=== PATIENT | female | born 1950 | race Caucasian/White ===

== ENCOUNTER 2024-09-18 11:17 | Outpatient (OUT) | payer MEDICARE, SELFPAY ==
--- NOTE | 2024-09-18 | NM_ITS ---
Patient Name: DARRIUS RAMOS MR#: [id number] : 1950 Exam Date: 09/18/2024 Ordering Doctor: Non-Staff Physician RADIOLOGY REPORT PROCEDURE: NM CRIS PERF SPECT REST STR COMPARISON: None. INDICATIONS: CHEST PAIN TECHNIQUE: Exam Description: Stress/Rest one day protocol gated SPECT Rest Imagin.8 mCi Tc-99m Cardiolite IV on 09/18/24 Stress Imaging 29.7 mCi Tc-99m Cardiolite IV on 09/18/24 Exercise Protocol: 0.4 mg Lexiscan given IV Heart Rate (bpm): Rest: 85 Max: 109 PMHR: 73 Blood Pressure: Rest: 112/80 Max: 120/82 Symptoms: Rest and peak stress ECG findings were pending and the exercise portion of the study was pending per attending physician Dr. BYRNE . For more details please see separate cardiac stress test report. FINDINGS: QUALITY OF STUDY: Good. PERFUSION DEFECT: LOCATION: Mid-anterior. Apical anterior. SIZE: Small (1-2 segments). SEVERITY: Mild. TYPE: Reversible. WALL MOTION: Normal. LV SIZE: Normal. 61 mL. TID / TCD: None; 0.6 LVEF: Normal. Calculated EF 72%. SUMMARY: Myocardial perfusion imaging study has ABNORMAL findings. CONCLUSION: 1. Small area of mildly decreased uptake in the anterior wall, LAD distribution with redistribution on rest images. This finding is suspicious for an area of reversible ischemia. Consider further evaluation 2. Pending exercise test result Dictated by: Malik Harrison MD on 09/19/2024 at 13:01 Approved by: Malik Harrison MD on 09/19/2024 at 13:03
--- NOTE | 2024-09-18 | PCN_ITS ---
CARDIAC STRESS TEST Requesting Physician: Dr. Shoemaker Procedure Date: 09/18/2024 LEXISCAN STRESS TEST INDICATION: Chest pressure and pre-surgical clearance. Patient?s resting heart rate 85 beats per minute and resting blood pressure 112/80 mm/Hg. Patient received 0.4 mg IV Lexiscan injection. Patient did not report any symptoms. Patient?s vital signs and EKG were monitored. Peak heart rate 109 beats per minute, representing 73% of age predicted maximum heart rate, and peak blood pressure 120/82 mm/Hg. Baseline EKG showed normal sinus rhythm, heart rate 83 beats per minute, normal EKG. EKG did not show any significant T or ST changes during and post Lexiscan injection. Few isolated PVCs were noted and were asymptomatic. CONCLUSION: 1. Negative Lexiscan EKG stress test for ischemia. 2. The nuclear perfusion images result will be reported separately by Radiology. [facility]OC
[2024-09-18] MEDS: REGADENOSON 0.4 MG/5 ML SYRINGE IV (12:50)
--- NOTE | 2024-09-18 12:51 | PC.NURSE ---
Nursing Note Cardiac Stress Test Reviewed: Medication, allergies and patient history reviewed. Stress Test: [ x] Patient tolerated stress test well. [ ] Patient unable to tolerate walking on treadmill. Switched to Lexiscan stress test. [ x] No chest pain noted per patient [ ] Chest pain that resolved prior to leaving stress lab. [ x] No dyspnea noted. [ ] Dyspnea that resolved prior to leaving stress lab. [x ] Patient left stress lab asymptomatic and hemodynamically stable. [ ] Patient taken to the Emergency Room due to non-resolving symptoms following stress test. [ ] Patient achieved target heart rate. [ ] Patient unable to achieve target heart rate. [ ] Aminophylline administered as reversal agent to Lexiscan (Regadenoson). [ ] Nitro administered. Nursing Comments:
== END 2024-09-18 11:18 | disposition home or self-care (01) ==
LOC: NM 11:17
PROVIDERS: PCP Family Medicine
DX: R07.89 Other chest pain (principal)
CPT/HCPCS: 78452; 93017; A9500; J2785

== ENCOUNTER 2025-01-31 11:59 | Emergency (ER) | payer MEDICARE, SELFPAY ==
--- OUTSIDE RECORDS SUMMARY | 2025-01-31 12:11 | XMS_ITS | CCD ---
Author Organization [facility] Care Team Providers Care Fur Liner Name Role Phone Virgie Mckenzie Unavailable Marina Moon Primary Care Provider [phone] MARINA MOON Primary Care Unavailable DENISSE LAMB Admitting Unavailable DENISSE ALMB Attending Unavailable TAMIR ALI F Mary Referring Unavailable MARINA MOON Primary Care Unavailable MARINA MOON Referring Unavailable MARINA MOON Primary Care Unavailable TAMIR ALI F O Referring Unavailable Unavailable Unavailable RUCKER ., SALENA Consulting Unavailable SARAI, DR GRAY Primary Care Unavailable CAMACHO ., DR VANDA Romero Attending Unavailable CAMACHO ., DR VANDA Romero Admitting Unavailable RUCKER ., SALENA Consulting Unavailable SARAI, DR GRAY Primary Care Unavailable CAMACHO ., DR VANDA Romero Attending Unavailable CAMACHO ., DR VANDA Romero Admitting Unavailable RUCKER ., SALENA Consulting Unavailable SARAI, DR GRAY Primary Care Unavailable CAMACHO ., DR VANDA Romero Attending Unavailable CAMACHO ., DR VANDA Romero Admitting Unavailable LAKSHMIPATHY ., NARJORGE Consulting Eliz vailable SARAI, DR GRAY Primary Care Unavailable LAKSHMIPATHY ., LARRY Attending Eliz vailable LAKSHMIPATHY ., LARRY Admitting Eliz vailable CAMACHO ., DR VANDA Romero Consulting Unavailable SARAI, DR GRAY Primary Care Unavailable CAMACHO ., DR VANDA Romero Attending Unavailable CAMACHO ., DR VANDA Romero Admitting Unavailable CAMACHO ., DR VANDA Romero Consulting Unavailable SARAI, DR GRAY Primary Care Unavailable CAMACHO ., DR VANDA Romero Attending Unavailable CAMACHO ., DR VANDA Romero Admitting Unavailable SARAI, DR GRAY Consulting Unavailable SARAI, DR GRAY Primary Care Unavailable CAMACHO ., DR VANDA Romero Attending Unavailable CAMACHO ., DR VANDA Romero Admitting Unavailable CAMACHO ., DR VANDA Romero Consulting Unavailable RUCKER ., SALENA Consulting Unavailable WEST, DR HIREN Storey Consulting Unavailable SARAI, DR GRAY Primary Care Unavailable RUCKER ., SALENA Attending Unavailable RUCKER ., SALENA Admitting Unavailable RUCKER ., SALENA Consulting Unavailable SARAI, DR GRAY Consulting Unavailable SARAI, DR GRAY Primary Care Unavailable SARAI, DR GRAY Attending Unavailable SARAI, DR GRAY Admitting Unavailable ZIEBER, DR DENISSE Castro Consulting Unavailable AUXIER, CARLA Consulting Unavailable SARAI, DR GRAY Primary Care Unavailable AUXIER, CARLA Attending Unavailable AUXIER, CARLA Admitting Unavailable SARAI, DR GRAY Primary Care Unavailable CAMACHO ., DR VANDA Romero Attending Unavailable CAMACHO ., DR VANDA Romero Admitting Unavailable Dwight , [facility] Unavailab loan Moon MD, Marina Ugalde Consulting Unavailab loan Dsouza MD, Benton Katz Attending Antione Dsouza MD, Benton Katz Attending Antione Moon MD, [facility] Unavailab loan Moon MD, [facility] Unavailab loan Dsouza MD, Benton Katz Attending Antione Moon MD, [facility] Unavailab loan Moon MD, Marina Ugalde Consulting Unavailab [place] MASTER CONTROL SUPERVISOR-COMMUNICATIONS MEDIA PROFESSOR, Carla Upton Attending Ronald Moon MD, Marina [facility] Unav[place] [place] MASTER CONTROL SUPERVISOR-COMMUNICATIONS MEDIA PROFESSOR, Carla Upton Attending Ronald Moon MD, [facility] Unav[facility] [place] MASTER CONTROL SUPERVISOR-COMMUNICATIONS MEDIA PROFESSOR, Carla Upton Attending Ronald Moon MD, [facility] Un[place] MASTER CONTROL SUPERVISOR-COMMUNICATIONS MEDIA PROFESSOR, Carla Upton Attending Ronald Dsouza MD, Benton Katz Attending Antione Moon MD, [facility] Marina Murphy Primary Care Provider SHABANA Fuentes Attending Provider Fabby Pandya Unavailable Marina Moon MD Unavailable Marina Moon MD Primary Care Provider MD Marina Moon Primary Care Provider SHABANA Fuentes Attending Provider MD Manjeet Coombs Attending Provider MD Marina Moon Primary Care Provider MD Marina Moon Primary Care Provider MD Manjeet Coombs Attending Provider [phone] MD Marina Moon Primary Care Provider MD Manjeet Coombs Attending Provider MD Marina Moon Primary Care Provider MD Manjeet Coombs Attending Provider Marina Moon MD Primary Care Provider Marina Moon MD Primary Care Provider [phone] Manjeet Coombs MD Attending Provider [phone] Marina Moon MD Primary Care Provider Manjeet Coombs MD Attending Provider Abi FIGUEROA, Carla Unavailable [phone] MARINA MOON Primary Care Physician Vicky Dye Referring Unavailable Vicky Dye Attending Unavailable Vicky Dye Admitting Unavailable MARINA MOON Attending Unavailable VICKY DYE Attending Unavailable VICKY DYE Referring Unavailable MARINA MOON Attending Unavailable MARINA MOON Attending Unavailable MARIANA PATEL Attending Unavailable VITO LEGER Attending Unavailable VITO LEGER Referring Unavailable LIZ BRYAN Attending Unavailabl e MARINA MOON Attending Unavailable MARINA MOON Attending Unavailable VICKY DYE Attending Unavailable VITO LEGER Referring Unavailable VICKY DYE Referring Unavailable SaraiMarina felix MD Primary Care Provider [phone] Jerman Becerra DO Attending Provider [phone] Malvin, Manjeet S Admitting Unavailable Dwight, Rugen M Primary Care Unavailable Malvin, Manjeet S Attending Unavailable Malvin, Manjeet S Attending Unavailable Malvin, Manjeet S Admitting Unavailable Sarai, Rugen M Primary Care Unavailable Malvin, Manjeet S Admitting Unavailable Dwight, Rugen M Primary Care Unavailable Malvin, Manjeet S Attending Unavailable Dwight, Rugen M Primary Care Unavailable Jerman Becerra Admitting Unavailable Jerman Becerra Attending Unavailable Malvin, Manjeet S Attending Unavailable Sarai, Rugen M Primary Care Unavailable Malvin, Manjeet S Admitting Unavailable Malvin, Manjeet S Attending Unavailable Dwight, Rugen M Primary Care Unavailable Malvin, Manjeet S Admitting Unavailable Hernan, Jerman Tristan Attending Unavailable Dwight, Rugen M Primary Care Unavailable HernanJerman wilde Admitting Unavailable SHOEMAKERLACY GARY Attending Unavailable SARAI, [facility] Primary Care Unavailable SHOEMAKERLACY Attending Unavailable SARAI, RUGEN [facility] Primary Care Unavailable Dye, Vicky T Referring Unavailable Dye, Vicky T Admitting Unavailable Dye, Vicky T Attending Unavailable Dye, Vicky T Attending Unavailable Dye, Vicky T Referring Unavailable Dye, Vicky T Admitting Unavailable Dye, Vicky T Admitting Unavailable Dye, Vicky T Attending Unavailable Dye, Vicky T Referring Unavailable Allergies Allergy Classification Reported Allergen(s) Allergy Type Date of Onset Reaction(s) Facility (3 sources) Morphine Drug Allergy 7 Anaphylaxis [facility] Work Phone: (1 source) No Known Medication Allergies; Translations: [No Known Medication Allergies] Propensity to adverse reactions to drug (disorder) [facility] Repository (20 sources) Lisinopril Allergy to substance 3 Unknown [facility] [employer] Work Phone: Medications Current Medications Medication Drug Class(es) Dates Sig (Normalized) Sig (Original) acetaminophen 325 mg / HYDROcodone bitartrate 5 mg oral tablet (20 sources) Opioid Agonist Start: 01-20-2025 End: 01-25-2025 take 1 tablet by mouth every six hours for pain HYDROcodone-acetamin ophen (Gilliam) 5-325 MG tablet Indications: Osteoarthritis of spine with radiculopathy, lumbosacral region Take 1 tablet by mouth every 6 (six) hours if needed for severe pain for up to 5 days 20 tablet 01/20/2025 01/25/2025 Active Start: 12-16-2024 End: 01-11-2025 take 1 tablet by mouth every six hours for pain HYDROcodone-acetaminophen (Gilliam) 5-325 MG tablet Indications: Osteoarthritis of spine with radiculopathy, lumbosacral region Take 1 tablet by mouth every 6 (six) hours if needed for severe pain for up to 5 days 20 tablet 01/06/2025 01/11/2025 Active Start: 10-30-2024 take 1 tablet by michael th once daily Hydrocodone-Acetaminophen 5-325 mg table t Active 1 TAB PO Daily October 30, 2024 12:00am Start: 10-21-2024 End: 10-31-2024 take 1 tablet by mouth every six hours for pain HYDROcodone-acetaminophen (Gilliam) 5-325 MG tablet Indications: Narrowing of intervertebral disc space Take 1 tablet by mouth every 6 (six) hours if needed for severe pain for up to 10 days 40 tablet 10/21/2024 10/31/2024 Active Start: 08-26-2024 End: 09-02-2024 take 1 tablet by mouth every six hours for pain HYDROcodone-acetaminophen (Gilliam) 5-325 MG tablet Indications: Neck pain , Sciatica of right side Take 1 tablet by mouth every 6 (six) hours if needed for severe pain for up to 7 days 28 tablet 08/26/2024 09/02/2024 Active Start: 12-28-2023 End: 01-07-2024 take 1 tablet by mouth every six hours for pain HYDROcodone-acetaminophen (Gilliam) 5-325 MG tablet Indications: Fibromyalgia Take 1 tablet by mouth every 6 (six) hours if needed for moderate pain for up to 10 days 40 tablet 0 12/28/2023 01/07/2024 Active Start: 02-15-2021 HYDROcodone-ac etaminophen (NORCO) 5-325 MG per tablet End: 10-21-2024 HYDROcodone-acetaminophen (N orco) 5-325 MG tablet 10/21/2024 Discontinued (Reorder) 200 actuat albuterol 0.09 mg/actuat metered dose inhaler (3 sources) beta2-Adrenergic Agonist Start: 02-26-2016 take 2 puff(s) by inhalation every four hours as needed for wheezing albuterol sulfate HFA (PROVENTIL HFA) 108 (90 BASE) MCG/ACT inhaler Inhale 2 puffs into the lungs every 4 hours as needed for Wheezing or Shortness of Breath 1 Inhaler 11 02/26/2016 Active amoxicillin 500 mg oral capsule (1 source) Penicillin-class Antibacterial Start: 08-05-2024 End: 08-15-2024 take 2 capsules by mouth in the morning amoxicillin (Amoxil) 500 MG capsule Indications: Chronic obstructive pulmonary disease, unspecified COPD type (CMS/HCC) Take 2 capsules (1,000 mg) by mouth in the morning and 2 capsules (1,000 mg) before bedtime. Do all this for 10 days. 40 capsule 08/05/2024 08/15/2024 Active aspirin 81 mg delayed release oral tablet (3 sources) Platelet Aggregation Inhibitor, Nonsteroidal Anti-inflammatory Drug Start: 02-24-2021 take 1 tablet by mouth once daily aspirin EC 81 MG EC tablet Indications: Ischemic chest pain (HCC) , Shortness of breath , Lightheaded , Dizziness , Mixed hyperlipidemia , Tobacco abuse , Family history of early CAD , Over weight , MARIBELL (obstructive sleep apnea) , Atrial fibrillation, unspecified type (HCC) , Chronic low back pain, unspecified back pain laterality, unspecified whether sciatica present , Essential hypertension , Abnormal EKG Take 1 tablet by mouth daily 90 tablet 1 02/24/2021 Active atorvastatin 80 mg oral tablet (20 sources) HMG-CoA Reductase Inhibitor Start: 09-04-2023 take 1 tablet by mouth once daily atorvastatin 80 mg Tab 80 mg = 1 tab(s), Oral, Daily, Refills(s) 0, High cholesterol Start Date: 01/01/25 Status: Ordered Start: 02-24-2021 atorvastatin ( LIPITOR) 20 MG tablet Indications: Ischemic chest pain (HCC) , Shortness of breath , Lightheaded , Dizziness , Mixed hyperlipidemia , Tobacco abuse , Family history of early CAD , Over weight , MARIBELL (obstructive sleep apnea) , Atrial fibrillation, unspecified type (HCC) , Chronic low back pain, unspecified back pain laterality, unspecified whether sciatica present , Essential hypertension , Abnormal EKG atorvastatin Atorvastatin Active 20 MG Oral Daily May 15, 2020 3:53pm 05-15-2020 [facility] ([id number]) 90 tablet 3 02/24/2021 Active Start: 05-15-2020 End: 01-16-2024 take 1 tablet by mouth once daily Atorvastatin 20 mg Tablet Discontinued 20 MG PO Daily May 14, 2020 11:00pm January 16, 2024 10:38am benazepril hydrochloride 20 mg oral tablet (3 sources) Angiotensin Converting Enzyme Inhibitor Start: 03-22-2017 take 1 tablet by mouth once daily benazepril (LOTENSIN) 20 MG tablet Indications: Essential hypertension TAKE ONE TABLET BY MOUTH ONCE DAILY 90 tablet 1 03/22/2017 Active benzonatate 200 mg oral capsule (20 sources) Non-narcotic Antitussive Start: 08-14-2024 take 1 capsule by mouth once daily at bedtime as needed for cough Benzonatate 200 mg capsule Active 200 MG PO Daily at bedtime as needed for cough January 08, 2025 12:00am Start: 06-06-2024 take 1 capsule by mo uth three times daily as needed for cough benzonatate (Tessalon) 100 MG capsule Indications: Cough, unspecified type TAKE 1 CAPSULE BY MOUTH 3 TIMES DAILY NEEDED FOR COUGH FOR UP TO 21 DAYS. DO NOT CRUSH OR CHEW 62 capsule 1 06/06/2024 Active Start: 03-18-2024 benzonatate (T essalon) 200 MG capsule Indications: Chronic obstructive pulmonary disease, unspecified COPD type (CMS/HCC) Take one capsule nightly. Do not crush or chew. 90 capsule 3 03/18/2024 Active celecoxib 200 mg oral capsule (20 sources) Nonsteroidal Anti-inflammatory Drug Start: 01-16-2024 End: 05-09-2025 take 1 capsule by mouth once daily celecoxib 200 mg Cap 200 mg = 1 cap(s), Oral, Daily, Refills(s) 0, Pain Start Date: 01/01/25 Status: Ordered Start: 12-01-2023 take 1 capsule by mo uth once daily at mealtime celecoxib (CeleBREX) 200 MG capsule Indications: Primary osteoarthritis, unspecified site TAKE 1 CAPSULE BY MOUTH ONCE DAILY WITH FOOD FOR 90 DAYS 90 capsule 0 12/01/2023 Active Start: 12-21-2017 End: 05-18-2021 take 1 capsule by mouth once daily Celecoxib (Celebrex) 200 mg Capsule Discontinued 200 MG PO Daily May 14, 2020 11:00pm May 18, 2021 12:46pm cloNIDine hydrochloride 0.2 mg oral tablet (20 sources) Central alpha-2 Adrenergic Agonist Start: 01-13-2025 take 1 tablet by mouth once daily in the morning cloNIDine (Catapres) 0.2 MG tablet Indications: Primary insomnia TAKE 1 TABLET BY MOUTH DAILY IN THE MORNING 100 tablet 3 01/13/2025 Active Start: 12-28-2023 take 1 tablet by michael twice daily cloNIDine 0.2 mg Tab 0.2 mg = 1 tab(s), Oral, BID, Refills(s) 0, High blood pressure Start Date: 01/01/25 Status: Ordered Start: 12-11-2020 End: 12-28-2023 take 1 tablet by mouth once daily in the morning Clonidine Hcl 0.2 mg Tablet Active 0.2 MG PO Every morning May 17, 2021 11:00pm docusate sodium 100 mg oral capsule (1 source) Start: 01-22-2025 take 1 capsule by mouth twice daily Colace 100 mg Cap 100 mg = 1 cap(s), Oral, BID, # 20 cap(s), Refills(s) 0, Pharmacy: [facility] [id number], 167, cm, 01/03/25 8:54:00 EST, Height/Length Dosing, 107, kg, 01/03/25 8:54:00 EST, Weight Dosing Start Date: 01/22/25 Status: Ordered doxepin hydrochloride 10 mg oral capsule (20 sources) Tricyclic Antidepressant Start: 06-20-2022 take 1 capsule by mouth at bedtime doxepin (SINEquan) 10 MG capsule Take 10 mg by mouth at bedtime. 06/20/2022 Active Start: 02-09-2021 doxepin (SINEQ UAN) 10 MG capsule esomeprazole 40 mg delayed release oral capsule (20 sources) Proton Pump Inhibitor Start: 01-01-2025 take 1 capsule by mouth once daily esomeprazole 40 mg Cap-EC 40 mg = 1 cap(s), Oral, Daily, Refills(s) 0, Control of stomach acid Start Date: 01/01/25 Status: Ordered Start: 01-16-2024 take 1 capsule by mo [facility] once daily as needed for gastroesophageal reflux disease Esomeprazole Magnesium 20 mg capsule,delayed release(DR/EC) Active 20 MG PO Daily as needed for gerd January 16, 2024 12:00am Start: 01-16-2024 take [address] [facility] every other day Esomeprazole Magnesium 20 mg capsule,delayed release(DR/EC) Active 20 MG PO every other day January 16, 2024 12:00am Start: 08-16-2023 End: 12-28-2023 take 1 capsule by mouth once daily esomeprazole (NexIU M) [address] capsule Indications: Gastroesophageal reflux disease without esophagitis TAKE 1 CAPSULE BY MOUTH ONCE DAILY 100 capsule 3 12/28/2023 Active take [address] [facility] every twenty-four hours Esomeprazole Magnesium 20 MG 1 capsule Orally Once a day Active fluconazole 200 mg oral tablet (20 sources) Azole Antifungal Start: 07-01-2024 End: 03-10-2025 take 1 tablet by mouth every week fluconazole (Diflucan) 200 MG tablet Indications: Onychomycosis Take 1 tablet (200 mg) by mouth 1 (one) time per week 4 tablet 8 07/01/2024 03/10/2025 Active furosemide 20 mg oral tablet (20 sources) Loop Diuretic Start: 01-01-2025 take 1 tablet by mouth once daily furosemide 20 mg Tab 20 mg = 1 tab(s), Oral, Daily, Refills(s) 0, High blood pressure Start Date: 01/01/25 Status: Ordered Start: 12-28-2023 take 1 tablet by [facility] twice daily Furosemide (Lasix) 20 mg tablet Active 20 MG PO Twice daily January 13, 2025 12:00am Start: 05-15-2020 End: 01-16-2024 take 1 tablet by mouth once daily Furosemide 20 mg Tablet Discontinued 20 MG PO Daily May 14, 2020 11:00pm January 16, 2024 10:39am hydroCHLOROthiazide 25 mg / losartan potassium 100 mg oral tablet (20 sources) Thiazide Diuretic, Angiotensin 2 Receptor Manfred Start: 05-18-2021 End: 01-13-2025 take 1 tablet by mouth once daily hydrochlorothiazide-losartan 25 mg-100 mg Tab 1 tab(s), Oral, Daily, Refill(s) 0, High blood pressure Start Date: 01/01/25 Status: Ordered Start: 02-22-2021 losartan-hydro CHLOROthiazide (HYZAAR) 100-25 MG per tablet levoFLOXacin 750 mg oral tablet (3 sources) Quinolone Antimicrobial Start: 12-11-2020 levoFLOXacin (LEVAQUIN) 750 MG tablet lidocaine 0.05 mg/mg topical ointment (3 sources) Antiarrhythmic, Amide Local Anesthetic Start: 11-23-2016 lidocaine (XYLOCAINE) 5 % ointment linaclotide 0.145 mg oral capsule (20 sources) Guanylate Cyclase-C Agonist Start: 03-13-2023 Linzess 145 MCG capsule 03/13/2023 Active losartan potassium 50 mg oral tablet (20 sources) Angiotensin 2 Receptor Manfred Start: 01-06-2025 End: 07-05-2025 take 1 tablet by mouth once daily Losartan 50 mg tablet Active 50 MG PO Daily January 13, 2025 12:00am Start: 01-16-2024 End: 01-08-2025 take 1 tablet by mouth once daily Losartan 25 mg tablet Discontinued 25 MG PO Daily January 16, 2024 12:00am January 08, 2025 1:57pm metFORMIN hydrochloride 500 mg oral tablet (3 sources) Biguanide Start: 02-26-2016 take 1 tablet by mouth twice daily at mealtime metFORMIN (GLUCOPHAGE) 500 MG tablet Indications: Metabolic syndrome Take 1 tablet by mouth 2 times daily (with meals) 60 tablet 11 02/26/2016 Active 24 hr metoprolol succinate 25 mg extended release oral tablet (20 sources) beta-Adrenergic Manfred Start: 01-06-2025 End: 01-06-2026 take 1 tablet by mouth once daily Metoprolol Succinate 25 mg tablet extended release 24 hr Active 25 MG PO Daily January 13, 2025 12:00am Start: 05-15-2020 End: 05-18-2021 take 1 tablet by mouth twice daily Metoprolol Tartrate 50 mg Tablet Discontinued 50 MG PO Twice daily May 14, 2020 11:00pm May 18, 2021 12:46pm mometasone furoate 0.05 mg/actuat metered dose nasal spray (3 sources) Corticosteroid Start: 10-17-2016 take 2 spray(s) by inhalation once daily mometasone (NASONEX) 50 MCG/ACT nasal spray Indications: Seasonal allergic rhinitis, unspecified allergic rhinitis trigger 2 sprays by Nasal route daily 1 Inhaler 3 10/17/2016 Active montelukast 10 mg oral tablet (20 sources) Leukotriene Receptor Antagonist Start: 02-12-2025 take 1 tablet by mouth once daily montelukast 10 mg Tab 10 mg = 1 tab(s), Oral, Daily, Refills(s) 0, Allergy symptoms Start Date: 01/01/25 Status: Ordered Start: 04-26-2023 End: 04-25-2024 take 1 tablet by mouth once daily montelukast (Singulair) 10 MG tablet Indications: Seasonal allergic rhinitis due to other allergic trigger Take 1 tablet (10 mg) by mouth Daily 100 tablet 3 01/29/2024 Active omeprazole 40 mg delayed release oral capsule (20 sources) Proton Pump Inhibitor Start: 01-13-2025 take 1 capsule by mouth twice daily Omeprazole 40 mg capsule,delayed release(DR/EC) Active 40 MG PO Twice daily January 13, 2025 12:00am Start: 02-28-2017 End: 01-16-2024 take 1 capsule by mouth once daily Omeprazole 40 mg Capsule,Delayed Release(Dr/Ec) Discontinued 40 MG PO Daily May 14, 2020 11:00pm January 16, 2024 10:39am tiotropium 0.018 mg inhalant powder (3 sources) Anticholinergic Start: 10-29-2015 take 1 capsule by inhalation once daily tiotropium (SPIRIVA HANDIHALER) 18 MCG inhalation capsule Indications: Chronic obstructive pulmonary disease, unspecified COPD type (HCC) Inhale 1 capsule into the lungs daily 30 capsule 3 10/29/2015 Active tiZANidine 4 mg oral tablet (20 sources) Central alpha-2 Adrenergic Agonist Start: 01-01-2025 End: 01-06-2026 take 1 tablet by mouth at bedtime tiZANidine (Zanaflex) 4 MG tablet Indications: Fibromyalgia Take 1 tablet (4 mg) by mouth at bedtime 100 tablet 3 01/06/2025 01/06/2026 Active Start: 01-01-2025 take 2 tablets by mo [facility] every eight hours as needed for pain tiZANidine 4 mg Tab 8 mg = 2 tab(s), Oral, q8hr, PRN Pain, Refills(s) 0 Start Date: 01/01/25 Status: Ordered Start: 01-16-2024 take 1 tablet by michael once daily at bedtime Tizanidine 4 mg tablet Active 4 MG PO Daily at bedtime January 16, 2024 12:00am Start: 09-11-2023 End: 01-06-2026 take 1 tablet by mouth at bedtime tiZANidine (Zanaflex) 4 MG tablet Indications: Fibromyalgia Take 1 tablet (4 mg) by mouth at bedtime 100 tablet 3 01/06/2025 01/06/2026 Active triamcinolone acetonide 1 mg/ml topical cream (20 sources) Corticosteroid Start: 07-01-2024 triamcinolone (Kenalog) 0.1 % cream Indications: Yeast infection Apply topically 2 (two) times a day as needed (pain and swelling) 30 g 11 07/01/2024 Active zolpidem tartrate 12.5 mg extended release oral tablet (20 sources) gamma-Aminobutyric Acid-ergic Agonist Start: 01-16-2024 End: 02-05-2025 take 1 tablet by mouth once daily at bedtime zolpidem 12.5 mg oral ER Tab 12.5 mg = 1 tab(s), Oral, Once a day (at bedtime), Refills(s) 0, Sleep Start Date: 01/01/25 Status: Ordered Start: 11-29-2023 End: 12-28-2023 take 1 tablet by mouth at bedtime zolpidem CR (Ambien CR) 12.5 MG ER tablet Indications: Primary insomnia , Chronic fatigue Take 1 tablet (12.5 mg) by mouth at bedtime 30 tablet 0 12/28/2023 Active Completed/Discontinued Medications Medication Drug Class(es) Dates Sig (Normalized) Sig (Original) acetaminophen 325 mg / oxyCODONE hydrochloride 5 mg oral tablet (1 source) Opioid Agonist Start: 01-22-2025 Percocet 5 mg-325 mg oral tablet See Instructions, 50 tab(s), Refill(s) 0, Take one to two oral every 4 hours as needed for surgical pain., [facility] 0298, 167, cm, 01/03/25 8:54:00 EST, Height/Length Dosing, 107, kg, 01/03/25 8:54:00 EST, Weight Dosing Start Date: 01/22/25 Status: Ordered amLODIPine 10 mg oral tablet (20 sources) Dihydropyridine Calcium Channel Manferd Start: 03-14-2017 End: 05-18-2021 take 1 tablet by mouth once daily Amlodipine 10 mg Tablet Discontinued 10 MG PO Daily May 14, 2020 11:00pm May 18, 2021 12:45pm rivaroxaban 20 mg oral tablet (20 sources) Factor Xa Inhibitor Start: 05-15-2020 End: 01-16-2024 take 1 tablet by mouth once daily Rivaroxaban (Xarelto) 20 mg Tablet Discontinued 20 MG PO Daily May 14, 2020 11:00pm January 16, 2024 10:39am traZODone hydrochloride 50 mg oral tablet (20 sources) Serotonin Reuptake Inhibitor Start: 05-15-2020 End: 05-18-2021 take 2 tablets by mouth once daily at bedtime Trazodone 50 mg Tablet Discontinued 100 MG PO Daily at bedtime May 14, 2020 11:00pm May 18, 2021 12:46pm Start: 05-15-2020 End: 05-18-2021 take 100 mg by mouth once daily at bedtime Trazodone Discontinued 100 MG PO Daily at bedtime May 14, 2020 11:00pm May 18, 2021 12:46pm Problems Active Problems Problem Classification Problem Date Documented Date Episodic/Chronic Aortic; peripheral; and visceral artery aneurysms (20 sources) Aortic root dilatation; Translations: [Thoracic aortic ectasia] Onset: 4 08-26-2024 Chronic Cardiac dysrhythmias (20 sources) Atrial fibrillation; Translations: [Persistent atrial fibrillation] Onset: 3 12-28-2023 Chronic Chronic kidney disease (20 sources) Chronic kidney disease stage 3A ; Translations: [Stage 3a chronic kidney disease (HCC)] Onset: 3 04-25-2023 Chronic Chronic kidney disease (2 sources) Chronic kidney disease; Translations: [Chronic kidney disease, stage 3a (Multi)] Onset: 4 Chronic obstructive pulmonary disease and bronchiectasis (20 sources) Chronic obstructive lung disease; Translations: [Chronic obstructive pulmonary disease, unspecified] Onset: 2 10-10-2012 Chronic Conditions associated with dizziness or vertigo (4 sources) Dizziness; Translations: [Lightheadedness] Episodic Congestive heart failure; nonhypertensive (20 sources) Acute congestive heart failure; Translations: [Heart failure, unspecified] Onset: 3 04-25-2023 Chronic Coronary atherosclerosis and other heart disease (2 sources) Ischemic chest pain; Translations: [Ischemic chest pain (HCC)] Episodic Disorders of lipid metabolism (20 sources) Mixed hyperlipidemia; Translations: [Dyslipidemia] Onset: 2 06-07-2012 Chronic Esophageal disorders (20 sources) Gastroesophageal reflux disease without esophagitis; Translations: [Gastro-esophageal reflux disease without esophagitis] Onset: 3 12-28-2023 Chronic Essential hypertension (20 sources) Essential hypertension; Translations: [Hypertensive disorder] Onset: 2 06-07-2012 Chronic Heart valve disorders (7 sources) Mitral valve regurgitation; Translations: [Nonrheumatic mitral (valve) insufficiency] Onset: 5 01-06-2025 Chronic Immunizations and screening for infectious disease (3 sources) Encounter for immunization; Translations: [Encounter For Immunization] Onset: 1 Episodic Malaise and fatigue (20 sources) Fatigue; Translations: [Chronic fatigue, unspecified] Onset: 3 12-28-2023 Chronic Menopausal disorders (20 sources) Decreased estrogen level; Translations: [Other primary ovarian failure] Onset: 3 04-25-2023 Chronic Miscellaneous mental health disorders (20 sources) Primary insomnia; Translations: [Primary insomnia] Onset: 3 12-28-2023 Chronic Osteoarthritis (20 sources) Osteoarthritis; Translations: [Degenerative joint disease involving multiple joints] Onset: 8 Resolved: 5 08-19-2015 Chronic Other and ill-defined heart disease (2 sources) Diastolic dysfunction; Translations: [Other ill-defined heart diseases] Onset: 5 01-06-2025 Chronic Other and ill-defined heart disease (2 sources) Other ill-defined heart diseases; Translations: [Other ill-defined heart diseases] Onset: 5 Chronic Other connective tissue disease (1 source) Other muscle spasm; Translations: [OTHER MUSCLE SPASM] Onset: 3 Episodic Other liver diseases (20 sources) Steatosis of liver; Translations: [Fatty (change of) liver, not elsewhere classified] Onset: 3 04-25-2023 Chronic Other lower respiratory disease (5 sources) Dyspnea; Translations: [Shortness of breath] Onset: 5 01-06-2025 Episodic Other lower respiratory disease (2 sources) History of chronic obstructive airway disease 01-02-2025 Episodic Other lower respiratory disease (2 sources) Shortness of breath; Translations: [Shortness of breath] Onset: 5 Episodic Other nervous system disorders (3 sources) Chronic pain due to injury; Translations: [Chronic pain due to trauma] Onset: 7 03-23-2017 Chronic Other nervous system disorders (20 sources) Other chronic pain; Translations: [Other chronic pain] Onset: 2 01-16-2024 Chronic Other nervous system disorders (20 sources) Chronic pain; Translations: [Other chronic pain] 01-16-2024 Chronic Other nutritional; endocrine; and metabolic disorders (2 sources) Overweight; Translations: [Over weight] Chronic Other nutritional; endocrine; and metabolic disorders (3 sources) Metabolic syndrome X; Translations: [Metabolic syndrome] Onset: 6 06-21-2016 Chronic Other nutritional; endocrine; and metabolic disorders (2 sources) Severe obesity; Translations: [Morbid (severe) obesity due to excess calories] Chronic Other nutritional; endocrine; and metabolic disorders (20 sources) Obesity; Translations: [Obesity, unspecified] Onset: 4 01-16-2024 Chronic Other nutritional; endocrine; and metabolic disorders (12 sources) Obesity caused by energy imbalance; Translations: [Morbid (severe) obesity due to excess calories] Onset: 4 12-16-2024 Chronic Other nutritional; endocrine; and metabolic disorders (13 sources) Body mass index 30+ - obesity; Translations: [Body mass index (BMI) 36.0-36.9, adult] Onset: 5 12-16-2024 Chronic Other nutritional; endocrine; and metabolic disorders (2 sources) Body mass index (BMI) 38.0-38.9, adult; Translations: [Body mass index (BMI) 38.0-38.9, adult] Onset: 5 Chronic Other screening for suspected conditions (not mental disorders or infectious disease) (20 sources) Standard chest X-ray abnormal; Translations: [Abnormal findings on diagnostic imaging of other specified body structures] Onset: 3 04-25-2023 Chronic Other screening for suspected conditions (not mental disorders or infectious disease) (6 sources) Electrocardiogram abnormal; Translations: [Myocardial perfusion - finding] Onset: 5 01-06-2025 Episodic Other upper respiratory disease (20 sources) Seasonal allergic rhinitis; Translations: [Other seasonal allergic rhinitis] Onset: 6 10-17-2016 Chronic Pulmonary heart disease (12 sources) Secondary pulmonary hypertension; Translations: [Other secondary pulmonary hypertension] Onset: 5 12-16-2024 Chronic Residual codes; unclassified (5 sources) Tobacco user; Translations: [Tobacco abuse] Onset: 2 06-07-2012 Chronic Residual codes; unclassified (2 sources) Obstructive sleep apnea syndrome; Translations: [MARIBELL (obstructive sleep apnea)] Chronic Residual codes; unclassified (2 sources) FH: premature coronary heart disease; Translations: [Family history of early CAD] Episodic Residual codes; unclassified (2 sources) Chronic back pain 01-02-2025 Episodic Residual codes; unclassified (2 sources) Tobacco user 01-02-2025 Episodic Residual codes; unclassified (1 source) Preoperative state 01-06-2025 Episodic Spondylosis; intervertebral disc disorders; other back problems (20 sources) Spondylosis without myelopathy or radiculopathy, lumbosacral region; Translations: [Other spondylosis with radiculopathy, lumbar region] Onset: 2 Chronic Substance-related disorders (20 sources) Smoker; Translations: [Nicotine dependence, unspecified, uncomplicated] Onset: 3 04-25-2023 Chronic Comment on above: Added secondary to d ocumentation in Social History. Unclassified (3 sources) Cyst ; Translations: [Cyst] Onset: 2 10-23-2012 Unclassified (3 sources) Ear sensations - finding; Translations: [Sensation of fullness in left ear] Onset: 2 08-20-2012 Unclassified (4 sources) LOW BACK PAIN, UNSPECIFIED; Translations: [LOW BACK PAIN, UNSPECIFIED] Onset: 2 Past or Other Problems Problem Classification Problem Date Documented Da te Episodic/Chronic Abdominal pain (5 sources) Left lower quadrant pain; Translations: [Unspecified abdominal pain] Onset: 04-07-2022 Episodic Biliary tract disease (20 sources) Gallstone; Translations: [Calculus of gallbladder without cholecystitis without obstruction] Onset: 06-09-2008 04-25-2023 Episodic Mood disorders (20 sources) Mood disorders Onset: 08-01-2023 08-01-2023 Nonspecific chest pain (6 sources) Chest discomfort; Translations: [Other chest pain] Onset: 07-11-2024 07-11-2024 Episodic Other connective tissue disease (20 sources) Fibromyalgia; Translations: [Fibromyalgia] Onset: 04-25-2023 12-28-2023 Episodic Other connective tissue disease (20 sources) Swelling of lower limb; Translations: [Other specified soft tissue disorders] Onset: 04-25-2023 04-25-2023 Episodic Other gastrointestinal disorders (1 source) Constipation, unspecified; Translations: [CONSTIPATION UNSPECIFIED] Onset: 04-13-2022 Episodic Other gastrointestinal disorders (1 source) Other fecal abnormalities; Translations: [OTHER FECAL ABNORMALITIES] Onset: 04-13-2022 Episodic Other gastrointestinal disorders (20 sources) Constipation; Translations: [Constipation, unspecified] Onset: 04-25-2023 04-25-2023 Episodic Other gastrointestinal disorders (20 sources) Stool DNA-based colorectal cancer screening positive; Translations: [Other fecal abnormalities] Onset: 04-25-2023 04-25-2023 Episodic Other liver diseases (20 sources) Liver enzymes abnormal; Translations: [Abnormal levels of other serum enzymes] Onset: 04-25-2023 04-25-2023 Episodic Other liver diseases (20 sources) Large liver; Translations: [Hepatomegaly, not elsewhere classified] Onset: 04-25-2023 04-25-2023 Episodic Other non-traumatic joint disorders (1 source) Pain in right knee; Translations: [PAIN IN RIGHT KNEE] Onset: 06-21-2022 Episodic Other non-traumatic joint disorders (4 sources) Pain in right hip; Translations: [PAIN IN RIGHT HIP] Onset: 04-27-2022 Episodic Other non-traumatic joint disorders (20 sources) Pain in right shoulder; Translations: [Right shoulder pain] Onset: 02-12-2024 02-12-2024 Episodic Residual codes; unclassified (3 sources) Noncompliance with treatment; Translations: [Noncompliance] Onset: 08-20-2012 08-20-2012 Episodic Residual codes; unclassified (20 sources) Electronic cigarette user; Translations: [Other specified health status] Onset: 06-09-2008 06-08-2023 Episodic Spondylosis; intervertebral disc disorders; other back problems (20 sources) Chronic low back pain; Translations: [Intervertebral disc disorders with radiculopathy, lumbar region] Onset: 06-09-2008 Episodic Unclassified (1 source) LOW BACK PAIN, UNSPECIFIED; Translations: [LOW BACK PAIN, UNSPECIFIED] Onset: 03-28-2022 Unclassified (2 sources) Onset: 07-11-2024 07-11-2024 Results Test Name Value Interpretation Reference Range Facility Main OR Intraoperative Recor don 01-29-2025 Main OR Intraoperative Record Main OR Intraoperative Record IntraOp Document Type FT Summary Primary Physician: Vicky Dye DO Finalized Date/Time: 01/29/25 10:30:03 Pt. Name: DARRIUS LAMA/Sex: 1950 Female Med Rec #: [id number] Physician: Vicky Dye DO Financial #: [id number] Pt. Type: A Room/Bed: [place] [address] Admit/Disch: 01/27/25 06:57:51 - 01/27/25 16:40:00 Institution: Case Times FT Entry 1 Patient Times In Room 01/27/25 11:05:00 Out Room 01/27/25 13:10:00 Procedure Times Start 01/27/25 11:37:00 Stop 01/27/25 12:42:00 Anesthesia Times Start 01/27/25 11:05:00 Stop 01/27/25 13:10:00 Block Timeout w01/27/25 08:44:00 Anesthesia Last Modified By: Roddy Edwards 01/27/25 13:17:34 General Comments: 0844 PREOP BLOCK BY Page WILLIS CRNA WITH Nida GONCALVES ASSISTING. PATIENT TOLERATED WELL. HEART RATE 69, SPO2 90% ON ROOM AIR. O2 2 2L/NC APPLIED. O2 SAT INCREASED TO 97%. Yaron EDWARDS RN. 01/29/25 Chart opened to review and send charges [facility] Case Attendance FT Entry 1 Entry 2 Entry 3 Case Attendee [facility], CHEMICAL PLANT OPERATOR SUPERVISOR, Roddy Castillo Role Performed Surgeon - Primary CHEMICAL PLANT OPERATOR SUPERVISOR Sole Splitter - Primary Time In 01/27/25 11:33:00 01/27/25 11:05:00 01/27/25 11:05:00 Time Out 01/27/25 12:27:00 01/27/25 13:10:00 01/27/25 13:10:00 Procedure SHOULDER TOTAL SHOULDER TOTAL SHOULDER TOTAL ARTHROPLASTY(Right) ARTHROPLASTY(Right) ARTHROPLASTY(Right) Comments DR DARDEN SUPERVISING lunch [phone] Last Modified By: Roddy Edwards Terry T Sweene, Terry T 01/27/25 13:18:43 01/27/25 15:36:09 01/27/25 13:18:43 Entry 4 Entry 5 Entry 6 Case Attendee Rigo MITCHELL, Vito Anglin, Gabby Izquierdo Role Performed [employer] Scrub - Primary Staff - Other Time In 01/27/25 11:05:00 01/27/25 11:05:00 01/27/25 11:05:00 Time Out 01/27/25 12:30:00 01/27/25 12:30:00 01/27/25 12:30:00 Procedure SHOULDER TOTAL SHOULDER TOTAL SHOULDER TOTAL ARTHROPLASTY(Right) ARTHROPLASTY(Right) ARTHROPLASTY(Right) Comments 2ND SCRUB Last Modified By: Roddy Edwards Terry T Sweene, Terry T 01/27/25 13:18:43 01/27/25 13:18:43 01/27/25 13:18:43 Entry 7 Entry 8 Entry 9 Case Attendee Merissa RN, Christie Hutchins RN, Patricia Goncalves [employer], Landon Galindo Role Performed Staff - Other Sole Splitter - Relief [employer] Time In 01/27/25 11:05:00 01/27/25 12:25:00 01/27/25 12:25:00 Time Out 01/27/25 12:20:00 01/27/25 13:10:00 01/27/25 13:10:00 Procedure SHOULDER TOTAL SHOULDER TOTAL SHOULDER TOTAL ARTHROPLASTY(Right) ARTHROPLASTY(Right) ARTHROPLASTY(Right) Comments 3RD SCRUB Last Modified By: Roddy Edwards Terry T Sweene, Terry T 01/27/25 13:18:43 01/27/25 13:18:43 01/27/25 13:18:43 Entry 10 Case Attendee Tigist Bacon Role Performed Sole Splitter - Relief Time In 01/27/25 12:25:00 Time Out 01/27/25 13:10:00 Procedure SHOULDER TOTAL ARTHROPLASTY(Right) Comments Last Modified By: Roddy Edwards 01/27/25 13:18:43 General Comments: SHILA HOWE PRESENT FOR THIS CASEAngel IQBAL,ladle cleaner Protocols FT Pre-Care Text: Implements protective measures prior to operative or invasive procedure, confirms identity before the operative or invasive procedure, verifies operative procedure, surgical site, and laterality Entry 1 Procedure(s) SHOULDER TOTAL Patient Identity Birthday, ID Band ARTHROPLASTY(Right) Verified (select at Check, Patient least 2): Participation Consents / H and P Anesthesia Consent, Operative Site Present Verified H&P, Surgery/Procedure Marking Verified Consent Surgical Site Yes Laterality Verified Yes Verified Procedure Verified Yes Correct Patient Yes Position Verified Availability Equipment, Implant, Prep Dry n/a Verified (If Medication Applicable) PreOp Antibiotic Yes Time Out Vicky Dye DO, Given Participants Gail DNP, CHEMICAL PLANT OPERATOR SUPERVISOR, Blandon NAngel, Roddy Edwards, Rigo MITCHELL, Derrek Lobato Sydney A, Gabby Mendes, Merissa FIGUEROA, Christie Galindo Time Out Complete 01/27/25 11:33:00 Outcomes Met? Yes Last Modified By: Roddy Edwards 01/27/25 11:51:20 Post-Care Text: The patient is free from signs and symptoms of injury caused by extraneous objects Allergy Information FT Pre-Care Text: Verifies allergies Entry 1 Allergies Reviewed? Yes Allergies Reviewed Self/Patient With Outcomes Met? Yes Last Modified By: Roddy Edwards 01/27/25 11:51:27 Post-Care Text: The patient received appropriate medication(s) safely administered during the perioperative period Surgical Procedures FT Entry 1 Procedure Description Procedure SHOULDER TOTAL Modifiers Right ARTHROPLASTY Surgeon Description RIGHT REVERSE TOTAL SHOULDER ARTHROPLASTY Primary Procedure Yes Primary Surgeon Vicky Dye DO Start 01/27/25 11:37:00 Stop 01/27/25 12:42:00 Anesthesia Type General Surgical Service Orthopedics Wound Class 1 - Clean Last Modified By: Roddy Edwards 01/27/25 13:18: (more content not included)... Normal [facility] Operative Reporton Operative Report Operative Report SURGERY DATE: 01/27/2025 PREOPERATIVE DIAGNOSES: 1. Right shoulder endstage osteoarthritis 2. Chronic cuff arthropathy 3. Failure of conservative injection management POSTOPERATIVE DIAGNOSES: 1. Right shoulder endstage osteoarthritis 2. Chronic cuff arthropathy 3. Failure of conservative injection management OPERATION: 1. Right reverse total shoulder arthroplasty 2. Long head biceps tenodesis 3. Application of UltraSling ANESTHESIA: General/block combination ESTIMATED BLOOD LOSS: 100 cc SPECIMEN: Bone IMPLANTS: The Nabto Tornier Perform set. The stem was a +2 short Press-Fit, a 36+3 polyethylene. Baseplate was a 25 standard baseplate, a 36 standard glenosphere, 35 central screw, peripheral screws of 22, 34, 22, and 34 HISTORY AND INDICATIONS: Darrius is a 75-year-old female with progressive endstage osteoarthritis with cuff arthropathy. She has failed conservative injection management. She has activity of daily living and night disruption. She has grade 4 degenerative changes. She has tried physical therapy, ice, Tylenol, and several injections. X-rays were reviewed preoperatively as well as CT scan with Nabto 3D Blueprint that was correlated and utilized intraoperatively for planning as well as placement of components. Consent form signed and witnessed. PROCEDURE: Darrius was taken to the Operating Room and placed in supine position. Anesthesia was provided. The patient was placed on a [facility] beach-chair table. The shoulder and arm were prepped and draped in sterile fashion. Antibiotics were infused per protocol weight based. Once time-out was confirmed consistent with the consent form, History and Physical, preoperative marked site, an anterior deltopectoral 3 incision was made. Cephalic vein was protected. Deltopectoral groove was encountered. Blunt retractors were utilized. A large effusion was present. The capsule was delineated. Supraspinatus was chronically torn and retracted. The infraspinatus majority was torn with just a small posterior slip. The biceps tendon was partially intact. This was tenotomized and tenodesed with the pectoralis with 0 Vicryl suture. Anatomic stable fixation of the biceps was achieved. The head was dislocated and peeled, then dislocated with rotation out inferiorly. Soft tissues were protected. The cutting jig was positioned and a fresh cut was made over the head with the head being removed. Peripheral osteophytes were removed. The glenoid was exposed. The labrum and biceps stump were dissected free. Utilizing the four-prong CT-guided Blueprint that was created, it was appropriately positioned according to the CT scan and the central pin was appropriately positioned and placed. This was reamed, prepared, drilled, and measured in a 35 central standard screw. The 25 standard baseplate was appropriately positioned and rotated after copious irrigation as well as Irrisept, and this was appropriately tensioned. Peripheral screws were drilled and placed with good purchase. After copious irrigation the glenosphere was appropriately seated, tensioned, impacted, and reseated. The head was introduced inferiorly. This was sized and measured at a 2. Reaming was performed at a 2, broaching was performed up to a 2+, and trial components were placed with good position and alignment and appropriate stability with the +3 trial. Conjoint tendon and deltoid tension was appropriate. All trial components were removed. After copious irrigation the 2+ Perform humeral stem was impacted and deemed stable. The +3 polyethylene was impacted and deemed stable. It was reduced and taken through arc of motion and deemed stable. After copious irrigation 2 g of tranexamic acid was placed subfascially. The fascial layer and subcutaneous tissue were injected with 40 cc of Exparel with bupivacaine per protocol. The deltopectoral interval was closed with 0 Vicryl suture. A 3-0 Vicryl suture closed the subcutaneous tissue and a 4-0 Monocryl intracuticular suture was placed with liquid adhesive glue. An 8 Mepilex dressing with UltraSling was provided. Darrius was awakened from anesthesia and transferred to the Recovery Room in stable and satisfactory condition. CASE: Clean and elective COUNTS: Sponge and needle count correct SPECIMEN: Bone PATIENT CONDITION: Satisfactory Luis Santiago Dictated: 01/27/2025 [id number] Transcribed: 01/27/2025 [facility] Comment on above: Result Comment: Elec tronically Signed By: Vicky Dye DO\.br\Date and Time Signed: 01/29/25 14:54 EDT Operative Reporton Operative Report Operative Report SURGERY DATE: 01/27/2025 PREOPERATIVE DIAGNOSIS: Postoperative pain control requested by patient and surgeon POSTOPERATIVE DIAGNOSIS: Postoperative pain control requested by patient and surgeon OPERATION: Right interscalene block, utilizing ultrasound guidance and nerve stimulator ANESTHESIA: Local with monitored anesthesia care PROCEDURE: The patient was interviewed and examined. The anesthesia options were discussed including interscalene approach to the brachial plexus block for postoperative analgesia. The discussion included the procedure, risks, benefits, and alternatives to the procedure. The patient's questions were all answered and the patient elected to proceed with the brachial plexus nerve block for postoperative pain relief. The patient was placed on the monitors, electrocardiogram, non-invasive blood pressure machine and pulse oximetry. I.V. sedation was then administered with a total of 1 mg IV Versed. The neck was prepped with ChloraPrep and sterilely draped. The anatomy was identified by ultrasound and then under ultrasound guidance and concomitant use of a nerve stimulator, the brachial plexus was identified with a 22-gauge 50 mm needle. Loss of twitch was observed at 0.5 milliamps. After attempted aspiration for blood, air and cerebrospinal fluid, a solution of 15 mL 0.5% ropivacaine was slowly injected with frequent aspirations without signs or symptoms of either intravascular or intrathecal injection. The patient tolerated the procedure well. There were signs and symptoms of a block within minutes after completion of the procedure. The patient then proceeded to undergo general anesthesia for the proposed procedure. BEHZAD Serra Dictated: 01/27/2025 [id number] Transcribed: 01/27/2025 [facility] Comment on above: Result Comment: Elec tronically Signed By: Kun Willis CRNA\.br\Date and Time Signed: 01/28/25 07:26 EDT XR Shoulder Complete Righton 01-28-2025 XR Shoulder Complete Right Exam Date/Time: 01/27/2025 13:45 EDT Reason for Exam: Post Op Report IMPRESSION: UNREMARKABLE RECENT REVERSE TOTAL RIGHT SHOULDER ARTHROPLASTY PLACEMENT. EXAM: XR Shoulder Complete Right DATE: 01/27/2025 1:26 PM CLINICAL HISTORY: Post Op. COMPARISON: Two-view chest 01/02/2025. TECHNIQUE: Portable AP and axillary radiographs of the right shoulder were obtained. FINDINGS: A reverse total right shoulder arthroplasty is noted in expected position. There is no dislocation, periprosthetic fracture, or other findings of concern identified. Mild soft tissue emphysema is noted from recent placement. Ordering Provider: Vicky Dye FINAL REPORT Dictated: 01/28/2025 12:49 pm Nuno Philip MD Signed (Electronic Signature): 01/28/2025 12:49 pm Signed by: Nuno Philip MD Transcribed by: TOMÁS Technologist: JOSEPHINE, Sharon [facility] ABO/Rhon 01-27-2025 ABO/Rh Positive Invalid Interpretation Code [facility] Comment on above: Performed By: #### [id number] #### [facility] [address] [place] [address] ABO/Rh History Checkon 01-27 ABO/Rh History Check Verified Hx Blood Type Normal [facility] Comment on above: Performed By: #### 1 [id number] #### [facility] [address] [place] [address] ABSCon 01-27-2025 ABSC Gel Interp Negative Normal [facility] Comment on above: Performed By: #### 1 [id number] ####[facility] [id number] [place] [address] BLOOD BANKOrdered By: Carina North on 01-27-2025 ABO/Rh Interp Positive Invalid Interpretation Code [facility] BB Subsection ABSC Gel Interp Negative (01/27/25 7:36 AM) Normal [facility] BB Subsection Blood Bank ID#on 01-27-2025 BBID# [id number] Invalid Interpretation Code [facility] Comment on above: Performed By: #### 1 [id number] #### [facility] [address] [place] [address] Discharge Instructionson Discharge Instructions Discharge Instruc tions DARRIUS LAMA Maricarmen :1950 Visit Date:01/27/2025 Inpatient Discharge Instructions Your Care Team Admitting Physician - Vicky Dye DO Referring Physician - Vicky Dye DO Reason for Your Visit RIGHT SHOULDER OA Your Diagnosis Localized osteoarthritis of right shoulder Tests Performed XR Shoulder Complete Right -- Results Pending -- Please visit your patient portal for your results or contact your primary care physician. This Is Your Medications List acetaminophen-oxycodone (Percocet 5 mg-325 mg oral tablet) atorvastatin (atorvastatin 80 mg Tab) celecoxib (celecoxib 200 mg Cap) clindamycin (clindamycin 300 mg oral cap) clonidine (cloNIDine 0.2 mg Tab) docusate (Colace 100 mg Cap) esomeprazole (esomeprazole 40 mg Cap-EC) furosemide (furosemide 20 mg Tab) hydrochlorothiazide-losart an (hydrochlorothiazide-losar zhong 25 mg-100 mg Tab) montelukast (montelukast 10 mg Tab) tizanidine (tiZANidine 4 mg Tab) zolpidem (zolpidem 12.5 mg oral ER Tab) Procedure History Cholecystectomy;, Elbow, THR - Total hip replacement, THR - Total hip replacement. What to do next Instructions From Your Doctor Event Name Event Result Discharge Instructions Freetext Sling for 4 weeks. Discharge Activity Ambulate as tolerated, Arrange for a responsible adult supervision for 24 hours, Expect mild pain, Expect minimal amount of drainage and/or bleeding, Do not lift more than 5 lbs Discharge Restrictions No driving, Do not operate machinery or tools, Do not make important decisions for 24 hours, Do not drink alcoholic beverages for 24 hours Discharge Diet(s) Regular, Drink liquids and eat a light meal Call Your Doctor For Persistent or heavy bleeding, Temperature above 101.5 degrees, Redness, swelling, or pus at operative site Wound Care Remove dressing as instructed Remove Dressing On 14 Discharge Instructions Discharge Instructions New Follow Up Appointments after Discharge Follow Up with Vicky Dye When: Comments: Keep scheduled appointment Where: [address] [place] [address] [facility] (1) Medications What How Much When Why Instructions Next Dose Unchanged acetaminophen-oxycodone (Percocet 5 mg-325 mg oral tablet) See instructions Localized osteoarthritis of right shoulder Take one to two oral every 4 hours as needed for surgical pain. Pickup at [facility] Unchanged atorvastatin (atorvastatin 80 mg Tab) 1 Tablets By Mouth Every day Unchanged celecoxib (celecoxib 200 mg Cap) 1 Capsules By Mouth Every day Unchanged clindamycin (clindamycin 300 mg oral cap) 1 Capsules By Mouth Every 6 hours Duration: 5 Days Start the day after surgery Pickup at [facility] Unchanged clonidine (cloNIDine 0.2 mg Tab) 1 Tablets By Mouth 2 times a day Unchanged docusate (Colace 100 mg Cap) 1 Capsules By Mouth 2 times a day Pickup at [facility] Unchanged esomeprazole (esomeprazole 40 mg Cap-EC) 1 Capsules By Mouth Every day Unchanged furosemide (furosemide 20 mg Tab) 1 Tablets By Mouth Every day Unchanged hydrochlorothiazide-losart an (hydrochlorothiazide-losar zhong 25 mg-100 mg Tab) 1 Tablets By Mouth Every day Unchanged montelukast (montelukast 10 mg Tab) 1 Tablets By Mouth Every day Unchanged tizanidine (tiZANidine 4 mg Tab) 2 Tablets By Mouth Every 8 hours as needed for Pain Unchanged zolpidem (zolpidem 12.5 mg oral ER Tab) 1 Tablets By Mouth Once a day (at bedtime) Pharmacy Information [facility]: [address] [place], [place] [id number] [phone] Allergies No Known Allergies Education Materials How to Use an Incentive Spirometer An incentive spirometer is a tool that measures how well you are filling your lungs with each breath. Learning to take long, deep breaths using this tool can help you keep your lungs clear and active. This may help to reverse or lessen your chance of developing breathing (pulmonary) problems, especially infection. You may be asked to use a spirometer: ??? After a surgery. ??? If you have a lung problem or a history of smoking. ??? After a long period of time when you have been unable to move or be active. If the spirometer includes an indicator to show the highest number that you have reached, your health care provider or respiratory therapist will help you set a goal. Keep a log of your progress as told by your health care provider. What are the risks? Breathing too quickly may cause dizziness or cause you to pass out. Take your time so you do not get dizzy or light-headed. ??? If you are in pain, you may need to take pain medicine before doing incentive spirometry. It is harder to take a deep breath if you are having pain. How to use your incentive spirometer 1. Sit up on the edge of your bed or on a chair. 2. Hold the incentive spirometer so debra (more content not included)... Normal [facility] Comment on above: Result Comment: Elec tronically Signed By: Elidia FIGUEROA, Malini James\Date and Time Signed: 01/27/25 13:05 EDT Main OR PACU I Recordon 01-18 Main OR PACU I Record Main OR PACU I Rec ord PACU Phase I Document Type FT Summary Primary Physician: Vicky Dye DO Finalized Date/Time: 01/27/25 14:46:25 Pt. Name: GENAMARIO DARRIUSYIN Hawkins/Sex: 1950 Female Med Rec #: [id number] Physician: Vicky Dye DO Financial #: [id number] Pt. Type: A Room/Bed: [facility] Admit/Disch: 01/27/25 06:57:51 - Institution: Case Times PACU I FT Pre-Care Text: Identifies barriers to communication and implements measures to provide psychological support Develops individualized plan of care, and ensures continuity of care Maintains patient's dignity and privacy, and maintains patient confidentiality Identifies and reports philosophical, cultural, and spiritual beliefs and values Identifies individual values and wishes concerning care Implements aseptic technique, and administers prescribed antibiotic therapy and immunizing agents as ordered Evaluates postoperative tissue perfusion Implements thermoregulation measures, and monitors body temperature Evaluates postoperative respiratory status Evaluates postoperative cardiac status Evaluates postoperative neurological status Assesses pain control, collaborated in initiating patient-controlled analgesia and implements alternative methods of pain control Verifies allergies, administers prescribed medications and solutions, evaluates response to medications Entry 1 In PACU I 01/27/25 13:12:00 Discharge from PACU 01/27/25 14:35:00 I Outcomes Met? Yes Last Modified By: Rocio Burgess RN 01/27/25 14:46:14 Post-Care Text: The patient demonstrates knowledge of the expected response to the operative or invasive procedure The patient's care is consistent with the individualized perioperative plan of care The patient's right to privacy is maintained The patient's value system, lifestyle, ethnicity, and culture are considered, respected, and incorporated into the perioperative plan of care The patient participates in decisions affecting his or her perioperative plan of care The patient is free from signs and symptoms of infection The patient has wound/tissue perfusion consistent with or improved from baseline levels established preoperatively The patient is at or returning to normothermia at the conclusion of the immediate postoperative period The patient's respiratory function is consistent with or improved from baseline levels established preoperatively The patient's cardiovascular status is consistent with or improved from baseline levels established preoperatively The patient's cardiovascular status is consistent with or improved from baseline levels established preoperatively The patient demonstrates and/or reports adequate pain control throughout the perioperative period The patient received appropriate medication(s), safely administered during the perioperative period Acuity Level PACU I FT Entry 1 Start Time 01/27/25 13:12:00 Stop Time 01/27/25 14:35:00 Acuity Level Acuity Level I Last Modified By: Rocio Burgess RN 01/27/25 14:46:24 Finalized By: Rocio Burgess RN Document Signatures Signed By: Rocio Burgess RN 01/27/25 14:46 Normal [facility] Main OR PACU II Recordon Main OR PACU II Record Main OR PACU II R ecord PACU Phase II Document Type FT Summary Primary Physician: Vicky Dye DO Finalized Date/Time: 01/27/25 16:42:28 Pt. Name: GENAMARIODARRIUS/Sex: 1950 Female Med Rec #: [id number] Physician: Vicky Dye DO Financial #: [id number] Pt. Type: A Room/Bed: [place] [address] Admit/Disch: 01/27/25 06:57:51 - Institution: Case Times PACU II FT Pre-Care Text: Identifies barriers to communication and implements measures to provide psychological support and determines knowledge level Develops individualized plan of care, and ensures continuity of care Maintains patient's dignity and privacy, and maintains patient confidentiality Identifies and reports philosophical, cultural, and spiritual beliefs and values Identifies individual values and wishes concerning care administers prescribed antibiotic therapy and immunizing agents as ordered, Evaluates postoperative tissue perfusion Implements thermoregulation measures, and monitors body temperature Evaluates postoperative respiratory status Evaluates postoperative cardiac status Evaluates postoperative neurological status Assesses pain control, collaborated in initiating patient-controlled analgesia and implements alternative methods of pain control Verifies allergies, administers prescribed medications and solutions, evaluates response to medications Entry 1 In PACU II 01/27/25 14:40:00 Discharge from PACU 01/27/25 16:40:00 II Outcomes Met? Yes Last Modified By: Malini Brenner RN 01/27/25 16:42:27 Post-Care Text: The patient demonstrates knowledge of the expected response to the operative or invasive procedure The patient's care is consistent with the individualized perioperative plan of care The patient's right to privacy is maintained The patient's value system, lifestyle, ethnicity, and culture are considered, respected, and incorporated into the perioperative plan of care The patient participates in decisions affecting his or her perioperative plan of care. The patient is free from signs and symptoms of infection The patient has wound/tissue perfusion consistent with or improved from baseline levels established preoperatively The patient is at or returning to normothermia at the conclusion of the immediate postoperative period The patient's respiratory function is consistent with or improved from baseline levels established preoperatively The patient's cardiovascular status is consistent with or improved from baseline levels established preoperatively The patient's neurological status is consistent with or improved from baseline levels established preoperatively The patient demonstrates and/or reports adequate pain control throughout the perioperative period The patient received appropriate medication(s), safely administered during the perioperative period Finalized By: Malini Brenner RN Document Signatures Signed By: Malini Brenner RN 01/27/25 16:42 Normal [facility] Main OR Preoperative Recordo n 01-27-2025 Main OR Preoperative Record Main OR Preoperative Record PreOp Document Type FT Summary Primary Physician: Vicky Dye DO Finalized Date/Time: 01/27/25 11:37:22 Pt. Name: DARRIUS LAMA/Sex: 1950 Female Med Rec #: [id number] Physician: Vicky Dye DO Financial #: [id number] Pt. Type: A Room/Bed: [place] [address] Admit/Disch: 01/27/25 06:57:51 - Institution: Case Times PreOp FT Pre-Care Text: Verifies consent for planned procedure, identifies individual values and wishes concerning care, includes family members in perioperative teaching Entry 1 Patient Times. In Pre Surgery 01/27/25 07:05:00 Out Pre Surgery 01/27/25 11:03:00 Outcomes Met? Yes Last Modified By: Roddy Edwards 01/27/25 11:37:21 Post-Care Text: The patient participates in decisions affecting his or her perioperative plan of care Finalized By: Roddy Edwards Document Signatures Signed By: Roddy Edwards 01/27/25 11:37 Normal [facility] Operative Reporton Operative Report Operative Report Patient: DARRIUS LAMA Age: 75 years Sex: Female : 1950 Associated Diagnoses: None Author: Vicky Dye DO Health Status Allergies: Allergic Reactions (Selected) No Known Allergies Review / Management Results review: Lab results 01/27/2025 7:36 EDT ABO/Rh Interp O POS ABSC Gel Interp Negative . Impression and Plan Diagnosis Pre-op dx-rt shoulder oa Post-op dx-same Procedure-rt reverse tsa Anesthesia-gen block EBL-100 TT-0 To Recovery Room in stable and satisfactory condition.. Normal [facility] Comment on above: Result Comment: Elec tronically Signed By: Vicky Dye DO\.br\Date and Time Signed: 01/27/25 12:47 EDT Proceduralon 01-27-2025 Procedural Procedural Patient: DARRIUS LAMA Age: 75 years Sex: Female : 1950 Associated Diagnoses: None Author: Vito Darden MD Preoperative Information Anesthesia Preop Info: Time patient last ate or drank 01/27/2025 00:00:00. Anesthesia history: Patient history: None. Family history+: None. Informed consent: Signed by patient. Re-evaluation prior to induction: Initial evaluation reviewed: No significant change. Review of Systems Eye Ear/Nose/Mouth/Throat Respiratory: denies increased VALENTINO or cough, No shortness of breath, No wheezing. Cardiovascular: Negative, No chest pain. Gastrointestinal: No heartburn. Musculoskeletal Neurologic Health Status Allergies: Allergic Reactions (Selected) No Known Allergies, Allergies (1) Active Severity Reaction No Known Allergies None Documented Current medications: (Selected) Inpatient Medications Ordered Arixtra 2.5 mg/0.5 mL Injection: 2.5 mg = 0.5 mL, Injection, SubCutaneous, qAM for 10 day(s), Stop date 02/07/25 6:29:00 EDT, Routine, Start date 01/28/25 6:30:00 EDT, Start AM postop day 1, 01/28/25 6:30:00 EDT Dulcolax 5 mg Tab-EC: 10 mg = 2 tab(s), Tab-EC, Oral, Daily PRN Constipation, Routine, Start date 01/29/25 10:00:00 EDT HYDROmorphone 1 mg/mL injectable solution: 0.4 mg = 0.4 mL, Injection, IV Push, q4min PRN Pain for 5 dose(s), Stop date Limited # of times, Routine, Start date 01/27/25 7:00:00 EDT, 01/27/25 7:00:00 EDT HYDROmorphone 1 mg/mL injectable solution: 1 mg = 1 mL, Injection, IV Push, q2hr PRN Pain 8-10 for 5 day(s), Stop date 02/01/25 9:59:00 EDT, Routine, Start date 01/27/25 10:00:00 EDT, 01/27/25 10:00:00 EDT Lactated Ringers IV Shilpa 1000 mL 1,000 mL: 1,000 mL, IV, 80 mL/hr, Routine, Start date 01/27/25 10:00:00 EDT, 12.5 hour(s), Total volume (mL): 1,000, 107 kg, 2.23, m2 Milk of Magnesia 8% Susp-Oral: 30 mL, Susp-Oral, Oral, BID PRN Constipation, Routine, Start date 01/27/25 10:00:00 EDT Pantoprazole [address] Tab: 40 mg = 1 tab(s), Tab-DR, Oral, Daily, Routine, Start date 01/28/25 9:00:00 EDT Sodium Chloride 0.9% IV Shilpa 1000 mL 1,000 mL: 1,000 mL, IV, 150 mL/hr, Routine, Start date 01/27/25 7:00:00 EDT, 6.7 hour(s), Total volume (mL): 1,000, 107 kg, 2.23, m2 Zofran 4 mg/2 mL Injection: 4 mg = 2 mL, Injection, IV Push, q6hr PRN Nausea/Vomiting, Routine, Start date 01/27/25 10:00:00 EDT, 01/27/25 10:00:00 EDT acetaminophen-oxycodone 325 mg-5 mg Tab: 1 tab(s), Tab, Oral, q4hr PRN Pain 4-7 for 5 day(s), Stop date 02/01/25 9:59:00 EDT, Routine, Start date 01/27/25 10:00:00 EDT acetaminophen-oxycodone 325 mg-5 mg Tab: 2 tab(s), Tab, Oral, q4hr PRN Pain 4-7 for 5 day(s), Stop date 02/01/25 9:59:00 EDT, Routine, Start date 01/27/25 10:00:00 EDT cefazolin additive + Sodium Chloride 0.9% intravenous solution 50 mL: 2 gm = 1 EA, IV Piggyback, q8hr for 2 dose(s), Stop date 01/28/25 1:59:00 EDT, Routine, Start date 01/27/25 10:00:00 EDT, 100 mL/hr, Infuse over 30 minute(s), 01/27/25 10:00:00 EDT cefazolin additive + Sodium Chloride 0.9% intravenous solution 50 mL: 2 gm = 1 EA, Powder-Inj, IV Piggyback, PREOP, Routine, Start date 01/27/25 7:00:00 EDT, 100 mL/hr, Infuse over 30 minute(s) morphine 2 mg/mL Inj: 2 mg = 1 mL, Injection, IV Push, q4hr PRN Pain 8-10 for 5 day(s), Stop date 02/01/25 9:59:00 EDT, Routine, Start date 01/27/25 10:00:00 EDT promethazine additive 12.5 mg + Sodium Chloride 0.9% IV Shilpa 50 mL (INT) 50 mL: IV Piggyback, Once PRN Nausea/Vomiting, Routine, Start date 01/27/25 7:00:00 EDT, 151.5 mL/hr, Infuse over 20 minute(s), 01/27/25 7:00:00 EDT Prescriptions Prescribed Colace 100 mg Cap: 100 mg = 1 cap(s), Oral, BID, # 20 cap(s), Refills(s) 0, Pharmacy: [facility], 167, cm, 01/03/25 8:54:00 EST, Height/Length Dosing, 107, kg, 01/03/25 8:54:00 EST, Weight Dosing Percocet 5 mg-325 mg oral tablet: See Instructions, 50 tab(s), Refill(s) 0, Take one to two oral every 4 hours as needed for surgical pain., [facility], 167, cm, 01/03/25 8:54:00 EST, Height/Length Dosing, 107, kg, 01/03/25 8:54:00 EST, Weight Dosing clindamycin 300 mg oral cap: 300 mg = 1 cap(s), Oral, q6hr, Start the day after surgery, X 5 day(s), # 20 cap(s), Refills(s) 0, Pharmacy: [facility], 167, cm, 01/03/25 8:54:00 EST, Height/Length Dosing, 107, kg, 01/03/25 8:54:00 EST, Weight Dosing Documented Medications Documented atorvastatin 80 mg Tab: 80 mg = 1 tab(s), Oral, Daily, Refills(s) 0, High cholesterol celecoxib 200 mg Cap: 200 mg = 1 cap(s), Oral, Daily, Refills(s) 0, Pain cloNIDine 0.2 mg Tab: 0.2 mg = 1 tab(s), Oral, BID, Refills(s) 0, High blood pressure esomeprazole 40 mg Cap-EC: 40 mg = 1 cap(s), Oral, Daily, Refills(s) 0, Control of stomach acid furosemide 20 mg Tab: 20 mg = 1 tab(s), Oral, Daily, Refills(s) 0, High blood pressure hydrochlorothiazide-losart an 25 mg-100 mg Tab: 1 tab(s), Oral, Daily, Refill(s) 0, High blood pressure montelukast 10 mg Tab: 10 mg = 1 tab(s), Oral, Da (more content not included)... Normal [facility] Inpatient Patient Summaryon 01-22-2025 Inpatient Patient Summary Inpatient Patient Summary [address] [address] [facility] Clinical Discharge Instructions PERSON INFORMATION Name: DARRIUS LAMA [facility]#:[id number] PHYSICIANS Admitting Physician: Vicky Dye DO Attending Physician: Vicky Dye DO PCP: MARINA MOON MD Discharge Diagnosis: Localized osteoarthritis of right shoulder Comment: PATIENT EDUCATION INFORMATION Instructions: Margarito Fenton - Shoulder Replacement (CUSTOM) Medication Leaflets: Follow up: With: Address: When: Vicky Dye [address] [place] [address] Business (1) Comments: Keep scheduled appointment Type Location Start [facility] Surgical Services 01/27/2025 10:00 AM 01/27/2025 11:00 AM Confirmed MEDICATION LIST Medications to Continue with No Changes Other Medications atorvastatin (atorvastatin 80 mg Tab) 1 Tablets By Mouth every day. celecoxib (celecoxib 200 mg Cap) 1 Capsules By Mouth every day. clonidine (cloNIDine 0.2 mg Tab) 1 Tablets By Mouth 2 times a day. esomeprazole (esomeprazole 40 mg Cap-EC) 1 Capsules By Mouth every day. furosemide (furosemide 20 mg Tab) 1 Tablets By Mouth every day. hydrochlorothiazide-losart an (hydrochlorothiazide-losar zhong 25 mg-100 mg Tab) 1 Tablets By Mouth every day. montelukast (montelukast 10 mg Tab) 1 Tablets By Mouth every day. tizanidine (tiZANidine 4 mg Tab) 2 Tablets By Mouth every 8 hours as needed Pain. zolpidem (zolpidem 12.5 mg oral ER Tab) 1 Tablets By Mouth once a day (at bedtime). Comment: Normal [facility] Outpatient Surgery Discharge Instructionon 01-22-2025 Outpatient Surgery Discharge Instruction Outpatient Surgery Discharge Instruction [facility] [address] [place], [place] [address] Patient Discharge Instructions PERSON INFORMATION Name: DARRIUS LAMA Date of : 1950 Current Date: 01/22/2025 15:12:38 PHYSICIANS Admitting Physician: Vicky Dye DO Discharge Diagnosis: Localized osteoarthritis of right shoulder DARRIUS LAMA has been given the following list of follow-up instructions, prescriptions, and patient education materials: PATIENT FOLLOW-UP INFORMATION Diet: Regular, Drink liquids and eat a light meal Discharge Activity: Ambulate as tolerated, Arrange for a responsible adult supervision for 24 hours, Expect mild pain, Expect minimal amount of drainage and/or bleeding, Do not lift more than 5 lbs Discharge Restrictions: No driving, Do not operate machinery or tools, Do not make important decisions for 24 hours, Do not drink alcoholic beverages for 24 hours Call Your Doctor For: Persistent or heavy bleeding, Temperature above 101.5 degrees, Redness, swelling, or pus at operative site Wound Care Instructions: Remove dressing as instructed Remove Your Dressing In 14 Days Additional Instructions: Sling for 4 weeks. IF UNABLE TO CONTACT YOUR PHYSICIAN AND YOU FEEL IT IS AN EMERGENCY, GO TO THE NEAREST EMERGENCY ROOM OR CALL 911 RICHARD Briggs DONNA E, have received the attached patient education materials/instructions and have verbalized understanding: May we do a follow up call? Yes No I was present when discharge instructions were given ____ Patient Signature _ Date Clinican/Nurse Signature Date Follow up: With: Address: When: Vicky Dye [address] [place] [address] [facility] (1) Comments: Keep scheduled appointment Type Location Start [facility] Surgery [facility] Surgical Services 01/27/2025 10:00 AM 01/27/2025 11:00 AM Confirmed Pharmacy Information: You may receive a survey from [employer] asking you to rate your care experience. Your feedback is important and will help us understand what we do well and how we can improve the quality of care we provide to you, your loved ones and our community. It???s an honor to serve you. Thank you for choosing [facility] HERE ARE THE MEDICATION CHANGES THAT OCCURRED DURING YOUR HOSPITAL STAY Medications to Continue with No Changes Other Medications atorvastatin (atorvastatin 80 mg Tab) 1 Tablets By Mouth every day. celecoxib (celecoxib 200 mg Cap) 1 Capsules By Mouth every day. clonidine (cloNIDine 0.2 mg Tab) 1 Tablets By Mouth 2 times a day. esomeprazole (esomeprazole 40 mg Cap-EC) 1 Capsules By Mouth every day. furosemide (furosemide 20 mg Tab) 1 Tablets By Mouth every day. hydrochlorothiazide-losart an (hydrochlorothiazide-losar zhong 25 mg-100 mg Tab) 1 Tablets By Mouth every day. montelukast (montelukast 10 mg Tab) 1 Tablets By Mouth every day. tizanidine (tiZANidine 4 mg Tab) 2 Tablets By Mouth every 8 hours as needed Pain. zolpidem (zolpidem 12.5 mg oral ER Tab) 1 Tablets By Mouth once a day (at bedtime). PATIENT EDUCATION INFORMATION Instructions: [place], [place] [facility] DISCHARGE INSTRUCTIONS: SHOULDER REPLACEMENT MEDICATIONS You will be given a prescription for pain medication. This should be taken with food as needed. This may cause stomach upset, dizziness, and possible constipation. Please notify the office if you have any medication allergies to this type of medication or if any problems develop with the medication. DRESSING CHANGES Leave your bandage in place until your follow up visit. The bandage is waterproof, so you may shower it home. Any increase in pain, temperature over 101 degrees, redness, or drainage should be reported to the office prior to your first office visit. ACTIVITY You may continue to progress activity as comfortably tolerated with your opposite arm. You may begin to use your elbow, wrist, and hand as directed in physical therapy. You should only remove your sling for bathing and to perform range of motion exercises for the hand, wrist, and elbow. Do not actively move your shoulder Continue to ice the shoulder several times per day until follow up. ANESTHESIA PRECAUTIONS You should not operate a vehicle, automobile, bicycle or motorcycle, machinery, or power tools, make any important decisions, or drink alcohol for 24 hours. It may be beneficial to have a responsible adult remain with you for your first 24 hours after surgery. You may be drowsy and light-headed. DRIVING Driving is legal, however, if you are involved (more content not included)... Normal [facility] Basophils Auto (Bld) [#/Vol] Ordered By: Jerman Becerra on 01-08-2025 Basophils (Bld) [#/Vol] Automated basophil count 0.0-0.2 [facility] Basophils/100 WBC Auto (Bld) Ordered By: Jerman Becerra on 01-08-2025 Basophils/100 WBC (Bld) Automated basophil % . [facility] Blood Urea Nitrogenon 2024 Urea nitrogen [Mass/Vol] 14 mg/dL Normal 7-25 [facility] Comment on above: Performed By: #### L IPID, CREAT, CBC, LYTES, PP, BUN #### [facility] [address] Carbon dioxide, total [Moles /volume] in Serum or PlasmaOrdered By: Jerman Becerra on 01-08-2025 CO2 [Moles/Vol] Carbon dioxide, tota l [Moles/volume] in Serum or Plasma High 21.0-31.0 [facility] Chloride [Moles/volume] in S jalen or PlasmaOrdered By: Jerman Becerra on 01-08-2025 Chloride [Moles/Vol] Chloride [Moles/vol ume] in Serum or Plasma 98-107 [facility] Cholesterol [Mass/volume] in Serum or PlasmaOrdered By: Jerman Becerra on 01-08-2025 Cholesterol [Mass/Vol] Cholesterol [Mass /volume] in Serum or Plasma Low 140-200 [facility] Comment on above: Chol less than 200 m g/dl low riskChol 201-239 mg/dl borderline riskChol 240 mg/dl and greater high risk Cholesterol in HDL [Mass/vol ume] in Serum or PlasmaOrdered By: Jerman Becerra on 01-08-2025 Cholesterol in HDL [Mass/Vol] Serum or plasma high density lipoprotein (HDL) cholesterol measurement [facility] Comment on above: HDL CHOL ATP-III CLA SSIFICATION Cardiovascular RiskHDL > or equal to 60 mg/dL LOWHDL < 40 mg/dL HIGH Cholesterol in LDL Calc [Mas s/Vol]Ordered By: Jerman Becerra on 01-08-2025 Cholesterol in LDL [Mass/Vol] Cholesterol in LDL [Mass/volume] in Serum or Plasma by calculation 0-100 [facility] Comment on above: LDL ATP III CLASSIFI CATIONLDL less than 100 mg/dL OptimalLDL 100-129 mg/dL Near or above optimalLDL 130-159 mg/dL Borderline highLDL 160-189 mg/dL HighLDL greater than 189 mg/dL Very high Cholesterol in VLDL Calc [Ma ss/Vol]Ordered By: Jerman Becerra on 01-08-2025 Cholesterol in VLDL [Mass/Vol] Cholesterol in VLDL [Mass/volume] in Serum or Plasma by calculation [facility] Coagulation Profileon 2024 aPTT Coag (Bld) [Time] 33.0 s Normal 25.1-36.5 [facility] Comment on above: Result Comment: A he matocrit value greater than 55% may lead to inaccurate results in coagulation testing. Patients having hematocrit values >55% require a special collection tube for coagulation studies. Please contact the laboratory at [phone] for redraw instructions. PERFORMED BY: [place] [id number] PATHOLOGIST ECONOMICS CONSULTANT FITO LYNN M.D. Performed By: #### L IPID, CREAT, CBC, LYTES, PP, BUN #### [place] [id number] [facility] INR Coag (PPP) [Relative time] 0.9 {INR} Normal [facility] Comment on above: Result Comment: INR Therapeutic Range A) Pre- and Peroperative OAT started two weeks before surgery. NOT HIP SURGERY: 1.5 - 2.5 HIP SURGERY: 2 - 3 B) Primary and secondary prevention of venous THROMBOSIS: 2 - 3 C) Active venous thrombosis, pulmonary embolism and prevention of recurrent venous thrombosis: 2 - 3 D) Prevention of arterial thromboembolism including patients with mechanical heart valves: 3 - 4.5 Performed By: #### L IPID, CREAT, CBC, LYTES, PP, BUN #### [address] PT Coag (PPP) [Time] 10.7 s Normal 9.0-12.9 [facility] Comment on above: Result Comment: A he matocrit value greater than 55% may lead to inaccurate results in coagulation testing. Patients having hematocrit values >55% require a special collection tube for coagulation studies. Please contact the laboratory at [phone] for redraw instructions. Performed By: #### L IPID, CREAT, CBC, LYTES, PP, BUN #### [address] Complete Blood Count Auto Di ffon 01-08-2025 Basophils (Bld) [#/Vol] 0.0 10*3/uL Normal 0.0-0.2 [facility] Comment on above: Result Comment: PERF ORMED BY: [place] [address] PATHOLOGIST ECONOMICS CONSULTANT FITO LYNN M.D. Performed By: #### L IPID, CREAT, CBC, LYTES, PP, BUN #### [address] Basophils/100 WBC (Bld) 0.7 % Normal . [facility] Comment on above: Performed By: #### L IPID, CREAT, CBC, LYTES, PP, BUN #### [address] Eosinophils (Bld) [#/Vol] 0.2 10*3/uL Normal 0.0-0.45 [facility] Comment on above: Performed By: #### L IPID, CREAT, CBC, LYTES, PP, BUN #### [place] [address] [place] Eosinophils/100 WBC (Bld) 3.5 % Normal . [facility] Comment on above: Performed By: #### L IPID, CREAT, CBC, LYTES, PP, BUN #### [address] Erythrocyte distribution width (RBC) [Ratio] 13.8 % Normal 11.9-15.3 [facility] Comment on above: Performed By: #### L IPID, CREAT, CBC, LYTES, PP, BUN #### [address] Hematocrit (Bld) [Volume fraction] 44.9 % Normal 34.0-46.4 [facility] Comment on above: Performed By: #### L IPID, CREAT, CBC, LYTES, PP, BUN #### [address] Hemoglobin (Bld) [Mass/Vol] 14.9 g/dL Normal 11.8-15.4 [facility] Comment on above: Performed By: #### L IPID, CREAT, CBC, LYTES, PP, BUN #### [address] Lymphocytes (Bld) [#/Vol] 1.9 10*3/uL Normal 1.00-4.8 [facility] Comment on above: Performed By: #### L IPID, CREAT, CBC, LYTES, PP, BUN #### [address] Lymphocytes/100 WBC (Bld) 30.7 % Normal . [facility] Comment on above: Performed By: #### L IPID, CREAT, CBC, LYTES, PP, BUN #### [address] MCH (RBC) [Entitic mass] 30.0 pg Normal 24.7-34.3 [facility] Comment on above: Performed By: #### L IPID, CREAT, CBC, LYTES, PP, BUN #### [address] MCV (RBC) [Entitic vol] 90.3 fL Normal 80-100 [facility] Comment on above: Performed By: #### L IPID, CREAT, CBC, LYTES, PP, BUN #### [address] Mean Corpuscular HGB Conc 33.3 g/dL Normal 32.0-35.0 [facility] Comment on above: Performed By: #### L IPID, CREAT, CBC, LYTES, PP, BUN #### [address] Monocytes (Bld) [#/Vol] 0.4 10*3/uL Normal 0.0-0.8 [facility] Comment on above: Performed By: #### L IPID, CREAT, CBC, LYTES, PP, BUN #### [address] Monocytes/100 WBC (Bld) 6.7 % Normal . [facility] Comment on above: Performed By: #### L IPID, CREAT, CBC, LYTES, PP, BUN #### [address] Neutrophils (Bld) [#/Vol] 3.6 10*3/uL Normal 1.8-7.7 [facility] Comment on above: Performed By: #### L IPID, CREAT, CBC, LYTES, PP, BUN #### [address] Neutrophils/100 WBC (Bld) 58.4 % Normal . [facility] Comment on above: Performed By: #### L IPID, CREAT, CBC, LYTES, PP, BUN #### [address] NRBC% 0.2 /100{WBC} Normal 0-0.5 [facility] Comment on above: Performed By: #### L IPID, CREAT, CBC, LYTES, PP, BUN #### [address] Platelet mean volume (Bld) [Entitic vol] 9.2 fL Normal 6.3-10.7 [facility] Comment on above: Performed By: #### L IPID, CREAT, CBC, LYTES, PP, BUN #### [address] Platelets (Bld) [#/Vol] 238 10*3/uL Normal 150-450 [facility] Comment on above: Performed By: #### L IPID, CREAT, CBC, LYTES, PP, BUN #### [address] RBC (Bld) [#/Vol] 4.97 10*6/uL Normal 3.60-5.00 [facility] Comment on above: Performed By: #### L IPID, CREAT, CBC, LYTES, PP, BUN #### [address] WBC (Bld) [#/Vol] 6.2 10*3/uL Normal 3.8-11.6 [facility] Comment on above: Performed By: #### L IPID, CREAT, CBC, LYTES, PP, BUN #### [address] Creatinineon 01-08-2025 Creatinine [Mass/Vol] 0.78 mg/dL Normal 0.60-1.20 [facility] Comment on above: Performed By: #### L IPID, CREAT, CBC, LYTES, PP, BUN #### [address] GFR/1.73 sq M.predicted MDRD (S/P/Bld) [Vol rate/Area] mL/min/{1.73_m2} Normal [facility] Comment on above: Performed By: #### L IPID, CREAT, CBC, LYTES, PP, BUN #### [address] Creatinine [Mass/volume] in Serum or PlasmaOrdered By: Jerman Becerra on 01-08-2025 Creatinine [Mass/Vol] Creatinine [Mass/v olume] in Serum or Plasma 0.60-1.20 [facility] Electrolyteson 01-08-2025 Anion gap [Moles/Vol] 10.3 mmol/L Normal 6.0-15.0 [facility] Comment on above: Performed By: #### L IPID, CREAT, CBC, LYTES, PP, BUN #### [address] Chloride [Moles/Vol] 98 mmol/L Normal 98-107 [facility] Comment on above: Performed By: #### L IPID, CREAT, CBC, LYTES, PP, BUN #### [address] CO2 [Moles/Vol] 31.1 mmol/L High 21.0-31.0 [facility] Comment on above: Performed By: #### L IPID, CREAT, CBC, LYTES, PP, BUN #### [address] Potassium [Moles/Vol] 4.4 mmol/L Normal 3.5-5.1 [facility] Comment on above: Performed By: #### L IPID, CREAT, CBC, LYTES, PP, BUN #### [address] Sodium [Moles/Vol] 135 mmol/L Low 136-145 [facility] Comment on above: Performed By: #### L IPID, CREAT, CBC, LYTES, PP, BUN #### [address] Eosinophils Auto (Bld) [#/Vo l]Ordered By: Jerman Becerra on 01-08-2025 Eosinophils (Bld) [#/Vol] Automated eosinophil count 0.0-0.45 [facility] Eosinophils/100 WBC Auto (Bl d)Ordered By: Jerman Becerra on 01-08-2025 Eosinophils/100 WBC (Bld) Automated eosinophil % . [facility] Erythrocyte distribution wid th Auto (RBC) [Ratio]Ordered By: Jerman Becerra on 01-08-2025 Erythrocyte distribution width (RBC) [Ratio] Erythrocyte distribution width [Ratio] by Automated count 11.9-15.3 [facility] Hematocrit Auto (Bld) [Volum e fraction]Ordered By: Jerman Becerra on 01-08-2025 Hematocrit (Bld) [Volume fraction] Hematocrit [Volume Fraction] of Blood by Automated count 34.0-46.4 [facility] Hemoglobin [Mass/volume] in BloodOrdered By: Jerman Becerra on 01-08-2025 Hemoglobin (Bld) [Mass/Vol] Hemoglobin [Mass/volume] in Blood 11.8-15.4 [facility] INR in Platelet poor plasma by Coagulation assayOrdered By: Jerman Becerra on 01-08-2025 INR Coag (PPP) [Relative time] INR in Platelet poor plasma by Coagulation assay [facility] Comment on above: INR Therapeutic Rang e A) Pre- and Peroperative OAT started two weeks before surgery. NOT HIP SURGERY: 1.5 - 2.5 HIP SURGERY: 2 - 3B) Primary and secondary prevention of venous THROMBOSIS: 2 - 3C) Active venous thrombosis, pulmonary embolismand prevention of recurrent venous thrombosis: 2 - 3D) Prevention of arterial thromboembolismincluding patients with mechanical heart valves: 3 - 4.5 Leukocytes [#/volume] correc tyson for nucleated erythrocytes in Blood by Automated counOrdered By: Jerman Becerra on 01-08-2025 WBC corrected for nucl RBC Auto (Bld) [#/Vol] Leukocytes [#/volume] corrected for nucleated erythrocytes in Blood by Automated coun 3.8-11.6 [facility] Lipid Panelon 01-08-2025 Cholesterol [Mass/Vol] 117 mg/dL Low 140-200 [facility] Comment on above: Result Comment: Chol less than 200 mg/dl low risk Chol 201-239 mg/dl borderline risk Chol 240 mg/dl and greater high risk Performed By: #### L IPID, CREAT, CBC, LYTES, PP, BUN #### [address] Cholesterol in HDL [Mass/Vol] 26 mg/dL Normal 23-92 [facility] Comment on above: Result Comment: HDL CHOL ATP-III CLASSIFICATION Cardiovascular Risk HDL > or equal to 60 mg/dL LOW HDL < 40 mg/dL HIGH Performed By: #### L IPID, CREAT, CBC, LYTES, PP, BUN #### [address] Cholesterol.total/Chol esterol in HDL [Mass ratio] 4.5 {ratio} Normal <5.0 [facility] Comment on above: Result Comment: PERF ORMED BY: [place] [address] PATHOLOGIST ECONOMICS CONSULTANT FITO LYNN M.D. Performed By: #### L IPID, CREAT, CBC, LYTES, PP, BUN #### [address] LDL Cholesterol,Calculated 58 mg/dL Normal 0-100 [facility] Comment on above: Result Comment: LDL ATP III CLASSIFICATION LDL less than 100 mg/dL Optimal LDL 100-129 mg/dL Near or above optimal LDL 130-159 mg/dL Borderline high LDL 160-189 mg/dL High LDL greater than 189 mg/dL Very high Performed By: #### L IPID, CREAT, CBC, LYTES, PP, BUN #### [address] Triglyceride w/Reflex 163 mg/dL High 0-149 [facility] Comment on above: Result Comment: TRIG ATP III CLASSIFICATION TRIG less than 150 mg/dL Normal TRIG 150-199 mg/dL Borderline high TRIG 200-500 mg/dL High TRIG greater than 500 mg/dL Very high Standard traceable to the Center for Disease Conrtrol and Prevention (CDC) test method. Performed By: #### L IPID, CREAT, CBC, LYTES, PP, BUN #### [address] VLDL CHOLESTEROL 32 mg/dL Normal [facility] Comment on above: Performed By: #### L IPID, CREAT, CBC, LYTES, PP, BUN #### [address] Lymphocytes Auto (Bld) [#/Vo l]Ordered By: Jerman Becerra on 01-08-2025 Lymphocytes (Bld) [#/Vol] Lymphocytes [#/volume] in Blood by Automated count 1.00-4.8 [facility] Lymphocytes/100 WBC Auto (Bl d)Ordered By: Jerman Becerra on 01-08-2025 Lymphocytes/100 WBC (Bld) Lymphocytes/100 leukocytes in Blood by Automated count . [facility] MCH Auto (RBC) [Entitic mass ]Ordered By: Jerman Becerra on 01-08-2025 MCH (RBC) [Entitic mass] MCH [Entitic mass] by Automated count 24.7-34.3 [facility] MCHC Auto (RBC) [Mass/Vol]Or dered By: Jerman Becerra on 01-08-2025 MCHC (RBC) [Mass/Vol] MCHC [Mass/volume] by Automated count 32.0-35.0 [facility] MCV Auto (RBC) [Entitic vol] Ordered By: Jerman Becerra on 01-08-2025 MCV (RBC) [Entitic vol] MCV [Entitic volume] by Automated count 80-100 [facility] Monocytes Auto (Bld) [#/Vol] Ordered By: Jerman Becerra on 01-08-2025 Monocytes (Bld) [#/Vol] Automated blood monocyte count 0.0-0.8 [facility] Monocytes/100 WBC Auto (Bld) Ordered By: Jerman Becerra on 01-08-2025 Monocytes/100 WBC (Bld) Automated monocyte % . [facility] Neutrophils Auto (Bld) [#/Vo l]Ordered By: Jerman Becerra on 01-08-2025 Neutrophils (Bld) [#/Vol] Neutrophils [#/volume] in Blood by Automated count 1.8-7.7 [facility] Neutrophils/100 WBC Auto (Bl d)Ordered By: Jerman Becerra on 01-08-2025 Neutrophils/100 WBC (Bld) Automated neutrophil % . [facility] No Panel InformationOrdered By: Jerman Becerra on 01-08-2025 Estimated GFR (CKD-EPI) > 60.0 mL/Min [facility] Creatinine Clearance (Chem N/A [facility] Nucleated erythrocytes [Pres ence] in Blood by Automated countOrdered By: Jerman Becerra on 01-08-2025 Nucleated RBC Auto Ql (Bld) Nucleated erythrocytes [Presence] in Blood by Automated count 0-0.5 [facility] Platelet mean volume Auto (B ld) [Entitic vol]Ordered By: Jerman Becerra on 01-08-2025 Platelet mean volume (Bld) [Entitic vol] Platelet mean volume [Entitic volume] in Blood by Automated count 6.3-10.7 [facility] Platelets Auto (Bld) [#/Vol] Ordered By: Jerman Becerra on 01-08-2025 Platelets (Bld) [#/Vol] Platelets [#/volume] in Blood by Automated count 150-450 [facility] Potassium [Moles/volume] in Serum or PlasmaOrdered By: Jerman Beecrra on 01-08-2025 Potassium [Moles/Vol] Potassium [Moles/v olume] in Serum or Plasma 3.5-5.1 [facility] Prothrombin time (PT)Ordered By: Jerman Becerra on 01-08-2025 PT Coag (PPP) [Time] Prothrombin time (PT) 9.0- 12.9 [facility] Comment on above: A hematocrit value g reater than 55% may lead to inaccurate results in coagulation testing. Patients having hematocrit values >55% require a special collection tube for coagulation studies. Please contact the laboratory at [phone] for redraw instructions. RBC Auto (Bld) [#/Vol]Ordere d By: Jerman Becerra on 01-08-2025 RBC (Bld) [#/Vol] Erythrocytes [#/volu me] in Blood by Automated count 3.60-5.00 [facility] Serum or plasma anion gap de terminationOrdered By: Jerman Becerra on 01-08-2025 Anion gap [Moles/Vol] Serum or plasma an ion gap determination 6.0-15.0 [facility] Serum or plasma total choles terol/high density lipoprotein (HDL) cholesterol mass ratOrdered By: Jerman Becerra on 01-08-2025 Cholesterol.total/Chol esterol in HDL [Mass ratio] Serum or plasma total cholesterol/high density lipoprotein (HDL) cholesterol mass rat <5.0 [facility] Sodium [Moles/volume] in Ser um or PlasmaOrdered By: Jerman Becerra on 01-08-2025 Sodium [Moles/Vol] Sodium [Moles/volume ] in Serum or Plasma Low 136-145 [facility] Triglyceride [Mass/volume] i n Serum or PlasmaOrdered By: Jerman Becerra on 01-08-2025 Triglyceride [Mass/Vol] Triglyceride [Mass/volume] in Serum or Plasma High 0-149 [facility] Comment on above: TRIG ATP III CLASSIF ICATIONTRIG less than 150 mg/dL NormalTRIG 150-199 mg/dL Borderline highTRIG 200-500 mg/dL High TRIG greater than 500 mg/dL Very highStandard traceable to the Center for Disease Conrtrol and Prevention (CDC) test method. Urea nitrogen [Mass/volume] in Serum or PlasmaOrdered By: Jerman Becerra on 01-08-2025 Urea nitrogen [Mass/Vol] Urea nitrogen [Mass/volume] in Serum or Plasma 7-25 [facility] WBC Auto (Bld) [#/Vol]Ordere d By: Jerman Becerra on 01-08-2025 WBC (Bld) [#/Vol] Leukocytes [#/volume ] in Blood by Automated count 3.8-11.6 [facility] aPTT in Platelet poor plasma by Coagulation assayOrdered By: Jerman Becerra on 01-08-2025 aPTT Coag (PPP) [Time] Activated partial thromboplastin time (aPTT) in platelet poor plasma by coagulation a 25.1-36.5 [facility] Comment on above: A hematocrit value g reater than 55% may lead to inaccurate results in coagulation testing. Patients having hematocrit values >55% require a special collection tube for coagulation studies. Please contact the laboratory at [phone] for redraw instructions. ECG 12 Leadon 01-06-2025 [facility] Work Phone: Normal sinus rhythm 93 bpm normal intervals occasional ventricular premature beat compared to the EKG from 07/11/2024, isolated ventricular premature beats are noted. [facility] Work Phone: ABO/Rh Retypeon 01-02-2025 ABO/Rh Retype Interp Positive Invalid Interpretation Code [facility] Comment on above: Performed By: #### 1 [id number] #### [facility] [address] [place] [address] BLOOD BANKOrdered By: Vita alvares on 01-02-2025 ABO/Rh Retype Interp Positive Invalid Interpretation Code [facility] BB Subsection BMPon 01-02-2025 Anion gap [Moles/Vol] 12 mmol/L Normal 6-16 [facility] Comment on above: Performed By: #### 2 [id number] #### [facility] [address] [place] [address] Calcium [Mass/Vol] 9.6 mg/dL Normal 8.9-11.1 [facility] Comment on above: Performed By: #### 2 [id number] #### [facility] [address] [place] [address] Chloride [Moles/Vol] 95 mmol/L Low 101-111 [facility] Comment on above: Performed By: #### 2 [id number] #### [facility] [address] [place] [address] CO2 [Moles/Vol] 29 mmol/L Normal 21-31 [facility] Comment on above: Performed By: #### 2 [id number] #### [facility] [address] [place] [address] Creatinine [Mass/Vol] 0.8 mg/dL Normal 0.5-1.3 [facility] Comment on above: Performed By: #### 2 [id number] #### [facility] [address] [place] [address] Glucose [Mass/Vol] 169 mg/dL Normal 55-199 [facility] Comment on above: Performed By: #### 2 [id number] #### [facility] [address] [place] [address] Potassium [Moles/Vol] 3.9 mmol/L Normal 3.5-5.3 [facility] Comment on above: Performed By: #### 2 [id number] #### [facility] [address] [place] [address] Sodium [Moles/Vol] 132 mmol/L Low 135-145 [facility] Comment on above: Performed By: #### 2 [id number] #### [facility] [address] [place] [address] Urea nitrogen [Mass/Vol] 15 mg/dL Normal 5-21 [facility] Comment on above: Performed By: #### 2 [id number] #### [facility] [address] [place] [address] Urea nitrogen/Creatinine [Mass ratio] 19 No Units Normal 10-20 [facility] Comment on above: Performed By: #### 2 [id number] #### [facility] [address] [place] [address] CBC w/ Auto Diffon 5 Basophils/100 WBC (Bld) 1.1 % Normal 0.0-2.0 [facility] Comment on above: Performed By: #### 2 [id number] #### [facility] [address] [place] [address] Basophils/Leukocytes Auto (Bld) [Pure # fraction] 0.1 E9/L Normal 0.0-0.2 [facility] Comment on above: Performed By: #### 2 [id number] #### [facility] [address] [place] [address] Eosinophils (Bld) [#/Vol] 0.1 E9/L Normal 0.0-0.5 [facility] Comment on above: Performed By: #### 2 [id number] #### [facility] [address] [place] [address] Eosinophils/100 WBC (Bld) 2.1 % Normal 0.0-8.0 [facility] Comment on above: Performed By: #### 2 [id number] #### [facility] [address] [place] [address] Erythrocyte distribution width (RBC) [Ratio] 14.0 % Normal 10.9-14.2 [facility] Comment on above: Performed By: #### 2 [id number] #### [facility] [address] [place] [address] [place] [address] Hematocrit (Bld) [Volume fraction] 44.4 % Normal 34.0-46.0 [facility] Comment on above: Performed By: #### 2 [id number] #### [facility] [address] [place] [address] Hemoglobin (Bld) [Mass/Vol] 15.0 g/dL Normal 12.0-16.0 [facility] Comment on above: Performed By: #### 2 [id number] #### [facility] [address] [place] [address] Lymphocytes (Bld) [#/Vol] 1.4 E9/L Normal 1.0-4.0 [facility] Comment on above: Performed By: #### 2 [id number] #### [facility] [address] [place] [address] Lymphocytes/100 WBC (Bld) 22.2 % Normal 14.0-50.0 [facility] Comment on above: Performed By: #### 2 [id number] #### [facility] [address] [place] [address] MCH (RBC) [Entitic mass] 30.7 pg Normal 27.0-34.0 [facility] Comment on above: Performed By: #### 2 [id number] #### [facility] [address] [place] [address] MCHC (RBC) [Mass/Vol] 33.9 g/dL Normal 31.4-36.0 [facility] Comment on above: Performed By: #### 2 [id number] #### [facility] [address] [place] [address] MCV (RBC) [Entitic vol] 90.7 fL Normal 80.0-100.0 [facility] Comment on above: Performed By: #### 2 [id number] #### [facility] [address] [place] [address] Monocytes (Bld) [#/Vol] 0.5 E9/L Normal 0.2-1.0 [facility] Comment on above: Performed By: #### 2 [id number] #### [facility] [address] [place] [address] Neutrophils (Bld) [#/Vol] 4.2 E9/L Normal 2.0-7.5 [facility] Comment on above: Performed By: #### 2 [id number] #### [facility] [address] [place] [address] Neutrophils/100 WBC (Bld) 66.5 % Normal 36.0-75.0 [facility] Comment on above: Performed By: #### 2 [id number] #### [facility] [address] [place] [address] Platelet mean volume (Bld) [Entitic vol] 9.2 fL Normal 6.4-10.8 [facility] Comment on above: Performed By: #### 2 [id number] #### [facility] [address] [place] [address] Platelets (Bld) [#/Vol] 259.0 E9/L Normal 150.0-500. 0 [facility] Comment on above: Performed By: #### 2 [id number] #### [facility] [address] [place] [address] RBC (Bld) [#/Vol] 4.9 E12/L Normal 4.3-5.9 [facility] Comment on above: Performed By: #### 2 [id number] #### [facility] [address] [place] [address] WBC corrected for nucl RBC Auto (Bld) [#/Vol] 6.4 E9/L Normal 4.0-11.0 [facility] Comment on above: Performed By: #### 2 [id number] #### [facility] [address] [place] [address] CHEMISTRYOrdered By: SYSTEM SYSTEM on 01-02-2025 Anion gap [Moles/Vol] 12 mmol/L Normal 6 - 16 mEq/L [facility] Calcium [Mass/Vol] 9.6 mg/dL Normal 8.9 - 11. 1 mg/dL [facility] Chloride [Moles/Vol] 95 mmol/L Low 101 - 1 11 mmol/L [facility] CO2 [Moles/Vol] 29 mmol/L Normal 21 - 31 mmol/L [facility] Creatinine [Mass/Vol] 0.8 mg/dL Normal 0.5 - 1.3 mg/dL [facility] eGFR 78 mL/min/1.73 m2 Normal >=59mL/min /1.73 m2 [facility] Glucose [Mass/Vol] 169 mg/dL Normal 55 - 199 mg/dL [facility] Potassium [Moles/Vol] 3.9 mmol/L Normal 3.5 - 5.3 mmol/L [facility] Sodium [Moles/Vol] 132 mmol/L Low 135 - 145 mmol/L [facility] Urea nitrogen [Mass/Vol] 15 mg/dL Normal 5 - 21 mg/dL [facility] Urea nitrogen/Creatinine [Mass ratio] 19 mg/mg Normal 10 - 20 [facility] HEMATOLOGYOrdered By: SYSTEM SYSTEM on 01-02-2025 Basophils/100 WBC (Bld) 1.1 % Normal 0.0 - 2.0 % [facility]e Basophils/Leukocytes Auto (Bld) [Pure # fraction] 0.1 E9/L Normal 0.0 - 0.2 E9/L [facility] Eosinophils (Bld) [#/Vol] 0.1 E9/L Normal 0.0 - 0.5 E9/L [facility] Eosinophils/100 WBC (Bld) 2.1 % Normal 0.0 - 8.0 % [facility] Erythrocyte distribution width (RBC) [Ratio] 14.0 % Normal 10.9 - 14.2 % [facility] Hematocrit (Bld) [Volume fraction] 44.4 % Normal 34.0 - 46.0 % [facility] Hemoglobin (Bld) [Mass/Vol] 15.0 g/dL Normal 12.0 - 16.0 gm/dL [facility] Lymphocytes (Bld) [#/Vol] 1.4 E9/L Normal 1.0 - 4.0 E9/L [facility] Lymphocytes/100 WBC (Bld) 22.2 % Normal 14.0 - 50.0 % [facility] MCH (RBC) [Entitic mass] 30.7 pg Normal 27.0 - 34.0 pg [facility]e MCHC (RBC) [Mass/Vol] 33.9 g/dL Normal 31.4 - 36.0 gm/dL [facility] MCV (RBC) [Entitic vol] 90.7 fL Normal 80.0 - 100.0 fL [facility] Monocytes (Bld) [#/Vol] 0.5 E9/L Normal 0.2 - 1.0 E9/L [facility] Monocytes/100 WBC (Bld) 8.1 % Normal 4.0 - 14.0 % [facility] Neutrophils (Bld) [#/Vol] 4.2 E9/L Normal 2.0 - 7.5 E9/L [facility] Neutrophils/100 WBC (Bld) 66.5 % Normal 36.0 - 75.0 % [facility] Platelet mean volume (Bld) [Entitic vol] 9.2 fL Normal 6.4 - 10.8 fL [facility] Platelets (Bld) [#/Vol] 259.0 E9/L Normal 150.0 - 500.0 E9/L [facility] RBC (Bld) [#/Vol] 4.9 E12/L Normal 4.3 - 5.9 E12/L [facility] WBC corrected for nucl RBC Auto (Bld) [#/Vol] 6.4 E9/L Normal 4.0 - 11.0 E9/L [facility] UA WITH CULT RFLXon 01-02-20 BILIRUBIN:PRTHR:PT:URI NE:ORD:TEST STRIP.AUTOMATED Negative Negative mg/dL [facility] EPITHELIAL CELLS.SQUAMOUS:NARIC:P T:URINE SED:QN:AUTOMATED COUNT >10 CD:[id number] [facility] CLARITY:TYPE:PT:URINE: NOM: Turbid Abnormal Clear [facility] CLASS:TYPE:PT:URINE COLLECTION METHOD:NOM:* Clean Catch [facility] COLOR:TYPE:PT:URINE:NO M:AUTO Yellow Yellow [facility] Comment on above: Microscopic readings are only performed on those samples that meet specific criteria set forth by [facility]. [facility] PH:LSCNC:PT:URINE:QN:T EST STRIP 6.0 5.0 - 9.0 [facility] SPECIFIC GRAVITY:RDEN:PT:URINE: QN:TEST STRIP 1.027 1.005 - 1.030 [facility] GLUCOSE:PRTHR:PT:URINE :ORD:TEST STRIP Negative Negative mg/dL [facility] HEMOGLOBIN:MCNC:PT:URI NE:SEMIQN:TEST STRIP.AUTOMATED Negative Negative mg/dL [facility] Interpretation and review of laboratory results Abnormal [facility] KETONES:PRTHR:PT:URINE :ORD:TEST STRIP.AUTOMATED Negative Negative mg/dL [facility] LEUKOCYTE ESTERASE:PRTHR:PT:URIN E:ORD:TEST STRIP.AUTOMATED 25 Jorge/uL Negative CD:[id number] [facility] LEUKOCYTES:NARIC:PT:UR INE SED:QN:AUTOMATED COUNT 0-5 [facility] MUCUS:PRTHR:PT:URINE:O RD:AUTOMATED Trace Negative CD:[id number] [facility] NITRITE:PRTHR:PT:URINE :ORD:TEST STRIP.AUTOMATED Negative Negative mg/dL [facility] PROTEIN:PRTHR:PT:URINE :ORD:TEST STRIP Trace Abnormal Negative mg/dL [facility] UROBILINOGEN:MCNC:PT:U RINE:SEMIQN:TEST STRIP Negative Negative mg/dL [facility] Original Ordering Provider: DO Vikcy Dye [facility] [place] UA with Cult Rflxon 01-02-20 25 Bilirubin Ql (U) Negative Normal Negative [facility] Comment on above: Performed By: #### 4 [id number] #### [facility] [address] [place] [address] Clarity (U) Turbid Abnormal Clear [facility] Comment on above: Performed By: #### 4 [id number] #### [facility] [address] [place] [address] Color (U) Yellow Normal Yellow [facility] Comment on above: Result Comment: Micr oscopic readings are only performed on those samples that meet specific criteria set forth by [facility]. Performed By: #### 4 [id number] #### [facility] [address] [place] [address] Epithelial cells.squamous Auto (Urine sed) [#/Area] >10 Invalid Interpretation Code [facility] Comment on above: Performed By: #### 4 [id number] #### [facility] [address] [place] [address] Glucose Ql (U) Negative Normal Negative [facility] Comment on above: Performed By: #### 4 [id number] #### [facility] [address] [place] [address] Hemoglobin Auto test strip (U) [Mass/Vol] Negative Normal Negative [facility] Comment on above: Performed By: #### 4 [id number] #### [facility] [address] [place] [address] Ketones Auto test strip Ql (U) Negative Normal Negative [facility] Comment on above: Performed By: #### 4 [id number] #### [facility] [address] [place] [address] Leukocyte esterase Auto test strip Ql (U) 25 Jorge/uL Normal Negative [facility] Comment on above: Performed By: #### 4 [id number] #### [facility] [address] [place] [address] Mucus Auto Ql (U) Trace Normal Negative [facility] Comment on above: Performed By: #### 4 [id number] #### [facility] [address] [place] [address] Nitrite Auto test strip Ql (U) Negative Normal Negative [facility] Comment on above: Performed By: #### 4 [id number] #### [facility] [address] [place] [address] pH (U) 6.0 [pH] Invalid Interpretation Code 5.0-9.0 [facility] Comment on above: Performed By: #### 4 [id number] #### [facility] [address] [place] [address] Protein Ql (U) Trace Abnormal Negative [facility] Comment on above: Performed By: #### 4 [id number] #### [facility] [address] [place] [address] Specific gravity (U) [Rel density] 1.027 Invalid Interpretation Code 1.005-1.03 0 [facility] Comment on above: Performed By: #### 4 [id number] #### [facility] [address] [place] [address] Urobilinogen (U) [Mass/Vol] Negative Normal Negative [facility] Comment on above: Performed By: #### 4 [id number] #### [facility] [address] [place] [address] WBC Auto (Urine sed) [#/Area] 0-5 Normal 0-5 [facility] Comment on above: Performed By: #### 4 [id number] #### [facility] [address] [place] [address] Type of Urine collection method Clean Catch Normal [facility] Comment on above: Performed By: #### 4 [id number] #### [facility] [address] [place] [address] URINALYSISOrdered By: SYSTEM SYSTEM on 01-02-2025 Bilirubin Ql (U) Negative Normal Negativemg /dL [facility] UA Auto SS Clarity (U) Turbid *ABN* (01/02/25 12:54 PM) Invalid Interpretation Code Clear [facility] UA Auto SS Color (U) Yellow 1 (01/02/25 12:54 PM) Normal Yellow [facility] UA Auto SS Comment on above: Interpretive Data: M icroscopic readings are only performed on those samples that meet specific criteria set forth by [facility]. Epithelial cells.squamous Auto (Urine sed) [#/Area] >10 graded/HPF Invalid Interpretation Code [facility] UA Auto SS Glucose Ql (U) Negative Normal Negativemg /dL [facility] UA Auto SS Hemoglobin Auto test strip (U) [Mass/Vol] Negative Normal Negativemg /dL [facility] Auto SS Ketones Auto test strip Ql (U) Negative Normal Negativemg /dL [facility] UA Auto SS Leukocyte esterase Auto test strip Ql (U) 25 Jorge/uL Joreg/uL Normal NegativeLe u/uL [facility] UA Auto SS Mucus Auto Ql (U) Trace graded/LPF Normal Negati vegr aded/LPF [facility] UA Auto SS Nitrite Auto test strip Ql (U) Negative Normal Negativemg /dL [facility] UA Auto SS pH (U) 6.0 *NA* (01/02/25 12:54 PM) Invalid Interpretation Code 5.0 - 9.0 [facility] UA Auto SS Protein Ql (U) Trace mg/dL Invalid Interpretation Code Negativemg /dL [facility] UA Auto SS Specific gravity (U) [Rel density] 1.027 *NA* (01/02/25 12:54 PM) Invalid Interpretation Code 1.005 - 1.030 [facility] UA Auto SS Urobilinogen (U) [Mass/Vol] Negative Normal Negativemg /dL [facility] UA Auto SS WBC Auto (Urine sed) [#/Area] 0-5 graded/HPF Normal 0-5graded/ HPF [facility] UA Auto SS URINALYSISOrdered By: John Russell on 01-02-2025 UA Spec Desc Clean Catch (01/02/25 12:54 PM) Normal [facility] UA Auto SS XR Chest 2 Viewson XR Chest 2 Views Exam Date/Time: 01/02/2025 13:10 EST Reason for Exam: P.A.T. Report IMPRESSION: No acute radiographic abnormality. EXAMINATION: XR Chest 2 Views Clinical History: PAT. Comparison: None RESULT: Hyperinflated lungs with probable emphysematous changes. No distinct focal consolidation. No large pleural effusion. No pneumothorax. Normal cardiomediastinal silhouette. Aortic vascular calcifications. No acute osseous findings. Ordering Provider: Vito Garcia FINAL REPORT Dictated: 01/02/2025 1:21 pm Morgan Ruiz MD Signed (Electronic Signature): 01/02/2025 1:21 pm Signed by: Morgan Ruiz MD Transcribed by: TOMÁS Technologist: MIKE Normal [facility] eGFRon 01-02-2025 eGFR 78 mL/min/1.73 m2 Normal >=59 [facility] Comment on above: Performed By: #### 1 [id number] #### [facility] [address] [place] [address] CT SHOULDER RIGHT WO IV CONT Can 11-26-2024 CT SHOULDER RIGHT WO IV CONTRAST EXAMINATION: CT SHOULDER RIGHT WO IV CONTRAST HISTORY: Shoulder osteoarthritis. Chronic rotator cuff tear. TECHNIQUE: Multiple axial images were obtained of the right shoulder without contrast. Multiplanar reformats were obtained. All CT scans at this facility use dose modulation, iterative reconstruction, and/or weight based dosing when appropriate to reduce radiation dose to as low as reasonably achievable. COMPARISON: Shoulder radiographs June 25, 2024 FINDINGS: Advanced degenerative changes including joint space narrowing, tiny subcortical cyst formation, and marginal osteophyte formation of the right glenohumeral joint. No acute fracture. Atrophy and fatty infiltration of supraspinatus muscle. Visualized lungs demonstrate emphysema. IMPRESSION: Advanced right glenohumeral osteoarthritis. ELECTRONICALLY SIGNED BY: Gerardo Stern DO Normal Not Available ECG 12 Leadon 07-12-2024 Normal sinus rhythm at 90 bpm PA interval 188 ms QRS duration 90 ms QTc 450 ms, compared to EKG from April 2021 there are no significant changes. [facility] Work Phone: XR shoulder RT min 2V*on XR shoulder RT min 2V* [facility] [place] [address] [place] [address] XRay Report Signed Patient: Darrius Lama MR#: [id number] : 1950 Acct:[id number] Age/Sex: 74 / F ADM Date: 05/28/24 Loc: XD Room: Type: [facility] Attending Dr: Manjeet Coombs MD Copies to: Manjeet Coombs MD Ordering Provider: Manjeet Coombs MD Date of Service: 05/28/24 XR/XR shoulder RT min 2V*: M25.511 - Pain in right shoulder RIGHT SHOULDER - 3 views CLINICAL HISTORY: Right shoulder pain radiating down the arm and difficulty with abduction. No recent injury. COMPARISON: 02/12/2024 AP, Y and Grashey views were obtained. There is osteopenia. There is no evidence of fracture or dislocation. There is narrowing of the glenohumeral joint space. Mild hypertrophic degenerative changes is again seen at the acromioclavicular and moderate at the inferior glenohumeral joints. There is also some degenerative change at the greater tuberosity. There are no significant soft tissue abnormalities. Interstitial changes are again noted at the imaged lungs. XR/XR shoulder RT min 2V* IMPRESSION: OSTEOPENIA AND DEGENERATIVE CHANGES. NO ACUTE BONY FINDINGS. Impression dictated by: Maria D Lewis M.D.05/28/2024 4:52 PM Dictation Location: [facility]--10 Transcribed By: [facility] 05/28/241651 Dictated By: Maria D Lewis MD 05/28/241649 Signed By: 05/28/241651 Normal [facility] XR cervical spine 5V*on 01-19 XR cervical spine 5V* [facility] [place] [address] [place] [address] XRay Report Signed Patient: Darrius Lama MR#: [id number] : 1950 Acct:[id number] Age/Sex: 74 / F ADM Date: 02/12/24 Loc: XD Room: Type: [facility] Attending Dr: Manjeet Coombs MD Copies to: Manjeet Coombs MD Ordering Provider: Manjeet Coombs MD Date of Service: 02/12/24 XR/XR shoulder RT min 2V*: M25.511 - Pain in right shoulder ([id number]) XR/XR cervical spine 5V*: M25.511 - Pain in right shoulder CLINICAL HISTORY: Posterior neck pain that radiates to the right shoulder. No injury. RIGHT SHOULDER - 3 views COMPARISON: None AP, Y and Grashey views were obtained. There is osteopenia. There is no acute fracture or dislocation. There is narrowing of the acromiohumeral humeral joint with inferior marginal spurring. There is also mild degenerative change at the acromioclavicular joint and greater tuberosity. No soft tissue abnormalities are seen. XR/XR shoulder RT min 2V* IMPRESSION: OSTEOPENIA AND DEGENERATIVE CHANGES. CERVICAL SPINE - 5 views COMPARISON: None AP, lateral, both oblique and odontoid views were obtained. There is osteopenia. There is straightening in the normal cervical lordosis. There is slight retrolisthesis of C4 on C5, C5 on C6 and C6 on C7. There is disc space narrowing at these levels as well as endplate spurring and some sclerosis. Facet disease is also visualized on both sides. On the left, there is mild bony foraminal encroachment at C4-5 and moderate at C5-6 and at C6-7. On the right, there is mild bony foraminal encroachment at C2-3 and C6-7, mild to moderate C3-4 and moderate at C4-5 and C5-6. The atlantoaxial relationship is maintained though there is facet narrowing on the right. No prevertebral soft tissue swelling is noted. IMPRESSION: OSTEOPENIA AND MULTILEVEL DEGENERATIVE CHANGES. Impression dictated by: Maria D Lewis M.D.02/12/2024 4:02 PM Dictation Location: [facility]12 Transcribed By: GRACE 02/12/24 1602 Dictated By: Maria D Lewis MD 02/12/24 1558 Signed By: 02/12/24 1602 Normal [facility] Pain Management Office/Clini c Noteon 08-16-2023 Pain Management Office/Clinic Note Chief Complaint low back and leg pain History of Present Illness The patient rates their pain as a 2 but can increase to 8. The pain is described as aching and sharp. It is constant in nature. It is increased with standing, walking and is decreased with rest. There are no new associated symptoms; no new loss of bowel or bladder control. No new motor or sensory deficits. Patient has failed physical and medical modalities to help alleviate their pain complaints. This does include but not limited to provider directed home exercise program and activity modification for greater than an 8 week time period time, of which is attempted on a daily basis. The patient has engaged in a formal course of physical therapy of which increased her pain. Activity modification including transition maneuver avoidance as well as strict upper extremity lift and movement limits has failed to provide reprieve. This patient has tried over the counter and prescription medications that include but not limited to the use of Gilliam, Tylenol for greater than a 3 month period of time. They present today to discuss their pain complaints. Opioid Risk Assessment Oswestry Disability Form AM Behavior: Worse Family History of Substance Abuse: None PM Pain Intensity: The pain is moderate at the moment Day Progresses Behavior: Better Personal History of Substance Abuse: None PM Personal Care: It is painful to look after myself and I am slow and careful PM Behavior: Worse Age Between 16 and 45: No PM Sitting: Pain prevents me from sitting more than 30 minutes Pain location and laterality: Low back pain. Bilateral hip pain. History of Preadolescent Sexual Abuse: No PM Pain Lifting: Pain prevents me from lifting heavy weights off the floor, but I can manage if they are conveniently placed eg. on a table Pain quality: Aching, Sharp Mental Health Condition: No PM Walking: I can only walk using a stick or crutches Pain Pattern: Constant Depression: No PM Standing: Pain prevents me from standing for more than 10 minutes Pain rate at rest: 2 Total Opioid Risk Score: 0 PM Sleeping: Because of pain I have less than 4 hours of sleep Pain rate with activity: 8 Total Score Risk Category: Low risk PM Sex Life: My sex life is severly restricted by pain Bending: Aggravating PM Social Life: My social life is normal, but increases the degree of pain Heat: Alleviating PM Traveling: Pain restricts me to short necessary journeys under 30 minutes Lying: Aggravating PM Oswestry Score: 56 Massage: Alleviating PM Oswestry Score Interpretation: 41% to 60% Severe Disability: Pain remains the main problem in this group but activities of daily living are affected. These patients require a detailed investigation. Performance of ADL's: Aggravating Pushing/Pulling: Aggravating Sitting: Alleviating Standing: Aggravating Transitioning: Aggravating Walking: Aggravating Sensory impairment location: numbness and tingling in right foot Pain since last visit: Unchanged Procedure 1: Diagnostic facet inj/DMR/MBB Procedure Date 1: 04/21/23 Procedure Comments 1: Bilateral L3,L4,L5 DMR Pain Improvement 1: Significant (70-100% relief) Pain Improvement Comments 1: 100% relief x 2 hours Procedure 2: Diagnostic facet inj/DMR/MBB Procedure Date 2: 05/18/23 Procedure Comments 2: Bilateral L3,L4,L5 DMR Pain Improvement 2: Minimal (0-30% relief) Pain Improvement Comments 2: 80% relief x 2 hour Procedure 3: Radiofrequency Ablation Procedure Date 3: 06/07/23 Procedure Comments 3: Bilateral L3,L4,L5 RFA Pain Improvement 3: Significant (70-100% relief) Pain Improvement Comments 3: 100% relief Was procedure beneficial 3: Yes Date Tens: n/a Date Chiropractor: n/a Date PT: hx Effective PT: increased pain in low back Comments PT: HEP-NONE Date Injections: 2021 Frequency Injections: several Effective Injections: helped-RFA, ANNA Comments Injections: Dr. Camacho Date Surgery: hx Frequency Surgery: x1,x1 Effective Surgery: right & left hip surgery Recent testing: No Loss of bladder/bowel: Denies Demeanor: Pleasant Distress: None Appearance: Appropriate Cognitive impairment: No Feels safe at home: Yes Suicidal/homicidal ideation: No Family History of Substance Abuse: None Personal History of Substance Abuse: None Age Between 16 and 45: No History of Preadolescent Sexual Abuse: No Mental Health Condition: No Depression: No Total Opioid Risk Score: 0 Total Score Risk Category: Low risk Review of Systems Constitutional-no fever, chills, unexplained weight loss ENMT-no dysphagia Integumentary-no rashes Eyes-no diplopia Gastrointestinal-no nausea, vomiting, diarrhea Respiratory-no shortness of breath Cardiac-no chest pain Hematologic-no bleeding or unusual bruising Genitourinary-no dysuria Physical Exam Vitals & Measurements HR: 90 (Peripheral) RR: 16 BP: 140/90 HT: 167 cm WT: 105 kg (Estimated) BMI: 37.65 (more content not included)... Normal [facility] Pain Management Office/Clini c Noteon 03-31-2023 Pain Management Office/Clinic Note Chief Complaint back and bilateral hand pain History of Present Illness The patient rates their pain as a 4 but can increase to 10. The pain is described as burning and sharp. It is constant in nature. It is increased with standing, walking and is decreased with rest. There are no new associated symptoms; no new loss of bowel or bladder control. No new motor or sensory deficits. Since the patient?s last encounter their physical functioning, family relationships, mood, sleep patterns, overall functioning have remained stable. She underwent an MRI of the lumbar spine with the below report: Multilevel degenerative changes at L3?4; which identifies moderate stenosis at that same level. There is mild stenosis at L1-2 and L4-5. Patient has failed physical and medical modalities to help alleviate their pain complaints. This does include but not limited to provider directed home exercise program and activity modification for greater than an 8 week time period time, of which is attempted on a daily basis. The patient has engaged in a formal course of physical therapy of which increased her pain. Activity modification including transition maneuver avoidance as well as strict upper extremity lift and movement limits has failed to provide reprieve. This patient has tried over the counter and prescription medications that include but not limited to the use of Gilliam, Tylenol for greater than a 3 month period of time. They present today to discuss their pain complaints. AM Behavior: Same Day Progresses Behavior: Same PM Behavior: Same Pain location and laterality: back and bilateral hand pain Pain quality: Burning, Sharp Pain Pattern: Constant Pain rate at rest: 4 Pain rate with activity: 10 Bending: Aggravating Cold/Ice: Alleviating Lifting: Aggravating Lying: Alleviating Sitting: Alleviating Standing: Aggravating Walking: Aggravating Sensory impairment location: NUMBNESS/TINGLING AT TIMES RIGTH FOOT/HAND Pain since last visit: Unchanged Date Tens: n/a Date Chiropractor: n/a Date PT: hx Effective PT: increased pain in low back Comments PT: HEP-NONE Date Injections: 2021 Frequency Injections: several Effective Injections: helped-RFA, ANNA Comments Injections: Dr. Camacho Date Surgery: hx Frequency Surgery: x1,x1 Effective Surgery: right & left hip surgery Recent testing: Yes Recent testing type: MRI LUMBAR SPINEXRAY SACRUM/COCCYXXRAY HIPS Loss of bladder/bowel: Denies Demeanor: Pleasant Distress: None Appearance: Appropriate Cognitive impairment: No Feels safe at home: Yes Suicidal/homicidal ideation: No Review of Systems Constitutional-no fever, chills, unexplained weight loss ENMT-no dysphagia Integumentary-no rashes Eyes-no diplopia Gastrointestinal-no nausea, vomiting, diarrhea Respiratory-no shortness of breath Cardiac-no chest pain Hematologic-no bleeding or unusual bruising Genitourinary-no dysuria Physical Exam Vitals & Measurements HR: 90 (Peripheral) RR: 16 BP: 153/111 HT: 168 cm Psych-alert and oriented x 3. Attentive and appropriate, constitutionally normal, displays normal mood and affect per situation. There are no obvious deficits in memory, reasoning, or intellect. Skin-no obvious rashes, bruising, erythema noted to the patient's area of pain. Extremities- extremities are warm with minimal edema and palpable pulses. Lumbar-no significant tenderness to palpation noted in the lumbar spine and paraspinal musculature. Pain is elicited with extension, and lateral rotation of the lumbar spine. Range of motion is slightly diminished with these motions due to pain. Facet loading maneuvers are positive on the bilaterally and do appear to be concordant with the patient's normal complaints of pain. Coordination remains intact. Gait remains non-antalgic. Cardiac-regular rate Pulmonary-respiration's un-labored Mktnzeb-vos-rjlhzz Additional Vitals BP Position/Location: Sitting Assessment/Plan Chronic pain syndrome Facet syndrome, lumbar Lumbosacral spondylosis The patient has failed physical and medical modalities listed above. The patient has established candidacy for a bilateral L3, L4 L5 DMR. IF the patient obtains a positive response; or that being greater than 80% reduction in pain for a period of 120 minutes the patient will proceed with a second confirmatory procedure 14 days following the first as required by their insurance. This is in attempts of proceeding with the rhizotomy. Their medications were reviewed and no changes were made at this time. [place] [facility] was reviewed on today's office visit and no concerns noted. Thank you for allowing me to participate in the patient?s care. I look forward to seeing them as a return patient following her injection therapy. Medical Decision Making Chronic conditions NOT treated during this visit that affected my overall medical decision making: [x] Treatment plans discusse (more content not included)... Normal [facility] MRI [facility] WO CONon 03-05-20 MRI [facility] CON EXAM: MRI LSFABER WO CON HISTORY: Lumbar radiculopathy COMPARISON: CT abdomen pelvis 04/07/2022. TECHNIQUE: Multiplanar multisequence MRI was obtained through the lumbar spine without contrast FINDINGS: For discussion purposes the cephalad most axial T2 weighted image defines the T11-T12 disc level. Osseous: The vertebral body heights are maintained. No fracture. Modic type I endplate edema at L2 L3 L4 and L5. Disc height loss throughout the lumbar spine. Osteophytes throughout the lumbar spine. Dextroconvex scoliotic curvature of the lumbar spine. Conus medullaris/cauda equina: The conus medullaris terminates at the L1 level. No abnormal signal is demonstrated within the distal aspect of the spinal cord. Soft tissues: No retroperitoneal lymphadenopathy. Moderate hiatal hernia. Infrarenal abdominal aorta aneurysmal dilation 3.5 x 3.0 cm unchanged. Left renal cysts. Disc levels: T12-L1: Small posterior central disc protrusion. Mild bilateral facet arthrosis. Posterior ligamentous thickening. Mild narrowing of the spinal canal. The neural foramina are patent. L1-L2: Broad-based posterior disc bulge. Mild spinal canal stenosis. Mild facet arthrosis. Moderate left foraminal stenosis. Mild right foraminal stenosis. L2-L3: Circumferential disc bulge. There is mild effacement of ventral CSF. Severe left foraminal stenosis. Left facet arthrosis. L3-L4: Circumferential disc bulge. Moderate spinal canal stenosis. Moderate facet arthrosis. Moderate right and moderate left foraminal stenosis. L4-L5: Broad-based posterior disc bulge/osteophyte complex. Severe facet arthrosis. Mild spinal canal stenosis. Mild narrowing of the left neural foramina. Moderate foraminal stenosis on the right L5-S1: Moderate left foraminal stenosis. Moderate facet arthrosis. Severe right foraminal stenosis. Small broad-based posterior disc bulge. No significant canal stenosis. IMPRESSION: 1. Multilevel degenerative changes of the lumbar spine most notably at L3-L4 where there is moderate spinal canal stenosis and moderate foraminal stenosis. 2. Severe foraminal stenosis at L5-S1 on the right and L2-L3 on the left. 3. Mild spinal canal stenosis with moderate right foraminal stenosis at L4-L5. 4. Mild spinal canal stenosis and moderate left foraminal stenosis at L1-L2. Electronically authenticated by: ABRAHAN STORY Date: 2023-03-05 19:20 Normal [facility] XR HIPS BRUCE 5V W PELVISon XR HIPS BRUCE 5V W PELVIS EXAM: XR HIPS BRUCE 5V W PELVIS HISTORY: Hip pain COMPARISON: None. TECHNIQUE: 5 view study FINDINGS: There are bilateral total hip prostheses. Components are well seated. Overall bony architecture is otherwise normal. Degenerative changes of the lower lumbar spine are noted. There is narrowing at the symphysis pubis with associated articular surface sclerosis. Mild narrowing at the sacroiliac joints bilaterally. IMPRESSION: Bilateral total hip prostheses. Lower lumbar spondylosis. Osteitis pubis. Early bilateral sacroiliitis. Electronically authenticated by: Margarito FAGAN Date: 2023-03-04 01:00 Normal [facility] XR SACRUM_COCCYXon XR SACRUM_COCCYX EXAM: XR SACRUM_COCC YX HISTORY: Sacroiliac joint inflamed COMPARISON: None. TECHNIQUE: 3-D study FINDINGS: There are bilateral total hip prostheses partially visualized. The sacrum and coccyx show normal architecture and a smooth curve. There is disc space narrowing at L4-L5 and L5-S1 with vacuum disc phenomenon. Sacroiliac joints are mildly narrowed. IMPRESSION: Early bilateral sacroiliitis. Lower lumbar spondylosis. Bilateral hip arthroplasties. Electronically authenticated by: Margarito FAGAN Date: 2023-03-04 00:59 Normal [facility] Pain Management Office/Clini c Noteon 02-20-2023 Pain Management Office/Clinic Note Chief Complaint low back and right leg pain History of Present Illness Dear Dr. Moon, Thank you for your referral to [facility]. Your patient was evaluated at your request on 02/20/23. Below is a narrative summary of their clinical encounter. The patient?s pain started years ago without incident. Imaging available for review includes: none recently. The patient rates their pain as a 1 but can increase to 10. The pain is described as burning and sharp. It is intermittent in nature. It is increased with standing, walking and is decreased with rest. There are no new associated symptoms; no new loss of bowel or bladder control. No new motor or sensory deficits. Patient has failed physical and medical modalities to help alleviate their pain complaints. This does include but not limited to provider directed home exercise program and activity modification for greater than an 8 week time period time, of which is attempted on a daily basis. The patient has engaged in a formal course of physical therapy of which increased her pain. Activity modification including transition maneuver avoidance as well as strict upper extremity lift and movement limits has failed to provide reprieve. This patient has tried over the counter and prescription medications that include but not limited to the use of Gilliam, Tylenol for greater than a 3 month period of time. They present today to discuss their pain complaints. AM Behavior: Better Day Progresses Behavior: Worse PM Behavior: Worse Timing of onset: gradually Related injury/event: none Details of onset: Pain for years Past treatment: hx PTPM in [place] injections helpednorco-helpedzanflex- drowsey Pain location and laterality: low back & right hip pain Pain quality: Burning, Sharp Pain Pattern: Intermittent Pain rate at rest: 1 Pain rate with activity: 10 Bending: Aggravating Cold/Ice: Alleviating Lifting: Aggravating Pushing/Pulling: Aggravating Sitting: Alleviating Standing: Aggravating Walking: Aggravating Sensory impairment location: numbness/tingling in right leg/toes Date Tens: n/a Date Chiropractor: n/a Date PT: hx Effective PT: increased pain in low back Comments PT: HEP-none Date Injections: 2021 Frequency Injections: several Effective Injections: helped-RFA, ANNA Comments Injections: Dr. Camacho Date Surgery: hx Frequency Surgery: x1,x1 Effective Surgery: right & left hip surgery Recent testing: No Loss of bladder/bowel: Denies Demeanor: Pleasant Distress: None Appearance: Appropriate Cognitive impairment: No Feels safe at home: Yes Suicidal/homicidal ideation: No Family History of Substance Abuse: None Personal History of Substance Abuse: None Age Between 16 and 45: No History of Preadolescent Sexual Abuse: No Mental Health Condition: No Depression: No Total Opioid Risk Score: 0 Total Score Risk Category: Low risk Review of Systems Constitutional-no fever, chills, unexplained weight loss ENMT-no dysphagia Integumentary-no rashes Eyes-no diplopia Gastrointestinal-no nausea, vomiting, diarrhea Respiratory-no shortness of breath Cardiac-no chest pain Hematologic-no bleeding or unusual bruising Genitourinary-no dysuria Physical Exam Vitals & Measurements HR: 83 (Peripheral) RR: 16 BP: 121/89 HT: 170 cm Psych-alert and oriented x 3. Attentive and appropriate, constitutionally normal, displays normal mood and affect per situation. There are no obvious deficits in memory, reasoning, or intellect. Skin-no obvious rashes, bruising, erythema noted to the patient's area of pain. Extremities- extremities are warm with minimal edema and palpable pulses. Lumbar-tenderness to palpation noted in the lumbar spine and paraspinal musculature. Pain is not elicited with flexion, extension, and lateral rotation of the lumbar spine. Range of motion is not diminished with these motions. Facet loading maneuvers are negative. Strength-noted to be unremarkable with the exception of decreased strength rated at 4 out of 5 in right anterior tibialis Sensory-no notable sensory deficits in the bilateral lower extremities to touch or pinprick in all dermatomal distributions with the exception to decreased sensation to the right L5 dermatomal distribution Straight leg raise is positive on the right at 60 degrees. Coordination remains intact. Gait remains antalgic. Cardiac-regular rate Pulmonary-respiration's un-labored Kkrrzxr-xsu-fuvhcz Additional Vitals No qualifying data available. Assessment/Plan Bilateral hip pain Chronic pain syndrome Lumbar neuritis Sacroiliitis Ordered: XR Sacrum/Coccyx Minimum 2 Views Orders: XR Hip 2 Views Bilateral w/Pelvis The patient has failed physical and medical modalities listed above. The patient has established candidacy for an X-ray of the hips, sacrum/coccyx. The patient was provided direction and education on home exercise program; given a handout and in (more content not included)... Normal [facility] NM BONE IMAGE 3 PHASEon 06-0 NM BONE IMAGE 3 PHASE EXAMINATION: NM MINGO NE IMAGE 3 PHASE HISTORY: Pain in right hip joint COMPARISON: No relevant comparison available. TECHNIQUE: 24.5 mCi Technetium 99m MDP was injected intravenously followed by acquisition of dynamic flow, immediate blood pool, and delayed static images. FINDINGS: IMAGED AREA: Bilateral hips FLOW PHASE: Normal. BLOOD POOL PHASE: Normal. DELAYED IMAGES: Normal. OTHER: Photopenia in the bilateral hips consistent with arthroplasty. IMPRESSION: No abnormal increased activity to suggest fracture or joint loosening Electronically authenticated by: HIREN STAPLETON Date: 2022-04-27 16:16 [address] [facility] CT ABD/PELV W CONon 04-07-20 CT ABD/PELV W CON EXAMINATION: CT ABD/ PELV W CON HISTORY: Left lower quadrant pain , acute COMPARISON: No relevant comparison available. TECHNIQUE: Axial, Coronal, and Sagittal images were created with IV contrast. Dose reduction techniques were achieved by using automated exposure control and/or adjustment of mA and/or kV according to patient size and/or use of iterative reconstruction technique. FINDINGS: LUNG BASES: No visible pulmonary or pleural disease. LIVER: No enlargement, atrophy, abnormal density, or significant focal lesion. BILIARY: No dilatation or calcification. PANCREAS: No lesion, fluid collection, ductal dilatation, or atrophy. SPLEEN: No enlargement or focal lesion. ADRENALS: No mass or enlargement. KIDNEYS: Several cysts bilaterally; some are too small to characterize, but all favor benign etiology. No mass, obstruction, or calcification. BOWEL/MESENTERY: Large hiatal hernia. Mild edema/stranding within the fat adjacent the distal transverse colon which lies within the upper pelvis, without appreciable abnormality of the colon. No visible mass, obstruction, or bowel wall thickening. No significant diverticular disease. AORTA/VASCULAR: No aneurysm or dissection. RETROPERITONEUM: No mass or adenopathy. LYMPH NODES: No adenopathy. URINARY BLADDER: No visible focal wall thickening, lesion, or calculus, but evaluation is limited by streak artifact from bilateral hip replacements. PELVIC ORGANS: No visible mass, but evaluation is limited by artifact from bilateral hip replacements. ABDOMINAL WALL: No mass or hernia. BONES: Multilevel moderate marked degenerative disc disease and degenerative facet arthropathy. Bilateral hip replacements. OTHER: Negative. IMPRESSION: 1. Suspect mild colitis involving the distal transverse colon versus possible epiploic appendagitis. 2. Large hiatal hernia. Electronically authenticated by: DENISSE PATTON Date: 2022-04-07 14:47 Normal [facility] Metabolic Pane [facility] 04-07-2022 Albumin [Mass/Vol] 4.3 g/dL Normal 3.6-5.1 [facility] Specialist Comment on above: Performed By: #### C MP #### [facility] [address] [place], [place] [id number] Albumin/Globulin [Mass ratio] 1.3 {ratio} Normal 1.0-2.5 [facility] Comment on above: Performed By: #### C MP #### [facility] [address] [place], [place] [id number] ALP [Catalytic activity/Vol] 85 U/L Normal 35-119 [facility] Comment on above: Performed By: #### C MP #### [facility] [address], [place] [id number] ALT [Catalytic activity/Vol] 28 U/L Normal 6-33 [facility] Comment on above: Result Comment: 10/20 Female reference range changed. Performed By: #### C MP #### [facility] [address] [place], [place] [id number] Anion gap [Moles/Vol] 18 mmol/L Normal 12-20 [facility] Comment on above: Result Comment: Effe ctive 11/25/2019 reference range changed. Performed By: #### C MP #### [facility] [address], [place] [id number] AST [Catalytic activity/Vol] 31 U/L Normal 9-34 [facility] Comment on above: Performed By: #### C MP #### [facility] [address], [place] [id number] Bilirubin [Mass/Vol] 0.36 mg/dL Normal 0.30-1.20 [facility] Comment on above: Performed By: #### C MP #### [facility] [address] [place], [place] [id number] BUN/CREA 20 Ratio Normal 6-22 [facility] Comment on above: Performed By: #### C MP #### [facility] [address], [place] [id number] Calcium [Mass/Vol] 9.6 mg/dL Normal 8.6-10.2 [facility] Comment on above: Performed By: #### C MP #### [facility] [address], [place] [id number] Chloride [Moles/Vol] 95 mmol/L Low 98-107 [facility] Comment on above: Performed By: #### C MP #### [facility] [address], [place] [id number] CO2 [Moles/Vol] 26 mmol/L Normal 20-31 [facility] Comment on above: Performed By: #### C MP #### [facility] [address], [place] [id number] Creatinine [Mass/Vol] 0.9 mg/dL Normal 0.6-1.4 [facility] Comment on above: Performed By: #### C MP #### [facility] [address], [place] [id number] eGFRAA 76 mL/min/1.73m2 Normal >60 [facility] Comment on above: Performed By: #### C MP #### [facility] [address], [place] [id number] eGFRNAA 63 mL/min/1.73m2 Normal >60 [facility] Comment on above: Performed By: #### C MP #### [facility] [address] [place], [place] [id number] Globulin (S) [Mass/Vol] 3.2 g/dL Normal 1.9-3.7 [facility] Comment on above: Performed By: #### C MP #### [facility] [address] [place], [place] [id number] Glucose [Mass/Vol] 123 mg/dL High 65-99 [facility] Comment on above: Result Comment: For FASTING Glucose --- ADA reference ranges: Normal 65-99 mg/dl Prediabetes 100-125 Diabetes >/= 126 Performed By: #### C MP #### [facility] [address] [place], [place] [id number] Potassium [Moles/Vol] 4.1 mmol/L Normal 3.5-5.5 [facility] Comment on above: Result Comment: Spec imen is hemolyzed. Results may be affected. Performed By: #### C MP #### [facility] [address] [place], [place] [id number] Protein [Mass/Vol] 7.5 g/dL Normal 6.1-8.1 [facility] Comment on above: Performed By: #### C MP #### [facility] [address] [place], [place] [id number] Sodium [Moles/Vol] 135 mmol/L Normal 135-146 [facility] Specialist Comment on above: Performed By: #### C MP #### [facility] [address] [place], [place] [id number] Urea nitrogen [Mass/Vol] 18 mg/dL Normal 7-25 [facility] Comment on above: Performed By: #### C MP #### [facility] [address] [place], [place] [id number] Hemoglobin A1Con 02-25-2021 HbA1c (Bld) [Mass fraction] 6.2 % High 4.0-6.0 [facility] Comment on above: Performed By: #### G LYHGB #### [facility] [address] [place], [place] [id number] Windows Desktop Engineer: Manohar Mccarthy MD #### JEREIM, CBC #### [facility] [address] [place] [address] Windows Desktop Engineer: Hiren Marcelino MD HbA1c (Bld) [Mass fraction] 131 mg/dL Normal [facility] Comment on above: Result Comment: The ADA and AACC recommend providing the estimated average glucose result to permit better patient understanding of their HBA1c result. Performed By: #### G LYHGB #### [address] [address] Windows Desktop Engineer: Manohar Mccarthy MD #### BMP, CBC #### [facility] [address] [place] [address] Windows Desktop Engineer: Hiren Marcelino MD Lipid Profileon 02-25-2021 Cholesterol [Mass/Vol] 184 mg/dL Normal <200 [facility] Comment on above: Result Comment: Cholesterol Guidelines: <200 Desirable 200-240 Borderline >240 Undesirable Performed By: #### L IPR #### [address] [address] Windows Desktop Engineer: Manohar Mccarthy MD Cholesterol in HDL [Mass/Vol] 35 mg/dL Low >40 [facility] Comment on above: Result Comment: HDL Guidelines: <40 Undesirable 40-59 Borderline >59 Desirable Performed By: #### L IPR #### [address] [address] Windows Desktop Engineer: Manohar Mccarthy MD Cholesterol in LDL [Mass/Vol] 119 mg/dL Normal 0-130 [facility] Comment on above: Result Comment: LDL Guidelines: <100 Desirable 100-129 Near to/above Desirable 130-159 Borderline >159 Undesirable Direct (measured) LDL and calculated LDL are not interchangeable tests. Performed By: #### L IPR #### [address] [address] Windows Desktop Engineer: Manohar Mccarthy MD Cholesterol.total/Chol esterol in HDL [Mass ratio] 5.3 {ratio} High <5 [facility] Comment on above: Performed By: #### L IPR #### [address] [address] Windows Desktop Engineer: Manohar Mccarthy MD Triglyceride [Mass/Vol] 151 mg/dL High <150 [facility] Comment on above: Result Comment: Triglyceride Guidelines: <150 Desirable 150-199 Borderline 200-499 High >499 Very high Based on AHA Guidelines for fasting triglyceride, August 2012. Performed By: #### L IPR #### [facility] [address] [place] [address] Windows Desktop Engineer: Manohar Mccarthy MD Basic Metabolic Panelon - Anion gap [Moles/Vol] 6 mmol/L Low 9 - 17 mmol/L [employer] Phone: Bun/Cre Ratio 15 [employer] Phone: Calcium [Mass/Vol] 9.6 mg/dL 8.6 - 10. 4 mg/dL [facility] Phone: Chloride [Moles/Vol] 94 mmol/L Low 98 - 10 7 mmol/L [employer] Phone: CO2 [Moles/Vol] 28 mmol/L 20 - 31 mmol/L [employer] Phone: Creatinine [Mass/Vol] 0.82 mg/dL 0.50 - 0.90 mg/dL [facility] Phone: GFR >60 >60 mL/min [employer] Phone: GFR Non- >60 >60 mL/min [facility] Phone: Glucose [Mass/Vol] 111 mg/dL High 70 - 99 mg/dL [facility] Phone: Interpretation and review of laboratory results Abnormal [employer] Phone: Potassium [Moles/Vol] 4.3 mmol/L 3.7 - 5.3 mmol/L [facility] Phone: Sodium [Moles/Vol] 128 mmol/L Low 135 - 144 mmol/L [facility] Phone: Urea nitrogen [Mass/Vol] 12 mg/dL 8 - 23 mg/dL [facility] Phone: Basic Metabolic Profon 02-24 (cont.) Normal [facility] Comment on above: Result Comment: Aver age GFR for 60-69 years old: 85 mL/min/1.73sq m Chronic Kidney Disease: <60 mL/min/1.73sq m Kidney failure: <15 mL/min/1.73sq m eGFR calculated using average adult body mass. Additional eGFR calculator available at: http://www.Duog[employer]/multiple_crcl_2011.htm Performed By: #### G LYHGB #### [id number] [place] [address] Windows Desktop Engineer: Manohar Mccarthy MD #### BMP, CBC #### [facility] [address] [place] [address] Windows Desktop Engineer: Hiren Marcelino MD Anion gap [Moles/Vol] 6 mmol/L Low 9-17 [facility] Comment on above: Performed By: #### G LYHGB #### [address] [address] Windows Desktop Engineer: Manohar Mccarthy MD #### BMP, CBC #### [address] [place] [address] Windows Desktop Engineer: Hiren Marcelino MD BUN/CRE Ratio 15 Normal -20 [facility] Comment on above: Performed By: #### G LYHGB #### [address] [address] Windows Desktop Engineer: Manohar Mccarthy MD #### BMP, CBC #### [facility] [address] [place] [address] Windows Desktop Engineer: Hiren Marcelino MD Calcium [Mass/Vol] 9.6 mg/dL Normal 8.6-10.4 [facility] Comment on above: Performed By: #### G LYHGB #### [address] [address] Windows Desktop Engineer: Manohar Mccarthy MD #### BMP, CBC #### [facility] [address] [place], [place] [id number] Windows Desktop Engineer: Hiren Marcelino MD Chloride [Moles/Vol] 94 mmol/L Low 98-107 [facility] Comment on above: Performed By: #### G LYHGB #### [address] [address] Windows Desktop Engineer: Manohar Mccarthy MD #### BMP, CBC #### [facility] [address] [place], [place] [id number] Windows Desktop Engineer: Hiren Marcelino MD CO2 [Moles/Vol] 28 mmol/L Normal 20-31 [facility] Comment on above: Performed By: #### G LYHGB #### [address] [address] Windows Desktop Engineer: Manohar Mccarthy MD #### BMP, CBC #### [facility] [address] [place] [address] Dr. [place], [place] [id number] Windows Desktop Engineer: Hiren Marcelino MD Creatinine [Mass/Vol] 0.82 mg/dL Normal 0.50-0.90 [facility] Comment on above: Performed By: #### G LYHGB #### [address] [address] Windows Desktop Engineer: Manohar Mccarthy MD #### BMP, CBC #### [facility] [address] [place] [address] Dr[address] [place], [place] [id number] Windows Desktop Engineer: Hiren Marcelino MD GFR, Amer >60 Normal >60 [facility] Comment on above: Performed By: #### G LYHGB #### [address] [address] Windows Desktop Engineer: Manohar Mccarthy MD #### BMP, CBC #### [facility] [address] [place] [address] Dr. [place], [place] [id number] Windows Desktop Engineer: Hiren Marcelino MD GFR,non Amer >60 Normal >60 [facility] Comment on above: Performed By: #### G LYHGB #### [address] [address] Windows Desktop Engineer: Manohar Mccarthy MD #### BMP, CBC #### [facility] [address] [place] [address] Dr. [place], [place] [id number] Windows Desktop Engineer: Hrien Marcelino MD Glucose [Mass/Vol] 111 mg/dL High 70-99 [facility] Comment on above: Performed By: #### G LYHGB #### [address] [address] Windows Desktop Engineer: Manohar Mccarthy MD #### BMP, CBC #### [facility] [address] [place] [address] Dr. [place], [place] [id number] Windows Desktop Engineer: Hiren Marcelino MD Potassium [Moles/Vol] 4.3 mmol/L Normal 3.7-5.3 [facility] Comment on above: Performed By: #### G LYHGB #### [address] [address] Windows Desktop Engineer: Manohar Mccarthy MD #### BMP, CBC #### [facility] [address] [place] [address] Dr. [place], [place] [id number] Windows Desktop Engineer: Hiren Marcelino MD Sodium [Moles/Vol] 128 mmol/L Low 135-144 [facility] Comment on above: Performed By: #### G LYHGB #### [address] [address] Windows Desktop Engineer: Manohar Mccarthy MD #### BMP, CBC #### [facility] [address] [place] [address] Dr. [place], [place] [id number] Windows Desktop Engineer: Hiren Marcelino MD Staging: Normal [facility] Comment on above: Result Comment: Stag e 1: Some kidney damage normal GFR Stage 2: Mild kidney damage GFR 60-89 Stage 3: Moderate kidney damage GFR 30-59 Stage 4: Severe kidney damage GFR 15-29 Stage 5: Severe kidney damage GFR <15 ESRD - chronic treatment by dialysis or transplant Performed By: #### G LYHGB #### [address] [address] [employer] Desktop Engineer: Manohar Mccarthy MD #### BMP, CBC #### [address] [place], [place] [id number] Windows Desktop Engineer: Hiren Marcelino MD Urea nitrogen [Mass/Vol] 12 mg/dL Normal 8-23 [facility] Comment on above: Performed By: #### G LYHGB #### [address] [address] [employer] Desktop Engineer: Manohar Mccarthy MD #### BMP, CBC #### [address] [place] [address] [employer] Desktop Engineer: Hiren Marcelino MD CBCon 02-24-2021 Erythrocyte distribution width (RBC) [Ratio] 13.6 % Normal 11.8-14.4 [facility] Comment on above: Performed By: #### G LYHGB #### [address] [address] [employer] Desktop Engineer: Manohar Mccarthy MD #### BMP, CBC #### [address] [place] [address] [employer] Desktop Engineer: Hiren Marcelino MD Hematocrit (Bld) [Volume fraction] 43.8 % Normal 36.3-47.1 [facility] Comment on above: Performed By: #### G LYHGB #### [address] [address] [employer] Desktop Engineer: Manohar Mccarthy MD #### BMP, CBC #### [address] [place] [address] [employer] Desktop Engineer: Hiren Marcelino MD Hemoglobin (Bld) [Mass/Vol] 13.8 g/dL Normal 11.9-15.1 [facility] Comment on above: Performed By: #### G LYHGB #### [address] [id number] [employer] Desktop Engineer: Manohar Mccarthy MD #### BMP, CBC #### [address] [place] [place] [address] [employer] Desktop Engineer: Hiren Marcelino MD MCH (RBC) [Entitic mass] 29.3 pg Normal 25.2-33.5 [facility] Comment on above: Performed By: #### G LYHGB #### [address] [id number] [employer] Desktop Engineer: Manohar Mccarthy MD #### BMP, CBC #### [address] [place] [address] Windows Desktop Engineer: Hiren Marcelino MD MCHC (RBC) [Mass/Vol] 31.5 g/dL Normal 28.4-34.8 [facility] Comment on above: Performed By: #### G LYHGB #### [address] [id number] [employer] Desktop Engineer: Manohar Mccarthy MD #### BMP, CBC #### [address] [place] [address] [employer] Desktop Engineer: Hiren Marcelino MD MCV (RBC) [Entitic vol] 93.0 fL Normal 82.6-102.9 [facility] Comment on above: Performed By: #### G LYHGB #### [address] [id number] [employer] Desktop Engineer: Manohar Mccarthy MD #### BMP, CBC #### [address] [place], [place] [id number] Windows Desktop Engineer: Hiren Marcelino MD NRBC Automated 0.0 per 100 WBC Normal 0.0 [facility] Comment on above: Performed By: #### G LYHGB #### [id number] [place] [address] Windows Desktop Engineer: Manohar Mccarthy MD #### BMP, CBC #### [address] [place], [place] [id number] Windows Desktop Engineer: iHren Marcelino MD Platelet mean volume (Bld) [Entitic vol] 10.4 fL Normal 8.1-13.5 [facility] Comment on above: Performed By: #### G LYHGB #### [id number] [place], [place] [id number] Windows Desktop Engineer: Manohar Mccarthy MD #### JEREMI, CBC #### [address] [place] [id number] Windows Desktop Engineer: Hiren Marcelino MD Platelets (Bld) [#/Vol] 222 10*3/uL Normal 138-453 [facility] Comment on above: Performed By: #### G LYHGB #### [id number] [place], [place] [id number] Windows Desktop Engineer: Manohar Mccarthy MD #### BMP, CBC #### [address] [place], [place] [id number] Windows Desktop Engineer: Hiren Marcelino MD RBC (Bld) [#/Vol] 4.71 10*6/uL Normal 3.95-5.11 [facility] Comment on above: Performed By: #### G LYHGB #### [id number] [place], [place] [id number] Windows Desktop Engineer: Manohar Mccarthy MD #### BMP, CBC #### [address] [place] [address] Windows Desktop Engineer: Hiren Marcelino MD WBC (Bld) [#/Vol] 11.1 10*3/uL Normal 3.5-11.3 [facility] Comment on above: Performed By: #### G LYHGB #### [facility] [address] [place], [place] [id number] Windows Desktop Engineer: Manohar Mccarthy MD #### BMP, CBC #### [facility] [address] [place] [address] Windows Desktop Engineer: Hiren Marcelino MD Erythrocyte distribution width (RBC) [Ratio] 13.6 % 11.8 - 14.4 % [employer] Phone: Hematocrit (Bld) [Volume fraction] 43.8 % 36.3 - 47.1 % [employer] Phone: Hemoglobin (Bld) [Mass/Vol] 13.8 g/dL 11.9 - 15.1 g/dL [facility] Phone: MCH (RBC) [Entitic mass] 29.3 pg 25.2 - 33.5 pg [employer] Phone: MCHC (RBC) [Mass/Vol] 31.5 g/dL 28.4 - 34.8 g/dL [employer] Phone: MCV (RBC) [Entitic vol] 93.0 fL 82.6 - 102.9 fL [employer] Phone: Platelet mean volume (Bld) [Entitic vol] 10.4 fL 8.1 - 13.5 fL [employer] Phone: Platelets (Bld) [#/Vol] 222 10*3/uL [employer] Phone: RBC (Bld) [#/Vol] 4.71 10*6/uL 3.95 - 5.11 m/uL [employer] Phone: WBC (Bld) [#/Vol] 11.1 10*3/uL [facility] [employer] Work Phone: WBC (Bld) [#/Vol] 0.0 10*3/uL 0.0 per 100 WBC [facility] Phone: Echo 2D w doppler w color co mpleteon 02-24-2021 [facility] Transthoracic Echocardiography Report (TTE) Patient Name RICHARD Date of Study 02/24/2021 DARRIUS Hernadez Date of 1950 Gender Female Age 71 year(s) Race Room Number Height: 68 inch, 172.72 cm Corporate ID [id number] Weight: 235 pounds, 106.6 kg # Patient Acct [id number] BSA: 2.19 m^2 BMI: 35.73 # kg/m^2 MR # [id number] Automatic Lathe Tender Carla Panchal Interpreting Physician Cara Clarke Fellow Referring Nurse Practitioner Interpreting Referring Physician Cara Clarke Type of Study TTE procedure:2D Echocardiogram, M-Mode, Doppler, Color Doppler. Procedure Date Date: 02/24/2021 Start: 12:53 PM Study Location: [facility] Indications:Chest pain. History / Tech. Comments: Ischemic cp PMHX: COPD, HTN Patient Status: Outpatient Height: 68 inches Weight: 235 pounds BSA: 2.19 m^2 BMI: 35.73 kg/m^2 BP: 125/76 mmHg CONCLUSIONS Summary Paroxysmal atrial tachycardia and PVCs noted during exam. Global left ventricular systolic function appears preserved with an estimated ejection fraction of 55%. The left ventricular cavity size is within normal limits and the left ventricular wall thickness is mildly increased. No definite specific wall motion abnormalities were identified. Mild mitral regurgitation. Evidence of mild (grade I) diastolic dysfunction is seen. No prior studies were available for comparison. No significant structural cause of chest pain was identified from this study. Paroxysmal atrial tachycardia and isolated PVCs noted during exam, will get a CAM monitor after the cardiac cath tomorrow. Signature FINDINGS Left Atrium Left atrium is normal in size. Left Ventricle Paroxysmal atrial tachycardia and PVCs noted during exam. Global left ventricular systolic function appears preserved with an estimated ejection fraction of 55%. The left ventricular cavity size is within normal limits and the left ventricular wall thickness is mildly increased. No definite specific wall motion abnormalities were identified. Right Atrium Right atrium is normal in size. Right Ventricle Normal right ventricular size and function. Mitral Valve Mitral annular calcification is seen. Mild mitral regurgitation. Aortic Valve Normal aortic valve structure and function without stenosis or regurgitation. Tricuspid Valve Normal tricuspid valve structure and function. Pulmonic Valve The pulmonic valve is normal in structure. Pericardial Effusion No significant pericardial effusion is seen. Miscellaneous Evidence of mild (grade I) diastolic dysfunction is seen. Normal aortic root dimension. M-mode / 2D Measurements & Calculations: LVIDd:5.04 cm(3.7 - 5.6 cm) Diastolic Volume:120.61 ml LVIDs:3.58 cm(2.2 - 4.0 cm) Systolic Volume:53.83 ml IVSd:1.09 cm(0.6 - 1.1 cm) Aortic Root:3.29 cm(2.0 - 3.7 cm) LVPWd:1.16 cm(0.6 - 1.1 cm) LA Dimension: 4.8 cm(1.9 - 4.0 cm) Fractional Shortenin.97 % LA volume/Index: 54.3 ml /25m^2 Calculated LVEF (%): 55.37 % AV Cusp Separation: 2.2 cm Mitral: Aortic Valve Area (P1/2-Time): 3.3 cm^2 Peak Velocity: 1.14 m/s Peak E-Wave: 0.69 m/s Mean Velocity: 0.84 m/s Peak A-Wave: 0.80 m/s Peak Gradient: 5.23 mmHg E/A Ratio: 0.87 Mean Gradient: 3.06 mmHg Peak Gradient: 1.91 mmHg Acceleration Time: 93.93 msec P1/2t: 66.76 msec AV VTI: 25.84 cm Diastology / Tissue Doppler Lateral Wall E' velocity:0.08 m/s Lateral Wall E/E':9.87 [facility] Work Phone: Kenneth, Mhpn Incoming C daphneo Results From Cpacs/Ge - 02/24/2021 2:36 PM EDT [facility] Transthoracic Echocardiography Report (TTE) Patient Name RICHARD Date of Study 02/24/2021 DARRIUS Hernadez Date of 1950 Gender Female Age 71 year(s) Race Room Number Height: 68 inch, 172.72 cm Corporate ID [id number] Weight: 235 pounds, 106.6 kg # Patient Acct [id number] BSA: 2.19 m^2 BMI: 35.73 # kg/m^2 MR # [id number] Automatic Lathe Tender Carla Panchal Interpreting Physician Cara Clarke Fellow Referring Nurse Practitioner Interpreting Referring Physician Cara Clarke Fellow Type of Study TTE procedure:2D Echocardiogram, M-Mode, Doppler, Color Doppler. Procedure Date Date: 02/24/2021 Start: 12:53 PM Study Location: [facility] Indications:Chest pain. History / Tech. Comments: Ischemic cp PMHX: COPD, HTN Patient Status: Outpatient Height: 68 inches Weight: 235 pounds BSA: 2.19 m^2 BMI: 35.73 kg/m^2 BP: 125/76 mmHg CONCLUSIONS Summary Paroxysmal atrial tachycardia and PVCs noted during exam. Global left ventricular systolic function appears preserved with an estimated ejection fraction of 55%. The left ventricular cavity size is within normal limits and the left ventricular wall thickness is mildly increased. No definite specific wall motion abnormalities were identified. Mild mitral regurgitation. Evidence of mild (grade I) diastolic dysfunction is seen. No prior studies were available for comparison. No significant structural cause of chest pain was identified from this study. Paroxysmal atrial tachycardia and isolated PVCs noted during exam, will get a CAM monitor after the cardiac cath tomorrow. Signature - - - - FINDINGS Left Atrium Left atrium is normal in size. Left Ventricle Paroxysmal atrial tachycardia and PVCs noted during exam. Global left ventricular systolic function appears preserved with an estimated ejection fraction of 55%. The left ventricular cavity size is within normal limits and the left ventricular wall thickness is mildly increased. No definite specific wall motion abnormalities were identified. Right Atrium Right atrium is normal in size. Right Ventricle Normal right ventricular size and function. Mitral Valve Mitral annular calcification is seen. Mild mitral regurgitation. Aortic Valve Normal aortic valve structure and function without stenosis or regurgitation. Tricuspid Valve Normal tricuspid valve structure and function. Pulmonic Valve The pulmonic valve is normal in structure. Pericardial Effusion No significant pericardial effusion is seen. Miscellaneous Evidence of mild (grade I) diastolic dysfunction is seen. Normal aortic root dimension. M-mode / 2D Measurements & Calculations: LVIDd:5.04 cm(3.7 - 5.6 cm) Diastolic Volume:120.61 ml LVIDs:3.58 cm(2.2 - 4.0 cm) Systolic Volume:53.83 ml IVSd:1.09 cm(0.6 - 1.1 cm) Aortic Root:3.29 cm(2.0 - 3.7 cm) LVPWd:1.16 cm(0.6 - 1.1 cm) LA Dimension: 4.8 cm(1.9 - 4.0 cm) Fractional Shortenin.97 % LA volume/Index: 54.3 ml /25m^2 Calculated LVEF (%): 55.37 % AV Cusp Separation: 2.2 cm Mitral: Aortic Valve Area (P1/2-Time): 3.3 cm^2 Peak Velocity: 1.14 m/s Peak E-Wave: 0.69 m/s Mean Velocity: 0.84 m/s Peak A-Wave: 0.80 m/s Peak Gradient: 5.23 mmHg E/A Ratio: 0.87 Mean Gradient: 3.06 mmHg Peak Gradient: 1.91 mmHg Acceleration Time: 93.93 msec P1/2t: 66.76 msec AV VTI: 25.84 cm Diastology / Tissue Doppler Lateral Wall E' velocity:0.08 m/s Lateral Wall E/E':9.87 [employer] Phone: Lipid Panelon 02-24-2021 Cholesterol [Mass/Vol] 184 mg/dL <200 [employer] Phone: Comment on above: Cholesterol Guidelines: <200 Desirable 200-240 Borderline >240 Undesirable Cholesterol in HDL [Mass/Vol] 35 mg/dL Low >40 [employer] Phone: Comment on above: HDL Guidelines: <40 Undesirable 40-59 Borderline >59 Desirable Cholesterol in LDL [Mass/Vol] 119 mg/dL 0 - 130 mg/dL [employer] Phone: Comment on above: LDL Guidelines: <100 Desirable 100-129 Near to/above Desirable 130-159 Borderline >159 Undesirable Direct (measured) LDL and calculated LDL are not interchangeable tests. Cholesterol in VLDL [Mass/Vol] NOT REPORTED 1 - 30 mg/dL [employer] Phone: Cholesterol.total/Chol esterol in HDL [Mass ratio] 5.3 {ratio} High <5 [employer] Phone: Interpretation and review of laboratory results Abnormal [employer] Phone: Triglyceride [Mass/Vol] 151 mg/dL High <150 [employer] Phone: Comment on above: Triglyceride Guidelines: <150 Desirable 150-199 Borderline 200-499 High >499 Very high Based on AHA Guidelines for fasting triglyceride, August 2012. Lipid Profileon 02-24-2021 Cholesterol in VLDL [Mass/Vol] NOT REPORTED Normal 1-30 [facility] Comment on above: Performed By: #### L IPR #### [address] [place] [address] [employer] Desktop Engineer: Manohar Mccarthy MD Metabolic Panelon 02-24-2021 GFR/1.73 sq M predicted among non-blacks MDRD (S/P/Bld) [Vol rate/Area] [employer] Phone: Comment on above: Stage 1: Some kidney damage normal GFR Stage 2: Mild kidney damage GFR 60-89 Stage 3: Moderate kidney damage GFR 30-59 Stage 4: Severe kidney damage GFR 15-29 Stage 5: Severe kidney damage GFR <15 ESRD - chronic treatment by dialysis or transplant Average GFR for 60-6 9 years old: 85 mL/min/1.73sq m Chronic Kidney Disease: <60 mL/min/1.73sq m Kidney failure: <15 mL/min/1.73sq m eGFR calculated using average adult body mass. Additional eGFR calculator available at: http://www.[employer]/multiple_crcl_2012.htm Vital Signs Date Time Vital Sign Value Performing Clinician Facility 01-27-2025 16:18-0400 Respiratory rate 20 /min Vicky Dye [facility] 01-27-2025 16:18-0400 Blood Pressure Location Vicky Dye [facility] 01-27-2025 16:18-0400 Diastolic blood pressure 69 mm[Hg] Vicky [employer] [facility] 01-27-2025 16:18-0400 Heart rate 123 /min Vicky [employer] [facility] 01-27-2025 16:18-0400 Mean blood pressure 89 mm[Hg] Vicky [employer] [facility] 01-27-2025 16:18-0400 Systolic blood pressure 128 mm[Hg] Vicky [employer] [facility] 01-27-2025 16:18-0400 SaO2% (BldA) [Mass fraction] 78 % Vicky [employer] [facility] Comment on above: Result Comment: pt ranging from 75-80% o n RA 01-27-2025 15:36-0400 SaO2% (BldA) [Mass fraction] 89 % Vicky [employer] [facility] 01-27-2025 14:39-0400 Heart rate 104 /min Vicky [employer] [facility] 01-27-2025 14:39-0400 SaO2% (BldA) [Mass fraction] 90 % Vicky [facility] 01-27-2025 14:38-0400 Respiratory rate 18 /min Vicky [facility] 01-27-2025 14:38-0400 Blood Pressure Location Vicky [facility] 01-27-2025 14:38-0400 Diastolic blood pressure 82 mm[Hg] Vicky [facility] 01-27-2025 14:38-0400 Mean blood pressure 98 mm[Hg] Vicky [facility] 01-27-2025 14:38-0400 Systolic blood pressure 130 mm[Hg] Vicky [facility] 01-27-2025 14:29-0400 Body temperature 97.7 [degF] Vicky [facility] 01-27-2025 14:29-0400 Diastolic blood pressure 91 mm[Hg] Vicky [facility] 01-27-2025 14:29-0400 Heart rate 107 /min Vicky [facility] 01-27-2025 14:29-0400 Mean blood pressure 107 mm[Hg] Vicky [facility] 01-27-2025 14:29-0400 Respiratory rate 22 /min Vicky [facility] 01-27-2025 14:29-0400 Systolic blood pressure 138 mm[Hg] Vicky [facility] 01-27-2025 14:17-0400 Mean blood pressure 96 mm[Hg] Vicky Dye [facility] 01-27-2025 14:17-0400 Respiratory rate 11 /min Vicky Dye [facility] 01-27-2025 14:10-0400 Mean blood pressure 89 mm[Hg] Vicky Dye [facility] 01-27-2025 14:10-0400 Respiratory rate 16 /min Vicky Dye [facility] 01-27-2025 14:07-0400 Respiratory rate 20 /min Vicky Dye [facility] 01-27-2025 13:12-0400 Body temperature 97.88 [degF] Vicky Dye [facility] 01-27-2025 09:47-0400 Mean blood pressure 112 mm[Hg] Vicky Dye [facility] 01-27-2025 07:17-0400 Heart rate 80 /min Vicky Dye [facility] 01-27-2025 07:16-0400 Blood Pressure Location Vicky Dye [facility] 01-27-2025 07:15-0400 Body temperature 97.52 [degF] Vicky Dye [facility] 01-13-2025 13:30-0500 Heart rate 67 /min Marina Moon MD Work Phone: [facility] 01-13-2025 13:30-0500 Respiratory rate 16 /min Marina Moon MD Work Phone: [facility] 01-13-2025 13:30-0500 SaO2% (BldA) [Mass fraction] 97 % Marina Moon MD Work Phone: [facility] 01-13-2025 13:00-0500 Diastolic blood pressure 81 mm[Hg] Marina Moon MD Work Phone: [facility] 01-13-2025 13:00-0500 Systolic blood pressure 153 mm[Hg] Marina Moon MD Work Phone: [facility] 01-13-2025 11:45-0500 Body temperature 97.2 [degF] Marina Moon MD Work Phone: [facility] 01-13-2025 09:21-0500 Body height 167.64 cm Marina Moon MD Work Phone: [facility] 01-13-2025 09:21-0500 Body weight 108.7 kg Marina Moon MD Work Phone: [facility] 01-06-2025 13:45-0500 Body height 167.6 cm Lacy Shoemaker MD Work Phone: [facility] 01-06-2025 13:45-0500 Body mass index (BMI) [Ratio] 38.9 kg/m2 Lacy Shoemaker MD Work Phone: [facility] 01-06-2025 13:45-0500 Body weight 109.32 kg Lacy Shoemaker MD Work Phone: [facility] 01-06-2025 13:45-0500 Diastolic blood pressure 86 mm[Hg] Lacy Shoemaker MD Work Phone: [facility] 01-06-2025 13:45-0500 Heart rate 93 /min Lacy Shoemaker MD Work Phone: [facility] 01-06-2025 13:45-0500 Systolic blood pressure 148 mm[Hg] Lacy Shoemaker MD Work Phone: [facility] 01-06-2025 10:21-0500 Body height 170.2 cm Marina Moon MD Work Phone: [facility] 01-06-2025 10:21-0500 Body mass index (BMI) [Ratio] 37.59 kg/m2 Marina Moon MD Work Phone: [facility] 01-06-2025 10:21-0500 Body weight 108.86 kg Marina Moon MD Work Phone: [facility] 01-06-2025 10:21-0500 Diastolic blood pressure 88 mm[Hg] Marina Moon MD Work Phone: [facility] 01-06-2025 10:21-0500 Heart rate 85 /min Marina Moon MD Work Phone: [facility] 01-06-2025 10:21-0500 SaO2% (BldA) [Mass fraction] 92 % Marina Moon MD Work Phone: [facility] 01-06-2025 10:21-0500 Systolic blood pressure 128 mm[Hg] Marina Moon MD Work Phone: [facility] 01-02-2025 12:45-0500 Heart rate 80 /min Vicky Dye [facility] 01-02-2025 12:45-0500 SaO2% (BldA) [Mass fraction] 93 % Vicky Dye [facility] 01-02-2025 12:44-0500 Diastolic blood pressure 75 mm[Hg] Vicky Dye [facility] 01-02-2025 12:44-0500 Mean blood pressure 98 mm[Hg] Vicky Dye [facility] 01-02-2025 12:44-0500 Systolic blood pressure 145 mm[Hg] Vicky Dye [facility] 12-18-2024 10:54-0500 Body height 170.2 cm Vicky Dye DO Work Phone: [facility] 12-18-2024 10:54-0500 Body mass index (BMI) [Ratio] 37.9 kg/m2 Vicky Dye DO Work Phone: [facility] 12-18-2024 10:54-0500 Body weight 109.77 kg Vicky Dye DO Work Phone: [facility] 12-16-2024 10:51-0500 Body height 170.2 cm Marina Moon MD Work Phone: [facility] 12-16-2024 10:51-0500 Body mass index (BMI) [Ratio] 37.9 kg/m2 Marina Moon MD Work Phone: [facility] 12-16-2024 10:51-0500 Body weight 109.77 kg Marina Moon MD Work Phone: [facility] 12-16-2024 10:51-0500 Diastolic blood pressure 82 mm[Hg] Marina Moon MD Work Phone: [facility] 12-16-2024 10:51-0500 Heart rate 98 /min Marina Moon MD Work Phone: [facility] 12-16-2024 10:51-0500 SaO2% (BldA) [Mass fraction] 93 % Marina Moon MD Work Phone: [facility] 12-16-2024 10:51-0500 Systolic blood pressure 136 mm[Hg] Marina Moon MD Work Phone: [facility] 12-03-2024 11:22-0500 Diastolic blood pressure 90 mm[Hg] Marina Moon MD Work Phone: [facility] 12-03-2024 11:22-0500 Heart rate 90 /min Marina Moon MD Work Phone: [facility] 12-03-2024 11:22-0500 SaO2% (BldA) [Mass fraction] 93 % Marina Moon MD Work Phone: [facility] 12-03-2024 11:22-0500 Systolic blood pressure 140 mm[Hg] Marina Moon MD Work Phone: [facility] 11-06-2024 10:18-0500 Body height 170.2 cm Vicky Dye DO Work Phone: [facility] 11-06-2024 10:18-0500 Body mass index (BMI) [Ratio] 36.96 kg/m2 Vicky Dye DO Work Phone: [facility] 11-06-2024 10:18-0500 Body weight 107.05 kg Vicky Dye DO Work Phone: [facility] 10-30-2024 11:07-0500 Diastolic blood pressure 73 mm[Hg] Marina Moon MD Work Phone: [facility] 10-30-2024 11:07-0500 Heart rate 96 /min Marina Moon MD Work Phone: [facility] 10-30-2024 11:07-0500 SaO2% (BldA) [Mass fraction] 93 % Marina Moon MD Work Phone: [facility] 10-30-2024 11:07-0500 Systolic blood pressure 131 mm[Hg] Marina Moon MD Work Phone: [facility] 10-09-2024 13:02-0500 Diastolic blood pressure 80 mm[Hg] Marina Moon MD Work Phone: [facility] 10-09-2024 13:02-0500 Heart rate 80 /min Marina Moon MD Work Phone: [facility] 10-09-2024 13:02-0500 Respiratory rate 16 /min Marina Moon MD Work Phone: [facility] 10-09-2024 13:02-0500 SaO2% (BldA) [Mass fraction] 100 % Marina Moon MD Work Phone: [facility] 10-09-2024 13:02-0500 Systolic blood pressure 128 mm[Hg] Marina Moon MD Work Phone: [facility] 10-09-2024 12:23-0500 Inhaled oxygen flow rate 6 L/min Marina Moon MD Work Phone: [facility] 10-09-2024 10:21-0500 Body height 165.1 cm Marina Moon MD Work Phone: [facility] 10-09-2024 10:21-0500 Body weight 104.32 kg Marina Moon MD Work Phone: [facility] 09-24-2024 09:39-0500 Diastolic blood pressure 90 mm[Hg] MD Marina Moon Work Phone: [facility] 09-24-2024 09:39-0500 Heart rate 96 /min MD Marina Moon Work Phone: [facility] 09-24-2024 09:39-0500 SaO2% (BldA) [Mass fraction] 92 % MD Marina Moon Work Phone: [facility] 09-24-2024 09:39-0500 Systolic blood pressure 130 mm[Hg] MD Marina Moon Work Phone: [facility] 09-04-2024 12:07-0400 Diastolic blood pressure 68 mm[Hg] MD Marina Moon Work Phone: [facility] 09-04-2024 12:07-0400 Heart rate 80 /min MD Marina Moon Work Phone: [facility] 09-04-2024 12:07-0400 Respiratory rate 16 /min MD Marina Moon Work Phone: [facility] 09-04-2024 12:07-0400 SaO2% (BldA) [Mass fraction] 93 % MD Marina Moon Work Phone: [facility] 09-04-2024 12:07-0400 Systolic blood pressure 118 mm[Hg] MD Marina Moon Work Phone: [facility] 09-04-2024 11:28-0400 Inhaled oxygen flow rate 3 L/min MD Marina Moon Work Phone: [facility] 09-04-2024 11:04-0400 Body height 167.64 cm MD Marina Moon Work Phone: [facility] 09-04-2024 11:04-0400 Body weight 104.32 kg MD Marina Moon Work Phone: [facility] 08-27-2024 10:59-0400 Diastolic blood pressure 70 mm[Hg] MD Marina Moon Work Phone: [facility] 08-27-2024 10:59-0400 Heart rate 107 /min MD Marina Moon Work Phone: [facility] 08-27-2024 10:59-0400 SaO2% (BldA) [Mass fraction] 97 % MD Marina Moon Work Phone: [facility] 08-27-2024 10:59-0400 Systolic blood pressure 110 mm[Hg] MD Marina Moon Work Phone: [facility] 08-26-2024 10:46-0400 Body height 170.2 cm Marina Moon MD Work Phone: [facility] 08-26-2024 10:46-0400 Body mass index (BMI) [Ratio] 36.96 kg/m2 Marina Moon MD Work Phone: [facility] 08-26-2024 10:46-0400 Body weight 107.05 kg Marina Moon MD Work Phone: [facility] 08-26-2024 10:46-0400 Diastolic blood pressure 82 mm[Hg] Marina Moon MD Work Phone: [facility] 08-26-2024 10:46-0400 Heart rate 98 /min Marina Moon MD Work Phone: [facility] 08-26-2024 10:46-0400 SaO2% (BldA) [Mass fraction] 91 % Marina Moon MD Work Phone: [facility] 08-26-2024 10:46-0400 Systolic blood pressure 114 mm[Hg] Marina Moon MD Work Phone: [facility] 07-17-2024 11:50-0400 Diastolic blood pressure 83 mm[Hg] MD Marina Moon Work Phone: [facility] 07-17-2024 11:50-0400 Heart rate 96 /min MD Marina Moon Work Phone: [facility] 07-17-2024 11:50-0400 Respiratory rate 18 /min MD Marina Moon Work Phone: [facility] 07-17-2024 11:50-0400 SaO2% (BldA) [Mass fraction] 92 % MD Marina Moon Work Phone: [facility] 07-17-2024 11:50-0400 Systolic blood pressure 105 mm[Hg] MD Marina Moon Work Phone: [facility] 07-17-2024 10:45-0400 Body height 167.64 cm MD Marina Moon Work Phone: [facility] 07-17-2024 10:45-0400 Body weight 104.77 kg MD Marina Moon Work Phone: [facility] 07-16-2024 14:10-0400 Body height 170.2 cm Marina Moon MD Work Phone: [facility] 07-16-2024 14:10-0400 Body mass index (BMI) [Ratio] 36.34 kg/m2 Marina Moon MD Work Phone: [facility] 07-16-2024 14:10-0400 Body weight 105.23 kg Marina Moon MD Work Phone: [facility] 07-16-2024 14:10-0400 Diastolic blood pressure 86 mm[Hg] Marina Moon MD Work Phone: [facility] 07-16-2024 14:10-0400 Heart rate 92 /min Marina Moon MD Work Phone: [facility] 07-16-2024 14:10-0400 SaO2% (BldA) [Mass fraction] 100 % Marina Moon MD Work Phone: [facility] 07-16-2024 14:10-0400 Systolic blood pressure 124 mm[Hg] Marina Moon MD Work Phone: [facility] 07-11-2024 13:41-0400 Diastolic blood pressure 96 mm[Hg] Lacy Shoemaker MD Work Phone: [facility] 07-11-2024 13:41-0400 Systolic blood pressure 146 mm[Hg] Lacy Shoemaker MD Work Phone: [facility] 07-11-2024 13:10-0400 Body height 167.6 cm Lacy Shoemaker MD Work Phone: [facility] 07-11-2024 13:10-0400 Body mass index (BMI) [Ratio] 38.09 kg/m2 Lacy Shoemaker MD Work Phone: [facility] 07-11-2024 13:10-0400 Body weight 107.05 kg Lacy Shoemaker MD Work Phone: [facility] 07-11-2024 13:10-0400 Heart rate 90 /min Lacy Shoemaker MD Work Phone: [facility] 06-19-2024 16:21-0400 Body weight 104.32 kg MD Marina Moon Work Phone: [facility] 06-19-2024 16:21-0400 Diastolic blood pressure 80 mm[Hg] MD Marina Moon Work Phone: [facility] 06-19-2024 16:21-0400 Heart rate 83 /min MD Marina Moon Work Phone: [facility] 06-19-2024 16:21-0400 SaO2% (BldA) [Mass fraction] 88 % MD Marina Moon Work Phone: [facility] 06-19-2024 16:21-0400 Systolic blood pressure 140 mm[Hg] MD Marina Moon Work Phone: [facility] 06-06-2024 14:59-0400 Heart rate 97 /min MD Marina Moon Work Phone: [facility] 06-06-2024 14:59-0400 SaO2% (BldA) [Mass fraction] 92 % MD Marina Moon Work Phone: [facility] 05-28-2024 11:40-0400 Diastolic blood pressure 80 mm[Hg] [facility] 05-28-2024 11:40-0400 Heart rate 88 /min [facility] 05-28-2024 11:40-0400 SaO2% (BldA) [Mass fraction] 95 % [facility] 05-28-2024 11:40-0400 Systolic blood pressure 130 mm[Hg] [facility] 04-16-2024 10:24-0400 Diastolic blood pressure 80 mm[Hg] MD Marina Moon Work Phone: [facility] 04-16-2024 10:24-0400 Heart rate 82 /min MD Marina Moon Work Phone: [facility] 04-16-2024 10:24-0400 SaO2% (BldA) [Mass fraction] 92 % MD Marina Moon Work Phone: [facility] 04-16-2024 10:24-0400 Systolic blood pressure 120 mm[Hg] MD Marina Moon Work Phone: [facility] 03-18-2024 13:37-0400 Body weight 104.32 kg MD Marina Moon Work Phone: [facility] 03-18-2024 13:37-0400 Diastolic blood pressure 90 mm[Hg] MD Marina Moon Work Phone: [facility] 03-18-2024 13:37-0400 Heart rate 57 /min MD Marina Moon Work Phone: [facility] 03-18-2024 13:37-0400 SaO2% (BldA) [Mass fraction] 92 % MD Marina Moon Work Phone: [facility] 03-18-2024 13:37-0400 Systolic blood pressure 140 mm[Hg] MD Marina Moon Work Phone: [facility] 02-12-2024 11:06-0400 Heart rate 101 /min MD Marina Moon Work Phone: [facility] 02-12-2024 11:06-0400 SaO2% (BldA) [Mass fraction] 94 % MD Marina Moon Work Phone: [facility] 01-16-2024 10:55-0500 Body weight 107.5 kg MD Marina Moon Work Phone: [facility] 01-16-2024 10:55-0500 Diastolic blood pressure 88 mm[Hg] MD aMrina Moon Work Phone: [facility] 01-16-2024 10:55-0500 Heart rate 104 /min MD Marina Moon Work Phone: [facility] 01-16-2024 10:55-0500 SaO2% (BldA) [Mass fraction] 96 % MD Marina Moon Work Phone: [facility] 01-16-2024 10:55-0500 Systolic blood pressure 148 mm[Hg] MD Marina Moon Work Phone: [facility] 12-28-2023 14:32-0500 Body mass index (BMI) [Ratio] 38.41 kg/m2 Marina Moon MD Work Phone: [facility] 12-28-2023 14:32-0500 Body weight 107.96 kg Marina Moon MD Work Phone: [facility] 12-28-2023 14:32-0500 Diastolic blood pressure 88 mm[Hg] Marina Moon MD Work Phone: [facility] 12-28-2023 14:32-0500 Heart rate 94 /min Marina Moon MD Work Phone: [facility] 12-28-2023 14:32-0500 SaO2% (BldA) [Mass fraction] 94 % Marina Moon MD Work Phone: [facility] 12-28-2023 14:32-0500 Systolic blood pressure 138 mm[Hg] Marina Moon MD Work Phone: [facility] 12-06-2023 14:00-0500 Body height 167.64 cm MD Marina Moon Work Phone: [facility] 12-06-2023 14:00-0500 Body weight 110.22 kg MD Marina Moon Work Phone: [facility] Encounters Encounter Date Encounter Type Care Provider Facility Start: 01-27-2025 End: 01-27-2025 Admission to same day surgery center Vicky Dye [facility] Start: 01-27-2025 End: 01-27-2025 ambulatory Vicky Dye Facility:[facility] Start: 01-20-2025 End: 01-20-2025 Refill Carla Smith MA [facility] Comment on above: Osteoarthritis of sp ine with radiculopathy, lumbosacral region Start: 01-13-2025 End: 01-13-2025 Admission to same day surgery center Marina Moon MD Work Phone: [facility] Work Phone: Start: 01-13-2025 End: 01-13-2025 ambulatory Marina Moon MD Work Phone: [facility] Work Phone: Start: 01-10-2025 Non-patient / Non-visit Marina Moon MD Work Phone: [facility] Work Phone: Start: 01-08-2025 End: 01-08-2025 Patient encounter procedure Marina Moon MD Work Phone: [facility] Work Phone: Start: 01-08-2025 End: 01-08-2025 ambulatory Marina Moon MD Work Phone: [facility] Work Phone: Start: 01-08-2025 Encounter for prepro cedural laboratory examination Jerman Kun [facility] Start: 01-06-2025 End: 01-06-2025 Office outpatient visit 25 minutes Lacy Shoemaker MD Work Phone: [facility] Comment on above: Encounter for pre-op erative cardiovascular clearance; Abnormal myocardial perfusion study; Diastolic dysfunction; Shortness of breath; Mitral valve insufficiency, unspecified etiology; Primary hypertension; Mixed hyperlipidemia; Stage 3a chronic kidney disease (Multi); Cigarette smoker Start: 01-06-2025 End: 01-06-2025 Preoperative state Lacy Shoemaker MD Work Phone: [facility] Start: 01-06-2025 End: 01-06-2025 ambulatory [facility] Start: 01-06-2025 End: 01-06-2025 Encounter for preprocedural cardiovascular examination [facility] Start: 01-06-2025 End: 01-06-2025 Office outpatient visit 25 minutes Marina Moon MD Work Phone: [facility] Comment on above: Preoperative clearan ce (Primary Dx); Osteoarthritis of spine with radiculopathy, lumbosacral region; Primary insomnia; Chronic fatigue; Fibromyalgia Start: 01-06-2025 End: 01-06-2025 Preoperative state Marina Moon MD Work Phone: [facility] Work Phone: Start: 01-06-2025 End: 01-06-2025 ambulatory MARINA MOON Not Available Start: 01-02-2025 End: 01-02-2025 Clinisync Result Encounter Vicky Dye DO Work Phone: [facility] External Department Unsolicited Start: 01-02-2025 End: 01-02-2025 Clinisync Result Encounter Vicky Dye DO Work Phone: [facility] External [facility] Unsolicited Start: 01-02-2025 End: 01-02-2025 ambulatory Vicky Dye Facility:[facility] Start: 01-02-2025 End: 01-02-2025 Patient encounter procedure Vicky Dye [facility] Start: 12-18-2024 End: 12-18-2024 Bamboo flowsheet Vicky Dye DO Work Phone: [facility] Start: 12-18-2024 End: 12-18-2024 Bamboo flowsheet Vicky Dye DO Work Phone: [facility] Start: 12-18-2024 End: 12-18-2024 Patient encounter procedure Vicky Dye DO Work Phone: [facility] Comment on above: 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) Start: 12-18-2024 End: 12-18-2024 ambulatory VICKY DYE Not Available Start: 12-16-2024 End: 12-16-2024 Telephone encounter Jarrett Estrada MD Work Phone: [facility] Start: 12-16-2024 End: 12-16-2024 Office outpatient visit 25 minutes Marina Moon MD Work Phone: [facility] Comment on above: Essential hypertensi on (CMS/HCC) (Primary Dx); Chronic kidney disease, stage 3b (HCC) (CMS/HCC); Morbid (severe) obesity due to excess calories (CMS/HCC); Chronic obstructive pulmonary disease, unspecified (CMS/HCC); Body mass index (BMI) 36.0-36.9, adult; Heart failure, unspecified (CMS/HCC); Other secondary pulmonary hypertension (CMS/HCC); Osteoarthritis of spine with radiculopathy, lumbosacral region Start: 12-16-2024 End: 12-16-2024 ambulatory MARINA MOON Not Available Start: 12-09-2024 End: 12-10-2024 Refill Peace Monday [employer] Work Phone: [facility] Comment on above: Primary insomnia; Chronic fatigue Start: 12-03-2024 End: 12-03-2024 ambulatory Marina Moon MD Work Phone: [facility] Work Phone: Start: 12-03-2024 End: 12-03-2024 Patient encounter procedure Marina Moon MD Work Phone: [facility] Physician 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: [facility] Comment on above: Primary insomnia; Chronic fatigue Start: 09-24-2024 End: 09-24-2024 ambulatory MD Marina Moon Work Phone: [facility] Work Phone: Start: 09-24-2024 End: 09-24-2024 Patient encounter procedure MD Marina Moon Work Phone: [facility] Work Phone: Start: 09-13-2024 End: 09-13-2024 ambulatory MD Marina Moon Work Phone: [facility] Work Phone: Start: 09-13-2024 End: 09-13-2024 Patient encounter procedure MD Marina Moon Work Phone: [facility] Work Phone: Start: 09-04-2024 Non-patient / Non-visit MD Jacob Moon Work Phone: [facility] Work Phone: Start: 09-04-2024 End: 09-04-2024 Admission to same day surgery center MD Marina Moon Work Phone: [facility] Work Phone: Start: 09-04-2024 End: 09-04-2024 ambulatory MD Marina Moon Work Phone: [facility] Work Phone: Start: 08-27-2024 End: 08-27-2024 ambulatory MD Marina Moon Work Phone: [facility] Work Phone: Start: 08-27-2024 End: 08-27-2024 Patient encounter procedure MD Marina Moon Work Phone: [facility] Work Phone: Start: 08-26-2024 End: 08-26-2024 Office outpatient visit 25 minutes Marina Moon MD Work Phone: [facility] Comment on above: Neck pain (Primary D x); Sciatica of right side; Degeneration of intervertebral disc of lumbar region with lower extremity pain Start: 08-26-2024 End: 08-26-2024 ambulatory MARINA MOON Not Available Start: 08-05-2024 End: 08-05-2024 Telephone encounter Peacemonday [employer]ENNEL MANAGER [employer] Work Phone: [facility] Start: 07-17-2024 Non-patient / Non-visit MD Jacob Moon Work Phone: [facility] Work Phone: Start: 07-17-2024 End: 07-17-2024 Admission to same day surgery center MD Marina Moon Work Phone: [facility] Work Phone: Start: 07-17-2024 End: 07-17-2024 ambulatory MD Marina Moon Work Phone: [facility] Work Phone: Start: 07-16-2024 End: 07-16-2024 Office outpatient visit 25 minutes Marina Moon MD Work Phone: [facility] Comment on above: Preoperative clearan ce (Primary Dx); Chronic atrial fibrillation (HCC) (CMS/HCC); Acute congestive heart failure, unspecified heart failure type (CMS/HCC); Pure hypercholesterolemia (CMS/HCC) Start: 07-16-2024 End: 07-16-2024 Preoperative state Marina Moon MD Work Phone: [facility] Start: 07-16-2024 End: 07-16-2024 ambulatory MARINA MOON Not Available Start: 07-11-2024 End: 07-11-2024 Office consultation new/estab patient 60 min Lacy Shoemaker MD Work Phone: [facility] Comment on above: Preop cardiovascular exam; Essential hypertension; Mixed hyperlipidemia; White coat syndrome with diagnosis of hypertension; Atrial fibrillation, unspecified type (Multi); Dilated aortic root (CMS-HCC); Stage 3a chronic kidney disease (Multi); Pulmonary emphysema, unspecified emphysema type ([facility]); Cigarette smoker; Chest pressure Start: 07-11-2024 End: 07-11-2024 Patient encounter status Lacy Shoemaker MD Work Phone: [facility] Start: 07-11-2024 End: 07-11-2024 ambulatory [facility] Start: 07-08-2024 End: 07-08-2024 Refill Maria D CERVANTES Work Phone: [facility] Comment on above: Primary insomnia; Chronic fatigue Start: 07-03-2024 End: 07-03-2024 ambulatory MD Marina Moon Work Phone: [facility] Work Phone: Start: 07-03-2024 End: 07-03-2024 Patient encounter procedure MD Marina Moon Work Phone: [facility] Work Phone: Start: 07-01-2024 End: 07-01-2024 ambulatory LIZ BRYAN Not Available Start: 06-25-2024 End: 06-25-2024 ambulatory VITO LEGER Not Available Start: 06-19-2024 End: 06-19-2024 ambulatory MD Marina Moon Work Phone: [facility] Work Phone: Start: 06-19-2024 End: 06-19-2024 Patient encounter procedure MD Marina Moon Work Phone: [facility] Work Phone: Start: 06-18-2024 End: 06-18-2024 ambulatory MARIANA Yaron JORGE Not Available Start: 06-06-2024 End: 06-06-2024 ambulatory MD Marina Moon Work Phone: [facility] Work Phone: Start: 06-06-2024 End: 06-06-2024 Patient encounter procedure MD Marina Moon Work Phone: [facility] Work Phone: Start: 05-28-2024 End: 05-28-2024 Patient encounter procedure MD Marina Moon Work Phone: [facility] Work Phone: Start: 05-28-2024 End: 05-28-2024 ambulatory MD Marina Moon Work Phone: [facility] Work Phone: Start: 05-28-2024 End: 05-28-2024 ambulatory [facility] Work Phone: Start: 05-28-2024 End: 05-28-2024 Patient encounter procedure [facility] Work Phone: Start: 04-16-2024 End: 04-16-2024 ambulatory MD Marina Moon Work Phone: [facility] Work Phone: Start: 04-16-2024 End: 04-16-2024 Patient encounter procedure MD Marina Moon Work Phone: [facility] Work Phone: Start: 04-04-2024 End: 04-04-2024 Patient encounter procedure MD Marina Moon Work Phone: [facility] Work Phone: Start: 04-04-2024 Non-patient / Non-visit MD Jacob Moon Work Phone: [facility] Work Phone: Start: 03-18-2024 End: 03-18-2024 ambulatory MD Marina Moon Work Phone: [facility] Work Phone: Start: 03-18-2024 End: 03-18-2024 Patient encounter procedure MD Marina Moon Work Phone: [facility] Work Phone: Start: 03-05-2024 Patient encounter procedure Irvin CERVANTES Work Phone: [facility] Start: 03-05-2024 End: 03-05-2024 ambulatory MARINA MOON Not Available Start: 02-12-2024 End: 02-12-2024 ambulatory MD Marina Moon Work Phone: [facility] Work Phone: Start: 02-12-2024 End: 02-12-2024 Patient encounter procedure MD Marina Moon Work Phone: [facility] Work Phone: Start: 02-01-2024 End: 02-01-2024 ambulatory MD Marina Moon Work Phone: [facility] Work Phone: Start: 02-01-2024 End: 02-01-2024 Patient encounter procedure MD Marina Moon Work Phone: [facility] Work Phone: Start: 02-01-2024 Non-patient / Non-visit MD Jacob Moon Work Phone: [facility] Work Phone: Start: 01-16-2024 End: 01-16-2024 Patient encounter procedure MD Marina Moon Work Phone: [facility] Work Phone: Start: 12-28-2023 End: 12-28-2023 Office outpatient visit 25 minutes Marina Moon MD Work Phone: [facility] Comment on above: Primary insomnia; Chronic fatigue; Fibromyalgia; Gastroesophageal reflux disease without esophagitis; Atrial fibrillation, unspecified type ([facility]) Start: 12-13-2023 End: 12-13-2023 ambulatory Fabby Fitt Other [employer] Other Start: 12-13-2023 Telephone encounter Fabbybettina Pandya [facility] Start: 12-11-2023 End: 12-11-2023 ambulatory Fabby Fitt Other [employer] Other Start: 12-11-2023 Telephone encounter Fabby Noét [facility] Start: 12-06-2023 End: 12-06-2023 ambulatory MD Marina Moon Work Phone: [facility] Work Phone: Start: 12-06-2023 End: 12-06-2023 Patient encounter procedure MD Marina Moon Work Phone: [facility] Work Phone: Start: 12-06-2023 End: 12-06-2023 Patient encounter procedure MD Marina Moon Work Phone: [facility]- Start: 11-08-2023 ambulatory Marina Moon MD Facility:[facility] [place] Start: 09-27-2023 End: 09-27-2023 ambulatory Marina Moon MD Facility:[facility] Start: 08-16-2023 End: 08-17-2023 ambulatory Marina Moon MD Facility:[facility] [place] Start: 06-07-2023 End: 06-07-2023 ambulatory Benton Dsouza MD Facility:[facility] Start: 05-18-2023 End: 05-18-2023 ambulatory Benton Dsouza MD Facility:[facility] Start: 04-21-2023 End: 04-21-2023 ambulatory Marina Moon MD Facility:[facility] Start: 03-31-2023 End: 04-01-2023 ambulatory Marina Moon MD Facility:[facility] [place] Start: 03-02-2023 End: 03-03-2023 ambulatory CARLA JASE Facility:[facility] Start: 02-20-2023 End: 02-21-2023 ambulatory Marina Moon MD Facility:[facility] [place] Start: 01-31-2023 End: 02-01-2023 ambulatory LARRY BRAUN . Facility:[facility] Start: 09-22-[address] VANDA CAMACHO . Faci lity:[facility] Start: 09-06-[address] VANDA CAMACHO . Faci lity:[facility] Start: 08-10-2022 End: 08-11-2022 ambulatory SALENA RUCKER . Facility:[facility] Start: 06-15-2022 End: 06-16-2022 ambulatory SALENA RUCKER . Facility:[facility] Start: 04-27-2022 End: 04-28-[address] HIREN STAPLETON Facility:[facility] Start: 04-07-2022 End: 04-08-[address] MARINA MOON Facility:[facility] Start: 03-30-2022 End: 03-31-2022 ambulatory SALENA RUCKER . 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 Echo Room [facility] Comment on above: Ischemic chest pain (HCC); Shortness of breath; Lightheaded; Dizziness; Mixed hyperlipidemia; Tobacco abuse; Family history of early CAD; Over weight; MARIBELL (obstructive sleep apnea); Atrial fibrillation, unspecified type (HCC); Chronic low back pain, unspecified back pain laterality, unspecified whether sciatica present; Essential hypertension; Abnormal EKG Start: 02-23-2021 End: 01-26-2021 Patient encounter procedure Loni Fabian Work Phone: [facility] Work Phone: Start: 01-26-2021 End: 01-26-2021 Patient encounter procedure Virgie Magaly Work Phone: [facility] Work Phone: Procedures Date Procedure Procedure Detail Performing Clinician Start: 01-27-2025 Prosthetic total arthroplasty of right shoulder Vicky Dye Start: 01-13-2025 [facility] Angio Nicolasa Moon MD Work Phone: Start: 01-13-2025 Marina Moon MD Work Phone: Start: 01-06-2025 Ecg routine ecg w/le ast 12 lds w/i&r Lacy Shoemaker MD Work Phone: Start: 01-02-2025 UA WITH CULT RFLX Aramis Dye DO Work Phone: Start: 10-09-2024 Radiofrequency destr uction of peripheral nerve Marina Moon MD Work Phone: Start: 09-04-2024 Injection of local anesthetic into sacroiliac joint MD Marina Moon Work Phone: Start: 07-17-2024 Injection of spinal epidural space MD Marina Moon Work Phone: Start: 07-11-2024 Ecg routine ecg w/le ast 12 lds w/i&r Lacy Shoemaker MD Work Phone: Start: 05-28-2024 Plain X-ray of right shoulder MD Marina Moon Work Phone: Start: 02-12-2024 Plain X-ray of right shoulder MD Marina Moon Work Phone: Start: 02-12-2024 X-ray of cervical spine MD Marina Moon Work Phone: Start: 12-06-2023 X-ray of lumbar spin e, six views including bending views MD Marina Moon Work Phone: Start: 02-24-2021 Echo tthrc r-t 2d w/wom-mode compl spec&colr d Cara Laokatie Work Phone: Start: 02-24-2021 Basic metabolic pane l calcium total Cara Laod Work Phone: Start: 02-24-2021 Blood count complete automated Cara Laod Work Phone: Start: 02-24-2021 Lipid panel Cara Dougherty mad Work Phone: Start: 02-23-2021 Imm. administration COVID19 Moderna dose 2 Loni Hoyng Work Phone: Start: 02-23-2021 SARS-CoV-2 vaccine, 0.5ml Moderna Loni Hoyng Work Phone: Start: 01-26-2021 Imm. administration COVID19 Moderna dose 1 Virgie Stechschulte Work Phone: Start: 01-26-2021 SARS-CoV-2 vaccine, 0.5ml Moderna Virgie Stechschulte Work Phone: Cholecystectomy Vicky alfaro Elbow region structu re (body structure) Vicky Dye Total replacement of hip Cooper kasey Dye Plan of Treatment Date Care Activity Detail Author Start: 12-21-2027 Screening for malign ant neoplasm of breast Mammogram [facility] Comment on above: Postponed from 09/19 (Other Patient Reasons) Start: 12-16-2025 Screening for malign ant neoplasm of colon Colorectal Cancer Screening [facility] Comment on above: Postponed from 08/25 (Patient Refused) Start: 07-04-2025 End: 07-04-2025 Patient encounter procedure 07/04/2025 11:00 AM EDT Office Visit [facility] [address] [facility] [address] [place] [address] Lacy Shoemaker MD [address] [facility] [address] [place] [address] [facility] Start: 02-12-2025 End: 02-12-2025 Patient encounter procedure 02/12/2025 10:30 AM EDT Office Visit [facility] [address] [facility] [address] [place] [address] Vicky Dye, DO [address] [facility] [place] [address] [facility] Start: 02-10-2025 Influenza vaccination Influenza Vacc ine (#1) [facility] Comment on above: Postponed from 07/21 (Patient Refused) Start: 01-13-2025 [facility] Start: 01-09-2025 End: 01-09-2025 Patient encounter procedure 01/09/2025 1:15 PM EST Office Visit [facility] [address] [facility] [address] [place] [phone] Marina Moon MD [address] [facility] [facility] [address] [place] [address] [facility] Start: 01-07-2025 End: 01-07-2025 Patient encounter procedure 01/07/2025 11:45 AM EST Office Visit [facility] [address] [facility] [address] [place] [address] Jarrett Estrada MD [address] [facility] [address] [place] [address] [facility] Start: 01-06-2025 End: 01-06-2026 Basic metabolic 2000 panel - Serum or Plasma Basic Metabolic Panel Lab Routine Primary hypertension Expected: 01/06/2025 (Approximate), Expires: 01/06/2026 [facility] Work Phone: Comment on above: Expected: 01/06/2025 (Approximate), Expires: 01/06/2026 Start: 01-06-2025 End: 01-06-2026 Prothrombin time (PT) Protime-INR Lab Routine Diastolic dysfunction Shortness of breath Expected: 01/06/2025 (Approximate), Expires: 01/06/2026 [facility] Work Phone: Comment on above: Expected: 01/06/2025 (Approximate), Expires: 01/06/2026 Start: 01-06-2025 End: 01-06-2025 Patient encounter procedure 01/06/2025 10:15 AM EST Office Visit [facility] [address] [facility] [address] [place] [phone] Marina Moon MD [address] [facility] [address] [place] [address] [facility] Start: 12-18-2024 End: 12-18-2025 Urinalysis complete panel - Urine Urinalysis with reflex microscopic Lab Routine Primary osteoarthritis of right shoulder Expected: 12/18/2024, Expires: 12/18/2025 [facility] Work Phone: Comment on above: Expected: 12/18/2024 , Expires: 12/18/2025 Start: 12-18-2024 End: 12-18-2024 Patient encounter procedure [facility] Comment on above: 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) Start: 12-16-2024 End: 12-16-2024 Patient encounter procedure 12/16/2024 11:00 AM EST Office Visit [facility] [address] [facility] [address] [place] [address] Marina Moon MD [address] [facility] [address] [place] [address] [facility] Start: 11-06-2024 End: 11-06-2024 Patient encounter procedure 11/06/2024 10:15 AM EST Office Visit [facility] [address] [facility] [address] [place] [address] Vicky Dye, [address] [facility] [address] [place], [place] [id number] [facility] Start: 10-09-2024 [facility] Start: 09-19-2024 Screening for malign ant neoplasm of breast Mammogram [facility] Start: 09-12-2024 Screening for malign ant neoplasm of colon Colorectal Cancer Screening [facility] Comment on above: Postponed from 01/17 (Other Patient Reasons) Postponed from 08/25 (Other Patient Reasons) Start: 09-04-2024 [facility] Start: 09-02-2024 End: 09-02-2024 Patient encounter procedure 09/02/2024 1:30 PM EDT Procedure Visit [facility] [address] [place] [address] Liz Bryan DPM [address] [place], [place] [id number] [facility] Start: 08-12-2024 End: 08-12-2024 Patient encounter procedure 08/12/2024 1:15 PM EDT Office Visit [facility] [address] [facility] [address] [place] [phone] Lacy Shoemaker MD [address] [facility] [address] [place] [address] [facility] Start: 08-06-2024 End: 08-06-2024 Patient encounter procedure [facility] Start: 08-05-2024 End: 08-05-2024 Patient encounter procedure [facility] Start: 08-01-2024 Medicare Annual Well ness (AWV) Medicare Annual Wellness (AWV) [facility] Start: 07-21-2024 COVID-19 Vaccine ( season) COVID-19 Vaccine () [facility] Start: 07-21-2024 Influenza vaccination Influenza Vacc ine (#1) [facility] Start: 07-17-2024 [facility] Start: 07-16-2024 End: 07-16-2024 Patient encounter procedure 07/16/2024 2:30 PM EDT Office Visit [facility] [address] [facility] [address] [place] [phone] Marina Moon MD [address] [facility] [address] [place] [address] [facility] Start: 07-11-2024 End: 07-11-2025 Comprehensive metabolic 2000 panel - Serum or Plasma Comprehensive Metabolic Panel Lab Routine Essential hypertension Expected: 07/11/2024 (Approximate), Expires: 07/11/2025 [facility] Service Area Work Phone: Comment on above: Expected: 07/11/2024 (Approximate), Expires: 07/11/2025 Start: 07-11-2024 End: 07-11-2025 Lipid 1996 panel - Serum or Plasma Lipid Panel Lab Routine Mixed hyperlipidemia Expected: 07/11/2024 (Approximate), Expires: 07/11/2025 [facility] Work Phone: Comment on above: Expected: 07/11/2024 (Approximate), Expires: 07/11/2025 Start: 07-11-2024 End: 07-11-2026 NM Heart Perfusion W stress and W radionuclide IV Nuclear Stress Test Cardiac Nuclear Medicine Routine Chest pressure Expected: 07/11/2024 (Approximate), Expires: 07/11/2026 [facility] Work Phone: Comment on above: Expected: 07/11/2024 (Approximate), Expires: 07/11/2026 Start: 06-06-2024 Patient referral [facility] Work Phone: Start: 07-21-2023 COVID-19 Vaccine () COVID-19 Vaccine () [facility] Start: 08-25-2022 Screening for malign ant neoplasm of colon [facility] Start: 02-24-2022 Creatinine measurement Creatinine mo nitoring [facility] Work Phone: Start: 02-24-2022 Diabetes mellitus screening Diabetes Screening [facility] Start: 02-24-2022 HbA1c (Bld) [Mass fraction] A1C test (Diabetic or Prediabetic) [facility] [employer] Work Phone: Start: 02-24-2022 Lipid panel Lipid screen [facility] Work Phone: Start: 02-24-2022 Potassium monitoring Potassium monit oring [facility] Work Phone: Start: 02-21-2022 FUV, Provider: Vicky Young, Status: Pen, Time: 11:15 AM FUV, Provider: Vicky Young, Status: Pen, Time: 11:15 AM [facility] [address] DO Work Phone: Start: 02-07-2022 STRESS NUC, Provider : [place] HHVI NUCLEAR 01,[id number], Status: Pen, Time: 12:00 PM STRESS NUC, Provider: [place] HHVI NUCLEAR 01,[id number], Status: Pen, Time: 12:00 PM [facility] 600 DO Work Phone: Start: 04-23-2021 Echocardiography Echocardiogram [facility] Start: 03-12-2021 End: 03-12-2021 Office Visit 03/12/2021 Office Visit Cardiology Cara Clarke MD [address] [place] [address] [facility] Start: 02-25-2021 Hospital Encounter 02/25/2021 Hospital Encounter IP Unit [employer] Start: 02-23-2021 2nd Dose- COVID Vaccine [facility] Work Phone: Start: 01-28-2021 Annual Wellness Visi t (AWV) Annual Wellness Visit (AWV) [employer] Work Phone: Start: 10-17-2020 DTaP/Tdap/Td vaccine (2 - Td) DTaP/Tdap/Td vaccine (2 - Td) [facility] Phone: Start: 10-17-2020 DTaP/Tdap/Td Vaccine s (2 - Td or Tdap) DTaP/Tdap/Td Vaccines (2 - Td or Tdap) [facility] Start: 08-25-2020 Screening for malign ant neoplasm of colon FOBT [facility] Start: 07-17-2016 Screening for malign ant neoplasm of breast Breast cancer screen [facility] Phone: Start: 2012 Hepatitis B Vaccines (1 of 3 - Risk 3-dose series) Hepatitis B Vaccines (1 of 3 - Risk 3-dose series) [facility] Start: 2012 RSV High Risk: (Elde rly (60+) or Population) (1 - Risk 60-74 years 1-dose series) RSV High Risk: (Elderly (60+) or Population) (1 - Risk 60-74 years 1-dose series) [facility] Start: 2012 RSV patient s and/or patients aged 60+ years (1 - 1-dose 60+ series) RSV patients and/or patients aged 60+ years (1 - 1-dose 60+ series) [facility] Start: 2007 Screening for malign ant neoplasm of lung Low dose CT lung screening [facility] Phone: Start: 2007 Screening for osteoporosis DEXA (modify frequency per FRAX score) [facility] Phone: Start: 2002 Screening for malign ant neoplasm of colon Colon cancer screen colonoscopy [facility] Phone: Start: 2002 Shingles Vaccine (1 of 2) Santos gles Vaccine (1 of 2) [facility] Phone: Start: 2002 Zoster Vaccines (1 of 2) Zoster Vacc gopi (1 of 2) [facility] Start: 1992 Diabetes screen Diabetes screen [employer] Phone: Start: 1992 Screening for malign ant neoplasm of breast Mammogram [facility] Start: 1971 Hepatitis A Vaccines (1 of 2 - Risk 2-dose series) Hepatitis A Vaccines (1 of 2 - Risk 2-dose series) [facility] Start: 1971 Urine screening for protein CKD: Urine Protein Screening [facility] Start: 1970 Hepatitis C screening Hepatitis C [facility] Start: 1952 Creatinine measurement Creatinine Le tomi [facility] Start: 1952 Hepatitis C screening Hepatitis C [facility] Phone: Start: 1952 Lipid panel Lipid Panel [facility] Start: 1952 Medicare Annual Well ness Visit Medicare Annual Wellness Visit (AWV) [facility] Start: 1952 Potassium measurement Potassium Leve l [facility] Start: 1952 Screening for malign ant neoplasm of colon [facility] Start: 1952 Screening for osteoporosis Bone Density Scan [facility] Cardiac Catheterizat ion - Onbase Scan Cardiac Catheterization - Onbase Scan Cardiac Cath Routine Encounter for pre-operative cardiovascular clearance Shortness of breath Abnormal myocardial perfusion study Ordered: 01/06/2025 [facility] Service Area Work Phone: Comment on above: Ordered: 01/06/2025 End: 02-24-2021 HbA1c (Bld) [Mass fraction] Hemoglobin A1C Lab Routine Ischemic chest pain (HCC) Shortness of breath Lightheaded Dizziness Mixed hyperlipidemia Tobacco abuse Family history of early CAD Over weight MARIBELL (obstructive sleep apnea) Atrial fibrillation, unspecified type (HCC) Chronic low back pain, unspecified back pain laterality, unspecified whether sciatica present Essential hypertension Abnormal EKG 1 Occurrences starting 02/24/2021 until 02/24/2021 [employer] Phone: Comment on above: 1 Occurrences starti ng 02/24/2021 until 02/24/2021 HbA1c (Bld) [Mass fraction] Hemoglobin A1C Lab Routine Ischemic chest pain (HCC) Shortness of breath Lightheaded Dizziness Mixed hyperlipidemia Tobacco abuse Family history of early CAD Over weight MARIBELL (obstructive sleep apnea) Atrial fibrillation, unspecified type (HCC) Chronic low back pain, unspecified back pain laterality, unspecified whether sciatica present Essential hypertension Abnormal EKG 02/24/2021 12:44 PM EDT [facility] Phone: Patient Education [facility] Work Phone: Patient referral [facility] Work Phone: End: 02-24-2021 Referral to Cardiac Cath Referral to Cardiac Cath Cardiac Services Routine Ischemic chest pain (HCC) Shortness of breath Lightheaded Dizziness Mixed hyperlipidemia Tobacco abuse Family history of early CAD Over weight MARIBELL (obstructive sleep apnea) Atrial fibrillation, unspecified type (HCC) Chronic low back pain, unspecified back pain laterality, unspecified whether sciatica present Essential hypertension Abnormal EKG 1 Occurrences starting 02/24/2021 until 02/24/2021 [employer] Phone: Comment on above: 1 Occurrences starti ng 02/24/2021 until 02/24/2021 XR Cervical spine 5 Views [facility] XR Shoulder - right Views [facility] XR Shoulder - right Views [facility] Immunizations Immunization Date Immunization Notes Care Provider Fa nisha 11-07-2023 Influenza, High-dose Seasonal, Quadrivalent, Preservative Free Marina Moon MD Work Phone: [facility] 11-07-2023 influenza, seasonal, injectable Marina Moon MD Work Phone: [facility] 11-07-2023 influenza virus vaccine, unspecified formulation Maria D CERVANTES Work Phone: [facility] 09-06-2022 Influenza, High-dose Seasonal, Quadrivalent, Preservative Free Marina Moon MD Work Phone: [facility] 09-28-2021 COVID-19 mRNA-1273 (Moderna) MD Marina Moon Work Phone: [facility] 09-04-2021 Influenza, High-dose Seasonal, Quadrivalent, Preservative Free Marina Moon MD Work Phone: [facility] 02-23-2021 2nd Dose MODERNA COVID-19 Vaccine; Translations: [Moderna COVID-19 Vaccine] [facility] Comment on above: Note: Patient tolera tyson well. No signs or symptoms of adverse reactions. Patient waited a minimum of 15 minutes. 01-26-2021 2nd Dose MODERNA COVID-19 Vaccine; Translations: [Moderna COVID-19 Vaccine] [facility] Comment on above: Note: Patient tolera tyson well. No signs or symptoms of adverse reactions. Patient waited a minimum of 15 minutes. 08-23-2020 influenza, injectabl e, quadrivalent, preservative free Marina Moon MD Work Phone: [facility] 08-23-2020 Seasonal, quadrivale nt, recombinant, injectable influenza vaccine, preservative free MD Marina Moon Work Phone: [facility] 09-01-2019 pneumococcal conjuga te vaccine, 13 valent Marina Moon MD Work Phone: [facility] 09-01-2019 Seasonal trivalent influenza vaccine, adjuvanted, preservative free Marina Moon MD Work Phone: [facility] 08-20-2019 pneumococcal polysaccharide vaccine, 23 valent Marina Moon MD Work Phone: [facility] 08-20-2018 influenza, high dose seasonal, preservative-free Marina Moon MD Work Phone: [facility] 08-20-2018 pneumococcal conjuga te vaccine, 13 valjuan Moon Work Phone: [facility] 08-10-2018 seasonal influenza, intradermal, preservative free Marina Moon MD Work Phone: [facility] 08-10-2018 Seasonal trivalent influenza vaccine, adjuvanted, preservative free Marina Moon MD Work Phone: [facility] 09-26-2017 influenza, high dose seasonal, preservative-free Marina Moon MD Work Phone: [facility] 10-17-2016 influenza, injectabl e, quadrivalent, preservative free [facility] Work Phone: 08-16-2013 pneumococcal polysaccharide vaccine, 23 valjuan Moon MD Work Phone: [facility] 10-10-2012 pneumococcal polysaccharide vaccine, 23 valent [facility] Work Phone: 10-17-2010 tetanus toxoid, redu huber diphtheria toxoid, and acellular pertussis vaccine, adsorbed [facility] Work Phone: Payers Date Payer Category Payer Self-pay [id number] 2024 Self-pay [id number] 2023 Unknown 2021 Medicare [id number] 2021 Medicare (Managed Care) 1.2. [id number] 1959 Unknown [id number] 2.16.840.1.544805.3.140.1.77184.5.10.6.3 1952 Unknown [id number] 2.16.8 40.1.528512.3.579.2.173 1952 Unknown [id number] 2.16.8 40.1.826858.3.579.2.173 1952 Unknown [id number] 2.16.8 40.1.738694.3.579.2.173 1952 Unknown [id number] 2.16.84 0.1.610346.3.579.2.593 1952 Unknown [id number] 2.16.84 0.1.058463.3.579.2.593 1952 Unknown [id number] 2.16.84 0.1.300488.3.579.2.593 1952 Unknown [id number] 2.16.84 0.1.042294.3.579.2.593 1952 Unknown [id number] 2.16.84 0.1.229894.3.579.2.593 1952 Unknown [id number] 2.16.84 0.1.877872.3.579.2.593 1952 Unknown [id number] 2.16.84 0.1.756970.3.579.2.593 1952 Unknown [id number] 2.16.84 0.1.730261.3.579.2.593 1952 Unknown [id number] 2.16.84 0.1.530394.3.579.2.593 1952 Unknown [id number] 2.16.84 0.1.875969.3.579.2.593 1952 Unknown [id number] 2.16.84 0.1.894525.3.579.2.593 1952 Unknown [id number] 2.16. 840.1.042196.3.579.2.196 1952 Unknown [id number] 2.16. 840.1.452826.3.579.2.196 1952 Unknown [id number] 2.16. 840.1.943943.3.579.2.196 1952 Unknown [id number] 2.16. 840.1.656503.3.579.2.196 1952 Unknown [id number] 2.16. 840.1.235044.3.579.2.196 1952 Unknown [id number] 2.16. 840.1.534829.3.579.2.196 1952 Unknown [id number] 2.16. 840.1.652283.3.579.2.196 1952 Unknown [id number] 2.16. 840.1.903153.3.579.2.196 1952 Unknown [id number] 2.16.8 40.1.242178.3.579.2.727 1952 Unknown [id number] 2.16.84 0.1.043044.3.579.2.1259 1952 Unknown [id number] 2.16.84 0.1.370359.3.579.2.1259 1952 Unknown [id number] 2.16.84 0.1.361654.3.579.2.1259 1952 Unknown [id number] 2.16.84 0.1.505347.3.579.2.1259 1952 Unknown [id number] 2.16.84 0.1.927922.3.579.2.1259 1952 Unknown [id number] 2.16.84 0.1.888432.3.579.2.1259 1952 Unknown [id number] 2.16.84 0.1.936336.3.579.2.1259 1952 Unknown [id number] 2.16.84 0.1.617524.3.579.2.1259 1952 Unknown [id number] 2.16.84 0.1.820769.3.579.2.1259 1952 Unknown [id number] 2.16.84 0.1.552052.3.579.2.1259 1952 Unknown [id number] 2.16.84 0.1.165288.3.579.2.1259 1952 Unknown [id number] 2.16.84 0.1.037593.3.579.2.1259 1952 Unknown [id number] 2.16. 840.1.563276.3.579.2.1244 1952 Unknown [id number] 2.16.8 40.1.724235.3.579.2.1244 1952 Unknown [id number] 2.16.8 40.1.771350.3.579.2.727 1952 Unknown [id number] 2.16.8 40.1.788349.3.579.2.727 Medicare Medicare [id number] Unknown [id number] 2.16.8 40.1.953346.3.579.2.531 Unknown [id number] 2.16.8 40.1.385233.3.579.2.531 Unknown [id number] 2.16.8 40.1.299018.3.579.2.531 Unknown [id number] 2.16.8 40.1.716446.3.579.2.531 Unknown [id number] 2.16.8 40.1.907189.3.579.2.531 Unknown [id number] 2.16.8 40.1.557395.3.579.2.531 Unknown [id number] 2.16.8 40.1.699445.3.579.2.531 Social History Date Type Detail Facility Tobacco smoking status Unknown i f ever smoked [facility] Work Phone: Start: 11-22-1972 End: 07-30-2024 Tobacco smoking status NHIS Current every day smoker [facility] Start: 11-22-1972 History of tobacco use Cigarette Smo ker [facility] Phone: Start: 02-24-2021 End: 07-14-2023 Cigarettes smoked current (pack per day) - Reported [facility] Phone: Start: 02-24-2021 End: 06-18-2024 Tobacco use and exposure Never used [facility] Phone: Start: 02-24-2021 Alcohol intake 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 No [facility] Are you now , , , , never or living with a partner? [facility] How often to you hav e a drink containing alcohol? Never [facility] How many standard drinks containing alcohol do you have on a typical day? Patient does not drink [facility] Do you feel stress - tense, restless, nervous, or anxious, or unable to sleep at night because your mind is troubled all the time - these days [OSQ] Only a little [facility] (I/We) worried whedaysi er (my/our) food would run out before (I/we) got money to buy more. Sometimes true [facility] Start: 09-03-2023 Tobacco Comment 11-20 cigarettes/day [facility] Start: 09-03-2023 Alcohol Comment caffeine more than 4 cups per day [facility] Start: 09-04-2024 End: 01-08-2025 Tobacco smoking status NHIS Smoker (finding) [facility] Start: 07-11-2024 End: 01-06-2025 Alcoholic beverage intake Lifetime non-drinker (finding) [facility] Work Phone: Start: 07-01-2024 End: 01-06-2025 Exposure to SARS-CoV-2 (event) Not sure [facility] Start: 10-09-2024 End: 01-13-2025 Sex Female (finding) [facility] Start: 01-02-2025 Tobacco smoking status Heavy t obacco smoker (finding) [facility] Comment on above: 1 ppd Medical Equipment Procedure Code Equipment Code Equipment Origin al Text Equipment Identifier Dates SHOULDER TOTAL ARTHROPLASTY Dye DO, Vicky T 01/27/25 Unknown Shoulder R FDA Start: 01-27-2025 SHOULDER TOTAL ARTHROPLASTY Dye DO, Vicky T 01/27/25 Unknown Shoulder R FDA Start: 01-27-2025 SHOULDER TOTAL ARTHROPLASTY Dye DO, Vicky T 01/27/25 Unknown Shoulder R FDA Start: 01-27-2025 SHOULDER TOTAL ARTHROPLASTY Dye DO, Vicky T 01/27/25 Unknown Shoulder R FDA Start: 01-27-2025 SHOULDER TOTAL ARTHROPLASTY Dye DO, Vicky T 01/27/25 Unknown Shoulder R FDA Start: 01-27-2025 SHOULDER TOTAL ARTHROPLASTY Dye DO, Vicky T 01/27/25 Unknown Shoulder R FDA Start: 01-27-2025 SHOULDER TOTAL ARTHROPLASTY Dye DO, Vicky T 01/27/25 Unknown Shoulder R FDA Start: 01-27-2025 Goals Date Patient Goal Desired Activity /State Functional Status Date Assessment Result Facility 01-02-2025 Functional Status No [facility] Clinical Notes 03-08-2022 to 01-29-2025 Note Date & Type Note Facility 01-29-2025 Note Progress Note-Physic cassie Patient: DARRIUS LAMA Age: 75 years Sex: Female : 1950 Associated Diagnoses: None Author: Vito Darden MD Postoperative Information Postoperative disposition: Postoperative disposition: To PACU. Optimetrix number: Optimetrix number [id number]. Anesthetic utilized: General. Regional: Interscalene Block. Health Status Allergies: Allergic Reactions (Selected) No Known Allergies Physical Examination VS/Measurements Pain Assessment: Controlled. General: Awake, Appropriate. Respiratory: Adequate air exchange. Cardiovascular: Stable. Neurological Assessment Anesthetic outcome No anesthetic complications noted. Adequate pain relief. Review / Management Condition: Stable. Plan Transfer/Discharge: Transfer/Discharge Discharge when meets criteria ( To home ). [facility] Comment on above: Result Comment: Elec liliyaally Signed By: Adelso KITCHEN, Vito Geronimo\.br\Date and Time Signed: 01/29/25 13:21 EDT 01-27-2025 Note Progress Note-Nurse Pt called this RN to bedside and stated she would like helped to get dressed to leave. Educated the patient that she cannot leave d/t her oxygen status (pt on 5L at 89%). Pt stated that her oxygen was not going to improve and that she always has low oxygen. Explained multiple times that pt cannot go home if her oxygen is going to be below 80% on RA and that she would end up with CO2 build up to which patient replied no I won't . Pt adamant on leaving stating she would get an uber to come pick her up she is so desperate to leave. Told patient we are not going to okay her to leave with her oxygen status as it currently is, but that she could leave against medical advice. Patient stated that is what she wanted to do. Spoke with sales team manager Peter Worthy about patients situation and desire to leave AMA. Luana also went into patients room to explain risks of leaving with her oxygen status the way it is but patient continued to argue that she was fine to leave. Dr. Garcia also came to bedside to warn patient of risks of leaving AMA to which patient verbalized understanding. Pt signed AMA form and wheeled to discharge with . [facility] 01-27-2025 Hospital Discharg e instructions Patient Education 01/27/2025 13:01:50 How to Use an Incentive Spirometer How to Use an Incentive Spirometer An incentive spirometer is a tool that measures how well you are filling your lungs with each breath. Learning to take long, deep breaths using this tool can help you keep your lungs clear and active. This may help to reverse or lessen your chance of developing breathing (pulmonary) problems, especially infection. You may be asked to use a spirometer: After a surgery. If you have a lung problem or a history of smoking. After a long period of time when you have been unable to move or be active. If the spirometer includes an indicator to show the highest number that you have reached, your health care provider or respiratory therapist will help you set a goal. Keep a log of your progress as told by your health care provider. What are the risks? Breathing too quickly may cause dizziness or cause you to pass out. Take your time so you do not get dizzy or light-headed. If you are in pain, you may need to take pain medicine before doing incentive spirometry. It is harder to take a deep breath if you are having pain. How to use your incentive spirometer 1.Sit up on the edge of your bed or on a chair. 2.Hold the incentive spirometer so that it is in an upright position. 3.Before you use the spirometer, breathe out normally. 4.Place the mouthpiece in your mouth. Make sure your lips are closed tightly around it. 5.Breathe in slowly and as deeply as you can through your mouth, causing the piston or the ball to rise toward the top of the chamber. 6.Hold your breath for 3 5 seconds, or for as long as possible. If the spirometer includes a head girls golf coach indicator, use this to guide you in breathing. Slow down your breathing if the indicator goes above the marked areas. 7.Remove the mouthpiece from your mouth and breathe out normally. The piston or ball will return to the bottom of the chamber. 8.Rest for a few seconds, then repeat the steps 10 or more times. Take your time and take a few normal breaths between deep breaths so that you do not get dizzy or light-headed. Do this every 1 2 hours when you are awake. 9.If the spirometer includes a goal marker to show the highest number you have reached (best effort), use this as a goal to work toward during each repetition. 10.After each set of 10 deep breaths, cough a few times. This will help to make sure that your lungs are clear. If you have an incision on your chest or abdomen from surgery, place a pillow or a rolled-up towel firmly against the incision when you cough. This can help to reduce pain while taking deep breaths and coughing. General tips When you are able to get out of bed: ?Walk around often. ?Continue to take deep breaths and cough in order to clear your lungs. Keep using the incentive spirometer until your health care provider says it is okay to stop using it. If you have been in the hospital, you may be told to keep using the spirometer at home. Contact a health care provider if: You are having difficulty using the spirometer. You have trouble using the spirometer as often as instructed. Your pain medicine is not giving enough relief for you to use the spirometer as told. You have a fever. Get help right away if: You develop shortness of breath. You develop a cough with bloody mucus from the lungs. You have fluid or blood coming from an incision site after you cough. Summary An incentive spirometer is a tool that can help you learn to take long, deep breaths to keep your lungs clear and active. You may be asked to use a spirometer after a surgery, if you have a lung problem or a history of smoking, or if you have been inactive for a long period of time. Use your incentive spirometer as instructed every 1 2 hours while you are awake. If you have an incision on your chest or abdomen, place a pillow or a rolled-up towel firmly against your incision when you cough. This will help to reduce pain. Get help right away if you have shortness of breath, you cough up bloody mucus, or blood comes from your incision when you cough. This information is not intended to replace advice given to you by your health care provider. Make sure you discuss any questions you have with your health care provider. Document Revised: 01/25/2021 Document Reviewed: 01/25/2021 [employer] Patient Education 2023 [employer]. 01/27/2025 13:01:42 Shoulder Cryocuff Patient Instructions - FT (CUSTOM) 01/27/2025 13:01:40 Post Op Patient Instructions - FT (Custom) (CUSTOM) 01/22/2025 15:12:37 Margarito Fenton - Shoulder Replacement (CUSTOM) [place], [place] [facility] DISCHARGE INSTRUCTIONS: SHOULDER REPLACEMENT MEDICATIONS You will be given a prescription for pain medication. This should be taken with food as needed. This may cause stomach upset, dizziness, and possible constipation. Please notify the office if you have any medication allergies to this type of medication or if any problems develop with the medication. DRESSING CHANGES Leave your bandage in place until your follow up visit. The bandage is waterproof, so you may shower it home. Any increase in pain, temperature over 101 degrees, redness, or drainage should be reported to the office prior to your first office visit. ACTIVITY You may continue to progress activity as comfortably tolerated with your opposite arm. You may begin to use your elbow, wrist, and hand as directed in physical therapy. You should only remove your sling for bathing and to perform range of motion exercises for the hand, wrist, and elbow. Do not actively move your shoulder Continue to ice the shoulder several times per day until follow up. ANESTHESIA PRECAUTIONS You should not operate a vehicle, automobile, bicycle or motorcycle, machinery, or power tools, make any important decisions, or drink alcohol for 24 hours. It may be beneficial to have a responsible adult remain with you for your first 24 hours after surgery. You may be drowsy and light-headed. DRIVING Driving is legal, however, if you are involved in an accident, you must be able to prove that you maintained full control of your vehicle. For this reason, it is advised that you do not drive until your strength returns. PROBLEMS You should notify the office for any persistent or heavy bleeding, temperature above 101, redness, swelling, or drainage from the operative site, severe pain at the operative site, or the development of persistent vomiting. Vicky Dye DO [facility] [address] [place] [id number] Reviewed: Follow Up Care 12/18/2024 12:05:11 With:Vicky Dye Address: [address] [place] [phone] Business (1) When: Unknown Comments:Keep scheduled appointment [facility] 01-27-2025 Evaluation + Plan note Extrac tyson from: Title:Op Note skeleton Author:Vicky Dye DO Date:01/27/25 Impression and Plan Diagnosis Pre-op dx-rt shoulder oa Post-op dx-same Procedure-rt reverse tsa Anesthesia-gen block EBL-100 TT-0 To Recovery Room in stable and satisfactory condition.. [facility] 03-10-2025 NotePatient Education - Text Pulmonary Medicine How to Use an Incentive Spirometer An incentive spirometer is a tool that measures how well you are filling your lungs with each breath. Learning to take long, deep breaths using this tool can help you keep your lungs clear and active. This may help to reverse or lessen your chance of developing breathing (pulmonary) problems, especially infection. You may be asked to use a spirometer: ??? After a surgery. ??? If you have a lung problem or a history of smoking. ??? After a long period of time when you have been unable to move or be active. If the spirometer includes an indicator to show the highest number that you have reached, your health care provider or respiratory therapist will help you set a goal. Keep a log of your progress as told by your health care provider. What are the risks? Breathing too quickly may cause dizziness or cause you to pass out. Take your time so you do not get dizzy or light-headed. ??? If you are in pain, you may need to take pain medicine before doing incentive spirometry. It isharder to take a deep breath if you are having pain. How to use your incentive spirometer 1. Sit up on the edge of your bed or on a chair. 2. Hold the incentive spirometer so that it is in an upright position. 3. Before you use the spirometer, breathe out normally. 4. Place the mouthpiece in your mouth. Make sure your lips are closed tightly around it. 5. Breathe in slowly and as deeply as you can through your mouth, causing the piston or the ball torise toward the top of the chamber. 6. Hold your breath for 3?5 seconds, or for as long as possible. ??? If the spirometer includes a head girls golf coach indicator, use this to guide you in breathing. Slow down your breathing if the indicator goes above the marked areas. 7. Remove the mouthpiece from your mouth and breathe out normally. The piston or ball will return to the bottom of the chamber. 8. Rest for a few seconds, then repeat the steps 10 or more times. ??? Take your time and take a few normal breaths between deep breaths so that you do not get dizzy or light-headed. ??? Do this every 1?2 hours when you are awake. 9. If the spirometer includes a goal marker to show the highest number you have reached (best effort), use this as a goal to work toward during each repetition. 10. After each set of 10 deep breaths, cough a few times. This will help to make sure that your lungs are clear. ??? If you have an incision on your chest or abdomen from surgery, place a pillow or a rolled-up towel firmly against the incision when you cough. This can help to reduce pain while taking deep breaths and coughing. General tips ??? When you are able to get out of bed: ? Walk around often. ? Continue to take deep breaths and cough in order to clear your lungs. ??? Keep using the incentive spirometer until your health care provider says it is okay to stop using it. If you have been in the hospital, you may be told to keep using the spirometer at home. Contact a health care provider if: ??? You are having difficulty using the spirometer. ??? You have trouble using the spirometer as often as instructed. ??? Your pain medicine is not giving enough relief for you to use the spirometer as told. ??? You have a fever. Get help right away if: ??? You develop shortness of breath. ??? You develop a cough with bloody mucus from the lungs. ??? You have fluid or blood coming from an incision site after you cough. Summary ??? An incentive spirometer is a tool that can help you learn to take long, deep breaths to keep your lungs clear and active. ??? You may be asked to use a spirometer after a surgery, if you have a lung problem or a history of smoking, or if you have been inactive for a long period of time. ??? Use your incentive spirometer as instructed every 1?2 hours while you are awake. ??? If you have an incision on your chest or abdomen, place a pillow or a rolled-up towel firmly against your incision when you cough. This will help to reduce pain. ??? Get help right away if you have shortness of breath, you cough up bloody mucus, or blood comes from your incision when you cough. This information is not intended to replace advice given to you by your health care provider. Make sure you discuss any questions you have with your health care provider. Document Revised: 01/25/2021 Document Reviewed: 01/25/2021 Elsevier Patient Education ? 2023 [employer]. [place], [place] [facility] DISCHARGE INSTRUCTIONS: SHOULDER REPLACEMENT MEDICATIONS You will be given a prescription for pain medication. This should be taken with food as needed. This may cause stomach upset, dizziness, and possible constipation. Please notify the offi (more content not included)...[facility]03-05-2025 NotePatient Education - Text [place], [place] [facility] DISCHARGE INSTRUCTIONS: SHOULDER REPLACEMENT MEDICATIONS You will be given a prescription for pain medication. This should be taken with food as needed. This may cause stomach upset, dizziness, and possible constipation. Please notify the office if you have any medication allergies to this type of medication or if any problems develop with the medication. DRESSING CHANGES Leave your bandage in place until your follow up visit. The bandage is waterproof, so you may shower it home. Any increase in pain, temperature over 101 degrees, redness, or drainage should be reported to the office prior to your first office visit. ACTIVITY You may continue to progress activity as comfortably tolerated with your opposite arm. You may begin to use your elbow, wrist, and hand as directed in physical therapy. You should only remove your sling for bathing and to perform range of motion exercises for the hand, wrist, and elbow. Do not actively move your shoulder Continue to ice the shoulder several times per day until follow up. ANESTHESIA PRECAUTIONS You should not operate a vehicle, automobile, bicycle or motorcycle, machinery, or power tools, make any important decisions, or drink alcohol for 24 hours. It may be beneficial to have a responsible adult remain with you for your first 24 hours after surgery. You may be drowsy and light-headed. DRIVING Driving is legal, however, if you are involved in an accident, you must be able to prove that you maintained full control of your vehicle. For this reason, it is advised that you do not drive until your strength returns. PROBLEMS You should notify the office for any persistent or heavy bleeding, temperature above 101, redness, swelling, or drainage from the operative site, severe pain at the operative site, or the developmentof persistent vomiting. Vicky Dye DO [facility] [address], [place] [address] Reviewed: [facility]02-24-2025 [place] [address] Cardiac Catheterization Note Signed Patient: Darrius Lama MR#: [id number] : 1950 Acct:[id number] Age/Sex: 74 / F Adm Date: 5 Loc: Room: Type: [facility] Attending Dr: Jerman Becerra DO Copies to: MD Jerman Cuevas DO~ Cardiac Catheterization (Left) DATE/PROVIDER 01/13/2025 Jerman Becerra DO INDICATION 1. Chest pain syndrome 2. Abnormal myocardial perfusion stress test 3. Ongoing tobacco use with presumed COPD 4. Exogenous obesity 5. Essential hypertension PRE PROCEDURE Frailty Scale: Managing Well ASA Classification: 3 Mallampati Score: Class I POST PROCEDURE Cardiology Post-Op Diagnosis: Other (Mild single-vessel coronary artery disease involving proximal RCA otherwise minimal left coronary disease and normal LV function) PROCEDURE PROCEDURE MEDICATIONS: Conscious sedation with Versed and fentanyl; heparin 4000 bolus, intra-arterial nicardipine Approach: Radial - Rt Left heart catheterization PROCEDURE DETAILS Utilizing the right radial approach with a single arterial puncture technique, a5 Danish slender sheath was introduced to the right radial artery over guidewirewithout any complications. Next, preformed 5 Danish JL 3.5 and JR4 diagnostic catheters were utilized to selectively engage and image the left and right coronary arteries and left ventricle, all with interpretation, pressure measurements, coronary and left ventriculography. HEMOSTASIS Quick clot with radial band SUMMARY OF FINDINGS CCS Classification: CCS II -Angina w/ moderate Dominance: Right Coronary findings: Insignificant disease Left Main %: 0 LAD-Prox % Stenosis: 0 LAD- Mid- % Stenosis: 0 LAD-Distal- % Stenosis: 10 Diag 1st - % Stenosis: 0 CIRC- Prox % Stenosis: 0 CIRC- Mid - % Stenosis: 0 CIRC- Distal- & Stenosis: 0 OM-1 -% Stenosis: 0 RCA -% Stenosis: 30 RCA: Eccentric, heavily calcified focal element proximal RCA with mild eccentric disease with LU-3 flow otherwise minimal disease in the RCA system PDA-RT -% Stenosis: 0 PLV-RT -% Stenosis: 0 LEFT VENTRICLE EF %: 65 Hyperdynamic normal left ventricular function, ejection fraction 65 to 75%, elevated LVEDP of 25 mmHg VALVE-AORTIC Aortic Valve Disease: No VALVE-MITRAL Mitral Valve Disease: No IMPRESSION 1. Mild eccentric RCA calcified disease 2. Normal left ventricular function with ejection fraction of 65 to 75%, with elevated LVEDP of 25 mmHg RECOMMENDATIONS Medical therapy Smoking cessation Documented By: Jerman Becerra DO 01/13/25 1123 Signed By: 01/13/25 1127 [facility]02-17-2025 History of Present illness Narrative * Lacy Shoemaker MD - 01/06/2025 1:45 PM EST Patient was last seen in June 2024. That was a POC visit. Perfusion imaging study was ordered. Subjective : Here to go over results of perfusion imaging study. Does not report any chest pressure tightness orheaviness, but is chronically short of breath. 12 point ROS is negative or non contributory except as noted. History so Far : ECHO : 1. Echocardiogram April 2020-1. Normal biventricular systolic function. Moderate biatrial dilatation 2. Moderate diastolic dysfunction. 3. Mild to moderate mitral regurgitation. 4. Mild tricuspid regurgitation. 5. Mildly increased right sided pressures. 6. Mildly dilated ascending aorta. RV systolic pressure 36 mmHg aortic root 3.7 cm, LV end-systolicdiameter 3.8 cm 7. No pericardial effusion. CT chest December 2020: Moderate emphysematous changes and pulmonary fibrosis stable mild bilateral hilar adenopathy mild aneurysmal dilatation of the ascending aorta based on CT of the chest December 2020. Large hiatal hernia. Primary hypertension Primary hypertension Mixed hyperlipidemia Chart review suggests atrial fibrillation, patient reports that she had atrial fibrillation 3 to 4 years ago when she was taking [id number] cold and cough medications. She has not had any episodes since then. Lexiscan Myoview August 2024-small area of mildly decreased uptake in the anterior wall, LAD distribution, with redistribution on rest imaging, suspicious for reversible ischemia, consider further evaluation. Objective Wt Readings from Last 3 Encounters: 01/06/25 109 kg (241 lb) 07/11/24 107 kg (236 lb) Vitals: 01/06/25 1345 BP: 148/86 BP Location: Left arm Patient Position: Sitting Pulse: 93 Weight: 109 kg (241 lb) Height: 1.676 m (5' 6 ) Physical Exam: GENERAL APPEARANCE: in no acute distress. CHEST: Symmetric and non-tender. INTEGUMENT: Skin warm and dry HEENT: No gross abnormalities identified.No pallor or scleral icterus. NECK: Supple, no JVD, no bruit. NEURO/PSHCY: Alert and oriented x3; appropriate behavior and responses and responses LUNGS: Clear to auscultation bilaterally; normal respiratory effort. HEART: Rate and rhythm regular with no evident murmur; no gallop appreciated. ABDOMEN: Soft, non tender. MUSCULOSKELETAL: Has had multiple joint replacements. Painful limitation of abduction of the right shoulder. EXTREMITIES: Warm There is no edema noted. Strong distal pulses. Meds: Current Outpatient Medications Medication Instructions atorvastatin (LIPITOR) 80 mg, Daily celecoxib (CELEBREX) 200 mg, Daily cloNIDine (CATAPRES) 0.2 mg, Daily furosemide (LASIX) 20 mg, 2 times daily (morning and late afternoon) losartan (COZAAR) 50 mg, oral, Daily metoprolol succinate XL (TOPROL-XL) 25 mg, oral, Daily, Do not crush or chew. montelukast (SINGULAIR) 10 mg, Nightly omeprazole (PRILOSEC) 40 mg, 2 times daily PRN tiZANidine (ZANAFLEX) 4 mg, Every 6 hours PRN zolpidem CR (AMBIEN CR) 12.5 mg, Nightly PRN No Known Allergies LABS: 01/02/2025-hemoglobin 15 hematocrit 44.4 platelets 2 59,000 BUN 15 creatinine 0.8 sodium 132 potassium 3.9 Patient Active Problem List Diagnosis Date Noted Diastolic dysfunction 01/06/2025 Mitral valve regurgitation 01/06/2025 Nonrheumatic tricuspid valve regurgitation 01/06/2025 BMI 38.0-38.9,adult 01/06/2025 Abnormal myocardial perfusion study 01/06/2025 Shortness of breath 01/06/2025 Encounter for pre-operative cardiovascular clearance 07/11/2024 Hyperlipidemia 07/11/2024 Dilated aortic root (CMS-HCC) 07/11/2024 A-fib (Multi) 07/11/2024 White coat syndrome with diagnosis of hypertension 07/11/2024 Cigarette smoker 07/11/2024 Chest pressure 07/11/2024 Stage 3a chronic kidney disease (Multi) 04/25/2023 Pulmonary emphysema (Multi) 06/07/2012 Primary hypertension 06/07/2012 Assessment: 1. Encounter for pre-operative cardiovascular clearance ECG 12 Lead Cardiac Catheterization - Onbase Scan 2. Abnormal myocardial perfusion study Cardiac Catheterization - Onbase Scan 3. Diastolic dysfunction Follow Up In Cardiology metoprolol succinate XL (Toprol-XL) 25 mg 24 hr tablet Protime-INR Protime-INR 4. Shortness of breath Cardiac Catheterization - Onbase Scan Protime-INR Protime-INR 5. Mitral valve insufficiency, unspecified etiology 6. Primary hypertension metoprolol succinate XL (Toprol-XL) 25 mg 24 hr tablet Basic Metabolic Panel losartan (Cozaar) 50 mg tablet Basic Metabolic Panel 7. Mixed hyperlipidemia 8. Stage 3a chronic kidney disease (Multi) 9. Cigarette smoker Patient with abnormal perfusion study, preoperative right shoulder replacement surgery, we will proceed with coronary angiography possible intervention, prefer to avoid intervention unless critical disease identified. Rationale for cardiac catheterization and possible intervention was discussed. Procedure, risks, benefits, and alternatives were discussed. Procedure was explained to patient in layman's terms ie the catheters would be introduced under local anesthetic via the right groin or the right radial approach, and under x-ray guidance catheters would be positioned in the coronary arteries and pictures would be taken. This will be followed by opening up of blockages using balloon tippedcatheters, followed by placement of stents within the arteries. Each stent is described as a metal scaffolding that keeps the artery open . Risks discussed included, but were not limited to RI, stroke, , peripheral vascular compromise, allergic reaction to dye, bleeding complications, and kidney injury. The very rare occurrence of needing emergency coronary artery bypass grafting was also dis cussed. When the procedure is done at in a facility that does not do coronary artery bypass grafting on site, the patient would be transferred to a facility that has bypass capability. Patient expressed understanding and agrees to the procedure.. Patient will start enteric-coated aspirin 81 mg daily. Her shoulder surgery is scheduled for early second week of January, prefer that her cardiac catheterization be done before the end of this month. Patient to call for results of cardiac catheterization.As noted previously, preferred not to have intervention unless critical, high risk blockage identified. Adding metoprolol succinate 25 mg p.o. daily as an antianginal, will increase losartan to 50 mg daily for better blood pressure management. At every visit we are encouraging her to quit smoking, she is currently down to 2 to 4 cigarettes daily. Follow up : 6 months Scribe Attestation By signing my name below, IMinal RN , Scribe attest that this documentation has been prepared under the direction and in the presence of Lacy Shoemaker MD. Provider Attestation - Scribe documentation All medical record entries made by the Scribe were at my direction and personally dictated by me. Ihave reviewed the chart and agree that the record accurately reflects my personal performance of the history, physical exam, discussion and plan. documented in this [facility] Work Phone: [phone] 911-399202-17-2025 Instructions* Patient Instructions* Minal Lawrence RN - 01/06/2025 1:45 PM EST Please bring all medicines, vitamins, and herbal supplements with you when you come to the office. Prescriptions will not be filled unless you are compliant with your follow up appointments or have a follow up appointment scheduled as per instruction of your physician. Refills should be requested at the time of your visit. BMI was above normal measurement. Current weight: 109 kg (241 lb) Weight change since last visit (-) denotes wt loss 5 lbs Weight loss needed to achieve BMI 25: 86.4 Lbs Weight loss needed to achieve BMI 30: 55.5 Lbs Provided instructions on dietary changes Provided instructions on exercise. documented in this [facility] Work Phone: [phone] 302-283102-17-2025 History of Present illness Narrative* Marina Moon MD - 01/06/2025 10:27 AM ESTAssociated Problem(s): Preoperative clearance Patient is currently negative with chest pain symptoms Stress test from Sep 2024 Showed area of of mildly decreased uptake in anterior wall. LAD possible reversible ischemia. Was cleared by Cardiology June of 2024 This is a low risk cardiac procedure Labs were normal CXR was normal Needs cleared for surgery for cardiology * Marina Moon MD - 01/06/2025 10:15 AM EST Images from the original note were not included. HPI surgical clearance Additional comments: Right shoulder surgery Last edited by Carla Smith MA on 01/06/2025 7:49 AM. Subjective Patient ID: Darrius Lama is a 74 y.o. female who presents for surgical clearance (Right shoulder surgery). Pt is here for surgical clearance for shoulder surgery with dr dye on january 27 Pt is needing a refill of [employer] wheel barrel for 15 minutes and no chest pain, some SOB. Still working at the same pace Patient states nothing wrong with her heart. She states has had conscious sedation and no problems. Current Outpatient Medications on File Prior to Visit Medication Sig Dispense Refill atorvastatin (Lipitor) 80 MG tablet TAKE 1 TABLET BY MOUTH ONCE A DAY 90 tablet 1 benzonatate (Tessalon) 200 MG capsule Take one capsule nightly. Do not crush or chew. 90 capsule 3 celecoxib (CeleBREX) 200 MG capsule Take 1 capsule (200 mg) by mouth Daily 90 capsule 3 cloNIDine (Catapres) 0.2 MG tablet Take 1 tablet (0.2 mg) by mouth in the morning. 100 tablet 3 doxepin (SINEquan) 10 MG capsule Take 10 mg by mouth at bedtime. esomeprazole (NexIUM) [address] capsule TAKE 1 CAPSULE BY MOUTH ONCE DAILY 100 capsule 3 fluconazole (Diflucan) 200 MG tablet Take 1 tablet (200 mg) by mouth 1 (one) time per week 4 tablet8 furosemide (Lasix) 20 MG tablet Take 1 tablet (20 mg) by mouth in the morning and 1 tablet (20 mg) before bedtime. 200 tablet 3 Linzess 145 MCG capsule losartan-hydroCHLOROthiazide (Hyzaar) 100-25 MG tablet Take 1 tablet by mouth Daily 100 tablet 3 montelukast (Singulair) 10 MG tablet Take 1 tablet (10 mg) by mouth Daily 100 tablet 3 omeprazole (PriLOSEC) [address] capsule Take 40 mg by mouth 2 (two) times a day as needed triamcinolone (Kenalog) 0.1 % cream Apply topically 2 (two) times a day as needed (pain and swelling) 30 g 11 [DISCONTINUED] HYDROcodone-acetaminophen (Gilliam) 5-325 MG tablet Take 1 tablet by mouth every 6 (six) hours if needed for severe pain for up to 5 days 20 tablet 0 [DISCONTINUED] tiZANidine (Zanaflex) 4 MG tablet Take 1 tablet (4 mg) by mouth at bedtime 100 tablet 3 [DISCONTINUED] zolpidem CR (Ambien CR) 12.5 MG ER tablet Take 1 tablet (12.5 mg) by mouth at bedtime 30 tablet 0 No current facility-administered medications on file prior to visit. I have reviewed and reconciled the history and medication list with the patient today. Allergies Allergen Reactions Lisinopril Unknown Social History Tobacco Use Smoking status: Every Day Current packs/day: 1.00 Average packs/day: 1 pack/day for 52.1 years (52.1 ttl pk-yrs) Types: Cigarettes Start date: 11/22/1972 Smokeless tobacco: Never Tobacco comments: 11-20 cigarettes/day Substance Use Topics Alcohol use: Not Currently Comment: caffeine more than 4 cups per day Drug use: Never Family History Problem Relation Name Age of Onset Heart disease Mother Cancer Father Stroke Other Family history Cancer Other Family history Heart disease Other Family history Past Medical History: Diagnosis Date Arthritis Atrial fibrillation with RVR (CMS/HCC) Bronchitis Chronic kidney disease COPD (chronic obstructive pulmonary disease) (CMS/HCC) COVID-19 vaccine administered x 2 and booster (Moderna) Family history of cancer Fibromyalgia GERD (gastroesophageal reflux disease) Heart failure (CMS/HCC) Hernia, umbilical History of CT scan of abdomen 04/07/2022 CT scan of abdomen: Suspect mild colitis involvingthe distal transverse colon versus possible epiploic appendages. Large Hiatal Hernia History of CT scan of abdomen 01/30/2023 CT scan of the abdomen: Subtle 1.2 cm area of hypodensity within the head of the pancreas is concerning forpancreatic lesion. No pancratic duct dilatation at this time. MRI with contrast is recommended to further evaluate. Hepatic Steatosis. History of CT scan of chest 05/21/2020 mild emphysema, mild pulmonary fibrosis, Bilateral hilar and mediastinal lymphadenopathy, unknown etiology, moderate sized hiatal hernia History of CT scan of chest 01/12/2021 CT Scan of Chest: Stable mild/moderate emphysematous changes and pulmonary fibrosis, stable mild mediastinal and bilateral hilar lymphadenopathy, stable hiatal hernia History of echocardiogram 04/24/2020 Echo shows Normal LV function EF>55%, grade 2 DD, moderate Dilatation of left and right atrium, mild to moderate mitral regurg, mild TR, mild increased right sided pressures, mildly dilated descending aorta History of medical problems 02/16/2022 Grossly stable moderate emphysematous changes and pulmonary fibrosis. Stable mild B/L hilar lymphadenopathy, likely reactive. Grossly stable mild aneurysmal dilatation of the ascending aorta. Stable hiatal hernia History of MRI of lumbar spine 03/05/2023 MRI Lumbar Spine: Multilevel Degenerative Changes of the lumbar spine was most notably at L3-L4 where there is moderate spinal canal stenosis and moderate foraminal stenosis. Severe foraminal stenosis at L5-S1 on the right and L2-L3 on left. mild Moderate at Right L4-L5 and Left L1-L2 History of MRI of spine 08/29/2018 MRI of Lumbar Spine shows Moderate degenrative spondylosis and facet osteoarthritis resulting in central and foramnial stenosis at several levels History of transesophageal echocardiography (DANI) 02/24/2021 DANI shows EF 55% PAT's and isolated PVCs noted on exam, mild MR mild DD Hypertension (CMS/HCC) Measles Mumps Positive colorectal cancer screening using Cologuard test 08/25/2019 Abnormal cologuard positive Past Surgical History: Procedure Laterality Date CHOLECYSTECTOMY ELBOW SURGERY Right 1986 HERNIA REPAIR 2008 umbilical IR JOINT ASPIRATION Arthrocentesis of the right shoulder subacromial space MASS EXCISION right thigh TOTAL HIP ARTHROPLASTY Bilateral Visit Vitals BP 128/88 Pulse 85 Ht 5' 7 Wt 240 lb SpO2 92% BMI 37.59 kg/m Smoking Status Every Day BSA 2.27 m Review of Systems Constitutional: Negative for chills, fatigue, fever and unexpected weight change. Respiratory: Negative for cough. Cardiovascular: Negative for chest pain. Gastrointestinal: Negative for abdominal pain, blood in stool, constipation, diarrhea, nausea and vomiting. Genitourinary: Negative for dysuria, enuresis, frequency and hematuria. Musculoskeletal: Negative for back pain. Neurological: Negative for dizziness, tremors, syncope, facial asymmetry and speech difficulty. Psychiatric/Behavioral: Negative for agitation, behavioral problems, confusion and dysphoric mood. The patient is not nervous/anxious. Objective Physical Exam Constitutional: General: She is not in acute distress. Appearance: Normal appearance. HENT: Head: Normocephalic. Neck: Vascular: No carotid bruit. Cardiovascular: Rate and Rhythm: Normal rate and regular rhythm. Pulmonary: Effort: Pulmonary effort is normal. No respiratory distress. Breath sounds: Normal breath sounds. Neurological: General: No focal deficit present. Mental Status: She is alert and oriented to person, place, and time. Psychiatric: Mood and Affect: Mood normal. Assessment/Plan Problem List Items Addressed This Visit Chronic fatigue Relevant Medications zolpidem CR (Ambien CR) 12.5 MG ER tablet Fibromyalgia Relevant Medications tiZANidine (Zanaflex) 4 MG tablet Osteoarthrosis Relevant Medications HYDROcodone-acetaminophen (Gilliam) 5-325 MG tablet Primary insomnia Relevant Medications zolpidem CR (Ambien CR) 12.5 MG ER tablet Preoperative clearance - Primary Patient is currently negative with chest pain symptoms Stress test from Sep 2024 Showed area of of mildly decreased uptake in anterior wall. LAD possible reversible ischemia. Was cleared by Cardiology June of 2024 This is a low risk cardiac procedure Labs were normal CXR was normal Needs cleared for surgery for cardiology Follow up in about 6 months (around 07/06/2025) for Hypertension. [id number] History of Present illness Narrative* Ely Banegas - 12/18/2024 11:15 AM EST Images from the original note were not included. GENERAL HISTORY AND PHYSICAL: NAME: Darrius Lama : 1950 CHIEF COMPLAINT: Right shoulder pain and stiffness, review CT scan blueprint. HISTORY OF PRESENT ILLNESS: Darrius is here for scheduling of her reverse arthroplasty. She did recently see Dr. Moon and deemed stable. She has had hip surgery and has had anesthesia and has done wellin the past. She does have a history of tobacco abuse and chronic obstructive pulmonary disease, but states she is stable. She did see her primary care physician yesterday and they did discuss the role of total shoulder replacement. CT scan does show end stage degenerative changes with cuff arthropathy. There are some small cystic changes. There is adequate bone stock for reverse arthroplasty components. She has tried conservative and injection management. She is having significant activities of daily living and night disruption. She does have significant stiffness. Darrius is here with severalyear history of increasing shoulder pain. She recently saw Dr. Leger and had a preoperative work up with cardiology with Dr. Shoemaker. She was cleared for surgery, but with his departure to [place], she is referred here. She does live in the [facility] with her spouse which is present today. Dr. Moon is her primary care physician. She smokes one to one and a half packs a day. She has COPD. She has done well with anesthesia in the past. She denies chest pain or shortness of breath. No anesthesia complications. No history of deep venous thrombosis or pulmonary embolism. She is requesting further work up with shoulder replacement. Over the last few years, she has tried home exercise program, structured physical therapy, ice, Tylenol and topicals, anti- inflammatory. Cortisone injections have not worked with several areas in the past. She has night disruption. She has pain, crepitance. Simple things such as getting dressed, simple leaning activities have become problematic. She has act ivities of daily living and night disruption. Her contralateral side is stable. She has had hip replacements in the past and states she has done well. PAST MEDICAL HISTORY: Past Medical History: Diagnosis Date Arthritis Atrial fibrillation with RVR ([facility]/HCC) Bronchitis Chronic kidney disease COPD (chronic obstructive pulmonary disease) (CMS/[facility]) COVID-19 vaccine administered x 2 and booster (Moderna) Family history of cancer Fibromyalgia GERD (gastroesophageal reflux disease) Heart failure (CMS/HCC) Hernia, umbilical History of CT scan of abdomen 04/07/2022 CT scan of abdomen: Suspect mild colitis involvingthe distal transverse colon versus possible epiploic appendages. Large Hiatal Hernia History of CT scan of abdomen 01/30/2023 CT scan of the abdomen: Subtle 1.2 cm area of hypodensity within the head of the pancreas is concerning forpancreatic lesion. No pancratic duct dilatation at this time. MRI with contrast is recommended to further evaluate. Hepatic Steatosis. History of CT scan of chest 05/21/2020 mild emphysema, mild pulmonary fibrosis, Bilateral hilar and mediastinal lymphadenopathy, unknown etiology, moderate sized hiatal hernia History of CT scan of chest 01/12/2021 CT Scan of Chest: Stable mild/moderate emphysematous changes and pulmonary fibrosis, stable mild mediastinal and bilateral hilar lymphadenopathy, stable hiatal hernia History of echocardiogram 04/24/2020 Echo shows Normal LV function EF>55%, grade 2 DD, moderate Dilatation of left and right atrium, mild to moderate mitral regurg, mild TR, mild increased right sided pressures, mildly dilated descending aorta History of medical problems 02/16/2022 Grossly stable moderate emphysematous changes and pulmonary fibrosis. Stable mild B/L hilar lymphadenopathy, likely reactive. Grossly stable mild aneurysmal dilatation of the ascending aorta. Stable hiatal hernia History of MRI of lumbar spine 03/05/2023 MRI Lumbar Spine: Multilevel Degenerative Changes of the lumbar spine was most notably at L3-L4 where there is moderate spinal canal stenosis and moderate foraminal stenosis. Severe foraminal stenosis at L5-S1 on the right and L2-L3 on left. mild Moderate at Right L4-L5 and Left L1-L2 History of MRI of spine 08/29/2018 MRI of Lumbar Spine shows Moderate degenrative spondylosis and facet osteoarthritis resulting in central and foramnial stenosis at several levels History of transesophageal echocardiography (DANI) 02/24/2021 DANI shows EF 55% PAT's and isolated PVCs noted on exam, mild MR mild DD Hypertension (CMS/HCC) Measles Mumps Positive colorectal cancer screening using Cologuard test 08/25/2019 Abnormal cologuard positive PAST SURGICAL HISTORY: Past Surgical History: Procedure Laterality Date CHOLECYSTECTOMY ELBOW SURGERY Right 1986 HERNIA REPAIR 2008 umbilical IR JOINT ASPIRATION Arthrocentesis of the right shoulder subacromial space MASS EXCISION right thigh TOTAL HIP ARTHROPLASTY Bilateral SOCIAL HISTORY: Social History Occupational History Not on file Tobacco Use Smoking status: Every Day Current packs/day: 1.00 Average packs/day: 1 pack/day for 52.1 years (52.1 ttl pk-yrs) Types: Cigarettes Start date: 11/22/1972 Smokeless tobacco: Never Tobacco comments: 11-20 cigarettes/day Substance and Sexual Activity Alcohol use: Not Currently Comment: caffeine more than 4 cups per day Drug use: Never Sexual activity: Not on file ALLERGIES: Allergies Allergen Reactions Lisinopril Unknown MEDICATIONS: Current Outpatient Medications Medication Instructions atorvastatin (LIPITOR) 80 mg, Oral, Daily benzonatate (Tessalon) 200 MG capsule Take one capsule nightly. Do not crush or chew. celecoxib (CELEBREX) 200 mg, Oral, Daily cloNIDine (CATAPRES) 0.2 mg, Oral, Daily doxepin (SINEQUAN) 10 mg, Nightly esomeprazole (NexIUM) [address] capsule TAKE 1 CAPSULE BY MOUTH ONCE DAILY fluconazole (DIFLUCAN) 200 mg, Oral, Weekly furosemide (LASIX) 20 mg, Oral, 2 times daily HYDROcodone-acetaminophen (Gilliam) 5-325 MG tablet 1 tablet, Oral, Every 6 hours PRN Linzess 145 MCG capsule losartan-hydroCHLOROthiazide (Hyzaar) 100-25 MG tablet 1 tablet, Oral, Daily montelukast (SINGULAIR) 10 mg, Oral, Daily omeprazole (PRILOSEC) 40 mg, 2 times daily PRN tiZANidine (ZANAFLEX) 4 mg, Oral, Nightly triamcinolone (Kenalog) 0.1 % cream Topical, 2 times daily PRN zolpidem CR (AMBIEN CR) 12.5 mg, Oral, Nightly REVIEW OF SYSTEMS: The review of systems, history and current medications list are all reviewed today. Vitals: Visit Vitals Ht 5' 7 Wt 242 lb BMI 37.90 kg/m Smoking Status Every Day BSA 2.28 m PHYSICAL EXAM: On physical exam, she is alert and oriented. Vital signs are stable. Increased BMI is documented. Her right shoulder has mild swelling. There is no warmth or erythema, no rash or infection. There is moderate stiffness to the shoulder. Crepitance is present that is moderate. Cuff strength shows moderate to severe weakness. She will actively forward flex her shoulder to [id number] degrees, abduction is to 90 with pain. Crepitance is present. External rotation of 20 degrees, internal rotation is to her abdomen. We cannot assess lift off due to her pain and crepitance. Significant crepitance is present through her arc of motion. X-rays, permanently saved to the patient's record, are reviewed taken through [facility] dated 05-28-2024 shows end stage degenerative changes of the glenohumeral joint. There is moderate decrease in the acromiohumeral interval. There is a hypertrophic A/C joint that is moderate. She does have largeinferior spur complex off the medial inferior humeral head and surgical neck area. There is no acute fracture, dislocation, tumor or infection seen. CT scan, 3D blueprint as above. Surgical History and Physical: GENERAL AND PSYCHOLOGICAL: The patient is alert and oriented for age. HEAD AND E.E.N.T.: The skull is normocephalic. There is no mass or sign of trauma. NECK: The neck is supple. There is good range of motion. There is no mass or adenopathy appreciated. The thyroid is not enlarged. CARDIAC: The heart is regular. There is no murmur or ectopy appreciated. LUNGS: Inspiratory and expiratory excursions are symmetrical. The lung [place] are clear in all quadrants. ABDOMEN: The texture is soft. Bowel sounds are heard well in all quadrants. There is no tenderness to palpation. There is no organomegaly appreciated. OSTEOPATHIC AND STRUCTURAL: There is no gross evidence of kyphosis, lordosis, scoliosis, or apparent leg length discrepancy, with no acute tissue texture changes in sitting or standing positions. ASSESSMENT: Right shoulder end stage osteoarthritis; cuff arthropathy; failed conservative and injection management. Chronic obstructive pulmonary disease with history of tobacco abuse. PLAN: The nature of the findings were discussed at length. We discussed the incision, dissection, anatomy, time, healing, commitment and expectations of reverse arthroplasty. The nature of the findings were discussed at length. We discussed the lack of improvement with conservative and injection management and the bone on bone disease were reviewed. X-rays and imaging were discussed at length. Wediscussed the surgical dissection with an anterior deltopectoral incision. The potential of nerve, vessel or tendon injury, neuropraxia, wrist drop, weakness of the shoulder as well as dissatisfaction were reviewed. We discussed infection, infection requiring multiple surgeries including potential explant with antibiotic spacer, instability, dislocation, nerve, vessel or tendon injury, blood clot, pulmonary embolus, myocardial infarction, arrhythmia, stroke and were all reviewed. The immobilization, healing time, commitment and realistic expectations were discussed. We discussed anatomic versus reverse arthroplasty options depending on integrity of the soft tissues and rotator cuff. Lengthy visit was encountered. Numerous questions were answered. Consent forms are signed and witnessed. The patient will undergo routine testing and we will move forward in the near future. I will seethe patient back for x-ray and exam. Consent forms are signed and witnessed for right reverse TSA. Immobilization and expectations were all reviewed. We will obtain surgical clearance from primary care with respect to her medical conditions and pulmonary disease. We will move forward in the near future and I will see her back postoperatively for x-ray and exam. Pharmacy is assigned. She is discharged in stable condition. Spouse is present. Consent forms are signed and witnessed. Vicky Dye D.O. Cosigned by Vicky Dye DO at 12/23/2024 2:50 PM EST documented in this [facility]01-27-2025 Telephone encounter Note* Telephone Encounter - Chi Sousa - 12/16/2024 12:01 PM EST LVM to RC in regard to ENVIRONMENTAL INSPECTOR referral from Dr Moon--Approved to schedule. [facility] [id number] Miscellaneous Notes* Telephone Encounter - Chi Sousa - 12/16/2024 12:01 PM EST LVM to RC in regard to ENVIRONMENTAL INSPECTOR referral from Dr Moon--Approved to schedule. documented in this [facility]01-27-2025 History of Present illness Narrative* Marina Moon MD - 12/16/2024 11:00 AM EST Images from the original note were not included. Subjective Patient ID: Darrius Lama is a 74 y.o. female who presents for Neck Pain. Pt states she is in severe pain all time due to her neck shoulder Pt does see pain management and ortho dr. Neck Pain This is a chronic problem. The current episode started more than 1 year ago. The problem occurs constantly. The problem has been unchanged. The quality of the pain is described as stabbing. The pain is moderate. The symptoms are aggravated by twisting and coughing. The pain is Same all the time. Pertinent negatives include no chest pain or fever. Current Outpatient Medications on File Prior to Visit Medication Sig Dispense Refill atorvastatin (Lipitor) 80 MG tablet TAKE 1 TABLET BY MOUTH ONCE A DAY 90 tablet 1 benzonatate (Tessalon) 200 MG capsule Take one capsule nightly. Do not crush or chew. 90 capsule 3 celecoxib (CeleBREX) 200 MG capsule Take 1 capsule (200 mg) by mouth Daily 90 capsule 3 cloNIDine (Catapres) 0.2 MG tablet Take 1 tablet (0.2 mg) by mouth in the morning. 100 tablet 3 doxepin (SINEquan) 10 MG capsule Take 10 mg by mouth at bedtime. esomeprazole (NexIUM) [address] capsule TAKE 1 CAPSULE BY MOUTH ONCE DAILY 100 capsule 3 fluconazole (Diflucan) 200 MG tablet Take 1 tablet (200 mg) by mouth 1 (one) time per week 4 tablet8 furosemide (Lasix) 20 MG tablet Take 1 tablet (20 mg) by mouth in the morning and 1 tablet (20 mg) before bedtime. 200 tablet 3 Linzess 145 MCG capsule losartan-hydroCHLOROthiazide (Hyzaar) 100-25 MG tablet Take 1 tablet by mouth Daily 100 tablet 3 montelukast (Singulair) 10 MG tablet Take 1 tablet (10 mg) by mouth Daily 100 tablet 3 omeprazole (PriLOSEC) [address] capsule Take 40 mg by mouth 2 (two) times a day as needed tiZANidine (Zanaflex) 4 MG tablet Take 1 tablet (4 mg) by mouth at bedtime 100 tablet 3 triamcinolone (Kenalog) 0.1 % cream Apply topically 2 (two) times a day as needed (pain and swelling) 30 g 11 zolpidem CR (Ambien CR) 12.5 MG ER tablet Take 1 tablet (12.5 mg) by mouth at bedtime 30 tablet 0 No current facility-administered medications on file prior to visit. I have reviewed and reconciled the history and medication list with the patient today. Allergies Allergen Reactions Lisinopril Unknown Social History Tobacco Use Smoking status: Every Day Current packs/day: 1.00 Average packs/day: 1 pack/day for 52.1 years (52.1 ttl pk-yrs) Types: Cigarettes Start date: 11/22/1972 Smokeless tobacco: Never Tobacco comments: 11-20 cigarettes/day Substance Use Topics Alcohol use: Not Currently Comment: caffeine more than 4 cups per day Drug use: Never Family History Problem Relation Name Age of Onset Heart disease Mother Cancer Father Stroke Other Family history Cancer Other Family history Heart disease Other Family history Past Medical History: Diagnosis Date Arthritis Atrial fibrillation with RVR (CMS/HCC) Bronchitis Chronic kidney disease COPD (chronic obstructive pulmonary disease) (CMS/HCC) COVID-19 vaccine administered x 2 and booster (Moderna) Family history of cancer Fibromyalgia GERD (gastroesophageal reflux disease) Heart failure (CMS/HCC) Hernia, umbilical History of CT scan of abdomen 04/07/2022 CT scan of abdomen: Suspect mild colitis involvingthe distal transverse colon versus possible epiploic appendages. Large Hiatal Hernia History of CT scan of abdomen 01/30/2023 CT scan of the abdomen: Subtle 1.2 cm area of hypodensity within the head of the pancreas is concerning forpancreatic lesion. No pancratic duct dilatation at this time. MRI with contrast is recommended to further evaluate. Hepatic Steatosis. History of CT scan of chest 05/21/2020 mild emphysema, mild pulmonary fibrosis, Bilateral hilar and mediastinal lymphadenopathy, unknown etiology, moderate sized hiatal hernia History of CT scan of chest 01/12/2021 CT Scan of Chest: Stable mild/moderate emphysematous changes and pulmonary fibrosis, stable mild mediastinal and bilateral hilar lymphadenopathy, stable hiatal hernia History of echocardiogram 04/24/2020 Echo shows Normal LV function EF>55%, grade 2 DD, moderate Dilatation of left and right atrium, mild to moderate mitral regurg, mild TR, mild increased right sided pressures, mildly dilated descending aorta History of medical problems 02/16/2022 Grossly stable moderate emphysematous changes and pulmonary fibrosis. Stable mild B/L hilar lymphadenopathy, likely reactive. Grossly stable mild aneurysmal dilatation of the ascending aorta. Stable hiatal hernia History of MRI of lumbar spine 03/05/2023 MRI Lumbar Spine: Multilevel Degenerative Changes of the lumbar spine was most notably at L3-L4 where there is moderate spinal canal stenosis and moderate foraminal stenosis. Severe foraminal stenosis at L5-S1 on the right and L2-L3 on left. mild Moderate at Right L4-L5 and Left L1-L2 History of MRI of spine 08/29/2018 MRI of Lumbar Spine shows Moderate degenrative spondylosis and facet osteoarthritis resulting in central and foramnial stenosis at several levels History of transesophageal echocardiography (DANI) 02/24/2021 DANI shows EF 55% PAT's and isolated PVCs noted on exam, mild MR mild DD Hypertension (CMS/HCC) Measles Mumps Positive colorectal cancer screening using Cologuard test 08/25/2019 Abnormal cologuard positive Past Surgical History: Procedure Laterality Date CHOLECYSTECTOMY ELBOW SURGERY Right 1986 HERNIA REPAIR 2008 umbilical IR JOINT ASPIRATION Arthrocentesis of the right shoulder subacromial space MASS EXCISION right thigh TOTAL HIP ARTHROPLASTY Bilateral Visit Vitals BP 136/82 Pulse 98 Ht 5' 7 Wt 242 lb SpO2 93% BMI 37.90 kg/m Smoking Status Every Day BSA 2.28 m Review of Systems Constitutional: Negative for chills, fatigue and fever. Respiratory: Negative for chest tightness and shortness of breath. Cardiovascular: Negative for chest pain. Musculoskeletal: Positive for neck pain. Awaiting surgery for shoulder Objective Physical Exam Assessment/Plan Problem List Items Addressed This Visit Heart failure, unspecified (CMS/HCC) Chronic obstructive pulmonary disease, unspecified (CMS/HCC) Meds as needed Essential hypertension (CMS/HCC) - Primary Our specific goals, for your hypertension, is to keep your blood pressure less than 140/90, and theimportance of weight control. We made recommendations on how to control your blood pressure, and minimize your risk of these copmplications. We also discussed your current barriers to a healthy living and importance of healthy diet and exercise. Prior to your visit today we have reviewed your chart and formed a plan to assist with providing you the best possible care. We reviewed the possible complications of hypertension including, stroke, heart failure and kidney impairment. In addition, we discussed your medications, the importance of taking them as prescribed. DASH diet handouts Lumbosacral spondylosis Relevant Medications HYDROcodone-acetaminophen (Gilliam) 5-325 MG tablet Other Relevant Orders Ambulatory referral to Neurology Morbid (severe) obesity due to excess calories (CMS/HCC) Weight loss encouraged Chronic kidney disease, stage 3b (HCC) (CMS/HCC) This is a chronic medical condition that is stable since last assessment. No changes in treatment are suggested at this time. Continue Current meds. Body mass index (BMI) 36.0-36.9, adult Diet and Exercise Encouraged Other secondary pulmonary hypertension (CMS/HCC) This is a chronic medical condition that is stable since last assessment. No changes in treatment are suggested at this time. Continue Current meds. Follow up in about 4 months (around 04/15/2025). * Marina Moon MD - 12/16/2024 10:58 AM ESTAssociated Problem(s): Chronic obstructive pulmonary disease, unspecified (CMS/HCC) Meds as needed * Marina Moon MD - 12/16/2024 10:58 AM ESTAssociated Problem(s): Other secondary pulmonary hypertension (CMS/HCC) This is a chronic medical condition that is stable since last assessment. No changes in treatment are suggested at this time. Continue Current meds. * Marina Moon MD - 12/16/2024 10:57 AM ESTAssociated Problem(s): Body mass index (BMI) 36.0-36.9, adult Diet and Exercise Encouraged * Marina Moon MD - 12/16/2024 10:57 AM ESTAssociated Problem(s): Morbid (severe) obesity due to excess calories (CMS/HCC) Weight loss encouraged * Marina Moon MD - 12/16/2024 10:56 AM ESTAssociated Problem(s): Chronic kidney disease, stage 3b (HCC) (CMS/HCC) This is a chronic medical condition that is stable since last assessment. No changes in treatment are suggested at this time. Continue Current meds. * Marina Moon MD - 12/16/2024 10:56 AM ESTAssociated Problem(s): Essential hypertension (CMS/HCC) Our specific goals, for your hypertension, is to keep your blood pressure less than 140/90, and theimportance of weight control. We made recommendations on how to control your blood pressure, and minimize your risk of these copmplications. We also discussed your current barriers to a healthy living and importance of healthy diet and exercise. Prior to your visit today we have reviewed your chart and formed a plan to assist with providing you the best possible care. We reviewed the possible complications of hypertension including, stroke, heart failure and kidney impairment. In addition, we discussed your medications, the importance of taking them as prescribed. DASH diet handouts documented in this encounterBarton County [facility] [id number] History of Present illness Narrative* Ely Banegas - 11/06/2024 10:15 AM EST Images from the original note were not included. Darrius Lama is a 74 y.o. female presents with chief complaint of right shoulder pain and stiffness. HPI: Darrius is here with several year history of increasing shoulder pain. She recently saw Dr. Leger and had a preoperative work up with cardiology with Dr. Shoemaker. She was cleared for surgery, but with his departure to [place], she is referred here. She does live in the [place] area with her spouse which is present today. Dr. Moon is her primary care physician. She smokes one to one and a half packs a day. She has COPD. She has done well with anesthesia in the past. She denies chest pain or shortness of breath. No anesthesia complications. No history of deep venous thrombosis or pulmonary embolism. She is requesting further work up with shoulder replacement. Over the last few years, she has tried home exercise program, structured physical therapy, ice, Tylenol and topicals, anti-inflammatory. Cortisone injections have not worked with several areas in the past. She has night disruption.She has pain, crepitance. Simple things such as getting dressed, simple leaning activities have become problematic. She has activities of daily living and night disruption. Her contralateral side is stable. She has had hip replacements in the past and states she has done well. SUBJECTIVE: MEDICATIONS: Current Outpatient Medications Medication Instructions atorvastatin (LIPITOR) 80 mg, Oral, Daily benzonatate (Tessalon) 200 MG capsule Take one capsule nightly. Do not crush or chew. celecoxib (CELEBREX) 200 mg, Oral, Daily cloNIDine (CATAPRES) 0.2 mg, Oral, Daily doxepin (SINEQUAN) 10 mg, Nightly esomeprazole (NexIUM) [address] capsule TAKE 1 CAPSULE BY MOUTH ONCE DAILY fluconazole (DIFLUCAN) 200 mg, Oral, Weekly furosemide (LASIX) 20 mg, Oral, 2 times daily Linzess 145 MCG capsule losartan-hydroCHLOROthiazide (Hyzaar) 100-25 MG tablet 1 tablet, Oral, Daily montelukast (SINGULAIR) 10 mg, Oral, Daily omeprazole (PRILOSEC) 40 mg, 2 times daily PRN tiZANidine (ZANAFLEX) 4 mg, Oral, Nightly triamcinolone (Kenalog) 0.1 % cream Topical, 2 times daily PRN zolpidem CR (AMBIEN CR) 12.5 mg, Oral, Nightly ALLERGIES: Allergies Allergen Reactions Lisinopril Unknown SURGICAL HISTORY: Past Surgical History: Procedure Laterality Date CHOLECYSTECTOMY ELBOW SURGERY Right 1986 HERNIA REPAIR 2008 umbilical IR JOINT ASPIRATION Arthrocentesis of the right shoulder subacromial space MASS EXCISION right thigh TOTAL HIP ARTHROPLASTY Bilateral FAMILY HISTORY: Family History Problem Relation Name Age of Onset Heart disease Mother Cancer Father Stroke Other Family history Cancer Other Family history Heart disease Other Family history SOCIAL HISTORY: Social History Tobacco Use Smoking status: Every Day Current packs/day: 1.00 Average packs/day: 1 pack/day for 52.0 years (52.0 ttl pk-yrs) Types: Cigarettes Start date: 11/22/1972 Smokeless tobacco: Never Tobacco comments: 11-20 cigarettes/day Substance Use Topics Alcohol use: Not Currently Comment: caffeine more than 4 cups per day Drug use: Never Depression: Not at risk (03/05/2024) PHQ-2 PHQ-2 Score: 0 REVIEW OF SYMPTOMS: The review of systems, history and current medications list are all reviewed today. OBJECTIVE: Visit Vitals Ht 5' 7 Wt 236 lb BMI 36.96 kg/m Smoking Status Every Day BSA 2.25 m Physical Exam On physical exam, she is alert and oriented. Vital signs are stable. Increased BMI isdocumented. Her right shoulder has mild swelling. There is no warmth or erythema, no rash or infection. There is moderate stiffness to the shoulder. Crepitance is present that is moderate. Cuff strength shows moderate to severe weakness. She will actively forward flex her shoulder to approximately 100 degrees, abduction is to 90 with pain. Crepitance is present. External rotation of 20 degrees, internal rotation is to her abdomen. We cannot assess lift off due to her pain and crepitance. Significant crepitance is present through her arc of motion. X-rays, permanently saved to the patient's record, are reviewed taken through [facility] dated 05-28-2024 shows end stage degenerative changes of the glenohumeral joint. There is moderate decrease in the acromiohumeral interval. There is a hypertrophic A/C joint that is moderate. She does have largeinferior spur complex off the medial inferior humeral head and surgical neck area. There is no acute fracture, dislocation, tumor or infection seen. ASSESSMENT AND PLAN: Assessment/Plan Right shoulder end stage osteoarthritis; cuff arthropathy; failure of conservative management. The nature of the findings were discussed at length. She has dealt with this for several years. Trudihas gone through a prolonged course of conservative care. She was in the process of being scheduledfor reverse arthroplasty with Dr. Leger and with his departure, referral is made. We will set up a CT scan, 3D [employer] blueprint for preoperative templating as well as further assessmentfor stability of implants. I will see her back post CT scan and further discussion of treatment. Wediscussed the incision, dissection, immobilization, time, healing, commitment and expectations wereall reviewed. Spouse is present. They voice verbal understanding. She is discharged in stable condition. Numerous questions were answered. Follow up letter sent to Dr. Moon. The patient was seen and examined. From the time of check in, nurse triage, vital signs, x-ray, x-ray interpretation, review of systems, comprehensive history and physical exam as well as setting up treatment plan and further management took 50 minutes. Cosigned by Vicky Dye DO at 11/08/2024 7:26 AM EST documented in this [facility]12-14-2024 Telephone encounter Note* Telephone Encounter - BILLY Freedman - 11/02/2024 9:15 AM EST BP med refill sent. [facility] [id number] Miscellaneous Notes* Telephone Encounter - BILLY Freedman - 11/02/2024 9:15 AM EST BP med refill sent. documented in this [facility]12-11-2024 Evaluation note* Diagnosis Onset Date Resolution Status Admit Date Cervical spondylosis acute Dece mber 2023 10:56am Chronic pain acute October 10:56am Lumbosacral spondylosis acute D ecember 2023 10:56am Right shoulder pain acute Decem kassi 2023 10:56am Sacroiliitis acute October 10:56am Cervical spondylosis acute Rajendra kevin 2024 11:09am Chronic pain acute November 11:09am Lumbosacral spondylosis acute J anuary 2024 11:09am Sacroiliitis acute November 11:09am [facility] Work Phone: 1(273) 692-487611-20-2024 Telephone encounter Note* Telephone Encounter - BILLY Freedman - 10/09/2024 2:41 PM EST OARRS reviewed, Rx sent into patient's pharmacy. [facility] [id number] Miscellaneous Notes* Telephone Encounter - BILLY Freedman - 10/09/2024 2:41 PM EST OARRS reviewed, Rx sent into patient's pharmacy. documented in this encounterBarton County Memorial [id number] [place] [address] Pain Management Procedure Note Signed Patient: Darrius Lama MR#: [id number] : 1950 Acct:[id number] Age/Sex: 74 / F Adm Date: 4 Loc: Room: Type: [facility] Attending Dr: Manjeet Coombs MD Copies to: MD Manjeet Cuevas MD~ Pain Procedure PROCEDURE PERFORMED BY: Manjeet Coombs PROCEDURE DATE: 10/09/2024 PREPROCEDURE DIAGNOSIS: 1. Lumbosacral spondylosis. 2. Chronic pain. POSTPROCEDURE DIAGNOSIS: 1. Lumbosacral spondylosis. 2. Chronic pain. PROCEDURE: Lumbar facet medial branch radiofrequency ablation on the right side at L2, L3, L4 as well as L5 dorsal ramus for denervation of L3-4, L4-5, L5-S1 facet joints under fluoroscopic guidance. COMPLICATIONS: None. ANESTHESIA: Local and conscious sedation with Midazolam 3 mg and Fentanyl 25 mcg Sedation start time: 12:08 Sedation end time: 12:28 CLINICAL NOTE: The patient has a history of low back pain. The patient requests the radiofrequency ablation in an attempt to improve the pain. The risks, benefits,and alternatives of the procedure were explained tothe patient. The patient wishes to proceed. PROCEDURE NOTE: The patient was brought to the procedure room and placed in the prone position. The skin was prepped and draped with ChloraPrep and sterile towels. 10 ml of 1%lidocaine were injected through a 27-gauge needle for local anesthesia. 20- gauge radiofrequency needles with 10 mm active tip were guided tothe facet medial nerve branches on the right at L2, L3, L4 as well as L5 dorsal ramus under fluoroscopic guidance. Test stimulation was achieved between 0.5-0.7 V at 50 Hz. Motor stimulation was negative up to 2 V at 2 Hz. After negative aspiration, 1 mL of 1 percent lidocaine were injected througheach of the needles. Radiofrequency denervation was carried out for 90 seconds at 80 degree Celsiusfor 2 sessions at each of the 4 needles. At the conclusion of the radiofrequency, 2 mL of 0.25% bupivacaine were injected through the needles in divided doses. The needles were removed and band-aids were applied. The patient tolerated the procedure well and was transferred to recovery in [facility]. PLAN: The patient was instructed to call the clinic in 1 business day to inform us of any progress. The patient was encouraged to call at any time with any questionsor concerns. Documented By: Manjeet Coombs MD 10/09/24 1204 Signed By: 10/09/24 1313 [facility]10-25-2024 Evaluation note* Diagnosis Onset Date Resolution Status Admit Date Chronic pain acute August 12:57pm Lumbosacral spondylosis acute O ctober 2023 12:57pm Sacroiliitis acute August 12:57pm Cervical spondylosis acute Nove 2023 9:32am Chronic pain acute September 9:32am Lumbosacral spondylosis acute N ov2023 9:32am Sacroiliitis acute September 9:32am Cervical spondylosis acute Dece mb2023 10:56am Chronic pain acute October 10:56am Lumbosacral spondylosis acute D ecember 2023 10:56am Right shoulder pain acute Decem kassi 2023 10:56am Sacroiliitis acute October 10:56am Cervical spondylosis acute Rajendra kevin 2024 11:09am Chronic pain acute November 11:09am Lumbosacral spondylosis acute J anuary 2024 11:09am Sacroiliitis acute November 11:09am [facility] Work Phone: 1(551) 686-559010-16-2024 [facility]10-[facility] Evaluation note* Diagnosis Onset Date Resolution Status Admit Date Chronic pain acute August 27, 2024 10:53am Lumbosacral spondylosis acute O ctober 2023 10:53am Occipital neuralgia acute Octob er 2023 10:53am Primary osteoarthritis of ri ght shoulder acute August 27 10:53am Sacroiliitis acute August 27, 2024 10:53am Chronic pain acute August 12:57pm Lumbosacral spondylosis acute O ctober 2023 12:57pm Sacroiliitis acute August 12:57pm Cervical spondylosis acute Nove mber 2023 9:32am Chronic pain acute September 9:32am Lumbosacral spondylosis acute N ovember 2023 9:32am Sacroiliitis acute September 9:32am [facility] Work Phone: 1(726) 720-734810-07-2024 History of Present illness Narrative* Marina Moon MD - 08/26/2024 11:06 AM EDTAssociated Problem(s): Lumbar degenerative disc disease Discussed with patient to reduce workload * Marina Moon MD - 08/26/2024 11:05 AM EDTAssociated Problem(s): Sciatica Sees pain management * Marina Moon MD - 08/26/2024 11:05 AM EDTAssociated Problem(s): Neck pain Has headache, can't see chiropractor due to the arthritis * Marina Moon MD - 08/26/2024 10:45 AM EDT Images from the original note were not included. Subjective Patient ID: Darrius Lama is a 74 y.o. female who presents for Neck Pain. Pt states it is her sciatica nerve right side feels like a knife in her butt cheek and it will radiate down her leg Pt is having headaches all the time Pt also has neck pain all around the back not front states it will make noise when she moves it Pt is also complaining of having a cold sneezing severe allergies Sees [place], wants to fix Rotator cuff and do back and also sees Pain management Dr. Adame Neck Pain This is a new problem. The current episode started more than 1 year ago. The problem occurs constantly. The problem has been unchanged. The quality of the pain is described as stabbing. The pain is moderate. The symptoms are aggravated by twisting and coughing. The pain is Same all the time. Current Outpatient Medications on File Prior to Visit Medication Sig Dispense Refill zolpidem CR (Ambien CR) 12.5 MG ER tablet TAKE 1 TABLET BY MOUTH AT BEDTIME. 30 tablet 1 atorvastatin (Lipitor) 80 MG tablet TAKE 1 TABLET BY MOUTH ONCE A DAY 90 tablet 1 benzonatate (Tessalon) 200 MG capsule Take one capsule nightly. Do not crush or chew. 90 capsule 3 celecoxib (CeleBREX) 200 MG capsule Take 1 capsule (200 mg) by mouth Daily 90 capsule 3 cloNIDine (Catapres) 0.2 MG tablet Take 1 tablet (0.2 mg) by mouth in the morning. 100 tablet 3 doxepin (SINEquan) 10 MG capsule Take 10 mg by mouth at bedtime. esomeprazole (NexIUM) [address] capsule TAKE 1 CAPSULE BY MOUTH ONCE DAILY 100 capsule 3 fluconazole (Diflucan) 200 MG tablet Take 1 tablet (200 mg) by mouth 1 (one) time per week 4 tablet8 furosemide (Lasix) 20 MG tablet Take 1 tablet (20 mg) by mouth in the morning and 1 tablet (20 mg) before bedtime. 200 tablet 3 Linzess 145 MCG capsule losartan-hydroCHLOROthiazide (Hyzaar) 100-25 MG tablet Take 1 tablet by mouth 1 (one) time each dayat the same time. 100 tablet 3 montelukast (Singulair) 10 MG tablet Take 1 tablet (10 mg) by mouth Daily 100 tablet 3 omeprazole (PriLOSEC) [address] capsule Take 40 mg by mouth 2 (two) times a day as needed tiZANidine (Zanaflex) 4 MG tablet Take 1 tablet (4 mg) by mouth at bedtime 100 tablet 3 triamcinolone (Kenalog) 0.1 % cream Apply topically 2 (two) times a day as needed (pain and swelling) 30 g 11 No current facility-administered medications on file prior to visit. I have reviewed and reconciled the history and medication list with the patient today. Allergies Allergen Reactions Lisinopril Unknown Social History Tobacco Use Smoking status: Every Day Current packs/day: 1.00 Average packs/day: 1 pack/day for 51.8 years (51.8 ttl pk-yrs) Types: Cigarettes Start date: 11/22/1972 Smokeless tobacco: Never Tobacco comments: 11-20 cigarettes/day Substance Use Topics Alcohol use: Not Currently Comment: caffeine more than 4 cups per day Drug use: Never Family History Problem Relation Name Age of Onset Heart disease Mother Cancer Father Stroke Other Family history Cancer Other Family history Heart disease Other Family history Past Medical History: Diagnosis Date Arthritis Atrial fibrillation with RVR (CMS/HCC) Bronchitis Chronic kidney disease COPD (chronic obstructive pulmonary disease) (CMS/HCC) COVID-19 vaccine administered x 2 and booster (Moderna) Family history of cancer Fibromyalgia GERD (gastroesophageal reflux disease) Heart failure (CMS/HCC) Hernia, umbilical History of CT scan of abdomen 04/07/2022 CT scan of abdomen: Suspect mild colitis involvingthe distal transverse colon versus possible epiploic appendages. Large Hiatal Hernia History of CT scan of abdomen 01/30/2023 CT scan of the abdomen: Subtle 1.2 cm area of hypodensity within the head of the pancreas is concerning forpancreatic lesion. No pancratic duct dilatation at this time. MRI with contrast is recommended to further evaluate. Hepatic Steatosis. History of CT scan of chest 05/21/2020 mild emphysema, mild pulmonary fibrosis, Bilateral hilar and mediastinal lymphadenopathy, unknown etiology, moderate sized hiatal hernia History of CT scan of chest 01/12/2021 CT Scan of Chest: Stable mild/moderate emphysematous changes and pulmonary fibrosis, stable mild mediastinal and bilateral hilar lymphadenopathy, stable hiatal hernia History of echocardiogram 04/24/2020 Echo shows Normal LV function EF>55%, grade 2 DD, moderate Dilatation of left and right atrium, mild to moderate mitral regurg, mild TR, mild increased right sided pressures, mildly dilated descending aorta History of medical problems 02/16/2022 Grossly stable moderate emphysematous changes and pulmonary fibrosis. Stable mild B/L hilar lymphadenopathy, likely reactive. Grossly stable mild aneurysmal dilatation of the ascending aorta. Stable hiatal hernia History of MRI of lumbar spine 03/05/2023 MRI Lumbar Spine: Multilevel Degenerative Changes of the lumbar spine was most notably at L3-L4 where there is moderate spinal canal stenosis and moderate foraminal stenosis. Severe foraminal stenosis at L5-S1 on the right and L2-L3 on left. mild Moderate at Right L4-L5 and Left L1-L2 History of MRI of spine 08/29/2018 MRI of Lumbar Spine shows Moderate degenrative spondylosis and facet osteoarthritis resulting in central and foramnial stenosis at several levels History of transesophageal echocardiography (DANI) 02/24/2021 DANI shows EF 55% PAT's and isolated PVCs noted on exam, mild MR mild DD Hypertension (CMS/HCC) Measles Mumps Positive colorectal cancer screening using Cologuard test 08/25/2019 Abnormal cologuard positive Past Surgical History: Procedure Laterality Date CHOLECYSTECTOMY ELBOW SURGERY Right 1986 HERNIA REPAIR 2008 umbilical IR JOINT ASPIRATION Arthrocentesis of the right shoulder subacromial space MASS EXCISION right thigh TOTAL HIP ARTHROPLASTY Bilateral Visit Vitals Smoking Status Every Day Review of Systems Musculoskeletal: Positive for neck pain. Objective Physical Exam Assessment/Plan No follow-ups on file. documented in this encounterNOSaint John's Breech [facility] Medical [id number] Telephone encounter Note* Telephone Encounter - Marina Moon MD - 08/05/2024 11:39 AM EDT [facility] [id number] Miscellaneous Notes* Telephone Encounter - Marina Moon MD - 08/05/2024 11:39 AM EDT Amoxicillin called in documented in this encounterBarton County [facility] [id number] History of Present illness Narrative* Peace Drummond LPN - 08/05/2024 11:14 AM EDT Pt called back, she is on day 6 of this. She has sinus pressure, congestion, and it is in her chest. She has a lot of phlegm. She is requesting something be sent in to [facility] in [place]. * Peace MondayTASNEEM - 08/05/2024 10:33 AM EDT Pt called today and LM On VM stating she had to have her heart procedure rescheduled because she has a cold, and she is wanting an antibiotic. I tried calling her back to get some more info on what she is dealing with. No answer. I left message requesting call back to get more info as colds are viruses and antibiotics do not work for that. documented in this encounterBarton County Memorial [id number] History of Present illness Narrative* Lacy Shoemaker MD - 07/11/2024 12:50 PM EDT New Patient Visit (POC Dr. Leger) History Of Present Illness: Darrius Lama is a 74 y.o. female presenting with cardiac risk factors and preoperative cardiac riskassessment for right shoulder replacement surgery. Has had right shoulder pain for about 8 months. No documented coronary artery disease, but has been a smoker since age 16, and has hypertension and d yslipidemia. Based on chart review also has chronic kidney disease. Daily activity level is probably less than 4 METS. Has some exertional shortness of breath and occasional anterior dull chest ache. No palpitations lightheadedness presyncope syncope TIA or CVA type symptoms or fall Quality of life is affected by degenerative joint disease, particularly affecting the right shoulder. Chart review suggest atrial fibrillation, patient reports that she had atrial fibrillation 3 to 4 years ago when she was taking [id number] cold and cough medications. She has not had any episodes since then. 12 point review of systems is negative or noncontributory except as noted. She does take Lasix for lower extremity edema. Past Medical History/ testing: ECHO : 1. Echocardiogram April 2020-1. Normal biventricular systolic function. 2. Moderate diastolic dysfunction. 3. Mild to moderate mitral regurgitation. 4. Mild tricuspid regurgitation. 5. Mildly increased right sided pressures. 6. Mildly dilated ascending aorta. RV systolic pressure 36 mmHg aortic root 3.7 cm, LV end-systolicdiameter 3.8 cm 7. No pericardial effusion. CT chest December 2020: Moderate emphysematous changes and pulmonary fibrosis stable mild bilateral hilar adenopathy mild aneurysmal dilatation of the ascending aorta based on CT of the chest December 2020. Large hiatal hernia. Primary hypertension Primary hypertension Mixed hyperlipidemia Past Surgical History: She has a past surgical history that includes Other surgical history (01/04/2022); Other surgical history (01/04/2022); Other surgical history (01/04/2022); Other surgical history (01/04/2022); and Other surgical history (01/04/2022). Social History: She reports that she has been smoking cigarettes. She has never used smokeless tobacco. She reportsthat she does not drink alcohol and does not use drugs. Family History: Family History Problem Relation Name Age of Onset Acromegaly Mother Lung cancer Father Allergies: Patient has no known allergies. Outpatient Medications: Current Outpatient Medications Medication Instructions atorvastatin (LIPITOR) 80 mg, oral, Daily celecoxib (CELEBREX) 200 mg, oral, Daily cloNIDine (CATAPRES) 0.2 mg, oral, Daily furosemide (LASIX) 20 mg, oral, 2 times daily (morning and late afternoon) losartan (COZAAR) 25 mg, oral, Daily montelukast (SINGULAIR) 10 mg, oral, Nightly omeprazole (PRILOSEC) 40 mg, oral, 2 times daily PRN, Do not crush or chew. zolpidem CR (AMBIEN CR) 12.5 mg, oral, Nightly PRN, Do not crush, chew, or split. Last Recorded Vitals: Vitals: 07/11/24 1310 07/11/24 1315 07/11/24 1341 BP: (!) 152/100 (!) 144/100 (!) 146/96 BP Location: Right arm Left arm Right arm Patient Position: Sitting Sitting Sitting Pulse: 90 Weight: 107 kg (236 lb) Height: 1.676 m (5' 6 ) Physical Exam: GENERAL APPEARANCE: Well developed, well nourished, in no acute distress. CHEST: Symmetric and non-tender. INTEGUMENT: Skin warm and dry, without gross excoriationis or lesions. HEENT: No gross abnormalities, no jugular venous distention no carotid bruit or scleral icterus NECK: Supple, no JVD, no bruit. Thyroid not palpable. Carotid upstrokes normal. NEURO/PSHCY: Alert and oriented x3; appropriate behavior and responses and responses, with normal balance and coordination LUNGS: Clear to auscultation bilaterally; normal respiratory effort. However breath sounds are verydistant HEART: Rate and rhythm regular with no evident murmur; no gallop appreciated. There are no rubs, clicks or heaves. ABDOMEN: Soft, nontender, no masses or bruits. MUSCULOSKELETAL: Patient is status post bilateral hip replacement in the late . Right shoulderabduction is limited beyond 3540 degrees. EXTREMITIES: Warm There is no edema noted. PERIPHERAL VASCULAR: Pulses present and equally palpable; 2+ throughout. Labs reviewed today : From 2022, GFR 44 potassium 4.2 from September 2021 total [id number] LDL Assessment/Plan 1. Preop cardiovascular exam 2. Essential hypertension Comprehensive Metabolic Panel Follow Up In Cardiology Comprehensive Metabolic Panel 3. Mixed hyperlipidemia Lipid Panel Lipid Panel 4. White coat syndrome with diagnosis of hypertension 5. Atrial fibrillation, unspecified type (Multi) ECG 12 Lead 6. Dilated aortic root ([facility]) 7. Stage 3a chronic kidney disease (Multi) 8. Pulmonary emphysema, unspecified emphysema type (Multi) 9. Cigarette smoker 10. Chest pressure Nuclear Stress Test Patient is in need of shoulder surgery. We ordered blood work and Lexiscan Myoview. Continue to keep an eye on blood pressure, uptitrate medications at next visit as needed. Unless there are very high risk features on the perfusion study, she should be able to proceed with orthopedic surgery. Nicotine cessation was encouraged, but she is not ready to quit smoking. Thank you for allowing us to participate in Darrius's care, please do not hesitate to call if furtherquestions arise, Sincerely, Lacy Shoemaker MD [facility] Provider Attestation - Scribe documentation All medical record entries made by the Scribe were at my direction and personally dictated by me. Marlaave reviewed the chart and agree that the record accurately reflects my personal performance of the history, physical exam, discussion and plan. documented in this encounterProMedica [facility] Work Phone: [phone]) 817-174808-22-2024 Instructions* Patient Instructions* Radha Marx LPN - 07/11/2024 12:50 PM EDT Please bring all medicines, vitamins, and herbal supplements with you when you come to the office. Prescriptions will not be filled unless you are compliant with your follow up appointments or have a follow up appointment scheduled as per instruction of your physician. Refills should be requested at the time of your visit. documented in this encounterProMedica [facility] Hospital Work Phone: [phone]) 730-518507-18-2024 Hospital Discharge instructionsAmbulatory Orders* Referral to Orthopedic Surgery Time Frame: 06/06/24, Location: [facility] Work Phone: [phone] 315-273302-08-2024 History of Present illness Narrative* Marina Moon MD - 12/28/2023 2:49 PM ESTAssociated Problem(s): Fibromyalgia [facility] PD[facility] reviewed Medication choice and dosage is appropriate for patient's current medical conditions. Patient will continue to be required to be seen in our office at least every three months for monitoring. At eachfollow up visit I will reassess the patient's need for the medication. Patient is to have this medication prescribed only through this office. Failure to follow the rules and regulations will result in tapering and discontinuation of medications if applicable. Patient verbalized understanding. OARRS Report was reviewed for this patient. * Marina Moon MD - 12/28/2023 2:49 PM ESTAssociated Problem(s): Gastroesophageal reflux disease without esophagitis Meds refilled * Marina Moon MD - 12/28/2023 2:48 PM ESTAssociated Problem(s): Primary insomnia Meds refilled Patient's Medicine is effective at controlling symptoms at current dose and frequency. PDMP reviewed with no evidence of overuse and abuse D/W patient to avoid use of benzodiazepines when consuming alcohol Advised against operating heavy machinery and driving long distances while on medicines. * Marina Moon MD - 12/28/2023 2:48 PM ESTAssociated Problem(s): Atrial fibrillation (CMS/HCC) Has resolved * Marina Moon MD - 12/28/2023 2:30 PM EST Subjective Patient ID: Darrius Lama is a 73 y.o. female who presents for Hypertension. Pt is complaining of hurting a lot especially when the weather changes and would like [facility]. Pt BP is 154/100 today repeat was 138/88. Has right side with Shoulder pain. Right elbow pain Lots of stress with Shamar and lots of stress because of it Hypertension This is a chronic problem. The current episode started more than 1 year ago. The problem is unchanged. The problem is controlled. Pertinent negatives include no chest pain. There are no associated agents to hypertension. There are no known risk factors for coronary artery disease. The current treatment provides mild improvement. There is no history of kidney disease, CVA, heart failure, PVD or retinopathy. There is no history of a hypertension causing med. Current Outpatient Medications on File Prior to Visit Medication Sig Dispense Refill atorvastatin (Lipitor) 80 MG tablet TAKE 1 TABLET BY MOUTH ONCE A DAY 90 tablet 0 [] benzonatate (Tessalon) 100 MG capsule Take 1 capsule (100 mg) by mouth 3 (three) times a day as needed for cough for up to 10 days Do not crush or chew. 30 capsule 0 celecoxib (CeleBREX) 200 MG capsule TAKE 1 CAPSULE BY MOUTH ONCE DAILY WITH FOOD FOR 90 DAYS 90 capsule 0 doxepin (SINEquan) 10 MG capsule Take 10 mg by mouth at bedtime. Linzess 145 MCG capsule losartan-hydroCHLOROthiazide (Hyzaar) 100-25 MG tablet Take 1 tablet by mouth 1 (one) time each dayat the same time. 100 tablet 3 montelukast (Singulair) 10 MG tablet Take 1 tablet (10 mg) by mouth 1 (one) time each day at the same time. 90 tablet 3 [DISCONTINUED] cloNIDine (Catapres) 0.2 MG tablet TAKE 1 TABLET BY MOUTH ONCE DAILY 100 tablet 0 [DISCONTINUED] esomeprazole (NexIUM) [address] capsule TAKE 1 CAPSULE BY MOUTH ONCE DAILY 30 capsule2 [DISCONTINUED] furosemide (Lasix) 20 MG tablet Take 20 mg by mouth in the morning and 20 mg before bedtime. [DISCONTINUED] HYDROcodone-acetaminophen (Gilliam) 5-325 MG tablet Take 1 tablet by mouth every 6 (six) hours if needed. [DISCONTINUED] tiZANidine (Zanaflex) 4 MG tablet Take 1 tablet (4 mg) by mouth at bedtime. 90 tablet 3 [DISCONTINUED] zolpidem CR (Ambien CR) 12.5 MG ER tablet TAKE 1 TABLET BY MOUTH AT BEDTIME 30 tablet 0 No current facility-administered medications on file prior to visit. Allergies Allergen Reactions Lisinopril Unknown Social History Tobacco Use Smoking status: Every Day Packs/day: 1.00 Years: 50.00 Additional pack years: 0.00 Total pack years: 50.00 Types: Cigarettes Start date: 11/22/1972 Smokeless tobacco: Never Tobacco comments: 11-20 cigarettes/day Substance Use Topics Alcohol use: Not Currently Comment: caffeine more than 4 cups per day Drug use: Never Family History Problem Relation Name Age of Onset Heart disease Mother Cancer Father Stroke Other Family history Cancer Other Family history Heart disease Other Family history Past Medical History: Diagnosis Date Arthritis Atrial fibrillation with RVR (CMS/HCC) Bronchitis COVID-19 vaccine administered x 2 and booster (Moderna) Family history of cancer Hernia, umbilical History of CT scan of abdomen 04/07/2022 CT scan of abdomen: Suspect mild colitis involvingthe distal transverse colon versus possible epiploic appendages. Large Hiatal Hernia History of CT scan of abdomen 01/30/2023 CT scan of the abdomen: Subtle 1.2 cm area of hypodensity within the head of the pancreas is concerning forpancreatic lesion. No pancratic duct dilatation at this time. MRI with contrast is recommended to further evaluate. Hepatic Steatosis. History of CT scan of chest 05/21/2020 mild emphysema, mild pulmonary fibrosis, Bilateral hilar and mediastinal lymphadenopathy, unknown etiology, moderate sized hiatal hernia History of CT scan of chest 01/12/2021 CT Scan of Chest: Stable mild/moderate emphysematous changes and pulmonary fibrosis, stable mild mediastinal and bilateral hilar lymphadenopathy, stable hiatal hernia History of echocardiogram 04/24/2020 Echo shows Normal LV function EF>55%, grade 2 DD, moderate Dilatation of left and right atrium, mild to moderate mitral regurg, mild TR, mild increased right sided pressures, mildly dilated descending aorta History of medical problems 02/16/2022 Grossly stable moderate emphysematous changes and pulmonary fibrosis. Stable mild B/L hilar lymphadenopathy, likely reactive. Grossly stable mild aneurysmal dilatation of the ascending aorta. Stable hiatal hernia History of MRI of lumbar spine 03/05/2023 MRI Lumbar Spine: Multilevel Degenerative Changes of the lumbar spine was most notably at L3-L4 where there is moderate spinal canal stenosis and moderate foraminal stenosis. Severe foraminal stenosis at L5-S1 on the right and L2-L3 on left. mild Moderate at Right L4-L5 and Left L1-L2 History of MRI of spine 08/29/2018 MRI of Lumbar Spine shows Moderate degenrative spondylosis and facet osteoarthritis resulting in central and foramnial stenosis at several levels History of transesophageal echocardiography (DANI) 02/24/2021 DANI shows EF 55% PAT's and isolated PVCs noted on exam, mild MR mild DD Hypertension (CMS/HCC) Measles Mumps Positive colorectal cancer screening using Cologuard test 08/25/2019 Abnormal cologuard positive Past Surgical History: Procedure Laterality Date CHOLECYSTECTOMY HERNIA REPAIR 2007 umbilical IR JOINT ASPIRATION Arthrocentesis of the right shoulder subacromial space MASS EXCISION right thigh TOTAL HIP ARTHROPLASTY Bilateral Visit Vitals BP 138/88 Pulse 94 Wt 238 lb SpO2 94% BMI 38.41 kg/m Smoking Status Every Day BSA 2.24 m Review of Systems Constitutional: Negative for chills, fatigue, fever and unexpected weight change. Respiratory: Negative for cough. Cardiovascular: Negative for chest pain. Gastrointestinal: Negative for abdominal pain, blood in stool, constipation, diarrhea, nausea and vomiting. Genitourinary: Negative for dysuria, enuresis, frequency and hematuria. Musculoskeletal: Negative for back pain. Neurological: Negative for dizziness, tremors, syncope, facial asymmetry and speech difficulty. Psychiatric/Behavioral: Negative for agitation, behavioral problems, confusion and dysphoric mood. The patient is not nervous/anxious. Objective Physical Exam Constitutional: General: She is not in acute distress. Appearance: Normal appearance. HENT: Head: Normocephalic. Neck: Vascular: No carotid bruit. Cardiovascular: Rate and Rhythm: Normal rate and regular rhythm. Pulmonary: Effort: Pulmonary effort is normal. No respiratory distress. Breath sounds: Normal breath sounds. Neurological: General: No focal deficit present. Mental Status: She is alert and oriented to person, place, and time. Psychiatric: Mood and Affect: Mood normal. Assessment/Plan Problem List Items Addressed This Visit Nervous Primary insomnia Meds refilled Patient's Medicine is effective at controlling symptoms at current dose and frequency. PDMP reviewed with no evidence of overuse and abuse D/W patient to avoid use of benzodiazepines when consuming alcohol Advised against operating heavy machinery and driving long distances while on medicines. Relevant Medications cloNIDine (Catapres) 0.2 MG tablet zolpidem CR (Ambien CR) 12.5 MG ER tablet Circulatory Atrial fibrillation (CMS/HCC) Has resolved Relevant Medications furosemide (Lasix) 20 MG tablet Digestive Gastroesophageal reflux disease without esophagitis Meds refilled Relevant Medications esomeprazole (NexIUM) [address] capsule Musculoskeletal Fibromyalgia Gilliam refilled PDMP reviewed Medication choice and dosage is appropriate for patient's current medical conditions. Patient will continue to be required to be seen in our office at least every three months for monitoring. At eachfollow up visit I will reassess the patient's need for the medication. Patient is to have this medication prescribed only through this office. Failure to follow the rules and regulations will result in tapering and discontinuation of medications if applicable. Patient verbalized understanding. OARRS Report was reviewed for this patient. Relevant Medications tiZANidine (Zanaflex) 4 MG tablet HYDROcodone-acetaminophen (Gilliam) 5-325 MG tablet Other Chronic fatigue Relevant Medications zolpidem CR (Ambien CR) 12.5 MG ER tablet Follow up in about 4 months (around 04/27/2024) for pain med f/u. documented in this encounterBarton County Memorial [id number] NotePROCEDURE: Bilateral L3 transforaminal epidural steroid injection under fluoroscopic guidance. Physician: Benton Dsouza M.D. PRE- AND POSTOPERATIVE DIAGNOSES: Lumbar spinal stenosis with neurogenic claudication. SOLUTION USED: 80 mg Kenalog, 1 mL 2% preservative free lidocaine, 1 mL 0.9% normal saline, 1 mL 0.25 preservative free Marcaine, 100MCG Clonidine COMPLICATIONS: None. ANESTHESIA: Local. PROCEDURE DESCRIPTION: After informed consent was obtained, the patient was brought to the operating room and was placed in the prone position. Standard monitoring was applied. The skin overlying thearea was prepped and draped in standard sterile fashion. A 25-gauge spinal needle was inserted through the skin and directed toward the indicated nerve root foramen under fluoroscopic guidance. Omnipaque dye 0.3 mL was injected and appropriate epidural distribution was established without intravascular or intrathecal spread. Subsequently, 1 mL of the corticosteroid and local anesthetic solution was injected. The needle was removed. The patient was then turned supine onto the gurney and transferred to the recovery area in stable condition, to be discharged home after meeting criteria and follow up as per treatment plan. This document serves as a record of the services and decisions personally performed and made by theattending provider. It was created on his/her behalf by a trained medical record administrator. The creation of this document is based on the provider?s statements to the medical record administrator. Electronically signed by Benton Dsouza MD 09/27/23 13:29 EST Electronically signed by Marion Mccormick 09/27/2023 13:01 [facility]11-08-2023 NoteHistory of Present Illness CHIEF COMPLAINT: Back pain HISTORY OF PRESENT ILLNESS: Debilitating spinal pain which worsens with nerve root tensioning failing conservative measures markedly impairing function indicating the appropriateness for transforaminal epidural steroid blockade. PHYSICAL EXAM: HEENT: Normocephalic, atraumatic. RESPIRATIONS: Unlabored ABDOMEN: Soft nontender MUSCULOSKELETAL: Pain that does re-create nerve root tensioning. REVIEW OF SYSTEMS: Brief review of systems was conducted. Complaints are noncontributory for cauda equina or myelopathic complaints, fever chills or sweats or unintended weight loss or gain. ASSESSMENT: Lumbar spinal stenosis with neurogenic claudication. PLAN: Neurogenic discomfort secondary to disc and spondylitic reactivity precipitating neural foraminal narrowing and lateral recess stenosis. For complaints that have failed conservative measures, candidacy has been established for epidural steroid blockade transforaminal approach for diagnostic and potential therapeutic benefit. Risks benefits alternatives have been discussed, we agree to proceed. Physical Exam Vitals & Measurements T: 36.0 ?C (Oral) HR: 80 (Peripheral) RR: 16 BP: 165/98 SpO2: 92% HT: 167 cm WT: 113.5 kg Additional Vitals No qualifying data available. This document serves as a record of the services and decisions personally performed and made by theattending provider. It was created on his/her behalf by a trained medical record administrator. The creation of this document is based on the provider?s statements to the medical record administrator. Problem List/Past Medical History Ongoing Abnormal liver enzymes Atrial fibrillation Fibromyalgia Hepatomegaly Hypertension Kidney disease Sciatica Historical No qualifying data Procedure/Surgical History athrocentesis of right shoulder excision mass right thigh hernia repair hip replacement-right & left REMOVAL OF GALLBLADDER Lumbar/Sacral Dorsal Medial Branch Block (Bilateral) (04/21/2023) Lumbar/Sacral Dorsal Medial Branch Block (Bilateral) (05/18/2023) Lumbar Radiofrequency Ablation (Bilateral) (06/07/2023) Medications Inpatient No active inpatient medications Home Advil, 400 mg, Oral Ambien, 12.5 mg, Oral, HS (at bedtime) atorvastatin 80 mg oral tablet, 80 mg= 1 tabs, Oral, Daily CeleBREX 200 mg oral capsule, 200 mg= 1 caps, Oral, Daily cloNIDine 0.2 mg oral tablet, 0.2 mg= 1 tabs, Oral, Once esomeprazole, 40 mg, Oral, Daily losartan 25 mg oral tablet, 25 mg= 1 tabs, Oral, Daily montelukast, 10 mg, Oral, Daily Allergies No Known Medication Allergies Social History Alcohol Past Home/Environment Feels unsafe at home: No. Substance Abuse Denies All Tobacco 10 or more cigarettes (1/2 pack or more)/day in last 30 days Use:. Lab Results Microbiology - Current Encounter No qualifying data available. Electronically signed by Benton Dsouza MD 09/27/23 12:45 EST Electronically signed by Marion Mccormick 09/27/2023 12:37 [facility]07-19-2023 NotePROCEDURE: Radiofrequency ablation of the bilateral L3, L4, L5 dorsal medial rami under fluoroscopic guidance. Physician: Benton Dsouza M.D. PRE- AND POSTOPERATIVE DIAGNOSES: Lumbar spondylosis without myelopathy. COMPLICATIONS: None. ANESTHESIA: Minimal Sedation, in the form of an MKO (Midazolam/Ketamine/Ondansetron) Melt x2, will be utilized during the procedure for patient comfort. The patient's Mallampati score is 2. The patient's ASA status is 2. SOLUTION Marcaine 0.25% 3ml with Kenalog 80mg PROCEDURE DESCRIPTION: After informed consent, the patient was brought to the OR and placed in the prone position. The skin overlying the area was prepped and draped in standard sterile fashion. A 25-gauge needle was used to raise a skin wheal with 2% lidocaine over the initial DMR, which was identified under fluoroscopy. Subsequently, a radiofrequency needle with a 10 mm active tip was inserted through the anesthetized area and directed toward the first DMR under fluoroscopic guidance. After encountering the same, we had positive sensory stimulation at 0.5 mA and negative motor stimulation at 2.5 mA. Thus, two lesions were created at this level, which were conducted at 80?C for 90 seconds. This wasrepeated in a similar fashion on the remaining indicated levels. Post lesioning we instilled 1 mL from a 5 mL solution of Marcaine 0.25%and Kenalog 80 mg. The needles were then removed. The patient was turned supine onto the gurney and transferred to the recovery area in stable condition, to be discharged home after meeting criteria and follow up as per treatment plan. This document serves as a record of the services and decisions personally performed and made by theattending provider. It was created on his/her behalf by a trained medical record administrator. The creation of this document is based on the provider?s statements to the medical record administrator. Electronically signed by Benton Dsouza MD 06/07/23 12:09 EDT Electronically signed by Tess Zamudio 06/07/2023 11:33 [facility]07-19-2023 NoteHistory of Present Illness CHIEF COMPLAINT: Low Back pain HISTORY OF PRESENT ILLNESS: Debilitating spinal pain which worsens with facet loading maneuvers. The patient's axial symptoms, without evidence of nerve compression, have failed physical and medical measures. PHYSICAL EXAM: HEENT: Normocephalic, atraumatic. RESPIRATIONS: Unlabored ABDOMEN: Soft nontender MUSCULOSKELETAL: Pain that does re-create with lumbar loading. REVIEW OF SYSTEMS: Brief review of systems was conducted. Complaints are noncontributory for cauda equina or myelopathic complaints, fever chills or sweats or unintended weight loss or gain. ASSESSMENT: Lumbar spondylosis without myelopathy. PLAN: Debilitating mechanical pain does worsen with facet loading maneuvers. For symptomatology that has failed conservative measures and did reveal an 80% reduction in complaints after two diagnostic joint nerve blockade with a baseline return 120 minutes post procedure meets criteria for rhizotomy therapy in attempt to improve with quality and function. Risks benefits and alternatives have beendiscussed, we agree to proceed. Physical Exam Vitals & Measurements HR: 80 (Peripheral) RR: 16 BP: 142/87 SpO2: 93% HT: 167 cm WT: 105 kg Additional Vitals No qualifying data available. This document serves as a record of the services and decisions personally performed and made by theattending provider. It was created on his/her behalf by a trained medical record administrator. The creation of this document is based on the provider?s statements to the medical record administrator. Problem List/Past Medical History Ongoing Abnormal liver enzymes Atrial fibrillation Fibromyalgia Hepatomegaly Hypertension Kidney disease Sciatica Historical No qualifying data Procedure/Surgical History athrocentesis of right shoulder excision mass right thigh hernia repair hip replacement-right & left REMOVAL OF GALLBLADDER Lumbar/Sacral Dorsal Medial Branch Block (Bilateral) (04/21/2023) Lumbar/Sacral Dorsal Medial Branch Block (Bilateral) (05/18/2023) Medications Inpatient MKO Nancy, 2 tabs, SL, Once Home Advil, 400 mg, Oral Ambien, 12.5 mg, Oral, HS (at bedtime) atorvastatin 80 mg oral tablet, 80 mg= 1 tabs, Oral, Daily CeleBREX 200 mg oral capsule, 200 mg= 1 caps, Oral, Daily cloNIDine 0.2 mg oral tablet, 0.2 mg= 1 tabs, Oral, Once esomeprazole, 40 mg, Oral, Daily losartan 25 mg oral tablet, 25 mg= 1 tabs, Oral, Daily montelukast, 10 mg, Oral, Daily Allergies No Known Medication Allergies Social History Alcohol Past Home/Environment Feels unsafe at home: No. Substance Abuse Denies All Tobacco 10 or more cigarettes (1/2 pack or more)/day in last 30 days Use:. Lab Results Microbiology - Current Encounter No qualifying data available. Electronically signed by Benton Dsouza MD 06/07/23 11:07 EDT Electronically signed by Tess Zamudio 06/07/2023 11:00 [facility]06-29-2023 NotePROCEDURE: Bilateral L3, L4, L5 dorsal medial branch blocks. PREOPERATIVE AND POSTOPERATIVE DIAGNOSIS: Lumbosacral spondylosis without myelopathy Physician: Benton Dsouza M.D. COMPLICATIONS: None. SOLUTION USED: Marcaine 0.50% total of 4 mLs. ANESTHESIA: Local. Indications: Debilitating mechanical spinal failing physical medical measures over a six-week period within the last 3 months. For symptomatology that does re-create with spinal loading without neural compression, candidacy is established for diagnostic joint nerve blockade to establish causality and determine the usefulness of rhizotomy therapy. DESCRIPTION OF PROCEDURE: The patient was placed in prone position. The skin overlying the lumbar area was prepped with alcohol and draped. We employed fluoroscopic guidance and visualized the patient's lumbar spine in a posterior- anterior projection. We then employed a spinal needle which was inserted percutaneously towards the indicated dorsal medial rami. For each level the needle tip positionwas confirmed with multi-angled projections and identification of the relative anatomic landmarks. At each level, 1 mL of solution was injected and needle was withdrawn. The patient was turned back onto the [facility] and taken to recovery in stable condition and allowed to recover after which was discharged per criteria. This document serves as a record of the services and decisions personally performed and made by theattending provider. It was created on his/her behalf by a trained medical record administrator. The creation of this document is based on the provider?s statements to the medical record administrator. Electronically signed by Benton Dsouza MD 05/18/23 13:56 EDT Electronically signed by Marion Mccormick 05/18/2023 13:26 [facility]06-29-2023 NoteHistory of Present Illness CHIEF COMPLAINT: Low Back pain HISTORY OF PRESENT ILLNESS: Debilitating spinal pain which worsens with facet loading maneuvers. The patient's axial symptoms, without evidence of nerve compression, have failed physical and medical measures. PHYSICAL EXAM: HEENT: Normocephalic, atraumatic. RESPIRATIONS: Unlabored ABDOMEN: Soft nontender MUSCULOSKELETAL: Pain that does re-create with lumbar loading. REVIEW OF SYSTEMS: Brief review of systems was conducted. Complaints are noncontributory for cauda equina or myelopathic complaints, fever chills or sweats or unintended weight loss or gain. ASSESSMENT: Lumbosacral spondylosis without myelopathy PLAN: The patient meets criteria for a second concordant diagnostic lumbar facet joint nerve blockade for symptoms that did reveal an 80% reduction in symptoms after initial diagnostic procedure, that do worsen with loading without neural compression to establish cause and candidacy for rhizotomy therapy. Benefits risks and alternatives have been discussed, we agree to proceed. Physical Exam Vitals & Measurements HR: 87 (Peripheral) RR: 16 BP: 137/78 SpO2: 92% HT: 167 cm WT: 105 kg Additional Vitals No qualifying data available. This document serves as a record of the services and decisions personally performed and made by theattending provider. It was created on his/her behalf by a trained medical record administrator. The creation of this document is based on the provider?s statements to the medical record administrator. Problem List/Past Medical History Ongoing Abnormal liver enzymes Atrial fibrillation Fibromyalgia Hepatomegaly Hypertension Kidney disease Sciatica Historical No qualifying data Procedure/Surgical History athrocentesis of right shoulder excision mass right thigh hernia repair hip replacement-right & left REMOVAL OF GALLBLADDER Lumbar/Sacral Dorsal Medial Branch Block (Bilateral) (04/21/2023) Medications Inpatient No active inpatient medications Home Advil, 400 mg, Oral Ambien, 12.5 mg, Oral, HS (at bedtime) atorvastatin 80 mg oral tablet, 80 mg= 1 tabs, Oral, Daily CeleBREX 200 mg oral capsule, 200 mg= 1 caps, Oral, Daily cloNIDine 0.2 mg oral tablet, 0.2 mg= 1 tabs, Oral, Once esomeprazole, 40 mg, Oral, Daily furosemide 20 mg oral tablet, 20 mg= 1 tabs, Oral, Daily losartan 25 mg oral tablet, 25 mg= 1 tabs, Oral, Daily montelukast, 10 mg, Oral, Daily Allergies No Known Medication Allergies Social History Alcohol Past Home/Environment Feels unsafe at home: No. Substance Abuse Denies All Tobacco 10 or more cigarettes (1/2 pack or more)/day in last 30 days Use:. Lab Results Microbiology - Current Encounter No qualifying data available. Electronically signed by Benton Dsouza MD 05/18/23 12:49 EDT Electronically signed by Marion Mccormick 05/18/2023 12:43 [facility]06-02-2023 NotePROCEDURE: Bilateral L3, L4, L5 dorsal medial branch blocks. PREOPERATIVE AND POSTOPERATIVE DIAGNOSIS: Lumbar spondylosis without myelopathy. Physician: Benton Dsouza M.D. COMPLICATIONS: None. SOLUTION USED: Marcaine 0.50% total of 4 mLs. ANESTHESIA: Local. Indications: Debilitating mechanical spinal failing physical medical measures over a six-week period within the last 3 months. For symptomatology that does re-create with spinal loading without neural compression, candidacy is established for diagnostic joint nerve blockade to establish causality and determine the usefulness of rhizotomy therapy. DESCRIPTION OF PROCEDURE: The patient was placed in prone position. The skin overlying the lumbar area was prepped with alcohol and draped. We employed fluoroscopic guidance and visualized the patient's lumbar spine in a posterior- anterior projection. We then employed a spinal needle which was inserted percutaneously towards the indicated dorsal medial rami. For each level the needle tip positionwas confirmed with multi-angled projections and identification of the relative anatomic landmarks. At each level, 1 mL of solution was injected and needle was withdrawn. The patient was turned back onto the gurney and taken to recovery in stable condition and allowed to emerge from conscious sedation and discharged per criteria. This document serves as a record of the services and decisions personally performed and made by theattending provider. It was created on his/her behalf by a trained medical record administrator. The creation of this document is based on the provider?s statements to the medical record administrator. Electronically signed by Benton Dsouza MD 04/21/23 15:00 EDT Electronically signed by Tess Zamudio 04/21/2023 14:54 [facility]06-02-2023 NoteHistory of Present Illness CHIEF COMPLAINT: Low Back pain HISTORY OF PRESENT ILLNESS: Debilitating spinal pain which worsens with lumbar facet loading maneuvers. The patient's axial symptoms, without evidence of nerve compression, have failed physical and medical measures. PHYSICAL EXAM: HEENT: Normocephalic, atraumatic. RESPIRATIONS: Unlabored ABDOMEN: Soft nontender MUSCULOSKELETAL: Pain that does re-create with lumbar loading. REVIEW OF SYSTEMS: Brief review of systems was conducted. Complaints are noncontributory for cauda equina or myelopathic complaints, fever chills or sweats or unintended weight loss or gain. ASSESSMENT: Lumbar spondylosis without myelopathy. PLAN: The patient meets criteria for diagnostic lumbar facet joint nerve blockade for symptoms thatdo worsen with loading without neural compression to establish cause and candidacy for rhizotomy therapy. Benefits risks and alternatives have been discussed, we agree to proceed. Physical Exam Vitals & Measurements T: 37 ?C (Oral) HR: 93 (Peripheral) RR: 16 BP: 123/85 SpO2: 92% HT: 167 cm WT: 105 kg Additional Vitals No qualifying data available. This document serves as a record of the services and decisions personally performed and made by theattending provider. It was created on his/her behalf by a trained medical record administrator. The creation of this document is based on the provider?s statements to the medical record administrator. Problem List/Past Medical History Ongoing Abnormal liver enzymes Atrial fibrillation Fibromyalgia Hepatomegaly Hypertension Kidney disease Sciatica Historical No qualifying data Procedure/Surgical History athrocentesis of right shoulder excision mass right thigh hernia repair hip replacement-right & left REMOVAL OF GALLBLADDER Medications Inpatient No active inpatient medications Home Advil, 400 mg, Oral Ambien, 12.5 mg, Oral, HS (at bedtime) atorvastatin 80 mg oral tablet, 80 mg= 1 tabs, Oral, Daily CeleBREX 200 mg oral capsule, 200 mg= 1 caps, Oral, Daily cloNIDine 0.2 mg oral tablet, 0.2 mg= 1 tabs, Oral, Once esomeprazole, 40 mg, Oral, Daily furosemide 20 mg oral tablet, 20 mg= 1 tabs, Oral, Daily losartan 25 mg oral tablet, 25 mg= 1 tabs, Oral, Daily montelukast, 10 mg, Oral, Daily Allergies No Known Medication Allergies Social History Alcohol Past Substance Abuse Denies All Tobacco 10 or more cigarettes (1/2 pack or more)/day in last 30 days Use:. Lab Results Microbiology - Current Encounter No qualifying data available. Electronically signed by Benton Dsouza MD 04/21/23 14:52 EDT Electronically signed by Tess Zamudio 04/21/2023 14:[facility] [place] NoteCONSULTATION CONSULTATION DATE: 01/31/2023 FOLLOW UP NOTE TO: Dr. Moon HISTORY: Her last encounter prior to today was on 08/10/2022. At that time, we recommended she consider possibly a medial branch block targeting the L4-5, L5-S1 facet joint levels. I recommended aquatic therapy, which she did not attend and was given a short script for Gilliam 5 mg b.i.d. for a recent flare at that time. Since that time, she reports her pain was fairly stable until a few weeks ago, when she reports having a pain in her right hip area, right buttock area. Overall, she rates the pain as being 5-7/10 pain, sharp in character, increases with activity such as standing, walking and performing transitioning maneuvers. Patient feels most comfortable in the semi-recumbent position. EXAM: Notable for patient having no clinic radiculopathy or myelopathy involving the lower extremities. The patient did appear to have significant pain with lumbar facet joint loading maneuvers at L4-5, L5-S1, more severe on the right than the left side. Patient appeared to tenderness overlying the right gluteus mariella and also pain with deep palpation over the right gluteus medius. There appeared to be some possible mild tenderness overlying an area overlying what appears to be the area of the right trochanteric bursa at a point just proximal to the insertion of the right gluteus medius. IMPRESSION: Patient appears to have pain secondary to lumbosacral spondylosis, severe myofascial spasm involving the right gluteus medius, mariella and possible bursitis involving the right trochanteric bursa. RECOMMENDATIONS: I recommend this patient undergo lumbosacral spine films, PA and lateral views, physical therapy. I placed on her Zanaflex 4 mg pills, half to one, up to t.i.d. as tolerated and I have offered her trigger point injection of the right gluteus mariella on today's visit. We will see the patient back in the office in approximately four weeks' time or sooner if needed. She was also informed to contact our office is she wanted to proceed with the trigger point injection, which we would perform in an office setting. Also, of note, she is being worked up for a lesion that was identified on imaging study over her pancreas.[id number] NoteCONSULTATION CONSULTATION DATE: 08/10/2022 HISTORY OF PRESENT ILLNESS: This is a very active, 72-year-old female, returning to the clinic for a three month follow up for chronic lower back pain. 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 Today, she reports her pain as very minimal and she contributes that to taking her medications consistently. Her medications include Celebrex 200 mg daily, Gilliam 5/325 b.i.d., clonidine and Ambien p.r.n. She was last seen on 06/15/2022 and, at that time, she was prescribed aqua therapy. The patient states she lost the prescription as it flew out the window of her car while driving. She is interested in a new prescription so she could attend therapy. The patient did say she is under additional stress as her 's cancer has returned and she is dealing with his health, appointments and insurance difficulties. She denies any new radicular pain or any vasomotor changes. Patient's REVIEW OF SYSTEMS / PAST MEDICAL HISTORY / ALLERGIES and IMAGES have been reviewed and they are noted on the chart. PHYSICAL EXAM: VITAL SIGNS: Blood pressure 127/84, heart rate is 89. Temperature is 97.7. She is 5'7 with no weight today. GENERAL IMPRESSION: Pleasant, appropriate, no acute distress. FOCUSED EXAM - BACK: Range of motion is slightly guarded in lateral rotation and flexion/extension. Reproduction of spinal axial pain noted to direct compression along the posterior elements of the lumbar facets of L2, L3 and L4, L5, indicative of facet arthropathy, lumbar spondylosis. Diane's point minimally tender. Negative FABERs. Negative compression. Paravertebral muscles are non-spasmodic. MUSCULOSKELETAL: Slight motor weakness noted bilateral anterior tibialis and extensor digitorum longus, right greater than left. Muscle tone is adequate with slight muscle atrophy noted. Patient does walk with a steady, antalgic gait. Does not use assistive device. NEUROLOGICALLY: Diffuse hypoesthesia noted to bilateral lower extremities, right greater than left. Pain does radiate to the level above the ankle. +1 bilateral patellar and Achilles reflexes. DIAGNOSIS: Lumbar radiculitis, lumbar spondylosis, lumbar degenerative disc disease, chronic lower back pain. PLAN: We will look to authorize for a lumbar epidural steroid injection the end of August. Following that, we will re-evaluate the need to move forward with medial branch blocks to her lumbar region. A refill for her Gilliam 5/325 b. i.d. will be sent today as well as a renewed prescription for her aquatic therapy, 2-3 times a week for 4-6 weeks. She was encouraged to take her multivitamin, Vitamin D and magnesium daily, which she is compliant with. Patient will be brought back to the clinic following her LES, and she has agreed to move forward.[facility] [id number] NoteCONSULTATION CONSULTATION DATE: 06/15/2022 HISTORY OF PRESENT ILLNESS: She is returning to the clinic for a three month follow up for chronic lower back pain and hip pain. Today, her pain is lower, which she rates as a 1/10 and stabbing. Patient recently was moving heavier objects around the house and now has right knee pain. She did have some improvement with a menthol heat rub. When she was last seen in March 2022, aquatic prescription was sent for her. The patient did not start that. She currently takes Celebrex 200 mg daily, Gilliam 5/325 b.i.d. and multivitamin for her pain. Patient states when she has Celebrex on board that she has been only needing one Gilliam a day. 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 She will alternate heat and ice which is very helpful to her. She has occasional tingling to her right arm with increased activity. Patient's REVIEW OF SYSTEMS / PAST MEDICAL HISTORY / ALLERGIES and IMAGES have been reviewed and they are noted on the chart. PHYSICAL EXAM: VITAL SIGNS: Blood pressure 124/77, heart rate is 104. Temperature is 98. She is 5'7 and weighs 108 kg. GENERAL APPEARANCE: Appropriate, pleasant, no acute distress. FOCUSED EXAM - BACK: Range of motion is functional in lateral rotation and flexion/extension. Paravertebral muscles are taut but non-spasmodic. Minimal reproduction of spinal axial pain to compression along L4, L5 bilaterally, right greater than left. MUSCULOSKELETAL: Motor is intact, 4/5 bilaterally. Slight weakness to the right. Right knee slight anterior swelling. No tenderness to the anterior or posterior aspect. Range of motion is intact. NEUROLOGICAL: Patchy hypoesthesia diffusely to her right upper arm to the level of the wrist. IMPRESSION: Lumbar radiculitis, right knee pain, lumbar degenerative disc. PLAN: A refill for Celebrex 100 mg two pills daily, as well as Voltaren 1% gel will be given to her today. I encouraged her to use the Voltaren gel and the Vicks to her knee, in addition to her back as needed. I did encourage her to restart her aquatic therapy so she could gain muscle strength. A U-Tox will be performed in the office as well today. We will see her in three months' time, unless otherwise indicated. Patient agrees with the plan of care.[facility] [id number] NotePROCEDURE: XR HIP RT 2 3V W PELVIS COMPARISON: None. HISTORY: Pain in right hip joint FINDINGS: BONES:Bilateral total hip arthroplasty. No acute fracture, dislocation or mechanical failure. Moderate degenerative changes of the spine SOFT TISSUES:Negative. No visible soft tissue swelling. EFFUSION:None visible. OTHER: Negative. IMPRESSION: No acute abnormality Electronically authenticated by: HIREN STAPLETON Date: 2022-04-27 17:26[facility] [id number] NoteCONSULTATION CONSULTATION DATE: 03/30/2022 HISTORY: This is a 72-year-old female who requested this appointment today, complaining of increased right hip pain. She was last seen on 03/08/[address] Camacho who, at that time, prescribed aquatic therapy. Patient has since tried that therapy and there was concern by both the patient and the therapist that there was increased pain in her right hip and some possible instability. Today, she rates her pain 2/10 while sitting in the chair. During therapy, along the resistance of the water, her pain gets as high as 6/10. 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 Current medications include Celebrex 200 mg daily, Gilliam 5/325 b.i.d. and Xarelto. Patient does have a history of a bilateral total hip replacements, which were done in the early . Patient reports that was the last time she had a DEXA scan as well. Patient's REVIEW OF SYSTEMS / PAST MEDICAL HISTORY / ALLERGIES and IMAGES have been reviewed and they are noted on the chart. PHYSICAL EXAM: VITALS: Blood pressure is 151/92. Heart rate is 84. Temperature is 98.2. She is 5'7 and weighs 112.3 kg. GENERAL APPEARANCE: Pleasant, appropriate, no acute distress, sitting in the chair. FOCUSED EXAM - BACK: Patient has a positive jump response to palpation over the posterior aspects of the lumbar facets of L3, L4, L5 bilaterally. Diane's point is tender bilaterally, right greater than left, with positive jump response. Nichelle's, compression and thigh thrust test are positive with referring pain to the right hip and groin, which is concordant with right SI joint dysfunction. MUSCULOSKELETAL: Motor is intact, 4/5 bilaterally. Right slightly weaker than the left. NEUROLOGICAL: Radicular sensory is intact. Negative polyneuropathy. IMPRESSION: Right hip pain, lumbar degenerative disc, lumbar radiculitis and right SI pain. PLAN: In order to determine the origin of her hip pain and to decipher lumbar, hip, SI, we will obtain an updated right hip and pelvis x-ray. A DEXA scan has been ordered as well. She is encouraged to use heat and her medication as prescribed. Patient will be followed up in the clinic for review of those x-rays. Patient does agree with this. PSYCHIATRIC Signed and Approved by: SALENA RUCKER . 03/31/2022 12:52:00[facility]04-19-2022 NoteCONSULTATION Consultation Date:03/08/2022 PAIN MANAGEMENT CONSULTATION CHIEF COMPLAINT: Back pain. HISTORY OF PRESENT ILLNESS: This is a very pleasant, 72-year-old female who is status post lumbar epidural steroid injection in January, which afforded the patient substantial improvement. We had placed it at the level of L5-S1 rightward. The patient states intermittently she gets an electric shock. The patient currently takes Celebrex 200 mg p.r.n, Gilliam 5/325 on a b.i.d. basis; however, has been less reliant on it. Clonidine 0.1 mg q.a.m. The patient is on Xarelto. The patient is a smoker. 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 The patient's PAST MEDICAL HISTORY / SURGICAL HISTORY / REVIEW OF SYSTEMS are noted on the chart, along with the MEDICATION LIST / ALLERGIES and RADIOLOGICAL IMAGES. PHYSICAL EXAMINATION: GENERAL: Upon physical examination, this is a pleasant, cooperative female, who has a smoker's voice. VITAL SIGNS: Stable at 154/90 with a heart rate of 77. At a height of 5'7 , the patient weighs 113 kg. FOCUSED EVALUATION: The patient has decreased muscle bulk, muscle density. Left quads are significantly diminished compared to the right hand side. The patient has good function; however, the patient has truncal obesity. EXTREMITIES: The patient has some swelling in her right leg compared to her left. However, Luly's is negative. No signs of DVT are present. NEUROLOGICALLY: No radicular symptomatology. PSYCHIATRICALLY: Affect is appropriate. Education was done with regards to tobacco cessation. IMPRESSION: Current working diagnosis is lumbar degenerative disc disease, lumbar spinal canal stenosis, lumbar radiculitis, neuritis. PLAN: Once again, tobacco cessation was suggested to the patient. Aquatic therapy will be prescribed for her to increase her fluidity and improve the quad strengthening. The patient understands. CC: Marina Moon M.D. PSYCHIATRIC Signed and Approved by: DR VANDA CAMACHO . 03/15/2022 12:16:00[facility] HospitalChief complaint+Reason for visit Narrative* Chief Complaint right L3 and L4 guerra sforaminal epidural inj f/u after right L3,4 LTR Reschedule procedure M25.511 right G&L occipital NB BACK PAIN reschedule procedure Reason for Visit Chronic pain Lumbar radiculopathy Lumbosacral spondylosis Cervical spondylosis Chronic pain Lumbosacral spondylosis Occipital neuralgia Right shoulder pain Chronic pain Occipital neuralgia Primary osteoarthritis of right shoulder Cervical spondylosis Chronic pain Lumbosacral spondylosis Occipital neuralgia [facility] Work Phone: Chief complaint+Reason for visit Narrative* Chief Complaint right L3 and L4 guerra sforaminal epidural inj f/u after right L3,4 LTR Reschedule procedure M25.511 right G&L occipital NB BACK PAIN reschedule procedure f/u to discuss chronic pain Reason for Visit Chronic pain Lumbar radiculopathy Lumbosacral spondylosis Cervical spondylosis Chronic pain Lumbosacral spondylosis Occipital neuralgia Right shoulder pain Chronic pain Occipital neuralgia Primary osteoarthritis of right shoulder Cervical spondylosis Chronic pain Lumbosacral spondylosis Occipital neuralgia Chronic pain Lumbar degenerative disc disease Lumbar radiculopathy Lumbosacral spondylosis [facility] Work Phone: Chief complaint+Reason for visit Narrative* Chief Complaint Reschedule procedure M25.511 right G&L occipital NB BACK PAIN reschedule procedure f/u to discuss chronic pain Back Pain Reason for Visit Cervical spondylosis Chronic pain Lumbosacral spondylosis Occipital neuralgia Right shoulder pain Chronic pain Occipital neuralgia Primary osteoarthritis of right shoulder Cervical spondylosis Chronic pain Lumbosacral spondylosis Occipital neuralgia Chronic pain Lumbar degenerative disc disease Lumbar radiculopathy Lumbosacral spondylosis [facility] Work Phone: Chief complaint+Reason for visit Narrative* Chief Complaint right G&L occipital NB BACK PAIN reschedule procedure f/u to discuss chronic pain Back Pain Back Pain Neck pain Reason for Visit Chronic pain Occipital neuralgia Primary osteoarthritis of right shoulder Cervical spondylosis Chronic pain Lumbosacral spondylosis Occipital neuralgia Chronic pain Lumbar degenerative disc disease Lumbar radiculopathy Lumbosacral spondylosis Chronic pain Lumbosacral spondylosis Occipital neuralgia Primary osteoarthritis of right shoulder Sacroiliitis [facility] Work Phone: Chief complaint+Reason for visit Narrative* Chief Complaint right G&L occipital NB BACK PAIN reschedule procedure f/u to discuss chronic pain Back Pain Back Pain Neck pain Back Pain Back Pain Reason for Visit Chronic pain Occipital neuralgia Primary osteoarthritis of right shoulder Cervical spondylosis Chronic pain Lumbosacral spondylosis Occipital neuralgia Chronic pain Lumbar degenerative disc disease Lumbar radiculopathy Lumbosacral spondylosis Chronic pain Lumbosacral spondylosis Occipital neuralgia Primary osteoarthritis of right shoulder Sacroiliitis [facility] Work Phone: Chief complaint+Reason for visit Narrative* Chief Complaint BACK PAIN reschedule procedure f/u to discuss chronic pain Back Pain Back Pain Neck pain Back Pain Back Pain FOLLOW UP AFTER RIGHT SI Reason for Visit Cervical spondylosis Chronic pain Lumbosacral spondylosis Occipital neuralgia Chronic pain Lumbar degenerative disc disease Lumbar radiculopathy Lumbosacral spondylosis Chronic pain Lumbosacral spondylosis Occipital neuralgia Primary osteoarthritis of right shoulder Sacroiliitis Chronic pain Lumbosacral spondylosis Sacroiliitis [facility] Work Phone: Evaluation + Plan note Future Appointments Appointment Date:01/27/2025 11:15:00 AM Scheduled Provider: Location:[facility] Appointment Type:Surgery FT [facility] Evaluation noteNo assessment information available [facility] Work Phone: Evaluation noteNo [facility] [employer] Other Evaluation note* Diagnosis Primary insomnia Persistent disorder of initiating or maintaining sleep Chronic fatigue Other malaise and fatigue Fibromyalgia Unspecified myalgia and myositis Gastroesophageal reflux disease without esophagitis Esophageal reflux Atrial fibrillation, unspecified type (CMS/HCC) [facility] Diagnosis Onset Date Resolution Status Chronic pain acute Lumbar degenerative disc disease acute Lumbar radiculopathy acute Lumbosacral spondylosis acut e Sacroiliitis acute [facility] Work Phone: Evaluation note* Diagnosis Onset Date Resolution Status Chronic pain acute Lumbar degenerative disc disease acute Lumbar radiculopathy acute Lumbosacral spondylosis acut e Sacroiliitis acute Chronic pain acute Lumbar degenerative disc disease acute Lumbar radiculopathy acute Lumbosacral spondylosis acut e Neck pain acute Right shoulder pain acute Sacroiliitis acute [facility] Work Phone: Evaluation note* Diagnosis Onset Date Resolution Status Chronic pain acute Lumbar degenerative disc disease acute Lumbar radiculopathy acute Lumbosacral spondylosis acut e Sacroiliitis acute Chronic pain acute Lumbar degenerative disc disease acute Lumbar radiculopathy acute Lumbosacral spondylosis acut e Neck pain acute Right shoulder pain acute Sacroiliitis acute Chronic pain acute Lumbar degenerative disc disease acute Lumbar radiculopathy acute Lumbosacral spondylosis acut e [facility] Work Phone: Evaluation note* Diagnosis Onset Date Resolution Status Chronic pain acute Lumbar degenerative disc disease acute Lumbar radiculopathy acute Lumbosacral spondylosis acut e Neck pain acute Right shoulder pain acute Sacroiliitis acute Chronic pain acute Lumbar degenerative disc disease acute Lumbar radiculopathy acute Lumbosacral spondylosis acut e Neck pain acute Chronic pain acute Lumbar radiculopathy acute Lumbosacral spondylosis acut e [facility] Work Phone: Evaluation note* Diagnosis Onset Date Resolution Status Chronic pain acute Lumbar degenerative disc disease acute Lumbar radiculopathy acute Lumbosacral spondylosis acut e Neck pain acute Chronic pain acute Lumbar radiculopathy acute Lumbosacral spondylosis acut e Cervical spondylosis acute Chronic pain acute Lumbosacral spondylosis acut e Occipital neuralgia acute Right shoulder pain acute Low back pain noneactive [facility] Work Phone: Evaluation note* Diagnosis Onset Date Resolution Status Chronic pain acute Lumbar degenerative disc disease acute Lumbar radiculopathy acute Lumbosacral spondylosis acut e Neck pain acute Chronic pain acute Lumbar radiculopathy acute Lumbosacral spondylosis acut e Cervical spondylosis acute Chronic pain acute Lumbosacral spondylosis acut e Occipital neuralgia acute Right shoulder pain acute [facility] Work Phone: Evaluation note* Diagnosis Onset Date Resolution Status Chronic pain acute Lumbar degenerative disc disease acute Lumbar radiculopathy acute Lumbosacral spondylosis acut e Neck pain acute Chronic pain acute Lumbar radiculopathy acute Lumbosacral spondylosis acut e Cervical spondylosis acute Chronic pain acute Lumbosacral spondylosis acut e Occipital neuralgia acute Right shoulder pain acute Chronic pain acute Occipital neuralgia acute Primary osteoarthritis of right shoulder acute [facility] Work Phone: Evaluation note* Diagnosis Onset Date Resolution Status Chronic pain acute Lumbar radiculopathy acute Lumbosacral spondylosis acut e Cervical spondylosis acute Chronic pain acute Lumbosacral spondylosis acut e Occipital neuralgia acute Right shoulder pain acute Chronic pain acute Occipital neuralgia acute Primary osteoarthritis of right shoulder acute Cervical spondylosis acute Chronic pain acute Lumbosacral spondylosis acut e Occipital neuralgia acute [facility] Work Phone: Evaluation note* Diagnosis Onset Date Resolution Status Chronic pain acute Lumbar radiculopathy acute Lumbosacral spondylosis acut e Cervical spondylosis acute Chronic pain acute Lumbosacral spondylosis acut e Occipital neuralgia acute Right shoulder pain acute Chronic pain acute Occipital neuralgia acute Primary osteoarthritis of right shoulder acute Cervical spondylosis acute Chronic pain acute Lumbosacral spondylosis acut e Occipital neuralgia acute Chronic pain acute Lumbar degenerative disc disease acute Lumbar radiculopathy acute Lumbosacral spondylosis acut e [facility] Work Phone: Evaluation note* Diagnosis Onset Date Resolution Status Cervical spondylosis acute Chronic pain acute Lumbosacral spondylosis acut e Occipital neuralgia acute Right shoulder pain acute Chronic pain acute Occipital neuralgia acute Primary osteoarthritis of right shoulder acute Cervical spondylosis acute Chronic pain acute Lumbosacral spondylosis acut e Occipital neuralgia acute Chronic pain acute Lumbar degenerative disc disease acute Lumbar radiculopathy acute Lumbosacral spondylosis acut e [facility] Work Phone: Evaluation note* Diagnosis Neck pain- Primary Cervicalgia Sciatica of right side Degeneration of intervertebral disc of lumbar region with lower extremity pain [facility] Diagnosis Onset Date Resolution Status Chronic pain acute Occipital neuralgia acute Primary osteoarthritis of right shoulder acute Cervical spondylosis acute Chronic pain acute Lumbosacral spondylosis acut e Occipital neuralgia acute Chronic pain acute Lumbar degenerative disc disease acute Lumbar radiculopathy acute Lumbosacral spondylosis acut e Chronic pain acute Lumbosacral spondylosis acut e Occipital neuralgia acute Primary osteoarthritis of right shoulder acute Sacroiliitis acute [facility] Work Phone: Evaluation note* Diagnosis Onset Date Resolution Status Cervical spondylosis acute Chronic pain acute Lumbosacral spondylosis acut e Occipital neuralgia acute Chronic pain acute Lumbar degenerative disc disease acute Lumbar radiculopathy acute Lumbosacral spondylosis acut e Chronic pain acute Lumbosacral spondylosis acut e Occipital neuralgia acute Primary osteoarthritis of right shoulder acute Sacroiliitis acute Chronic pain acute Lumbosacral spondylosis acut e Sacroiliitis acute [facility] Work Phone: Evaluation note* Diagnosis Onset Date Resolution Status Chronic pain acute Lumbar degenerative disc disease acute Lumbar radiculopathy acute Lumbosacral spondylosis acut e Chronic pain acute Lumbosacral spondylosis acut e Occipital neuralgia acute Primary osteoarthritis of right shoulder acute Sacroiliitis acute Chronic pain acute Lumbosacral spondylosis acut e Sacroiliitis acute Cervical spondylosis acute Chronic pain acute Lumbosacral spondylosis acut e [facility] Work Phone: Evaluation note* Diagnosis Primary insomnia Persistent disorder of initiating or maintaining sleep Chronic fatigue Other malaise and fatigue Fibromyalgia Unspecified myalgia and myositis Gastroesophageal reflux disease without esophagitis Esophageal reflux Atrial fibrillation, unspecified type (CMS/HCC) Routine general medical examination at health care facility- Primary Routine general medical examination at a health care facility Abnormal glucose tolerance test Impaired glucose tolerance test Benign essential hypertension (CMS/HCC) Essential hypertension, benign Medicare annual wellness visit, subsequent Essential hypertension (CMS/HCC) Unspecified essential hypertension Pure hypercholesterolemia (CMS/HCC) Pure hypercholesterolemia Fibromyalgia Unspecified myalgia and myositis Estrogen deficiency Other ovarian failure Smoker Tobacco use disorder Cervical spinal stenosis Spinal stenosis in cervical region Preoperative clearance- Primary Unspecified pre-operative examination Chronic atrial fibrillation (HCC) (CMS/HCC) Atrial fibrillation Acute congestive heart failure, unspecified heart failure type (CMS/HCC) Pure hypercholesterolemia (CMS/HCC) Pure hypercholesterolemia Neck pain- Primary Cervicalgia Sciatica of right side Degeneration of intervertebral disc of lumbar region with lower extremity pain Primary insomnia Persistent disorder of initiating or maintaining sleep Chronic fatigue Other malaise and fatigue [facility] Diagnosis Primary insomnia Persistent disorder of initiating or maintaining sleep Chronic fatigue Other malaise and fatigue Fibromyalgia Unspecified myalgia and myositis Gastroesophageal reflux disease without esophagitis Esophageal reflux Atrial fibrillation, unspecified type (CMS/HCC) Routine general medical examination at health care facility- Primary Routine general medical examination at a health care facility Abnormal glucose tolerance test Impaired glucose tolerance test Benign essential hypertension (CMS/HCC) Essential hypertension, benign Medicare annual wellness visit, subsequent Essential hypertension (CMS/HCC) Unspecified essential hypertension Pure hypercholesterolemia (CMS/HCC) Pure hypercholesterolemia Fibromyalgia Unspecified myalgia and myositis Estrogen deficiency Other ovarian failure Smoker Tobacco use disorder Cervical spinal stenosis Spinal stenosis in cervical region Preoperative clearance- Primary Unspecified pre-operative examination Chronic atrial fibrillation (HCC) (CMS/HCC) Atrial fibrillation Acute congestive heart failure, unspecified heart failure type (CMS/HCC) Pure hypercholesterolemia (CMS/HCC) Pure hypercholesterolemia Neck pain- Primary Cervicalgia Sciatica of right side Degeneration of intervertebral disc of lumbar region with lower extremity pain Narrowing of intervertebral disc space- Primary Degeneration of intervertebral disc, site unspecified [facility] Diagnosis Chronic obstructive pulmonary disease, unspecified COPD type (CMS/HCC)- Primary Chronic atrial fibrillation (HCC) (CMS/HCC) Atrial fibrillation [facility] Diagnosis Primary insomnia Persistent disorder of initiating or maintaining sleep Chronic fatigue Other malaise and fatigue Fibromyalgia Unspecified myalgia and myositis Gastroesophageal reflux disease without esophagitis Esophageal reflux Atrial fibrillation, unspecified type (CMS/HCC) Routine general medical examination at health care facility- Primary Routine general medical examination at a health care facility Abnormal glucose tolerance test Impaired glucose tolerance test Benign essential hypertension (CMS/HCC) Essential hypertension, benign Medicare annual wellness visit, subsequent Essential hypertension (CMS/HCC) Unspecified essential hypertension Pure hypercholesterolemia (CMS/HCC) Pure hypercholesterolemia Fibromyalgia Unspecified myalgia and myositis Estrogen deficiency Other ovarian failure Smoker Tobacco use disorder Cervical spinal stenosis Spinal stenosis in cervical region Preoperative clearance- Primary Unspecified pre-operative examination Chronic atrial fibrillation (HCC) (CMS/HCC) Atrial fibrillation Acute congestive heart failure, unspecified heart failure type (CMS/HCC) Pure hypercholesterolemia (CMS/HCC) Pure hypercholesterolemia Neck pain- Primary Cervicalgia Sciatica of right side Degeneration of intervertebral disc of lumbar region with lower extremity pain Essential hypertension (CMS/HCC) Unspecified essential hypertension [facility] Diagnosis Preop cardiovascular exam Pre-operative cardiovascular examination Essential hypertension Unspecified essential hypertension Mixed hyperlipidemia White coat syndrome with diagnosis of hypertension Atrial fibrillation, unspecified type (Multi) Dilated aortic root (CMS-HCC) Thoracic aneurysm without mention of rupture Stage 3a chronic kidney disease (Multi) Pulmonary emphysema, unspecified emphysema type (Multi) Cigarette smoker Tobacco use disorder Chest pressure Other chest pain documented in this encounter [facility] Work Phone: Evaluation note* Diagnosis Primary insomnia Persistent disorder of initiating or maintaining sleep Chronic fatigue Other malaise and fatigue [facility] Diagnosis Preoperative clearance- Primary Unspecified pre-operative examination Chronic atrial fibrillation (HCC) (CMS/HCC) Atrial fibrillation Acute congestive heart failure, unspecified heart failure type (CMS/HCC) Pure hypercholesterolemia (CMS/HCC) Pure hypercholesterolemia documented [facility]* Diagnosis Primary insomnia Persistent disorder of initiating or maintaining sleep Chronic fatigue Other malaise and fatigue Fibromyalgia Unspecified myalgia and myositis Gastroesophageal reflux disease without esophagitis Esophageal reflux Atrial fibrillation, unspecified type (CMS/HCC) Routine general medical examination at health care facility- Primary Routine general medical examination at a health care facility Abnormal glucose tolerance test Impaired glucose tolerance test Benign essential hypertension (CMS/HCC) Essential hypertension, benign Medicare annual wellness visit, subsequent Essential hypertension (CMS/HCC) Unspecified essential hypertension Pure hypercholesterolemia (CMS/HCC) Pure hypercholesterolemia Fibromyalgia Unspecified myalgia and myositis Estrogen deficiency Other ovarian failure Smoker Tobacco use disorder Cervical spinal stenosis Spinal stenosis in cervical region Preoperative clearance- Primary Unspecified pre-operative examination Chronic atrial fibrillation (HCC) (CMS/HCC) Atrial fibrillation Acute congestive heart failure, unspecified heart failure type (CMS/HCC) Pure hypercholesterolemia (CMS/HCC) Pure hypercholesterolemia Neck pain- Primary Cervicalgia Sciatica of right side Degeneration of intervertebral disc of lumbar region with lower extremity pain Primary osteoarthritis of right shoulder- Primary [facility] Diagnosis Primary insomnia Persistent disorder of initiating or maintaining sleep Chronic fatigue Other malaise and fatigue Fibromyalgia Unspecified myalgia and myositis Gastroesophageal reflux disease without esophagitis Esophageal reflux Atrial fibrillation, unspecified type (CMS/HCC) Routine general medical examination at health care facility- Primary Routine general medical examination at a health care facility Abnormal glucose tolerance test Impaired glucose tolerance test Benign essential hypertension (CMS/HCC) Essential hypertension, benign Medicare annual wellness visit, subsequent Essential hypertension (CMS/HCC) Unspecified essential hypertension Pure hypercholesterolemia (CMS/HCC) Pure hypercholesterolemia Fibromyalgia Unspecified myalgia and myositis Estrogen deficiency Other ovarian failure Smoker Tobacco use disorder Cervical spinal stenosis Spinal stenosis in cervical region Preoperative clearance- Primary Unspecified pre-operative examination Chronic atrial fibrillation (HCC) (CMS/HCC) Atrial fibrillation Acute congestive heart failure, unspecified heart failure type (CMS/HCC) Pure hypercholesterolemia (CMS/HCC) Pure hypercholesterolemia Neck pain- Primary Cervicalgia Sciatica of right side Degeneration of intervertebral disc of lumbar region with lower extremity pain Essential hypertension (CMS/HCC)- Primary Unspecified essential hypertension Chronic kidney disease, stage 3b (HCC) (CMS/HCC) Morbid (severe) obesity due to excess calories (CMS/HCC) Chronic obstructive pulmonary disease, unspecified (CMS/HCC) Body mass index (BMI) 36.0-36.9, adult Heart failure, unspecified (CMS/HCC) Heart failure, unspecified 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, lumbosacral region documented [facility] Diagnosis Primary insomnia Persistent disorder of initiating or maintaining sleep Chronic fatigue Other malaise and fatigue Fibromyalgia Unspecified myalgia and myositis Gastroesophageal reflux disease without esophagitis Esophageal reflux Atrial fibrillation, unspecified type (CMS/HCC) Routine general medical examination at health care facility- Primary Routine general medical examination at a health care facility Abnormal glucose tolerance test Impaired glucose tolerance test Benign essential hypertension (CMS/HCC) Essential hypertension, benign Medicare annual wellness visit, subsequent Essential hypertension (CMS/HCC) Unspecified essential hypertension Pure hypercholesterolemia (CMS/HCC) Pure hypercholesterolemia Fibromyalgia Unspecified myalgia and myositis Estrogen deficiency Other ovarian failure Smoker Tobacco use disorder Cervical spinal stenosis Spinal stenosis in cervical region Preoperative clearance- Primary Unspecified pre-operative examination Chronic atrial fibrillation (HCC) (CMS/HCC) Atrial fibrillation Acute congestive heart failure, unspecified heart failure type (CMS/HCC) Pure hypercholesterolemia (CMS/HCC) Pure hypercholesterolemia Neck pain- Primary Cervicalgia Sciatica of right side Degeneration of intervertebral disc of lumbar region with lower extremity pain Essential hypertension (CMS/HCC)- Primary Unspecified essential hypertension Chronic kidney disease, stage 3b (HCC) (CMS/HCC) Morbid (severe) obesity due to excess calories (CMS/HCC) Chronic obstructive pulmonary disease, unspecified (CMS/HCC) Body mass index (BMI) 36.0-36.9, adult Heart failure, unspecified (CMS/HCC) Heart failure, unspecified 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, lumbosacral region Primary osteoarthritis of right shoulder- Primary [facility] Diagnosis Primary insomnia Persistent disorder of initiating or maintaining sleep Chronic fatigue Other malaise and fatigue Fibromyalgia Unspecified myalgia and myositis Gastroesophageal reflux disease without esophagitis Esophageal reflux Atrial fibrillation, unspecified type (CMS/HCC) Routine general medical examination at health care facility- Primary Routine general medical examination at a health care facility Abnormal glucose tolerance test Impaired glucose tolerance test Benign essential hypertension (CMS/HCC) Essential hypertension, benign Medicare annual wellness visit, subsequent Essential hypertension (CMS/HCC) Unspecified essential hypertension Pure hypercholesterolemia (CMS/HCC) Pure hypercholesterolemia Fibromyalgia Unspecified myalgia and myositis Estrogen deficiency Other ovarian failure Smoker Tobacco use disorder Cervical spinal stenosis Spinal stenosis in cervical region Preoperative clearance- Primary Unspecified pre-operative examination Chronic atrial fibrillation (HCC) (CMS/HCC) Atrial fibrillation Acute congestive heart failure, unspecified heart failure type (CMS/HCC) Pure hypercholesterolemia (CMS/HCC) Pure hypercholesterolemia Neck pain- Primary Cervicalgia Sciatica of right side Degeneration of intervertebral disc of lumbar region with lower extremity pain Essential hypertension (CMS/HCC)- Primary Unspecified essential hypertension Chronic kidney disease, stage 3b (HCC) (CMS/HCC) Morbid (severe) obesity due to excess calories (CMS/HCC) Chronic obstructive pulmonary disease, unspecified (CMS/HCC) Body mass index (BMI) 36.0-36.9, adult Heart failure, unspecified (CMS/HCC) Heart failure, unspecified 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, lumbosacral region Preoperative clearance- Primary Unspecified pre-operative examination Osteoarthritis of spine with radiculopathy, lumbosacral region Primary insomnia Persistent disorder of initiating or maintaining sleep Chronic fatigue Other malaise and fatigue Fibromyalgia Unspecified myalgia and myositis documented in this encounter [id number] [facility] note* Diagnosis Encounter for pre-operative cardiovascular clearance Abnormal myocardial perfusion study Diastolic dysfunction Unspecified heart disease Shortness of breath Mitral valve insufficiency, unspecified etiology Primary hypertension Unspecified essential hypertension Mixed hyperlipidemia Stage 3a chronic kidney disease (Multi) Cigarette smoker Tobacco use disorder documented in this encounter [facility] Work Phone: Evaluation note* Diagnosis Primary insomnia Persistent disorder of initiating or maintaining sleep Chronic fatigue Other malaise and fatigue Fibromyalgia Unspecified myalgia and myositis Gastroesophageal reflux disease without esophagitis Esophageal reflux Atrial fibrillation, unspecified type (CMS/HCC) Routine general medical examination at health care facility- Primary Routine general medical examination at a health care facility Abnormal glucose tolerance test Impaired glucose tolerance test Benign essential hypertension (CMS/HCC) Essential hypertension, benign Medicare annual wellness visit, subsequent Essential hypertension (CMS/HCC) Unspecified essential hypertension Pure hypercholesterolemia (CMS/HCC) Pure hypercholesterolemia Fibromyalgia Unspecified myalgia and myositis Estrogen deficiency Other ovarian failure Smoker Tobacco use disorder Cervical spinal stenosis Spinal stenosis in cervical region Preoperative clearance- Primary Unspecified pre-operative examination Chronic atrial fibrillation (HCC) (CMS/HCC) Atrial fibrillation Acute congestive heart failure, unspecified heart failure type (CMS/HCC) Pure hypercholesterolemia (CMS/HCC) Pure hypercholesterolemia Neck pain- Primary Cervicalgia Sciatica of right side Degeneration of intervertebral disc of lumbar region with lower extremity pain Essential hypertension (CMS/HCC)- Primary Unspecified essential hypertension Chronic kidney disease, stage 3b (HCC) (CMS/HCC) Morbid (severe) obesity due to excess calories (CMS/HCC) Chronic obstructive pulmonary disease, unspecified (CMS/HCC) Body mass index (BMI) 36.0-36.9, adult Heart failure, unspecified (CMS/HCC) Heart failure, unspecified 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, lumbosacral region Preoperative clearance- Primary Unspecified pre-operative examination Osteoarthritis of spine with radiculopathy, lumbosacral region Primary insomnia Persistent disorder of initiating or maintaining sleep Chronic fatigue Other malaise and fatigue Fibromyalgia Unspecified myalgia and myositis Osteoarthritis of spine with radiculopathy, lumbosacral region documented in this encounter [facility] Narrative - Reported* Type Description Date Medical History Arthritis Medical History emphysema Medical History high cholesterol Medical History obesity Surgical History hip replacement Surgical History cholecystectomy Hospitalization History see above [employer] Other History of Present illness Narrative* Marina Moon MD - 07/16/2024 2:30 PM EDT Images from the original note were not included. Subjective Patient ID: Darrius Lama is a 74 y.o. female who presents for No chief complaint on file.. Pt still needs to do stress test and labs done Patient is supposed to get Shoulder Surgery with Dr. Leger We are awaiting Labs and Stress test Needs Follow up with staff interpreter Current Outpatient Medications on File Prior to Visit Medication Sig Dispense Refill zolpidem CR (Ambien CR) 12.5 MG ER tablet TAKE 1 TABLET BY MOUTH AT BEDTIME. 30 tablet 1 atorvastatin (Lipitor) 80 MG tablet TAKE 1 TABLET BY MOUTH ONCE A DAY 90 tablet 1 benzonatate (Tessalon) 100 MG capsule TAKE 1 CAPSULE BY MOUTH 3 TIMES DAILY NEEDED FOR COUGH FORUP TO 21 DAYS. DO NOT CRUSH OR CHEW 62 capsule 1 benzonatate (Tessalon) 200 MG capsule Take one capsule nightly. Do not crush or chew. (Patient not taking: Reported on 07/01/2024) 90 capsule 3 celecoxib (CeleBREX) 200 MG capsule Take 1 capsule (200 mg) by mouth Daily 90 capsule 3 cloNIDine (Catapres) 0.2 MG tablet Take 1 tablet (0.2 mg) by mouth in the morning. 100 tablet 3 doxepin (SINEquan) 10 MG capsule Take 10 mg by mouth at bedtime. esomeprazole (NexIUM) [address] capsule TAKE 1 CAPSULE BY MOUTH ONCE DAILY 100 capsule 3 fluconazole (Diflucan) 200 MG tablet Take 1 tablet (200 mg) by mouth 1 (one) time per week 4 tablet8 furosemide (Lasix) 20 MG tablet Take 1 tablet (20 mg) by mouth in the morning and 1 tablet (20 mg) before bedtime. 200 tablet 3 Linzess 145 MCG capsule losartan-hydroCHLOROthiazide (Hyzaar) 100-25 MG tablet Take 1 tablet by mouth 1 (one) time each dayat the same time. 100 tablet 3 montelukast (Singulair) 10 MG tablet Take 1 tablet (10 mg) by mouth Daily 100 tablet 3 tiZANidine (Zanaflex) 4 MG tablet Take 1 tablet (4 mg) by mouth at bedtime 100 tablet 3 triamcinolone (Kenalog) 0.1 % cream Apply topically 2 (two) times a day as needed (pain and swelling) 30 g 11 No current facility-administered medications on file prior to visit. Allergies Allergen Reactions Lisinopril Unknown Social History Tobacco Use Smoking status: Every Day Current packs/day: 1.00 Average packs/day: 1 pack/day for 51.6 years (51.6 ttl pk-yrs) Types: Cigarettes Start date: 11/22/1972 Smokeless tobacco: Never Tobacco comments: 11-20 cigarettes/day Substance Use Topics Alcohol use: Not Currently Comment: caffeine more than 4 cups per day Drug use: Never Family History Problem Relation Name Age of Onset Heart disease Mother Cancer Father Stroke Other Family history Cancer Other Family history Heart disease Other Family history Past Medical History: Diagnosis Date Arthritis Atrial fibrillation with RVR (CMS/HCC) Bronchitis Chronic kidney disease COPD (chronic obstructive pulmonary disease) (CMS/HCC) COVID-19 vaccine administered x 2 and booster (Moderna) Family history of cancer Fibromyalgia GERD (gastroesophageal reflux disease) Heart failure (CMS/HCC) Hernia, umbilical History of CT scan of abdomen 04/07/2022 CT scan of abdomen: Suspect mild colitis involvingthe distal transverse colon versus possible epiploic appendages. Large Hiatal Hernia History of CT scan of abdomen 01/30/2023 CT scan of the abdomen: Subtle 1.2 cm area of hypodensity within the head of the pancreas is concerning forpancreatic lesion. No pancratic duct dilatation at this time. MRI with contrast is recommended to further evaluate. Hepatic Steatosis. History of CT scan of chest 05/21/2020 mild emphysema, mild pulmonary fibrosis, Bilateral hilar and mediastinal lymphadenopathy, unknown etiology, moderate sized hiatal hernia History of CT scan of chest 01/12/2021 CT Scan of Chest: Stable mild/moderate emphysematous changes and pulmonary fibrosis, stable mild mediastinal and bilateral hilar lymphadenopathy, stable hiatal hernia History of echocardiogram 04/24/2020 Echo shows Normal LV function EF>55%, grade 2 DD, moderate Dilatation of left and right atrium, mild to moderate mitral regurg, mild TR, mild increased right sided pressures, mildly dilated descending aorta History of medical problems 02/16/2022 Grossly stable moderate emphysematous changes and pulmonary fibrosis. Stable mild B/L hilar lymphadenopathy, likely reactive. Grossly stable mild aneurysmal dilatation of the ascending aorta. Stable hiatal hernia History of MRI of lumbar spine 03/05/2023 MRI Lumbar Spine: Multilevel Degenerative Changes of the lumbar spine was most notably at L3-L4 where there is moderate spinal canal stenosis and moderate foraminal stenosis. Severe foraminal stenosis at L5-S1 on the right and L2-L3 on left. mild Moderate at Right L4-L5 and Left L1-L2 History of MRI of spine 08/29/2018 MRI of Lumbar Spine shows Moderate degenrative spondylosis and facet osteoarthritis resulting in central and foramnial stenosis at several levels History of transesophageal echocardiography (DANI) 02/24/2021 DANI shows EF 55% PAT's and isolated PVCs noted on exam, mild MR mild DD Hypertension (CMS/HCC) Measles Mumps Positive colorectal cancer screening using Cologuard test 08/25/2019 Abnormal cologuard positive Past Surgical History: Procedure Laterality Date CHOLECYSTECTOMY ELBOW SURGERY Right 1986 HERNIA REPAIR 2008 umbilical IR JOINT ASPIRATION Arthrocentesis of the right shoulder subacromial space MASS EXCISION right thigh TOTAL HIP ARTHROPLASTY Bilateral Visit Vitals BP 124/86 Pulse 92 Ht 5' 7 Wt 232 lb SpO2 100% BMI 36.34 kg/m Smoking Status Every Day BSA 2.23 m Review of Systems Constitutional: Negative for chills and fever. Respiratory: Negative for chest tightness and shortness of breath. Cardiovascular: Negative for chest pain. Musculoskeletal: Right Shoulder Neurological: Negative for speech difficulty and headaches. Psychiatric/Behavioral: Negative for behavioral problems. The patient is not nervous/anxious. Objective Physical Exam Assessment/Plan Problem List Items Addressed This Visit Acute congestive heart failure (CMS/HCC) No current symptoms Atrial fibrillation (CMS/HCC) In Sinus currently Preoperative clearance - Primary Patient needs to get labs and Stress test She is low risk for Cardiac Complications for a low cardiac procedure. No follow-ups on file. * Marina Moon MD - 07/16/2024 2:20 PM EDTAssociated Problem(s): Pure hypercholesterolemia (CMS/HCC) This is a chronic medical condition that is stable since last assessment. No changes in treatment are suggested at this time. Continue Current meds. * Marina Moon MD - 07/16/2024 2:19 PM EDTAssociated Problem(s): Acute congestive heart failure (CMS/HCC) No current symptoms * Marina Moon MD - 07/16/2024 2:19 PM EDTAssociated Problem(s): Atrial fibrillation (CMS/HCC) In Sinus currently * Marina Moon MD - 07/16/2024 2:15 PM EDTAssociated Problem(s): Preoperative clearance Patient needs to get labs and Stress test She is low risk for Cardiac Complications for a low cardiac procedure. 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 1. You were given conscious sedation. Do not operate a vehicle, power tools, make important decisions, or drink alcohol for 24 hours. You might be drowsy or light headed. Return to the Emergency Room if you have trouble breathing, walking or nausea and vomiting. 2. FOR BLEEDING: Apply continuous pressure to the site and call 911. 3. Operative Site Care: Keep the dressing clean and dry. You may change the dressing only if soiled or wet. You may remove the dressing the following morning. You may wash over the puncture site in the shower. If the puncture site is at the wrist no soaking for 3 days. Some bruising or slight swelling may be present. -Signs of infection are redness, warmth, swelling, getting more sore, colored drainage, fever or chills. -Should the arm or leg become cold, numb, blue or white, call the staff interpreter immediately. 4. ACTIVITY: You are advised to go directly home from the hospital. Restrict your activities for the rest of the day. Resume light or normal activities tomorrow. Do not engage in any activity that will stress the puncture site. Avoid heavy lifting (over 15 lbs.), straining or bending at the catheter site for 48 hours after discharge. If the puncture site is at the wrist do not manipulate wrist for 24 hours and no lifting more than 3 lbs for 3 days. 5. DIET:You may eat your regular diet when you desire. 6. MEDICATIONS: Resume your daily prescription schedule. Prescriptions may be sent with you if needed. Use as directed. When taking pain medications, you may experience dizziness or drowsiness. Do not drink alcohol or drive when taking pain medications. 7. If you should experience episodes of angina e.g. chest discomfort, heaviness, tightness, pressure, burning, with or without radiation to the neck, jaws, arms, or back- Use 1 Nitrostat under your tongue every 5-10 minutes, and up to 3 tablets. If no relief- Call 911 and go to the nearest Emergency Room. -Notify the office for recurrent angina, chest pain or other concerns. You may NOT drive yourself home! Follow the medication instructions provided on your discharge. If the dosages and instructions on this sheet differ from the dosage and instructions on the bottle, follow the instructions on the bottle. [facility] is not responsible for incorrect prescription information provided by the patient during their visit. Do not stop your medications without consulting your health care provider. Please take the list with you to your next doctor's appointment.[facility] Work Phone: Progress note No data available for this section [facility] Reason for Referral Status Reason Specialty Diagnoses / Procedures Referre d By Contact Referred To Contact Open Cardiology Diagnoses Ischemic chest pain (HCC) Shortness of breath Lightheaded Dizziness Mixed hyperlipidemia Tobacco abuse Family history of early CAD Over weight MARIBELL (obstructive sleep apnea) Atrial fibrillation, unspecified type (HCC) Chronic low back pain, unspecified back pain laterality, unspecified whether sciatica present Essential hypertension Abnormal EKG Procedures Referral to Cardiac Cath Cara Clarke MD [address] [place] [address] [place] [address] Status Reason Specialty Diagnoses / Procedures Referre d By Contact Referred To Contact Closed Cardiology Diagnoses Ischemic chest pain (HCC) Shortness of breath Lightheaded Dizziness Mixed hyperlipidemia Tobacco abuse Family history of early CAD Over weight MARIBELL (obstructive sleep apnea) Atrial fibrillation, unspecified type (HCC) Chronic low back pain, unspecified back pain laterality, unspecified whether sciatica present Essential hypertension Abnormal EKG Procedures Echo 2D w doppler w color complete Cara Clarke MD [address] [place] [address] [place] [address] [place] [address] Specialty Diagnoses / Procedures Referred By Contpayam t Referred To Contact Radiology Diagnoses Chest pressure Procedures Nuclear Stress Test CHG MYOCARDIAL SPECT MULTIPLE STUDIES Lacy Shoemaker MD [address] [facility] [address] [place] [address] Referral ID Status Reason Start Date Expiration Date V isits Requested Visits Authorized [id number] Authorized 07/11/2024 07/11/2025 5 5 Specialty Diagnoses / Procedures Referred By Contac t Referred To Contact Cardiology Diagnoses Essential hypertension Procedures Follow Up In Cardiology Lacy Shoemaker MD [address] [address] Lacy Shoemaker MD [address] [place] [id number] Referral ID Status Reason Start Date Expiration Date V isits Requested Visits Authorized [id number] Authorized 07/11/2024 07/11/2025 1 1 Specialty Diagnoses / Procedures Referred By Contac t Referred To Contact Diagnoses Atrial fibrillation, unspecified type (Multi) Procedures ECG 12 Lead Lacy Shoemaker MD [address] [address] Referral ID Status Reason Start Date Expiration Date V isits Requested Visits Authorized [id number] Authorized 07/11/2024 07/11/2025 1 1 Assessments Findings Encounter Date Encounter for Immunization 1st COVID Vaccine [facility] Findings Encounter Date Encounter for Immunization 2nd Dose- COV ID Vaccine with Loni Fabian PharmD 02/23/2021 Encounter for Immunization 1st COVID Vaccine [facility] Diagnosis Ischemic chest pain (HCC) Shortness of breath Lightheaded Dizziness and giddiness Dizziness Dizziness and giddiness Mixed hyperlipidemia Tobacco abuse Tobacco use disorder Family history of early CAD Family history of ischemic heart disease Over weight Overweight MARIBELL (obstructive sleep apnea) Obstructive sleep apnea (adult) (pediatric) Atrial fibrillation, unspecified type (HCC) Chronic low back pain, unspecified back pain laterality, unspecified whether sciatica present Essential hypertension Unspecified essential hypertension Abnormal EKG Nonspecific abnormal electrocardiogram (ECG) (EKG) Diagnosis Ischemic chest pain (HCC) Shortness of breath Lightheaded Dizziness and giddiness Dizziness Dizziness and giddiness Mixed hyperlipidemia Tobacco abuse Tobacco use disorder Family history of early CAD Family history of ischemic heart disease Over weight Overweight MARIBELL (obstructive sleep apnea) Obstructive sleep apnea (adult) (pediatric) Atrial fibrillation, unspecified type (HCC) Chronic low back pain, unspecified back pain laterality, unspecified whether sciatica present Essential hypertension Unspecified essential hypertension Abnormal EKG Nonspecific abnormal electrocardiogram (ECG) (EKG) Instructions Instructions not supported for this document type No Instructions Recorded Instructions not supported for this document type No Instructions Recorded History of Present Illness History of Present Illness not supported for this document type No History of Present Illness Recorded History of Present Illness not supported for this document type No History of Present Illness Recorded* Tiffany Downing RN - 02/25/2021 4:16 PM EDT Patient refusing to have procedure done today due to having responsibilities at home and it being so late in day. Dr Lamb to department and spoke with patient. Patient requesting to reschedule for another day. documented in this encounter Family History No Family History Records Found Relationship Condition Age at Onset Recorded Date/T hossein Not Specified No pertinent family history Unknown Relationship Condition Age at Onset Recorded Date/T hossein father Malignant neoplasm of lung Unknown mother Myocardial infarction Unknown brother Coronary artery disease Unknown sister Mental disability Unknown Review of System Review of Systems not supported for this document type No Review of Systems Recorded Review of Systems not supported for this document type No Review of Systems Recorded Physical Exam Physical Exam not supported for this document type No Physical Exam Recorded Physical Exam not supported for this document type No Physical Exam Recorded Advance Directives No Advanced Directives Records FoundDocuments on File Type Date Recorded 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-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 Advance Directive Response Recorded Date/ Time Advance Directives No April 05 11:09am Advance Directive Response Recorded Date/ Time Advance Directives No December 08, 2023 7:25am Advance Directive Response Recorded Date/ Time Advance Directives No March 28, 2024 9:11am Advance Directive Response Recorded Date/ Time Advance Directives No March 28, 2024 8:11am Advance Directive Response Recorded Date/ Time Advance Directives No December 03, 2024 11:46am Summary Purpose Chief Complaint and Reason for Visit Chief Complaint m48.062 Chief Complaint Referred By Carla Rosa For Sacroilit m48.062 ref Paty Fuentes Neck/shoulder pain CAUDAL EPIDURAL Reason for Visit Chronic pain Lumbar degenerative disc disease Lumbar radiculopathy Lumbosacral spondylosis Sacroiliitis Chief Complaint Referred By Carla [place] For Sacroilit m48.062 ref Paty Fuentes Neck/shoulder pain CAUDAL EPIDURAL Follow up after caudal epidural Reason for Visit Chronic pain Lumbar degenerative disc disease Lumbar radiculopathy Lumbosacral spondylosis Sacroiliitis Chronic pain Lumbar degenerative disc disease Lumbar radiculopathy Lumbosacral spondylosis Neck pain Right shoulder pain Sacroiliitis Chief Complaint Referred By Carla [place] For Sacroilit m48.062 ref Paty Fuentes Neck/shoulder pain CAUDAL EPIDURAL Follow up after caudal epidural m25.511 m54.2 Reason for Visit Chronic pain Lumbar degenerative disc disease Lumbar radiculopathy Lumbosacral spondylosis Sacroiliitis Chronic pain Lumbar degenerative disc disease Lumbar radiculopathy Lumbosacral spondylosis Neck pain Right shoulder pain Sacroiliitis Chief Complaint ref Paty Fuentes Neck/shoulder pain CAUDAL EPIDURAL Follow up after caudal epidural m25.511 m54.2 R LEG PAIN W/NUMBNESS Reason for Visit Chronic pain Lumbar degenerative disc disease Lumbar radiculopathy Lumbosacral spondylosis Sacroiliitis Chronic pain Lumbar degenerative disc disease Lumbar radiculopathy Lumbosacral spondylosis Neck pain Right shoulder pain Sacroiliitis Chronic pain Lumbar degenerative disc disease Lumbar radiculopathy Lumbosacral spondylosis Chief Complaint CAUDAL EPIDURAL Follow up after caudal epidural m25.511 m54.2 R LEG PAIN W/NUMBNESS right L3 and L4 transforaminal epidural inj f/u after right L3,4 LTR Reason for Visit Chronic pain Lumbar degenerative disc disease Lumbar radiculopathy Lumbosacral spondylosis Neck pain Right shoulder pain Sacroiliitis Chronic pain Lumbar degenerative disc disease Lumbar radiculopathy Lumbosacral spondylosis Neck pain Chronic pain Lumbar radiculopathy Lumbosacral spondylosis Chief Complaint R LEG PAIN W/NUMBNES S right L3 and L4 transforaminal epidural inj f/u after right L3,4 LTR Reschedule procedure Reason for Visit Chronic pain Lumbar degenerative disc disease Lumbar radiculopathy Lumbosacral spondylosis Neck pain Chronic pain Lumbar radiculopathy Lumbosacral spondylosis Cervical spondylosis Chronic pain Lumbosacral spondylosis Occipital neuralgia Right shoulder pain Low back pain Chief Complaint R LEG PAIN W/NUMBNES S right L3 and L4 transforaminal epidural inj f/u after right L3,4 LTR Reschedule procedure M25.511 Reason for Visit Chronic pain Lumbar degenerative disc disease Lumbar radiculopathy Lumbosacral spondylosis Neck pain Chronic pain Lumbar radiculopathy Lumbosacral spondylosis Cervical spondylosis Chronic pain Lumbosacral spondylosis Occipital neuralgia Right shoulder pain Chief Complaint R LEG PAIN W/NUMBNES S right L3 and L4 transforaminal epidural inj f/u after right L3,4 LTR Reschedule procedure M25.511 right G&L occipital NB Reason for Visit Chronic pain Lumbar degenerative disc disease Lumbar radiculopathy Lumbosacral spondylosis Neck pain Chronic pain Lumbar radiculopathy Lumbosacral spondylosis Cervical spondylosis Chronic pain Lumbosacral spondylosis Occipital neuralgia Right shoulder pain Chronic pain Occipital neuralgia Primary osteoarthritis of right shoulder Chief Complaint f/u to discuss chron ic pain Back Pain Back Pain Neck pain Back Pain Back Pain FOLLOW UP AFTER RIGHT SI re-evaluate low back pain Reason for Visit Chronic pain Lumbar degenerative disc disease Lumbar radiculopathy Lumbosacral spondylosis Chronic pain Lumbosacral spondylosis Occipital neuralgia Primary osteoarthritis of right shoulder Sacroiliitis Chronic pain Lumbosacral spondylosis Sacroiliitis Cervical spondylosis Chronic pain Lumbosacral spondylosis Chief Complaint Admit Date Back Pain July 17, 2024 10 :22am Back Pain July 17, 2024 11 :02am Neck pain August 27, 2024 10 :53am Back Pain September 04, 2024 9 :58am Back Pain September 04, 2024 1 1:24am FOLLOW UP AFTER RIGHT SI September 13, 2 024 12:57pm re-evaluate low back pain September 24, 2024 9:32am Back Pain October 09, 2024 9:56am Reason for Visit Admit Date Chronic pain August 27, 2024 10 :53am Lumbosacral spondylosis August 27 10:53am Occipital neuralgia August 27, 2024 10 :53am Primary osteoarthritis of right shoulder August 27, 2024 10:53am Sacroiliitis August 27, 2024 10 :53am Chronic pain September 13, 2024 1 2:57pm Lumbosacral spondylosis October 25th, 20 24 12:57pm Sacroiliitis September 13, 2024 1 2:57pm Cervical spondylosis September 24, 2024 9:32am Chronic pain September 24, 2024 9 :32am Lumbosacral spondylosis September 24 9:32am Sacroiliitis September 24, 2024 9 :32am Chief Complaint Admit Date Back Pain September 04, 2024 9 :58am Back Pain September 04, 2024 1 1:24am FOLLOW UP AFTER RIGHT SI September 13, 2 024 12:57pm re-evaluate low back pain September 24, 2024 9:32am Back Pain October 09, 2024 9:56am 2 week f/u after right lumbar RFA Decemb er 2023 10:56am 6 week f/u after right lumbar RFA Januar y 2024 11:09am Reason for Visit Admit Date Chronic pain September 13, 2024 1 2:57pm Lumbosacral spondylosis September 13 12:57pm Sacroiliitis September 13, 2024 1 2:57pm Cervical spondylosis September 24, 2024 9:32am Chronic pain September 24, 2024 9 :32am Lumbosacral spondylosis September 24 9:32am Sacroiliitis September 24, 2024 9 :32am Cervical spondylosis October 30, 2024 10:56am Chronic pain October 30, 2024 10:56am Lumbosacral spondylosis October 30, 024 10:56am Right shoulder pain October 30, 2024 10:56am Sacroiliitis October 30, 2024 10:56am Cervical spondylosis December 03, 2024 11:09am Chronic pain December 03, 2024 1 1:09am Lumbosacral spondylosis December 03 11:09am Sacroiliitis December 03, 2024 1 1:09am Chief Complaint Admit Date 2 week f/u after right lumbar RFA Decemb er 2023 10:56am 6 week f/u after right lumbar RFA Januar y 2024 11:09am SOB, Abnormal Myocardia Perfusion Study January 08, 2025 1:20pm Reason for Visit Admit Date Cervical spondylosis October 30, 2024 10:56am Chronic pain October 30, 2024 10:56am Lumbosacral spondylosis October 30, 2 024 10:56am Right shoulder pain October 30, 2024 10:56am Sacroiliitis October 30, 2024 10:56am Cervical spondylosis December 03, 2024 11:09am Chronic pain December 03, 2024 1 1:09am Lumbosacral spondylosis December 03 11:09am Sacroiliitis December 03, 2024 1 1:09am Chief Complaint Admit Date 2 week f/u after right lumbar RFA Decemb er 2023 10:56am 6 week f/u after right lumbar RFA Januar y 2024 11:09am SOB, Abnormal Myocardia Perfusion Study January 08, 2025 1:20pm Amb Documentation January 10, 2025 9:31am SOB, Abnormal Myocardia Perfusion Study January 13, 2025 9:20am Additional Source Comments Medical History (unrecognize d section and content) Includes: Medical History in patient's chartNo Medical History Recorded Includes: Medical History in patient's chartNo Medical History Recorded Evaluations & Outcomes (unre cognized section and content) Includes: Evaluations & Outcomes for active GoalsNo Outcomes Recorded Includes: Evaluations & Outcomes for active GoalsNo Outcomes Recorded Reason for Visit (unrecogniz ed section and content) Status Reason Specialty Diagnoses / Procedures Referre d By Contact Referred To Contact Closed Cardiology Diagnoses Ischemic chest pain (HCC) Shortness of breath Lightheaded Dizziness Mixed hyperlipidemia Tobacco abuse Family history of early CAD Over weight MARIBELL (obstructive sleep apnea) Atrial fibrillation, unspecified type (HCC) Chronic low back pain, unspecified back pain laterality, unspecified whether sciatica present Essential hypertension Abnormal EKG Procedures Echo 2D w doppler w color complete Cara Clarke MD [address] [place] [address] [place] [address] [place] [address] Status Reason Specialty Diagnoses / Procedures Referre d By Contact Referred To Contact Open Cardiology Diagnoses Ischemic chest pain (HCC) Shortness of breath Lightheaded Dizziness Mixed hyperlipidemia Tobacco abuse Family history of early CAD Over weight MARIBELL (obstructive sleep apnea) Atrial fibrillation, unspecified type (HCC) Chronic low back pain, unspecified back pain laterality, unspecified whether sciatica present Essential hypertension Abnormal EKG Procedures Referral to Cardiac Cath PA CATH PLMT L HRT & ARTS W/NJX & ANGIO IMG S&I Cara Clarke MD [address] [place] [address] [place] [address] Reason Comments Hypertension Reason Comments Neck Pain Reason Onset Date Comments Med Refill 10/09/2024 Reason Onset Date Comments Med Refill 10/21/2024 Reason Comments Med Refill Reason Comments New Patient Visit POC Dr. Leger Specialty Diagnoses / Procedures Referred By Contac t Referred To Contact Diagnoses Atrial fibrillation, unspecified type (Multi) Procedures ECG 12 Lead Lacy Shoemaker MD [address] [address] Referral ID Status Reason Start Date Expiration Date V isits Requested Visits Authorized [id number] Authorized 07/11/2024 07/11/2025 1 1 Reason Comments Pain Specialty Diagnoses / Procedures [facility] To Contact Orth[facility]edic Surgery Diagnoses Primary osteoarthritis of right shoulder Vito Leger, DO [address] [facility] [address] [place] [address] Phone: tel: fax: Vicky Dye, DO [address] [facility] [place] [address] Phone: tel: fax:[phone] Referral ID Status Reason Start Date Expiration Date V isits Requested Visits Authorized [id number] Closed Consult and Treat 09/26/2024 03/25/2025 1 1 Reason Onset Date Comments Med Refill 12/09/2024 Reason Comments Neck Pain Reason Comments surgical clearance Right shoulder surge ry Reason Comments Pre-op Clearance Shoulder and stress results Specialty Diagnoses / Procedures [facility] Referred To Contact Diagnoses Encounter for pre-operative cardiovascular clearance Procedures ECG 12 Lead Lacy Shoemaker MD [address] [address] Phone: tel: fax: Referral ID Status Reason Start Date Expiration Date V isits Requested Visits Authorized [id number] Authorized 01/06/2025 01/06/2026 1 1 Reason Onset Date Comments Med Refill 01/20/2025 INFORMATION SOURCE (unrecogn ized section and content) DATE CREATED AUTHOR 02/26/2021 [facility] DATE CREATED AUTHOR AUTHOR'S ORGANIZ ATION 04/09/2022 [facility] dical Specialist DATE CREATED AUTHOR AUTHOR'S ORGANIZ ATION 03/06/2023 [facility] DATE CREATED AUTHOR AUTHOR'S ORGANIZ ATION 11/05/2023 [facility] DATE CREATED AUTHOR AUTHOR'S ORGANIZ ATION 01/04/2025 [facility] DATE CREATED AUTHOR AUTHOR'S ORGANIZ ATION 01/07/2025 [facility] dical Specialists EPIC DATE CREATED AUTHOR AUTHOR'S ORGANIZ ATION 01/21/2025 [facility] y[facility] Group DATE CREATED AUTHOR AUTHOR'S ORGANIZ ATION 01/21/2025 [facility] DATE CREATED AUTHOR AUTHOR'S ORGANIZ ATION 01/28/2025 [facility] DATE CREATED AUTHOR AUTHOR'S ORGANIZ ATION 01/30/2025 [facility] Care Teams (unrecognized sec tion and content) Team Status: Active Member Role Status Dates Marina Moon MD Primary Care Provider Active Team Status: Inactive Member Role Status Dates Marina Moon MD Primary Care Provider Active S tart: May 28, 2024 End: May 28, 2024 Manjeet Coombs MD Attending Provider Active Sta rt: May 28, 2024 End: May 28, 2024 Team Status: Inactive Member Role Status Dates Marina Moon MD Primary Care Provider Active S tart: June 06, 2024 End: June 06, 2024 Manjeet Coombs MD Attending Provider Active Sta rt: June 06, 2024 End: June 06, 2024 Team Status: Inactive Member Role Status Dates Marina Moon MD Primary Care Provider Active S tart: June 19, 2024 End: June 19, 2024 Mnajeet Coombs MD Attending Provider Active Sta rt: June 19, 2024 End: June 19, 2024 Team Status: Inactive Member Role Status Dates Marina Moon MD Primary Care Provider Active S tart: July 03, 2024 End: July 03, 2024 Meenu Leach NP Attending Provider Active Start: July 03, 2024 End: July 03, 2024 Team Status: Inactive Member Role Status Nichelle Moon MD Primary Care Provider Active S tart: July 17, 2024 End: July 17, 2024 Manjeet Coombs MD Attending Provider Active Sta rt: July 17, 2024 End: July 17, 2024 Team Status: Active Member Role Status Nichelle Moon MD Primary Care Provider Active S tart: April 04, 2024 Manjeet Coombs MD Attending Provider Active Sta rt: April 04, 2024 Team Status: Inactive Member Role Status Nichelle Moon MD Primary Care Provider Active S tart: April 04, 2024 End: April 04, 2024 Manjeet Coombs MD Attending Provider Active Sta rt: April 04, 2024 End: April 04, 2024 Team Status: Inactive Member Role Status Nichelle Moon MD Primary Care Provider Active S tart: April 16, 2024 End: April 16, 2024 Manjeet Coombs MD Attending Provider Active Sta rt: April 16, 2024 End: April 16, 2024 Team Status: Inactive Member Role Status Nichelle Moon MD Primary Care Provider Active S tart: March 18, 2024 End: March 18, 2024 Manjeet Coombs MD Attending Provider Active Sta rt: March 18, 2024 End: March 18, 2024 Team Status: Active Member Role Status Nichelle Moon MD Primary Care Provider Active S tart: February 01, 2024 Manjeet Coombs MD Attending Provider Active Sta rt: February 01, 2024 Team Status: Inactive Member Role Status Nichelle Moon MD Primary Care Provider Active S tart: February 01, 2024 End: February 01, 2024 Manjeet Coombs MD Attending Provider Active Sta rt: February 01, 2024 End: February 01, 2024 Team Status: Inactive Member Role Status Nichelle Moon MD Primary Care Provider Active S tart: February 12, 2024 End: February 12, 2024 Manjeet Coombs MD Attending Provider Active Sta rt: February 12, 2024 End: February 12, 2024 Team Status: Inactive Member Role Status Dates Marina Moon MD Primary Care Provider Active S tart: December 06, 2023 End: December 06, 2023 SHABANA Betancourt Attending Provider Active Start: December 06, 2023 End: December 06, 2023 Fur Liner Relationship Specialty Start Date End Date Marina Moon MD [address] [facility] [address] [place] [address] PCP - Umang VARGHESE 11/20/21 Marina Moon MD [address] [facility] [address] [place] [address] PCP - General Family Medicine 05/25/23 Team Status: Inactive Member Role Status Dates SHABANA Betancourt Attending Provider Active Start: December 06, 2023 End: December 06, 2023 Team Status: Inactive Member Role Status Dates Marina Moon MD Primary Care Provider Active S tart: January 16, 2024 End: January 16, 2024 Manjeet Coombs MD Attending Provider Active Sta rt: January 16, 2024 End: January 16, 2024 Fur Liner Relationship Specialty Start Date End Date Marina Moon MD [address] [facility] [address] [place] [address] PCP Padmaja Heck MA 11/20/21 Marina Moon MD [address] [facility] [address] [place] [address] PCP - General Family Medicine 05/25/23 Team Status: Active Member Role Status Dates Marina Moon MD Primary Care Provider Active S tart: July 17, 2024 Manjeet Coombs MD Attending Provider, Other Provider Active Start: July 17, 2024 Team Status: Inactive Member Role Status Dates Marina Moon MD Primary Care Provider Active S tart: August 27, 2024 End: August 27, 2024 Manjeet Coombs MD Attending Provider Active Sta rt: August 27, 2024 End: August 27, 2024 Team Status: Inactive Member Role Status Dates Marina Moon MD Primary Care Provider Active S tart: September 04, 2024 End: September 04, 2024 Manjeet Coombs MD Attending Provider Active Sta rt: September 04, 2024 End: September 04, 2024 Team Status: Active Member Role Status Dates Marina Moon MD Primary Care Provider Active S tart: September 04, 2024 Manjeet Coombs MD Attending Provider, Other Provider Active Start: September 04, 2024 Team Status: Inactive Member Role Status Dates Marina Moon MD Primary Care Provider Active S tart: September 13, 2024 End: September 13, 2024 Manjeet Coombs MD Attending Provider Active Sta rt: September 13, 2024 End: September 13, 2024 Team Status: Inactive Member Role Status Dates Marina Moon MD Primary Care Provider Active S tart: September 24, 2024 End: September 24, 2024 Manjeet Coombs MD Attending Provider Active Sta rt: September 24, 2024 End: September 24, 2024 Fur Liner Relationship Specialty Start Date End Date Marina Moon MD [address] [facility] [address] [place] [address] PCP Padmaja Heck MA 11/20/21 Marina Moon MD [address] [facility] [address] [place] [address] PCP - General Family Medicine 05/25/23 Fur Liner Relationship Specialty Start Date End Date Marina Moon MD [address] [facility] [address] [place] [address] PCP - Umang VARGHESE 11/20/21 Marina Moon MD [address] [facility] [address] [place] [address] PCP - General Family Medicine 05/25/23 Fur Liner Relationship Specialty Start Date End Date Marina Moon MD [address] [facility] [address] [place] [address] PCP Padmaja Heck MA 11/20/21 Marina Moon MD [address] [facility] [address] [place] [address] PCP - General Family Medicine 05/25/23 Fur Liner Relationship Specialty Start Date End Date Marina Moon MD [address] [facility] [address] [place] [address] PCP - General Family Medicine 07/11/24 Fur Liner Relationship Specialty Start Date End Date Marina Moon MD [address] [facility] [address] [place] [address] PCP Padmaja Heck MA 11/20/21 Marina Moon MD [address] [facility] [address] [place] [address] PCP - General Family Medicine 05/25/23 Fur Liner Relationship Specialty Start Date End Date Marina Moon MD [address] [facility] [address] [place] [address] PCP Padmaja Heck MA 11/20/21 Marina Moon MD [address] [facility] [address] [place] [address] PCP - General Family Medicine 05/25/23 Fur Liner Relationship Specialty Start Date End Date Marina Moon MD [address] [facility] [address] [place] [address] PCP Padmaja Heck MA 11/20/21 Marina Moon MD [address] [facility] [address] [place] [address] PCP - General Family Medicine 05/25/23 Team Status: Inactive Member Role Status Dates Marina Moon MD Primary Care Provider Active S tart: October 09, 2024 End: October 09, 2024 Manjeet Coombs MD Attending Provider Active Sta rt: October 09, 2024 End: October 09, 2024 Fur Liner Relationship Specialty Start Date End Date Marina Moon MD [address] [facility] [address] [place] [address] PCP - Umang VARGHESE 11/20/21 Marina Moon MD [address] [facility] [address] [place] [address] PCP - General [facility] Medicine 05/25/23 Team Status: Active Member Role Status Dates Marina Moon MD Primary Care Provider Active S tart: October 09, 2024 Manjeet Coombs MD Attending Provider, Other Provider Active Start: October 09, 2024 Team Status: Inactive Member Role Status Dates Marina Moon MD Primary Care Provider Active S tart: October 30, 2024 End: October 30, 2024 Meenu Leach NP Attending Provider Active Start: October 30, 2024 End: October 30, 2024 Team Status: Inactive Member Role Status Dates Marina Moon MD Primary Care Provider Active S tart: December 03, 2024 End: December 03, 2024 Meenu Leach NP Active Start: 2024 End: December 03, 2024 Manjeet Coombs MD Attending Provider Active Sta rt: December 03, 2024 End: December 03, 2024 Fur Liner Relationship Specialty Start Date End Date Marina Moon MD [address] [facility] [address] [place] [address] PCP Padmaja Heck MA 11/20/21 Marina Moon MD [address] [facility] [address] [place] [address] PCP - General Family Medicine 05/25/23 Fur Liner Relationship Specialty Start Date End Date Marina Moon MD [address] [facility] [address] [place] [address] PCP - Umang VARGHESE 11/20/21 Marina Moon MD [address] [facility] [address] [place] [address] PCP - General Family Medicine 05/25/23 Fur Liner Relationship Specialty Start Date End Date Marina Moon MD [address] [facility] [address] [place] [address] PCP - Umang VARGHESE 11/20/21 Marina Moon MD [address] [facility] [address] [place] [address] PCP - General Family Medicine 05/25/23 Fur Liner Relationship Specialty Start Date End Date Marina Moon MD [address] [facility] [address] [place] [address] PCP - Umang VARGHESE 11/20/21 Marina Moon MD [address] [facility] [address] [place] [address] PCP - General Family Medicine 05/25/23 Fur Liner Relationship Specialty Start Date End Date Marina Moon MD [address] [facility] [address] [place] [address] PCP - General Family Medicine 05/25/23 Carla Alex, [place] Clinical Advocate [facility] 12/27/24 Fur Liner Relationship Specialty Start Date End Date Marina Moon MD [address] [facility] [address] [place] [address] PCP - General Family Medicine 05/25/23 Carla Alex, RN Clinical Advocate [facility] 12/27/24 Fur Liner Relationship Specialty Start Date End Date Marina Moon MD [address] [facility] [address] [place] [address] PCP - General Family Medicine 07/11/24 Team Status: Inactive Member Role Status Dates Marina Moon MD Primary Care Provider Active S tart: January 08, 2025 End: January 08, 2025 Jerman Becerra DO Attending Provider Active S tart: January 08, 2025 End: January 08, 2025 Team Status: Active Member Role Status Dates Marina Moon MD Primary Care Provider Active S tart: January 10, 2025 Irene Sheridan LPN Attending Provider Active S tart: January 10, 2025 Team Status: Inactive Member Role Status Dates Marina Moon MD Primary Care Provider Active S tart: January 13, 2025 End: January 13, 2025 Jerman Becerra DO Attending Provider Active S tart: January 13, 2025 End: January 13, 2025 Fur Liner Relationship Specialty Start Date End Date Marina Moon MD [address] [facility] [address] [place] [address] PCP - General Family Medicine 05/25/23 Carla Alex, RN Clinical Advocate [facility] 12/27/24 Goals (unrecognized section and content) Goals may be documented in a n alternate section FOR RECORDS PERTAINING TO PATIENTS WHO ARE OR HAVE BEEN ENROLLED IN A CHEMICAL DEPENDENCY/SUBSTANCEABUSE PROGRAM, SOME INFORMATION MAY BE OMITTED. This clinical summary was aggregated from multiple sources. Caution should be exercised in using it in the provision of clinical care. This summary normalizes information from multiple sources, and as a consequence, information in this document may materially change the coding, format and clinical context of patient data. In addition, data may be omitted in some cases. CLINICAL DECISIONS SHOULD BE BASED ON THE PRIMARY CLINICAL RECORDS. [facility] Our Security Team [facility]. provides no warranty or guarantee of the accuracy or completeness of information in this document.
[2025-01-31 12:29] VITALS: BP 158/109; PULSE 89; TEMP 37.1; O2SAT 93; BMI 39.2
--- NOTE | 2025-01-31 13:10 | ECG_ITS ---
[facility] Test Date: 2025-01-31 Pat Name: DARRIUS RAMOS Department: Room: - Gender: Female Psychiatric Registered Nurse: : 1950 Requested By: [id number] Order Number: [id number] Reading MD: MATILDA BONILLA M.D. Measurements Intervals [place] Rate: 85 P: 20 CA: 190 QRS: 38 QRSD: 78 T: 35 QT: 378 QTc: 420 Interpretive Statements 1100 Sinus rhythm 1570 with occasional ventricular premature complexes 8102 Low QRS voltage in chest leads 9140 abnormal rhythm ECG Compared to ECG 02/23/2021 10:14:02 Ventricular premature complex(es) now present Low QRS voltage now present Electronically Signed On 01-31-2025 20:51:43 EDT by MATILDA BONILLA M.D.
--- NOTE | 2025-01-31 13:11 | ED_ITS ---
Documented by User: BILLY Pugh 01/31/25 15:35 HPI HPI - General Adult General Chief complaint: Nausea/Vomiting/Diarrhea Stated complaint: POST OP COMPLICATIONS Time Seen by Provider: 01/31/25 13:05 Source: patient Mode of arrival: walk-in Limitations: no limitations History of Present Illness HPI narrative: Patient is a 75-year-old female who presents to the emergency department for 2- day history of shortness of breath.. Patient had right shoulder surgery performed at [facility] earlier this week. She states for the last 2 days she has had shortness of breath and nausea. She has had no fevers. She reports mild cough. She has no specific chest pain. She has a history of COPD but states it is not that bad . She has soreness to the right shoulder but is otherwise healing well and is also requesting a dressing change to the right shoulder while she is here in the ER. She states her right leg has been swollen since surgery. Related Data Home Medications ?Medication ?Instructions ?Recorded ?Confirmed atorvastatin 80 mg tablet 80 mg PO QPM 01/31/25 01/31/25 celecoxib 200 mg capsule 200 mg PO .QD 01/31/25 01/31/25 clonidine HCl 0.2 mg tablet 0.2 mg PO .QD 01/31/25 01/31/25 esomeprazole magnesium 40 mg 40 mg PO .QD 01/31/25 01/31/25 capsule,delayed release furosemide 20 mg tablet 20 mg PO QAM 01/31/25 01/31/25 losartan 100 1 tab PO .QD 01/31/25 01/31/25 mg-hydrochlorothiazide 25 mg tablet montelukast 10 mg tablet 10 mg PO QPM 01/31/25 01/31/25 Previous Rx's ?Medication ?Instructions ?Recorded albuterol sulfate 90 mcg/actuation 2 inh inhalation Q4H PRN shortness 01/31/25 aerosol inhaler of breath or wheezing #8.5 grams azithromycin 250 mg tablet See Rx Instructions PO .COMPLEX #6 01/31/25 (Zithromax Z-Galen) tabs dexamethasone 4 mg tablet 4 mg PO BID 5 days #10 tabs 01/31/25 Allergies Allergy/AdvReac Type Severity Reaction Status Date / Time No Known Drug Allergies Allergy Verified 01/31/25 12:29 Opioid HPI Opioid Management Most Recent Opioid Data: Last Pain Scale 3 01/31/25 15:24 01/31/25 Last MAR Pain Assessment 01/31/25 15:24 Review of Systems ROS Constitutional Reports: chills; Denies: fever Ears, nose, mouth, and throat Denies: throat pain or nasal congestion Cardiovascular Denies: chest pain Respiratory Reports: shortness of breath and cough Gastrointestinal Reports: nausea; Denies: abdominal pain, vomiting or diarrhea Musculoskeletal Reports: extremity swelling; Denies: back pain Integumentary/Breast Denies: rash Neurological Denies: numbness in extremities or weakness in extremities Hematologic/Lymphatic Denies: easy bruising or easy bleeding PFSH PFSH Social History Little interest or pleasure in doing things: not at all Feeling down, depressed, or hopeless: not at all Exam Narrative Exam Narrative: Gen.: Awake, alert, in no distress Head: Normocephalic, atraumatic ENT: Moist mucous membranes Respiratory: No respiratory distress, lungs clear bilaterally Cardio: Regular rate and rhythm Gastrointestinal: Abdomen is soft, nondistended and nontender to palpation Extremities: Right shoulder in sling from previous surgery with dressing intact. Right lower extremity with minimal edema compared to the left, no erythema. Calves are soft and nontender Psych: Normal mood and affect Neuro: No focal neuro deficit Skin: Warm, dry, intact Constitutional Vital Signs, click to edit/add: Last Vital Signs Temp 98.7 F 01/31/25 12:29 Pulse 89 01/31/25 12:29 Resp 24 H 01/31/25 12:29 BP 158/109 H 01/31/25 12:29 Pulse Ox 95 01/31/25 13:36 O2 Del Method Nasal Cannula 01/31/25 13:36 O2 Flow Rate 3 01/31/25 13:36 Course Vital Signs Vital signs: Vital Signs Temperature 98.7 F 01/31/25 12:29 Pulse Rate 89 01/31/25 12:29 Respiratory Rate 24 H 01/31/25 12:29 Blood Pressure 158/109 H 01/31/25 12:29 Pulse Oximetry 93 L 01/31/25 12:29 Oxygen Delivery Method Room Air 01/31/25 12:29 Temperature 98.7 F 01/31/25 12:29 Pulse Rate 89 01/31/25 12:29 Respiratory Rate 24 H 01/31/25 12:29 Blood Pressure 158/109 H 01/31/25 12:29 Pulse Oximetry 95 01/31/25 13:36 Oxygen Delivery Method Nasal Cannula 01/31/25 13:36 Oxygen Delivery Flow Rate 3 01/31/25 13:36 Medical Decision Making MDM Narrative Medical decision making narrative: On arrival, patient is not hypoxic, however she did develop hypoxia while in the ER. She was placed on oxygen by nasal cannula at 3 L. She remains awake and alert. She has no chest pain in the ER. EKG shows normal sinus rhythm. Respiratory swabs and chest x-ray were obtained prior to my evaluation of this patient. Chest x-ray was reviewed by the radiologist as possible bilateral infiltrates. She is COVID-positive. She was sent for CT angio of the chest to rule out pulmonary embolism given her recent surgery and COVID status. CT angio of the chest shows no evidence of PE or consolidated infiltrates. Likely chronic changes noted on CT that were seen on x-ray. Ultrasound was ordered for the right lower extremity as the patient states she has swelling in the right lower extremity since surgery. However after discussing with the patient that she will need to be admitted due to hypoxia and shortness of breath, she states that she would like to go home. She is pleasant and not argumentative or co mbative, she states she feels she will be fine at home and does not feel she needs to stay. She initially agreed to wait for the ultrasound of the right lower extremity but decided that she would like to go home at this time. She signed out AGAINST MEDICAL ADVICE, she understands she can return to the ER if symptoms change or worsen. She was given prescriptions for Decadron, albuterol inhaler. SUPERVISED APC VISIT, PHYSICIAN ATTESTATION: Based on the medical record the care appears appropriate. ? Medical Records Medical records reviewed: Yes I reviewed the patient's medical records Lab Data Lab results reviewed: Yes I reviewed the patient's lab results Labs: Lab Results 01/31/25 01/31/25 Range/Units 12:40 13:05 WBC 8.3 (4.0-11.0) 10^3/uL RBC 4.43 (4.20-5.40) 10^6/uL Hgb 13.0 (12.0-16.0) g/dL Hct 40.6 (36.0-48.0) % MCV 91.6 (81.0-99.0) fL MCH 29.3 (26.7-34.0) pg MCHC 32.0 (29.9-35.2) g/dL RDW 13.2 (11.0-15.0) % Plt Count 220 (150-450) 10^3/uL MPV 11.3 (9.5-13.5) fL Neut % (Auto) 73.7 (43.0-75.0) % Lymph % (Auto) 13.1 L (20.5-60.0) % [place] % (Auto) 5.4 (1.7-12.0) % Eos % (Auto) 7.0 (0.9-7.0) % Baso % (Auto) 0.4 (0.2-2.0) % Neut # (Auto) 6.1 (1.4-6.5) 10^3/uL Lymph # (Auto) 1.1 L (1.2-3.8) 10^3/uL [place] # (Auto) 0.5 (0.3-0.8) 10^3/uL Eos # (Auto) 0.6 (0.0-0.7) 10^3/uL Baso # (Auto) 0.0 (0.0-0.1) 10^3/uL Abs Immat Gran (auto) 0.03 (0.00-0.03) 10^3/uL Imm/Tot Granulo (auto) 0.4 (0.0-0.5) % PT 10.4 (9.0-11.6) sec INR 0.98 VBG pH 7.411 (7.330-7.430) VBG pCO2 49.9 (40.0-52.0) mmHg Sodium 137 (136-145) mmol/L Potassium 4.4 (3.5-5.1) mmol/L Chloride 99 (98-107) mmol/L Carbon Dioxide 31.7 (21.0-32.0) mmol/L Anion Gap 10.7 BUN 11.0 (7.0-18.0) mg/dL Creatinine 0.81 (0.55-1.02) mg/dL Est GFR ( Amer) >60 (>=60 mL/min/1.73m^2) Est GFR (Non-Af Amer) >60 (>=60 mL/min/1.73m^2) BUN/Creatinine Ratio 13.6 Glucose 137 H (74-106) mg/dL Lactate 1.2 (0.4-2.0) mmol/L Calcium 8.8 (8.5-10.1) mg/dL Total Bilirubin 0.6 (0.2-1.0) mg/dL AST 23 (15-37) U/L ALT 34 (14-59) U/L Alkaline Phosphatase 84 (46-116) U/L Troponin I High Sens 22.5 (4.0-51.3) pg/mL NT-Pro-B Natriuret Pep 1228.0 H* (<=900.0) pg/mL Total Protein 7.0 (6.4-8.2) g/dL Albumin 2.8 L (3.4-5.0) g/dL Globulin 4.2 g/dL Albumin/Globulin Ratio 0.7 Influenza Type A Ag Negative Influenza Type B Ag Negative SARS-CoV-2 Ag (CV2AG) Positive A (NEGATIVE) Imaging Data CT scan - chest: Attestation: I have reviewed the pertinent imaging results. ECG Data Attestation: I personally reviewed and interpreted this ECG as follows: (Normal sinus rhythm at a rate of 85 with occasional PVC, no acute ST elevation EKG reviewed by attending physician) Discharge Plan Discharge Stand Alone Forms: Portal Instructions Chief Complaint: Nausea/Vomiting/Diarrhea Clinical Impression: Shortness of breath, COVID-19, Hypoxia Patient Disposition: Left Against Medical Advice Time of Disposition Decision: 15:31 Condition: Fair Prescriptions / Home Meds: New azithromycin [Zithromax Z-Galen] 250 mg tablet See Rx Instructions .ROUTE .COMPLEX Qty: 6 0RF Rx Instructions: For 250 mg dose pack: take 500 mg today (day 1), then 250 mg for 4 days (days 2-5) dexamethasone 4 mg tablet 4 mg PO BID 5 Days Qty: 10 0RF albuterol sulfate 90 mcg/actuation HFA aerosol inhaler 2 inh inhalation Q4H PRN (Reason: shortness of breath or wheezing) Qty: 8.5 0RF No Action celecoxib 200 mg capsule 200 mg PO .QD atorvastatin 80 mg tablet 80 mg PO QPM losartan-hydrochlorothiazide 100-25 mg tablet 1 tab PO .QD clonidine HCl 0.2 mg tablet 0.2 mg PO .QD esomeprazole magnesium 40 mg capsule,delayed release(DR/EC) 40 mg PO .QD montelukast 10 mg tablet 10 mg PO QPM furosemide 20 mg tablet 20 mg PO QAM Print Language: Czech Instructions: How to Recover from COVID-19 at Home (ED) Referrals: MARINA MOON [Primary Care Provider] - 1 week Discharge Date/Time: 01/31/25 15:35 Documented by User: Igor Finley MD 01/31/25 16:37 HPI HPI - General Adult General Chief complaint: Nausea/Vomiting/Diarrhea Stated complaint: POST OP COMPLICATIONS Time Seen by Provider: 01/31/25 13:05 Related Data Home Medications ?Medication ?Instructions ?Recorded ?Confirmed atorvastatin 80 mg tablet 80 mg PO QPM 01/31/25 01/31/25 celecoxib 200 mg capsule 200 mg PO .QD 01/31/25 01/31/25 clonidine HCl 0.2 mg tablet 0.2 mg PO .QD 01/31/25 01/31/25 esomeprazole magnesium 40 mg 40 mg PO .QD 01/31/25 01/31/25 capsule,delayed release furosemide 20 mg tablet 20 mg PO QAM 01/31/25 01/31/25 losartan 100 1 tab PO .QD 01/31/25 01/31/25 mg-hydrochlorothiazide 25 mg tablet montelukast 10 mg tablet 10 mg PO QPM 01/31/25 01/31/25 Previous Rx's ?Medication ?Instructions ?Recorded albuterol sulfate 90 mcg/actuation 2 inh inhalation Q4H PRN shortness 01/31/25 aerosol inhaler of breath or wheezing #8.5 grams azithromycin 250 mg tablet See Rx Instructions PO .COMPLEX #6 01/31/25 (Zithromax Z-Galen) tabs dexamethasone 4 mg tablet 4 mg PO BID 5 days #10 tabs 01/31/25 Allergies Allergy/AdvReac Type Severity Reaction Status Date / Time No Known Drug Allergies Allergy Verified 01/31/25 12:29 Opioid HPI Opioid Management Most Recent Opioid Data: Last Pain Scale 3 01/31/25 15:24 01/31/25 Last MAR Pain Assessment 01/31/25 15:24 PFSH PFSH Social History Little interest or pleasure in doing things: not at all Feeling down, depressed, or hopeless: not at all Exam Constitutional Vital Signs, click to edit/add: Last Vital Signs Temp 98.7 F 01/31/25 12:29 Pulse 89 01/31/25 12:29 Resp 24 H 01/31/25 12:29 BP 158/109 H 01/31/25 12:29 Pulse Ox 95 01/31/25 13:36 O2 Del Method Nasal Cannula 01/31/25 13:36 O2 Flow Rate 3 01/31/25 13:36 Course Vital Signs Vital signs: Vital Signs Temperature 98.7 F 01/31/25 12:29 Pulse Rate 89 01/31/25 12:29 Respiratory Rate 24 H 01/31/25 12:29 Blood Pressure 158/109 H 01/31/25 12:29 Pulse Oximetry 93 L 01/31/25 12:29 Oxygen Delivery Method Room Air 01/31/25 12:29 Temperature 98.7 F 01/31/25 12:29 Pulse Rate 89 01/31/25 12:29 Respiratory Rate 24 H 01/31/25 12:29 Blood Pressure 158/109 H 01/31/25 12:29 Pulse Oximetry 95 01/31/25 13:36 Oxygen Delivery Method Nasal Cannula 01/31/25 13:36 Oxygen Delivery Flow Rate 3 01/31/25 13:36 Medical Decision Making MDM Narrative Medical decision making narrative: On arrival, patient is not hypoxic, however she did develop hypoxia while in the ER. She was placed on oxygen by nasal cannula at 3 L. She remains awake and alert. She has no chest pain in the ER. EKG shows normal sinus rhythm. Respiratory swabs and chest x-ray were obtained prior to my evaluation of this patient. Chest x-ray was reviewed by the radiologist as possible bilateral infiltrates. She is COVID-positive. She was sent for CT angio of the chest to rule out pulmonary embolism given her recent surgery and COVID status. CT angio of the chest shows no evidence of PE or consolidated infiltrates. Likely chronic changes noted on CT that were seen on x-ray. Ultrasound was ordered for the right lower extremity as the patient states she has swelling in the right lower extremity since surgery. However after discussing with the patient that she will need to be admitted due to hypoxia and shortness of breath, she states that she would like to go home. She is pleasant and not argumentative or combative, she states she feels she will be fine at home and does not feel she needs to stay. She initially agreed to wait for the ultrasound of the right lower extremity but decided that she would like to go home at this time. She signed out AGAINST MEDICAL ADVICE, she understands she can return to the ER if symptoms change or worsen. She was given prescriptions for Decadron, albuterol inhaler. SUPERVISED APC VISIT, PHYSICIAN ATTESTATION: Based on the medical record the care appears appropriate. Patient has a functional decision-making capacity to sign out AGAINST MEDICAL ADVICE. Patient alert and orient x 3, not under the influence of any alcohol or drugs. Shared decision making was done with patient and Gin Ford PA-C ? Lab Data Labs: Lab Results 01/31/25 01/31/25 Range/Units 12:40 13:05 WBC 8.3 (4.0-11.0) 10^3/uL RBC 4.43 (4.20-5.40) 10^6/uL Hgb 13.0 (12.0-16.0) g/dL Hct 40.6 (36.0-48.0) % MCV 91.6 (81.0-99.0) fL MCH 29.3 (26.7-34.0) pg MCHC 32.0 (29.9-35.2) g/dL RDW 13.2 (11.0-15.0) % Plt Count 220 (150-450) 10^3/uL MPV 11.3 (9.5-13.5) fL Neut % (Auto) 73.7 (43.0-75.0) % Lymph % (Auto) 13.1 L (20.5-60.0) % [place] % (Auto) 5.4 (1.7-12.0) % Eos % (Auto) 7.0 (0.9-7.0) % Baso % (Auto) 0.4 (0.2-2.0) % Neut # (Auto) 6.1 (1.4-6.5) 10^3/uL Lymph # (Auto) 1.1 L (1.2-3.8) 10^3/uL [place] # (Auto) 0.5 (0.3-0.8) 10^3/uL Eos # (Auto) 0.6 (0.0-0.7) 10^3/uL Baso # (Auto) 0.0 (0.0-0.1) 10^3/uL Abs Immat Gran (auto) 0.03 (0.00-0.03) 10^3/uL Imm/Tot Granulo (auto) 0.4 (0.0-0.5) % PT 10.4 (9.0-11.6) sec INR 0.98 VBG pH 7.411 (7.330-7.430) VBG pCO2 49.9 (40.0-52.0) mmHg Sodium 137 (136-145) mmol/L Potassium 4.4 (3.5-5.1) mmol/L Chloride 99 (98-107) mmol/L Carbon Dioxide 31.7 (21.0-32.0) mmol/L Anion Gap 10.7 BUN 11.0 (7.0-18.0) mg/dL Creatinine 0.81 (0.55-1.02) mg/dL Est GFR ( Amer) >60 (>=60 mL/min/1.73m^2) Est GFR (Non-Af Amer) >60 (>=60 mL/min/1.73m^2) BUN/Creatinine Ratio 13.6 Glucose 137 H (74-106) mg/dL Lactate 1.2 (0.4-2.0) mmol/L Calcium 8.8 (8.5-10.1) mg/dL Total Bilirubin 0.6 (0.2-1.0) mg/dL AST 23 (15-37) U/L ALT 34 (14-59) U/L Alkaline Phosphatase 84 (46-116) U/L Troponin I High Sens 22.5 (4.0-51.3) pg/mL NT-Pro-B Natriuret Pep 1228.0 H* (<=900.0) pg/mL Total Protein 7.0 (6.4-8.2) g/dL Albumin 2.8 L (3.4-5.0) g/dL Globulin 4.2 g/dL Albumin/Globulin Ratio 0.7 Influenza Type A Ag Negative Influenza Type B Ag Negative SARS-CoV-2 Ag (CV2AG) Positive A (NEGATIVE) Discharge Plan Discharge Stand Alone Forms: Portal Instructions Chief Complaint: Nausea/Vomiting/Diarrhea Clinical Impression: Shortness of breath, COVID-19, Hypoxia Patient Disposition: Left Against Medical Advice Time of Disposition Decision: 15:31 Condition: Fair Prescriptions / Home Meds: New azithromycin [Zithromax Z-Galen] 250 mg tablet See Rx Instructions .ROUTE .COMPLEX Qty: 6 0RF Rx Instructions: For 250 mg dose pack: take 500 mg today (day 1), then 250 mg for 4 days (days 2-5) dexamethasone 4 mg tablet 4 mg PO BID 5 Days Qty: 10 0RF albuterol sulfate 90 mcg/actuation HFA aerosol inhaler 2 inh inhalation Q4H PRN (Reason: shortness of breath or wheezing) Qty: 8.5 0RF No Action celecoxib 200 mg capsule 200 mg PO .QD atorvastatin 80 mg tablet 80 mg PO QPM losartan-hydrochlorothiazide 100-25 mg tablet 1 tab PO .QD clonidine HCl 0.2 mg tablet 0.2 mg PO .QD esomeprazole magnesium 40 mg capsule,delayed release(DR/EC) 40 mg PO .QD montelukast 10 mg tablet 10 mg PO QPM furosemide 20 mg tablet 20 mg PO QAM Print Language: Czech Instructions: How to Recover from COVID-19 at Home (ED) Referrals: MARINA MOON [Primary Care Provider] - 1 week Discharge Date/Time: 01/31/25 15:35
[2025-01-31 13:22] LABS: Influenza Virus A Antigen Negative; Influenza Virus B Antigen Negative
[2025-01-31] MEDS: ONDANSETRON PF 4 MG/2 ML VIAL IV (13:22)
[2025-01-31 13:23] LABS: Internal Control Within Normal Limits; SARS-CoV-2 Ag POSITIVE (NEGATIVE)
[2025-01-31 13:31] LABS: Basophils Percent Auto 0.4 % (0.2-2.0); Eosinophils Absolute Auto 0.6 10^3/uL (0.0-0.7); Hematocrit 40.6 % (36.0-48.0); Immature Granulocytes Abs Auto 0.03 10^3/uL (0.00-0.03); Immature Granulocytes Pct Auto 0.4 % (0.0-0.5); Lymphocytes Absolute Auto 1.1 10^3/uL (1.2-3.8); Lymphocytes Percent Auto 13.1 % (20.5-60.0); Mean Corpuscular Hemoglobin 29.3 pg (26.7-34.0); Mean Corpuscular Volume 91.6 fL (81.0-99.0); Mean Platelet Volume 11.3 fL (9.5-13.5); Monocytes Absolute Auto 0.5 10^3/uL (0.3-0.8); Monocytes Percent Auto 5.4 % (1.7-12.0); Neutrophils Absolute Auto 6.1 10^3/uL (1.4-6.5); Neutrophils Percent Auto 73.7 % (43.0-75.0); PCO2 VBG 49.9 mmHg (40.0-52.0); Platelet Count 220 10^3/uL (150-450); Red Blood Count 4.43 10^6/uL (4.20-5.40); Red Cell Distribution Width 13.2 % (11.0-15.0); White Blood Count 8.3 10^3/uL (4.0-11.0); pH VBG 7.411 (7.330-7.430)
[2025-01-31 13:36] VITALS: O2SAT 80; O2SAT 95
[2025-01-31 13:44] LABS: INR 0.98; Prothrombin Time 10.4 sec (9.0-11.6)
[2025-01-31 13:49] LABS: Lactate/Lactic Acid 1.2 mmol/L (0.4-2.0)
[2025-01-31 13:58] LABS: Alanine Aminotransferase 34 U/L (14-59); Albumin Globulin Ratio 0.7; Albumin Level 2.8 g/dL (3.4-5.0); Alkaline Phosphatase 84 U/L (46-116); Anion Gap 10.7; Aspartate Amino Transferase 23 U/L (15-37); BUN Creatinine Ratio 13.6; Bilirubin Total 0.6 mg/dL (0.2-1.0); Calcium 8.8 mg/dL (8.5-10.1); Carbon Dioxide 31.7 mmol/L (21.0-32.0); Chloride 99 mmol/L (98-107); Estimated GFR (African America >60 (>=60 mL/min/1.73m^2); Estimated GFR (Non-African Ame >60 (>=60 mL/min/1.73m^2); Globulin 4.2 g/dL; Glucose 137 mg/dL (74-106); Potassium 4.4 mmol/L (3.5-5.1); Sodium 137 mmol/L (136-145); Troponin I High Sensitivity 22.5 pg/mL (4.0-51.3)
[2025-01-31] MEDS: ACETAMINOPHEN 325 MG TABLET 650 MG PO (15:24)
== END 2025-01-31 15:35 | disposition left against medical advice (07) ==
PROVIDERS: Physician Assistant; Emergency Provider Emergency Medicine; PCP Family Medicine
DX: U07.1 COVID-19 (principal); R06.02 Shortness of breath; R09.02 Hypoxemia; Z53.29 Procedure and treatment not carried out because of patient's decision for other reasons; Z98.890 Other specified postprocedural states; J44.9 Chronic obstructive pulmonary disease, unspecified; R11.0 Nausea; R22.41 Localized swelling, mass and lump, right lower limb
CPT/HCPCS: 36415; 71046; 71275; 80053; 82800; 83605; 83880; 84484; 85025; 85610; 87804; 87811; 93005; 96374; 99285; J2405; Q9967